=== PATIENT | female | born 1950 | race Caucasian/White ===

== ENCOUNTER → 2023-08-25 | Outpatient (CLI) | payer MEDICARE, SELFPAY ==
--- OUTSIDE RECORDS SUMMARY | 2023-08-25 11:32 | XMS RPT_ITS | CCD ---
Author Name Unknown Address [address] [place] [address] Organization [facility] Care Team Providers Care Tick Eradicator Name Role Phone Dustin [place] MD Primary Care Provider RENEE GARCIA Attending Unavailable DUSTIN [place] Primary Care UnavailSD Pruett Attending Unavailable DUSTIN [place] Primary Care UnavailRENEE Steve Referring Unavailable DUSTIN [place] Primary Care GUIDO Jones Referring Unavailable LJ SANTILLAN Attending Unavailable DUSTIN [place] Primary Care UnavailGUIDO Seymour Attending Unavailable DUSTIN [place] Primary Care UnavailGUIDO Seymour Attending Unavailable Medications Current Medications Medication Drug Class(es) Dates Sig (Normalized) Sig (Original) lidocaine 50 mg/ml topical cream (1 source) Antiarrhythmic, Amide Local Anesthetic Start: 06-12-2023 End: 06-14-2023 lidocaine (ANECREAM5) crea Apply to affected area as directed for 2 days. Apply to procedure site the evening before and morning of procedure 15 g 0 06/12/2023 06/14/2023 Active Completed/Discontinued Medications Medication Drug Class(es) Dates Sig (Normalized) Sig (Original) acetaminophen 325 mg oral tablet (6 sources) take 2 tablets by mouth every six hours as needed acetaminophen (TYLENOL) 325 mg tablet Take 650 mg by mouth every 6 hours as needed. 0 Active Problems Active Problems Problem Classification Problem Date Documented Da te Episodic/Chronic Melanomas of skin (6 sources) Malignant melanoma of skin of trunk; Translations: [Malignant melanoma of other part of trunk] Onset: 08-23-2023 06-08-2023 Chronic Other diseases of veins and lymphatics (3 sources) Lymphedema; Translations: [Lymphedema, not elsewhere classified] 06-12-2023 Chronic Past or Other Problems Problem Classification Problem Date Documented Da te Episodic/Chronic Joint disorders and dislocations; trauma-related (6 sources) Tear of medial meniscus of knee; Translations: [Tear of medial cartilage or meniscus of knee, current] Onset: 12-20-2012 12-20-2012 Episodic Other and unspecified benign neoplasm (1 source) Melanocytic nevi, unspecified; Translations: [Change in mole] Onset: 05-22-2023 Episodic Other non-traumatic joint disorders (6 sources) Pain in unspecified knee; Translations: [Pain in joint, lower leg] Onset: 11-15-2012 11-15-2012 Episodic Results Test Name Value Interpretation Reference Range Facil ity Vital Signs Date Time Vital Sign Value Performing Clinician Lissy reyes 08-07-2023 13:35-0500 Body height 162.6 cm Renee Garcia PA-C Work Phone: [facility] 08-07-2023 13:35-0500 Diastolic blood pressure 96 mm[Hg] Renee Garcia PA-C Work Phone: [facility] 08-07-2023 13:35-0500 Heart rate 68 /min Renee Garcia PA-C Work Phone: [facility] 08-07-2023 13:35-0500 SaO2% (BldA) [Mass fraction] 98 % Renee Martinesnn PA-C Work Phone: [facility] 08-07-2023 13:35-0500 Systolic blood pressure 158 mm[Hg] Renee Garcia PA-C Work Phone: [facility] 07-28-2023 19:30-0500 Diastolic blood pressure 86 mm[Hg] Lj Santillan MD Work Phone: [facility] 07-28-2023 19:30-0500 Heart rate 94 /min Lj Santillan MD Work Phone: [facility] 07-28-2023 19:30-0500 Respiratory rate 18 /min Lj Santillan MD Work Phone: [facility] 07-28-2023 19:30-0500 SaO2% (BldA) [Mass fraction] 98 % Lj Santillan MD Work Phone: [facility] 07-28-2023 19:30-0500 Systolic blood pressure 166 mm[Hg] Lj Santillan MD Work Phone: [facility] 07-28-2023 19:00-0500 Body temperature 97 [degF] Lj Santillan MD Work Phone: [facility] 07-28-2023 09:23-0500 Body weight 72.6 kg Lj Santillan MD Work Phone: [facility] 06-12-2023 13:56-0400 Body height 162.6 cm Lj Santillan MD Work Phone: [facility] 06-12-2023 13:56-0400 Body weight 73.03 kg Lj Santillan MD Work Phone: [facility] 06-12-2023 13:56-0400 Diastolic blood pressure 96 mm[Hg] Lj Santillan MD Work Phone: [facility] 06-12-2023 13:56-0400 Heart rate 85 /min jL Santillan MD Work Phone: [facility] 06-12-2023 13:56-0400 SaO2% (BldA) [Mass fraction] 97 % Lj Santillan MD Work Phone: [facility] 06-12-2023 13:56-0400 Systolic blood pressure 178 mm[Hg] Lj Santillan MD Work Phone: [facility] 05-29-2023 14:44-0400 Body height 162.6 cm Guido De Leon MD Work Phone: [facility] 05-29-2023 14:44-0400 Body temperature 97.7 [degF] Guido De Leon MD Work Phone: [facility] 05-29-2023 14:44-0400 Body weight 72.58 kg Guido De Leon MD Work Phone: [facility] 05-29-2023 14:44-0400 Diastolic blood pressure 84 mm[Hg] Guido De Leon MD Work Phone: [facility] 05-29-2023 14:44-0400 Heart rate 90 /min Guido De Leon MD Work Phone: [facility] 05-29-2023 14:44-0400 SaO2% (BldA) [Mass fraction] 97 % Guido De Leon MD Work Phone: [facility] 05-29-2023 14:44-0400 Systolic blood pressure 136 mm[Hg] Guido De Leon MD Work Phone: [facility] Encounters Encounter Date Encounter Type Care Provider Facility Start: 08-23-2023 End: 08-23-2023 ambulatory SD ENCINAS Facility:[facility] Start: 08-07-2023 End: 08-07-2023 ambulatory RENEE GARCIA Facility:[facility] Start: 08-07-2023 End: 08-07-2023 Patient encounter procedure Renee Garcia PA-C Work Phone: [facility] Procedures Date Procedure Procedure Detail Performing Clinician Start: 07-28-2023 Ecg routine ecg w/le ast 12 lds i&r only Rayray Kumari DO Work Phone: Start: 05-29-2023 Follow-up visit Follow Up GUIDO DE LEON Plan of Treatment Date Care Activity Detail Author Start: 04-28-2023 Influenza vaccination Influenza Vaccine (#1) [facility] Start: 08-28-2022 Advance Directive Discussion Advance Directive Discussion [facility] Start: 08-28-2022 Depression Assessment Depression Assessment [facility] Start: 01-08-2016 Diabetes Screening Diabetes Screening [facility] Start: 2014 Bone Density Screening Bone Density Screening [facility] Start: 2014 Pneumococcal Vaccine: 65+ (1 - PCV) Pneumococcal Vaccine: 65+ (1 - PCV) [facility] Start: 2009 RSV Vaccine (1 - 1-dose 60+ series) RSV Vaccine (1 - 1-dose 60+ series) [facility] Start: 1999 Shingrix Vaccine (1 of 2) Shingrix Vaccine (1 of 2) [facility] Start: 1994 Cologuard (FIT-DNA) Cologuard (FIT-DNA) [facility] Start: 1994 Colonoscopy Colonoscopy [facility] Start: 1994 Colorectal Cancer Screening Colorectal Cancer Screening [facility] Start: [address] Colonography [facility] Start: 1994 Fecal Occult Blood Fecal Occult Blood [facility] Start: 1994 Lipid 1996 panel - Serum or Plasma Lipid Screening [facility] Start: 1994 Sigmoidoscopy Sigmoidoscopy [facility] Start: 1989 Mammography Mammogram Screening [facility] Start: 1968 Urine microalbumin profile DTaP,Tdap,Td Vaccine (1 - Tdap) [facility] Start: 1967 Hepatitis C Screening Hepatitis C Screening [facility] Start: 02-16-1950 Covid-19 Vaccine (#1) Covid-19 Vaccine (#1) [facility] ECG COMPLETE ECG COMPLETE ECG STAT 07/28/2023 7:09 PM EST [facility] Work Phone: End: 07-13-2024 Lymphatics & lymph nodes imaging NM LYMPH NODE IMAGING Radiology Routine Lymphedema 1 Occurrences starting 06/12/2023 until 07/13/2024 [facility] Work Phone: Payers Date Payer Category Payer Medicare [id number] 2021 Unknown MMO MMO MEDICARE SUPPLEMENT [id number] 2021-Present [phone] [address] [place] [address] Indemnity [id number] 2014 Medicare MEDICARE MEDICAR E A AND B [id number] 2014-Present [phone] [address] [address] [place] [address] Medicare [id number] 2014 Medicare [id number] Social History Date Type Detail Facility Start: 01-07-2013 Tobacco smoking stat us NMIS Never smoked tobacco [facility] Start: 01-07-2013 Tobacco use and exposure Smoke less tobacco non-user [facility] Start: 05-29-2023 End: 07-28-2023 Alcohol intake Current drinker of alcohol (finding) [facility] Start: 05-22-2023 End: 05-29-2023 History of Social function [facility] Start: 05-22-2023 End: 05-29-2023 Tobacco use panel [facility] National Score (1-10 0), lower number is lower risk 75 [facility] Start: 1950 Sex Assigned At Not on file [facility] Clinical Notes 05-22-2023 to 08-23-2023 Renee Garcia PA-C - 08/07/2023 1:42 PM Josh Chavez RN - 07/28/2023 7:03 PM Lj Joya MD - 07/28/2023 2:08 PM ESTTelephone Encounter - Keily Gray - 06/23/2023 2:00 PM EDT Note Date & Type Note Facility 08-23-2023 Note HNO ID: [id number] Author: Sd Encinas MD Service: ? Author Type: Physician Type: Progress Notes Filed: 08/23/2023 4:26 PM Note Text: HISTORY OF PRESENT ILLNESS: Jodi Membreno is a 73 year old female mole on back, started to itch and bleed. Saw Dr De Leon biopsy showed melanoma. Wide excision and SLNB done 07-28-23 showed [id number] cancer Feels ok, on ROS mentions some double vision CLINICAL IMPRESSION: Melanoma stage IIC RECOMMENDATION/PLAN: 1. Adjuvant pembrolizumab 1 year 2. MRI brain Written and verbal health teaching given to patient, patient verbalizes understanding and agrees with treatment plan. PAST MEDICAL HISTORY Diagnosis Date Abnormal mammogram, unspecified left breast 2006 STEREOTACTIC Malignant melanoma (HCC) 06/12/2023 PONV (postoperative nausea and vomiting) PAST SURGICAL HISTORY Procedure Laterality Date PAST SURGICAL HISTORY OF Right arm REVJ TOT KNEE ARTHRP FEMANDENTIRE TIBIAL COMPONE Knee replacement PARTIAL LEFT 2004 SKIN BX, 1 LESION 05/22/2023 Atypical skin lesion to back STEREOTACTIC CORE BIOPSY 07/29/2009 left breast FAMILY HISTORY Problem Relation Age of Onset Ischemic Heart Disease Mother Dementia Mother Heart Father Social History Tobacco Use Smoking status: Never Smokeless tobacco: Never Vaping Use Vaping Use: Never used Substance Use Topics Alcohol use: Yes Comment: wine once a month Drug use: No ALLERGIES: ALLERGIES No Known Allergies CURRENT OUTPATIENT MEDICATIONS: cholecalciferol, vitamin D3, (VITAMIN D3 ORAL) Take 1 tablet by mouth once daily. acetaminophen (TYLENOL) 325 mg tablet Take 650 mg by mouth every 6 hours as needed. iv contrast (will be provided with radiology test) CT Chest ABD/PEL-Inject, intravenously, once for 1 dose.No IV access, insert saline lock prior to the beginning of sedation, infusion, injection of imaging exam. Discontinue saline lock post exam. If Pt. has a central line or IVAD, may access for administration according to line specific nursing protocol. Once exam is complete flush line and de-access according to line specific nursing protocol in the CT contrast administration guidelines link. enteric contrast (will be provided with radiology test) For CT CHESTABD/PEL W IVCON Routine order Administer, As Directed One Time Only, via Oral, Rectal, both Oral and Rectal, Enteric Tube, Stoma or Indwelling Catheter, Enteric Contrast as designated per enteric contrast guidelines REVIEW OF SYSTEMS: GENERAL: No fever, night sweats, weight loss or malaise. All other reviewed and negative other than HPI. PHYSICAL EXAMINATION: VITAL SIGNS: BP 180/84 Pulse 85 Temp (Src) 98.7 (Temporal) Ht 5' 2 (1.58m) Wt 168 lb 8 oz (76.4kg) SpO2 98% LMP 01/07/2003 BMI 30.81 kg/(m2). GENERAL APPEARANCE: Well appearing, in no acute distress, alert and oriented x3, well-hydrated, well nourished. I spent a total of 60 minutes on the date of the service which included preparing to see the patient, [id number] patient care, completing clinical documentation, obtaining and/or reviewing separately obtained history, counseling and educating the patient/family/caregiver, ordering medications, tests, or procedures, communicating with other HCPs (not separately reported), independently interpreting results (not separately reported), communicating results to the patient/family/caregiver, and care coordination (not separately reported). Electronically Signed: Sd Encinas MD August 23, 2023 12:52 PM [facility] 08-07-2023 Note HNO ID: [id number] Author: Renee Garcia PA-C Service: ? Author Type: Physician Toggler Type: Progress Notes Filed: 08/07/2023 2:33 PM Note Text: Renee Garcia PA-C [facility] and Surgical Oncology 1 [facility], [place] [id number] RUBY Membreno is a 72 year old female here for a post op visit. The patient is 10 days s/p wide local excision and sentinel lymph node biopsy. She is keeping her back incision covered with gauze, minimal output noted on gauze. No swelling noted at axillary incision. No fever/chills. The ROS, medical, surgical, family, and social history were reviewed by Renee Garcia PA-C OBJECTIVE BP 158/96 Pulse 68 Ht 162.6 cm (5' 4 ) LMP 01/07/2003 SpO2 98% BMI 27.47 kg/m? No weight on file for this encounter. Physical Exam: General: Patient seated in no acute distress Respiratory: Breathing comfortably on room air Cardiovascular: Regular rate Skin: Back incision intact without erythema, edema, or discharge. Sutures intact. Left Axilla incision intact without erythema, edema, or discharge Neurologic: She is alert and oriented to person, place, and time. Plan Malignant melanoma of skin The patient is recovering as expected, no evidence of infection or wound complications at this time. Her pathology is still pending, will call her with results and to discuss next steps based on pathology. All questions were answered to the patient's satisfaction and she is agreeable with the plan. Renee Garcia PA-C 08/07/2023 1:42 PM [facility] 08-07-2023 History of Presen t illness Narrative Images from the original note were not included. Renee Garcia PA-C [facility] Surgical Oncology 1 [facility], [place] [id number] RUBY Membreno is a 72 year old female here for a post op visit. The patient is 10 days s/p wide local excision and sentinel lymph node biopsy. She is keeping her back incision covered with gauze, minimal output noted on gauze. No swelling noted at axillary incision. No fever/chills. The ROS, medical, surgical, family, and social history were reviewed by Renee Garcia PA-C OBJECTIVE BP 158/96 Pulse 68 Ht 162.6 cm (5' 4 ) LMP 01/07/2003 SpO2 98% BMI 27.47 kg/m No weight on file for this encounter. Physical Exam: General: Patient seated in no acute distress Respiratory: Breathing comfortably on room air Cardiovascular: Regular rate Skin: Back incision intact without erythema, edema, or discharge. Sutures intact. Left Axilla incision intact without erythema, edema, or discharge Neurologic: She is alert and oriented to person, place, and time. Plan Malignant melanoma of skin The patient is recovering as expected, no evidence of infection or wound complications at this time. Her pathology is still pending, will call her with results and to discuss next steps based on pathology. All questions were answered to the patient's satisfaction and she is agreeable with the plan. Renee Garcia PA-C 08/07/2023 1:42 PM documented in this encounter [facility] 07-28-2023 Note HNO ID: [id number] Author: Josh Garland RN Service: Nursing Author Type: Registered Nurse Type: Nursing Progress Note Filed: 07/28/2023 7:04 PM Note Text: Patient complaining of chest pressure 2/10. Dr. Kumari notified. Stat EKG ordered [facility] 07-28-2023 Nurse Note Patient complaining of chest pressure 2/10. Dr. Kumari notified. Stat EKG ordered documented in this encounter [facility] 07-28-2023 Note HNO ID: [id number] Author: Keily Fitzgerald APRN.CRNA Service: Anesthesiology Author Type: Nurse Chess Instructor Type: Anesthesia Procedure Notes Filed: 07/28/2023 3:28 PM Note Text: ANESTHESIOLOGY PROCEDURE NOTE Airway General Information Procedure Start Time/Medication Administration: 07/28/2023 3:02 PM Patient location during procedure: OR Timeout Performed Pre-procedure: timeout performed Consent Obtained: Yes Patient identity confirmed: arm band and patient Staffing Anesthesiologist: Page Vargas MD DENTAL HYGIENE ADMINISTRATIVE ASSISTANT: Keily Fitzgerald APRN.DENTAL HYGIENE ADMINISTRATIVE ASSISTANT SRNA: Danay Craven SRNA Performed by: anesthesiologist, HAYLEE and DENTAL HYGIENE ADMINISTRATIVE ASSISTANT Indications and Patient Condition Indications for airway management: anesthesia and airway protection Preoxygenated: yes anesthesia circuit Patient position: sniffing Method: asleep Cricoid Pressure: No Manual In-Line Stabilization: No Difficult Mask: No Airway Accessory: oral airway Final Airway Details Final airway type: endotracheal airway Final Endotracheal Airway: ETT Successful intubation technique: direct laryngoscopy Devices used: intubating stylet Endotracheal tube insertion site: oral Blade: Rosa Maria Blade size: #3 ETT size (mm): 7.0 Measurement (cm): 21 Placement verified by: chest auscultation and capnometry Cormack-Lehane Classification: grade I - full view of glottis Number of attempts at approach: 1 Failed airway: no Unrecognized esophageal intubation: no Airway not difficult SIGNATURE: Keily Fitzgerald APRN.CRNA PATIENT NAME: Jodi Membreno DATE: July 28, 2023 TIME: 3:27 PM CSN: [id number] [facility] 07-28-2023 History and physical note Images from the original note were not included. Lj Santillan M.D. Surgical Oncology [address] [place] [address], [address] [place] [address] SUBJECTIVE HPI Jodi Membreno is a 72 year old female presenting with newly diagnosed melanoma of the back. Patient sent to the doctor and was noted to have a atypical 3 x 2 cm lesion of her back which is pigmented. A punch biopsy was performed and demonstrated a 0.7 mm Breslow depth melanoma without ulceration or mitotic rate. Given this finding patient was referred to surgical oncology for further evaluation. Currently, patient reports that overall she feels well. She reports no systemic symptoms related to her melanoma. No focal neurologic deficits. No abdominal pain or blood in the bowels. No fevers chills or sweats. No shortness of breath or chest pain. Review of Systems Constitutional: Negative for malaise/fatigue and weight loss. HENT: Negative for sore throat. Eyes: Negative for blurred vision and double vision. Respiratory: Negative for cough, hemoptysis, shortness of breath and stridor. Cardiovascular: Negative for palpitations, claudication and leg swelling. Gastrointestinal: Negative for abdominal pain, blood in stool, nausea and vomiting. Genitourinary: Negative for dysuria, flank pain and hematuria. Musculoskeletal: Negative for falls, joint pain and myalgias. Skin: Negative for rash. Neurological: Negative for speech change, focal weakness and headaches. Endo/Heme/Allergies: Does not bruise/bleed easily. Psychiatric/Behavioral: Negative for depression and memory loss. The patient is not nervous/anxious. PAST MEDICAL HISTORY PAST MEDICAL HISTORY Diagnosis Date Abnormal mammogram, unspecified left breast 2006 STEREOTACTIC PAST SURGICAL HISTORY PAST SURGICAL HISTORY Procedure Laterality Date PAST SURGICAL HISTORY OF Right arm REVJ TOT KNEE ARTHRP FEM&ENTIRE TIBIAL COMPONE Knee replacement PARTIAL LEFT 2003 SKIN BX, 1 LESION 05/22/2023 Atypical skin lesion to back STEREOTACTIC CORE BIOPSY 07/29/2009 left breast SOCIAL HISTORY Social History Tobacco Use Smoking status: Never Smokeless tobacco: Never Vaping Use Vaping Use: Never used Substance Use Topics Alcohol use: Yes Comment: wine once a month Drug use: No FAMILY HISTORY FAMILY HISTORY Problem Relation Age of Onset Ischemic Heart Disease Mother The ROS, medical, surgical, family, and social history were reviewed by Lj Santillan MD ALLERGIES ALLERGIES No Known Allergies CURRENT MEDICATIONS Current Outpatient Medications Medication Sig acetaminophen (TYLENOL) 325 mg tablet Take 650 mg by mouth every 6 hours as needed. No current facility-administered medications for this visit. OBJECTIVE LMP 01/07/2003 No weight on file for this encounter. Physical Exam Constitutional: General: She is not in acute distress. HENT: Head: Normocephalic and atraumatic. Eyes: Pupils: Pupils are equal, round, and reactive to light. Neck: Thyroid: No thyromegaly. Trachea: No tracheal deviation. Cardiovascular: Rate and Rhythm: Normal rate and regular rhythm. Heart sounds: Normal heart sounds. Pulmonary: Effort: Pulmonary effort is normal. No respiratory distress. Breath sounds: Normal breath sounds. No stridor. Abdominal: General: There is no distension. Palpations: Abdomen is soft. Tenderness: There is no abdominal tenderness. Musculoskeletal: General: No deformity. Normal range of motion. Lymphadenopathy: Cervical: No cervical adenopathy. Upper Body: Right upper body: No supraclavicular or axillary adenopathy. Left upper body: No supraclavicular or axillary adenopathy. Lower Body: No right inguinal adenopathy. No left inguinal adenopathy. Skin: General: Skin is warm and dry. Findings: No erythema or rash. Comments: Upper mid back pigmented lesion measuring approximately 3 cm vertically by 2 cm horizontally. There is a small satellite lesion which may represent some progression of her primary versus a benign nevus versus a true satellite melanoma. Neurological: Mental Status: She is alert and oriented to person, place, and time. Psychiatric: Mood and Affect: Affect normal. Judgment: Judgment normal. ASSESSMENT AND PLAN Plan (Some elements copied from my note on 06/12/2023, which have been updated where appropriate, and all reflect current medical decision making from today, 07/28/2023) 72-year-old woman with newly diagnosed clinical stage I melanoma. We will proceed with a wide local excision of the back with sentinel lymph node biopsy of the left axilla. documented in this encounter [facility] 06-23-2023 Miscellaneous Notes Called and spoke with Patient, she has been informed of surgery date and time. documented in this encounter [facility] 06-12-2023 Note HNO ID: [id number] Author: Lj Santillan MD Service: ? Author Type: Physician Type: Progress Notes Filed: 06/12/2023 7:38 PM Note Text: Lj Santillan M.D. Surgical Oncology 1 [facility], [address] [place] [id number] SUBJECTIVE HPI Jodi Membreno is a 72 year old female presenting with newly diagnosed melanoma of the back. Patient sent to the doctor and was noted to have a atypical 3 x 2 cm lesion of her back which is pigmented. A punch biopsy was performed and demonstrated a 0.7 mm Breslow depth melanoma without ulceration or mitotic rate. Given this finding patient was referred to surgical oncology for further evaluation. Currently, patient reports that overall she feels well. She reports no systemic symptoms related to her melanoma. No focal neurologic deficits. No abdominal pain or blood in the bowels. No fevers chills or sweats. No shortness of breath or chest pain. Review of Systems Constitutional: Negative for malaise/fatigue and weight loss. HENT: Negative for sore throat. Eyes: Negative for blurred vision and double vision. Respiratory: Negative for cough, hemoptysis, shortness of breath and stridor. Cardiovascular: Negative for palpitations, claudication and leg swelling. Gastrointestinal: Negative for abdominal pain, blood in stool, nausea and vomiting. Genitourinary: Negative for dysuria, flank pain and hematuria. Musculoskeletal: Negative for falls, joint pain and myalgias. Skin: Negative for rash. Neurological: Negative for speech change, focal weakness and headaches. Endo/Heme/Allergies: Does not bruise/bleed easily. Psychiatric/Behavioral: Negative for depression and memory loss. The patient is not nervous/anxious. PAST MEDICAL HISTORY Diagnosis Date Abnormal mammogram, unspecified left breast 2006 STEREOTACTIC PAST SURGICAL HISTORY Procedure Laterality Date PAST SURGICAL HISTORY OF Right arm REVJ TOT KNEE ARTHRP FEMANDENTIRE TIBIAL COMPONE Knee replacement PARTIAL LEFT 2003 SKIN BX, 1 LESION 05/22/2023 Atypical skin lesion to back STEREOTACTIC CORE BIOPSY 07/29/2009 left breast Social History Tobacco Use Smoking status: Never Smokeless tobacco: Never Vaping Use Vaping Use: Never used Substance Use Topics Alcohol use: Yes Comment: wine once a month Drug use: No FAMILY HISTORY Problem Relation Age of Onset Ischemic Heart Disease Mother The ROS, medical, surgical, family, and social history were reviewed by Lj Santillan MD ALLERGIES No Known Allergies Current Outpatient Medications Medication Sig acetaminophen (TYLENOL) 325 mg tablet Take 650 mg by mouth every 6 hours as needed. No current facility-administered medications for this visit. OBJECTIVE LMP 01/07/2003 No weight on file for this encounter. Physical Exam Constitutional: General: She is not in acute distress. HENT: Head: Normocephalic and atraumatic. Eyes: Pupils: Pupils are equal, round, and reactive to light. Neck: Thyroid: No thyromegaly. Trachea: No tracheal deviation. Cardiovascular: Rate and Rhythm: Normal rate and regular rhythm. Heart sounds: Normal heart sounds. Pulmonary: Effort: Pulmonary effort is normal. No respiratory distress. Breath sounds: Normal breath sounds. No stridor. Abdominal: General: There is no distension. Palpations: Abdomen is soft. Tenderness: There is no abdominal tenderness. Musculoskeletal: General: No deformity. Normal range of motion. Lymphadenopathy: Cervical: No cervical adenopathy. Upper Body: Right upper body: No supraclavicular or axillary adenopathy. Left upper body: No supraclavicular or axillary adenopathy. Lower Body: No right inguinal adenopathy. No left inguinal adenopathy. Skin: General: Skin is warm and dry. Findings: No erythema or rash. Comments: Upper mid back pigmented lesion measuring approximately 3 cm vertically by 2 cm horizontally. There is a small satellite lesion which may represent some progression of her primary versus a benign nevus versus a true satellite melanoma. Neurological: Mental Status: She is alert and oriented to person, place, and time. Psychiatric: Mood and Affect: Affect normal. Judgment: Judgment normal. ASSESSMENT AND PLAN Plan 72-year-old woman with newly diagnosed clinical stage I melanoma. I discussed this finding with the patient in the context of her residual disease. Advised patient that it is possible that she would have upstaging of her disease after complete wide local excision. We also discussed the role of sentinel lymph node biopsy in regard to her overall care. We had a thorough discussion of the various management options as well as the risks and benefits of each. At the end of the conversation we elected to proceed with a wide local excision of the back with sentinel lymph node biopsy. This will allow us to perform a local flap closure if necessary. A (more content not included)... [facility] 06-12-2023 History of Presen t illness Narrative Images from the original note were not included. Lj Santillan M.D. Surgical Oncology 1 [facility], [address] [place] [id number] SUBJECTIVE HPI Jodi Membreno is a 72 year old female presenting with newly diagnosed melanoma of the back. Patient sent to the doctor and was noted to have a atypical 3 x 2 cm lesion of her back which is pigmented. A punch biopsy was performed and demonstrated a 0.7 mm Breslow depth melanoma without ulceration or mitotic rate. Given this finding patient was referred to surgical oncology for further evaluation. Currently, patient reports that overall she feels well. She reports no systemic symptoms related to her melanoma. No focal neurologic deficits. No abdominal pain or blood in the bowels. No fevers chills or sweats. No shortness of breath or chest pain. Review of Systems Constitutional: Negative for malaise/fatigue and weight loss. HENT: Negative for sore throat. Eyes: Negative for blurred vision and double vision. Respiratory: Negative for cough, hemoptysis, shortness of breath and stridor. Cardiovascular: Negative for palpitations, claudication and leg swelling. Gastrointestinal: Negative for abdominal pain, blood in stool, nausea and vomiting. Genitourinary: Negative for dysuria, flank pain and hematuria. Musculoskeletal: Negative for falls, joint pain and myalgias. Skin: Negative for rash. Neurological: Negative for speech change, focal weakness and headaches. Endo/Heme/Allergies: Does not bruise/bleed easily. Psychiatric/Behavioral: Negative for depression and memory loss. The patient is not nervous/anxious. PAST MEDICAL HISTORY Diagnosis Date Abnormal mammogram, unspecified left breast 2006 STEREOTACTIC PAST SURGICAL HISTORY Procedure Laterality Date PAST SURGICAL HISTORY OF Right arm REVJ TOT KNEE ARTHRP FEM&ENTIRE TIBIAL COMPONE Knee replacement PARTIAL LEFT 2003 SKIN BX, 1 LESION 05/22/2023 Atypical skin lesion to back STEREOTACTIC CORE BIOPSY 07/29/2009 left breast Social History Tobacco Use Smoking status: Never Smokeless tobacco: Never Vaping Use Vaping Use: Never used Substance Use Topics Alcohol use: Yes Comment: wine once a month Drug use: No FAMILY HISTORY Problem Relation Age of Onset Ischemic Heart Disease Mother The ROS, medical, surgical, family, and social history were reviewed by Lj Santillan MD ALLERGIES No Known Allergies Current Outpatient Medications Medication Sig acetaminophen (TYLENOL) 325 mg tablet Take 650 mg by mouth every 6 hours as needed. No current facility-administered medications for this visit. OBJECTIVE LMP 01/07/2003 No weight on file for this encounter. Physical Exam Constitutional: General: She is not in acute distress. HENT: Head: Normocephalic and atraumatic. Eyes: Pupils: Pupils are equal, round, and reactive to light. Neck: Thyroid: No thyromegaly. Trachea: No tracheal deviation. Cardiovascular: Rate and Rhythm: Normal rate and regular rhythm. Heart sounds: Normal heart sounds. Pulmonary: Effort: Pulmonary effort is normal. No respiratory distress. Breath sounds: Normal breath sounds. No stridor. Abdominal: General: There is no distension. Palpations: Abdomen is soft. Tenderness: There is no abdominal tenderness. Musculoskeletal: General: No deformity. Normal range of motion. Lymphadenopathy: Cervical: No cervical adenopathy. Upper Body: Right upper body: No supraclavicular or axillary adenopathy. Left upper body: No supraclavicular or axillary adenopathy. Lower Body: No right inguinal adenopathy. No left inguinal adenopathy. Skin: General: Skin is warm and dry. Findings: No erythema or rash. Comments: Upper mid back pigmented lesion measuring approximately 3 cm vertically by 2 cm horizontally. There is a small satellite lesion which may represent some progression of her primary versus a benign nevus versus a true satellite melanoma. Neurological: Mental Status: She is alert and oriented to person, place, and time. Psychiatric: Mood and Affect: Affect normal. Judgment: Judgment normal. ASSESSMENT AND PLAN Plan 72-year-old woman with newly diagnosed clinical stage I melanoma. I discussed this finding with the patient in the context of her residual disease. Advised patient that it is possible that she would have upstaging of her disease after complete wide local excision. We also discussed the role of sentinel lymph node biopsy in regard to her overall care. We had a thorough discussion of the various management options as well as the risks and benefits of each. At the end of the conversation we elected to proceed with a wide local excision of the back with sentinel lymph node biopsy. This will allow us to perform a local flap closure if necessary. Answered all the patient's questions to her satisfaction and she was agreeable to this plan. We will schedule the patient at her earliest convenience. I spent a total of 45 minutes on the date of the service which included preparing to see the patient, completing clinical documentation, performing a medically appropriate examination, and counseling and educating the patient/family/caregiver. Lj Santillan MD 06/12/2023 1:46 PM documented in this encounter [facility] 06-08-2023 Note HNO ID: [id number] Author: Guido De Leon MD Service: ? Author Type: Physician Type: Progress Notes Filed: 06/08/2023 1:09 PM Note Text: Subjective: Patient status post a punch biopsy to an atypical skin lesion to her back. Pathology report came back consistent with malignant melanoma. Objective:Blood pressure 136/84, pulse 90, temperature 36.5 ?C (97.7 ?F), height 162.6 cm (5' 4 ), weight 72.6 kg (160 lb), last menstrual period 01/07/2003, SpO2 97 %. Suture was removed. No signs of infection. Assessment:Malignant melanoma of skin of trunk, except scrotum (hcc) (primary encounter diagnosis) I have referrals out to oncology for the patient. If patient needs a port she can follow-up with me and I will place this. [facility] 06-08-2023 History of Presen t illness Narrative Subjective: Patient status post a punch biopsy to an atypical skin lesion to her back. Pathology report came back consistent with malignant melanoma. Objective:Blood pressure 136/84, pulse 90, temperature 36.5 C (97.7 F), height 162.6 cm (5' 4 ), weight 72.6 kg (160 lb), last menstrual period 01/07/2003, SpO2 97 %. Suture was removed. No signs of infection. Assessment:Malignant melanoma of skin of trunk, except scrotum (hcc) (primary encounter diagnosis) I have referrals out to oncology for the patient. If patient needs a port she can follow-up with me and I will place this. documented in this encounter [facility] 05-22-2023 Note HNO ID: [id number] Author: Guido De Leon MD Service: ? Author Type: Physician Type: Progress Notes Filed: 05/22/2023 3:13 PM Note Text: Preoperative diagnosis: Atypical skin lesion to back Postoperative diagnosis: Same Procedure: 4 mm punch biopsy of abnormal skin lesion to back Surgical Haley Procedure: Patient had a 3 cm x 2 cm irregularly blackened mole of her back. Area was cleaned with Betadine. 1% lidocaine plain was injected. 4 mm punch biopsy was performed. This was sent to pathology for permanent sectioning. I brought the wound together with a single suture of 4-0 nylon. Sterile dressings were applied. The patient tolerated the procedure well. [facility] Malignant melanoma of torso excluding breast (HCC)- Primary Lymphedema Other lymphedema [facility] Diagnosis Malignant melanoma of torso excluding breast (HCC)- Primary Lymphedema Other lymphedema Malignant melanoma of torso excluding breast (HCC) Lymphedema Other lymphedema [facility] Diagnosis Malignant melanoma of torso excluding breast (HCC) Lymphedema Other lymphedema [facility] Diagnosis Malignant melanoma of torso excluding breast (HCC)- Primary [facility] Diagnostic Procedure Only (Routine) - Pending Review Specialty Diagnoses / Procedures Referred By Letty ding Referred To Contact MOLECULAR & FUNCTIONAL IMAGING Diagnoses Lymphedema Procedures NM LYMPH NODE IMAGING LYMPHATICS & LYMPH NODES IMAGING Lj Santillan MD [address] [place] [address] Molecular & Functional Imaging [address] [place] [address] Referral ID Status Reason Start Date Expiration Date Visits Requested Visits Authorized [id number] Pending Review Auto-Generat ed Referral 3 07/11/2024 1 1 [facility] Medications Administered Section Inactive Administered Medications - up to 3 most recent administrations Medication Order MAR Action Action Date Dose Rate Site acetaminophen 975 mg tab(s) (TYLENOL) 975 mg, ORAL, PRE-OP ONCE, 1 dose, On Mon07/28/23 at 1300, If ordered PRN for pain, patient/guardian may elect to receive this medication for higher pain levels INSTEAD of the opioid, if preferred: Yes, Preprocedure Given 07/28/2023 10:03 AM EST 975 mg celecoxib 400 mg cap(s) (CeleBREX) 400 mg, ORAL, PRE-OP ONCE, 1 dose, On Mon07/28/23 at 1300, Preprocedure Given 07/28/2023 10:03 AM EST 400 mg enoxaparin 40 mg injection (LOVENOX) 40 mg, SUBCUTANEOUS, ONCE, 1 dose, On Mon07/28/23 at 1300, ADMINISTER IN PRE-OP AREA Day of Surgery Pre Op Order, Preprocedure Given 07/28/2023 10:03 AM EST 40 mg Abdominal Tissue fentaNYL 50 mcg/mL 50 mcg injection (SUBLIMAZE) 50 mcg, INTRAVENOUS, EVERY 5 MINUTES NEEDED, 2 doses, Starting on Mon07/28/23 at 1749, Until 07/29/23 at 0303, Moderate Pain (4-6) - Parenteral, FIRST LINE THERAPY for mild, moderate, or severe pain, Every 5 minutes. Use if patient unable to tolerate oral therapy. Hold for respiratory rate less than 12 Max total dose: 100 mcg, Recovery or Phase I (only) lactated ringers iv infusion 5-30 mL/hr, INTRAVENOUS, CONTINUOUS, Starting on Mon07/28/23 at 1300, Until Mon07/28/23 at 1748, Preprocedure New Bag/Syringe/Vlad ttle 07/28/2023 9:49 AM EST 30 mL/hr 30 mL/hr lactated ringers iv infusion 125 mL/hr, INTRAVENOUS, CONTINUOUS, Starting on Mon07/28/23 at 1800, Until 07/29/23 at 0303, Recovery or Phase I (only) Rate Verify 07/28/2023 6:00 PM EST 125 mL/hr 125 mL/hr meperidine (PF) 12.5 mg injection (DEMEROL) 12.5 mg, INTRAVENOUS, EVERY 10 MINUTES NEEDED, 2 doses, Starting on Mon07/28/23 at 1749, Until 07/29/23 at 0303, for shivering, May Repeat 12.5 mg in 10 minutes X1 for Continued Shivering, Recovery or Phase I (only) ondansetron (PF) 4 mg injection (ZOFRAN) 4 mg, INTRAVENOUS, ONCE, 1 dose, On Mon07/28/23 at 1900, Give IV push over 2 minutes, Recovery or Phase I (only) Given 07/28/2023 6:36 PM EST 4 mg oxyCODONE IR 5 mg tab(s) (ROXICODONE) 5 mg, ORAL, NEEDED, 1 dose, Starting on Mon07/28/23 at 1749, Until 07/29/23 at 0303, Moderate Pain (4-6) - Enteral, Recovery or Phase I (only) Advance Directives No Advanced Directives Records FoundDocuments on File Type Date Recorded 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 Advance Directive(s) 07/28/2023 8:17 AM Summary Purpose Family History No Family History Records FoundNo Family History Records Found Additional Source Comments Source Comments (unrecognize d section and content) In the event this informatio n is protected by the Federal Confidentiality of Alcohol and Drug Abuse Patient Records regulations: The Federal rules restrict any use of the information to criminally investigate or prosecute any alcohol or drug abuse patient.[facility] the event this information is protected by the Federal Confidentiality of Alcohol and Drug Abuse Patient Records regulations: The Federal rules restrict any use of the information to criminally investigate or prosecute any alcohol or drug abuse patient.[facility] Healthcare[facility] the event this information is protected by the Federal Confidentiality of Alcohol and Drug Abuse Patient Records regulations: The Federal rules restrict any use of the information to criminally investigate or prosecute any alcohol or drug abuse patient.[facility] Healthcare[facility] the event this information is protected by the Federal Confidentiality of Alcohol and Drug Abuse Patient Records regulations: The Federal rules restrict any use of the information to criminally investigate or prosecute any alcohol or drug abuse patient.[facility] Healthcare[facility] the event this information is protected by the Federal Confidentiality of Alcohol and Drug Abuse Patient Records regulations: The Federal rules restrict any use of the information to criminally investigate or prosecute any alcohol or drug abuse patient.[facility] Healthcare[facility] the event this information is protected by the Federal Confidentiality of Alcohol and Drug Abuse Patient Records regulations: The Federal rules restrict any use of the information to criminally investigate or prosecute any alcohol or drug abuse patient.[facility] Reason for Visit (unrecogniz ed section and content) Reason Comments Consult Referred by Dr.Peabo crews, Melanoma Mid Back Reason Comments Post Op Follow Up S/P [facility] Melanoma Care Teams (unrecognized sec tion and content) Tick Eradicator Relationship Specialty Start Date End Date Dustin Thurston MD [address] [facility] [place] [address] PCP - General 07/08/09 Tick Eradicator Relationship Specialty Start Date End Date Dustin Thurston MD [address] [place] [address] PCP - General 07/08/09 Tick Eradicator Relationship Specialty Start Date End Date Dustin Thurston MD [address] [place], [place] [id number] PCP - General 07/08/09 Tick Eradicator Relationship Specialty Start Date End Date Dustin Thurston MD [address] [place] [id number] PCP - General 07/08/09 Tick Eradicator Relationship Specialty Start Date End Date Dustin Thurston MD [address] [place], [place] [id number] PCP - General 07/08/09 Scheduled Active and Recently Administ ered Medications (unrecognized section and content) Continuous Medication Order 07/26/2023 07/27/2023 07/28/2023 lactated ringers iv infusion (CANCELED) 5-30 mL/hr, INTRAVENOUS, CONTINUOUS, Starting on Mon07/28/23 at 1300, Until Mon07/28/23 at 1748, Preprocedure 0949 (New Bag/Syring e/Bottle - Provider: Rashmi Mckeon RN)1300 (Due)1748 (Due: Infusion Complete) lactated ringers iv infusion 125 mL/hr, INTRAVENOUS, CONTINUOUS, Starting on Mon07/28/23 at 1800, Until 07/29/23 at 0303, Recovery or Phase I (only) 1800 (Rate Verify - Provider: Yuliet Cai RN) PRN Medication Order 07/26/2023 07/27/2023 07/28/2023 fentaNYL 50 mcg/mL 50 mcg injection (SUBLIMAZE) 50 mcg, INTRAVENOUS, EVERY 5 MINUTES NEEDED, 2 doses, Starting on Mon07/28/23 at 1749, Until 07/29/23 at 0303, Moderate Pain (4-6) - Parenteral, FIRST LINE THERAPY for mild, moderate, or severe pain, Every 5 minutes. Use if patient unable to tolerate oral therapy. Hold for respiratory rate less than 12 Max total dose: 100 mcg, Recovery or Phase I (only) indocyanine green injection (IC GREEN) (CANCELED) X (OR/PROCEDURE) PRN, Starting on Mon07/28/23 at 1526, Until 07/28/23 at 1805, Intraprocedure 1526 (Given - Provid er: Lj Santillan MD - Comment: SQ INFILTRATAION, UPPER BACK SKIN) meperidine (PF) 12.5 mg injection (DEMEROL) 12.5 mg, INTRAVENOUS, EVERY 10 MINUTES NEEDED, 2 doses, Starting on Mon07/28/23 at 1749, Until 07/29/23 at 0303, for shivering, May Repeat 12.5 mg in 10 minutes X1 for Continued Shivering, Recovery or Phase I (only) oxyCODONE IR 5 mg tab(s) (ROXICODONE) 5 mg, ORAL, NEEDED, 1 dose, Starting on Mon07/28/23 at 1749, Until 07/29/23 at 0303, Moderate Pain (4-6) - Enteral, Recovery or Phase I (only) sterile water injection (CANCELED) X (OR/PROCEDURE) PRN, Starting on Mon07/28/23 at 1543, Until Mon07/28/23 at 1805, Intraprocedure 1543 (Given - Provid er: Lj Santillan MD - Comment: SQ INFILTRATION UPPER BACK SKIN) INFORMATION SOURCE (unrecogn ized section and content) DATE CREATED AUTHOR AUTHOR'S ORGANIZ ATION 08/25/2023 [facility] FOR RECORDS PERTAINING TO PATIENTS WHO ARE OR HAVE BEEN ENROLLED IN A CHEMICAL DEPENDENCY/SUBSTANCEABUSE PROGRAM, SOME INFORMATION MAY BE OMITTED. This clinical summary was aggregated from multiple sources. Caution should be exercised in using it in the provision of clinical care. This summary normalizes information from multiple sources, and as a consequence, information in this document may materially change the coding, format and clinical context of patient data. In addition, data may be omitted in some cases. CLINICAL DECISIONS SHOULD BE BASED ON THE PRIMARY CLINICAL RECORDS. [employer] provides no warranty or guarantee of the accuracy or completeness of information in this document.
[2023-08-25 12:18] LABS: Hematocrit 45.6 % (37-47); Hemoglobin 15.2 g/dL (12.0-15.0); Mean Corp Hgb Conc 33.3 g/dL (32-36); Mean Corpuscular Hgb 29.7 pg (27.0-32.0); Mean Corpuscular Volume 89.2 fL (81-99); Mean Platelet Vol. 10.3 fl (6.2-12.0); Platelet Count 193 K/mm3 (150-450); RBC Distribution Width CV 13.5 % (11.6-14.6); RBC Distribution Width SD 44.4 fl (35.1-43.9); Red Blood Count 5.11 M/mm3 (4.2-5.4); White Blood Count 6.5 K/mm3 (4.4-11.0)
[2023-08-25 12:42] LABS: Microalbumin,Random Urine 6.4 mg/L (NO RANGE EST.); Microalbumin:Creatinine Ratio 6.6 mg/g CRE (<30 mg/g CRE)
[2023-08-25 12:57] LABS: AST(SGOT) 41 U/L (15-37); Alanine Aminotransfer ALT/SGPT 123 U/L (13-56); Albumin, Serum 3.8 g/dL (3.2-5.0); Alkaline Phosphatase 91 U/L (45-117); Anion Gap 6 (5-15); BUN 25 mg/dL (7-18); BUN/Creat Ratio 29.3 RATIO (10-20); Calcium,Total 9.3 mg/dL (8.5-10.1); Chloride 106 mmol/L (98-107); Creatinine, Serum 0.85 mg/dL (0.55-1.02); EST Glomerular Filtration Rate 69 mL/min (>60); Est Glom Filt Rate - Afr Amer 84 mL/min (>60); Globulin 3.8 g/dL (2.2-4.2); Glucose 88 mg/dL (74-106); Potassium 4.2 mmol/L (3.5-5.1); Protein, Total 7.6 g/dL (6.4-8.2); Sodium Level 140 mmol/L (136-145)
== END | disposition home or self-care (01) ==
LOC: MFPLAB 11:05
PROVIDERS: Nurse Practitioner Family; PCP Family Medicine; Visit Provider Family Medicine
DX: R03.0 Elevated blood-pressure reading, without diagnosis of hypertension (principal)
CPT/HCPCS: 36415; 80053; 82043; 82570; 85027

== ENCOUNTER → 2025-06-20 | Outpatient (CLI) | payer MEDICARE, OTHER, SELFPAY ==
--- OUTSIDE RECORDS SUMMARY | 2025-06-20 07:34 | XMS RPT_ITS | CCD ---
Author Organization [facility] Informat ion [facility] Care Team Providers Care Accounting Auditor Name Role Phone Dustin Thurston MD Primary Care Provider Adan Thurston Attending Unavailable Adan Thurston Primary Care Unavailable Dustin Thurston MD Primary Care Provider Sd Saldaña MD Unavailable Becky Gastelum RN Unavailable Dustin Thurston MD Primary Care Provider VALENTE GARCIA Attending Unavailable DUSTIN THURSTON Primary Care Unavailabl REMI East Attending Unavailable DUSTIN THURSTON Primary Care UnavailRemi Garcia MD Unavailable Dustin Thurston MD Primary Care Provider SD SALDAÑA Attending Unavailable DUSTIN THURSTON Primary Care Unavailabl DUSTIN St Primary Care Unavailabl e SD SALDAÑA Referring Unavailable DUSTIN THURSTON Primary Care Unavailabl e SD SALDAÑA Referring Unavailable SD SALDAÑA Referring Unavailable DUSTIN THURSTON Primary Care Unavailabl e DUSTIN THURSTON Primary Care Unavailabl e SD SALDAÑA Referring Unavailable DUSTIN THURSTON Primary Care Unavailabl e SD SALDAÑA Referring Unavailable SUSAN OCONNOR Attending Unavailable DUSTIN THURSTON Primary Care Unavailabl e SD SALDAÑA Referring Unavailable DS SALDAÑA Referring Unavailable DUSTIN THURSTON Primary Care Unavailabl e DUSTIN THURSTON Primary Care Unavailabl e SD SALDAÑA Referring Unavailable ABRAMOVICH, SD Referring Unavailable DUSTIN THURSTON Primary Care Unavailabl e ABRAMOVICH, SD Referring Unavailable DUSTIN THURSTON Primary Care Unavailabl e RANDUSTIN AUGUSTE Primary Care Unavailabl e ABRAMOVICH, SD Referring Unavailable MILAGROS ANGEL Attending Unavailable DUSTIN THURSTON Primary Care Unavailabl e ABRAMOVICH, SD Referring Unavailable DUSTIN THURSTON Primary Care Unavailabl e ABRAMOVICH, SD Referring Unavailable DUSTIN THURSTON Primary Care Unavailabl e RANDUSTIN AUGUSTE Primary Care Unavailabl e ABRAMOVICH, SD Referring Unavailable DUSTIN THURSTON Primary Care Unavailabl e ABRAMOVICH, SD Referring Unavailable DUSTIN THURSTON Primary Care Unavailabl e ABRAMOVICH, SD Referring Unavailable ABRAMOVICH, SD Attending Unavailable DUSTIN THURSTON Primary Care Unavailabl e REMI AGUILAR Attending Unavailable DUSTIN THURSTON Primary Care Unavailabl e ABRAMOVICH, SD Referring Unavailable DUSTIN THURSTON Primary Care Unavailabl e ABRAMOVICH, SD Referring Unavailable SUSAN OCONNOR Attending Unavailable ABRAMOVICH, SD Referring Unavailable ABRAMOVICH, SD Attending Unavailable DUSTIN THURSTON Primary Care Unavailabl e ABRAMOVICH, SD Referring Unavailable [facility] Primary Care Unavailabl e Medications Current Medications Medication Drug Class(es) Dates Sig (Normalized) Sig (Original) acetaminophen 325 mg oral tablet (20 sources) take 2 tablets by mouth every six hours as needed acetaminophen (TYLENOL) 325 mg tablet Take 650 mg by mouth every 6 hours as needed. Active Comment on above: Take 650 mg by mouth every 6 hours as needed. cetirizine hydrochloride 10 mg oral tablet (12 sources) Histamine-1 Receptor Antagonist take 1 tablet by mouth once daily as needed cetirizine (ZYRTEC) 10 mg tablet Take 10 mg by mouth once daily as needed. Active cholecalciferol, vitamin D3, (VITAMIN D3 ORAL) (20 sources) take 1 tablet by mouth once daily cholecalciferol, vitamin D3, (VITAMIN D3 ORAL) Take 1 tablet by mouth once daily. Active take 1 tablet by mouth once edgar y cholecalciferol, vitamin D3, (VITAMIN D3 ORAL) Take 1 tablet by mouth once daily. 0 Active cholecalciferol, vitamin D3, (VITAMIN D3 ORAL) Take by mouth. 0 Active Comment on above: Take by mouth. Take 1 tablet by sebastian once daily. enteric contrast (will be provided with radiology test) (20 sources) Start: 11-07-2024 End: 11-08-2024 enteric contrast (will be provided with radiology test) For CT CHESTABD/PEL W IVCON Routine order Administer, As Directed One Time Only, via Oral, Rectal, both Oral and Rectal, Enteric Tube, Stoma or Indwelling Catheter, Enteric Contrast as designated per enteric contrast guidelines 1 Each 11/07/2024 11/08/2024 Active Start: 07-05-2024 End: 07-06-2024 enteric contrast (will be pr ovided with radiology test) For CT CHESTABD/PEL W IVCON Routine order Administer, As Directed One Time Only, via Oral, Rectal, both Oral and Rectal, Enteric Tube, Stoma or Indwelling Catheter, Enteric Contrast as designated per enteric contrast guidelines 1 Each 07/05/2024 07/06/2024 Active Start: 08-10-[address] (will be provided with radiology test) For CT CHESTABD/PEL W IVCON Routine order Administer, As Directed One Time Only, via Oral, Rectal, both Oral and Rectal, Enteric Tube, Stoma or Indwelling Catheter, Enteric Contrast as designated per enteric contrast guidelines 1 Each 08/10/2023 Active Start: 08-10-[address] (will be provided with radiology test) For CT CHESTABD/PEL W IVCON Routine order Administer, As Directed One Time Only, via Oral, Rectal, both Oral and Rectal, Enteric Tube, Stoma or Indwelling Catheter, Enteric Contrast as designated per enteric contrast guidelines 1 Each 0 08/10/2023 Active Comment on above: For CT CHESTABD/PEL W IVCON Routine order Administer, As Directed One Time Only, via Oral, Rectal, both Oral and Rectal, Enteric Tube, Stoma or Indwelling Catheter, Enteric Contrast as designated per enteric contrast guidelines furosemide 20 mg oral tablet (20 sources) Loop Diuretic Start: 4 End: 4 take 1 tablet by mouth once daily furosemide (LASIX) 20 mg tablet take 1 tablet by mouth once daily for 5 days 5 tablet 02/13/2024 Active Start: 01-19-2024 End: 02-04-2024 take 1 tablet by mouth once daily furosemide (LASIX) 20 mg tablet Take 1 tablet by mouth once daily for 5 days. 5 tablet 0 01/24/2024 02/04/2024 Discontinued iv contrast (will be provide d with radiology test) (20 sources) Start: 11-07-2024 End: 11-08-2024 iv contrast (will be provide d with radiology test) CT Chest ABD/PEL-Inject, intravenously, [...] in the CT contrast administration guidelines link. 1 Each 11/07/2024 11/08/2024 Active Start: 07-05-2024 End: 07-06-2024 iv contrast (will be provide d with radiology test) CT Chest ABD/PEL-Inject, intravenously, [...] in the CT contrast administration guidelines link. 1 Each 07/05/2024 07/06/2024 Active Start: 08-10-2023 iv contrast (w ill be provided with radiology test) CT Chest [...] in the CT contrast administration guidelines link. 1 Each 08/10/2023 Active Start: 08-10-2023 iv contrast (w ill be provided with radiology test) CT Chest [...] in the CT contrast administration guidelines link. 1 Each 0 08/10/2023 Active Comment on above: CT Chest ABD/PEL-Inj ect, intravenously, once for 1 dose.No IV access, [...] in the CT contrast administration guidelines link. lidocaine 50 mg/ml topical cream (1 source) Antiarrhythmic, Amide Local Anesthetic Start: 06-12-2023 End: 06-14-2023 lidocaine (ANECREAM5) crea Apply to affected area as directed for 2 days. Apply to procedure site the evening before and morning of procedure 15 g 0 06/12/2023 06/14/2023 Active Comment on above: Apply to affected ar ea as directed for 2 days. Apply to procedure site the evening before and morning of procedure losartan potassium 50 mg oral tablet (20 sources) Angiotensin 2 Receptor Saranya losartan (COZAAR) 50 mg tablet Take 25 mg by mouth once daily. Active take 1 tablet by mouth once edgar y losartan (COZAAR) 50 mg tablet Take 50 mg by mouth once daily. Active Comment on above: Take 50 mg by mouth once daily. multivit-min/ferrous fumarate (MULTI VITAMIN ORAL) (20 sources) take 1 tablet by mouth once daily multivit-min/ferrou s fumarate (MULTI VITAMIN ORAL) Take 1 tablet by mouth once daily. Active oxyCODONE hydrochloride 5 mg oral tablet (2 sources) Opioid Agonist Start: 07-28-2023 End: 08-02-2023 take 1 tablet by mouth every six hours as needed for pain oxyCODONE IR (ROXICODONE) 5 mg immediate release tablet Indications: Malignant melanoma of torso excluding breast (HCC) Take 1 tablet by mouth every 6 hours as needed for pain for up to 5 days. 20 tablet 0 07/28/2023 08/02/2023 Active Comment on above: Take 1 tablet by sebastian th every 6 hours as needed for pain for up to 5 days. Completed/Discontinued Medications Medication Drug Class(es) Dates Sig (Normalized) Sig (Original) amLODIPine 5 mg oral tablet (20 sources) Dihydropyridine Calcium Channel Saranya Start: 09-04-2023 End: 04-02-2024 take 1 tablet by mouth once amLODIPine (NORVASC) 5 mg tablet Take 1 tablet by mouth every afternoon. 0 09/04/2023 04/02/2024 Discontinued Comment on above: Take 1 tablet by sebastian th every afternoon. levothyroxine sodium 0.075 mg oral tablet (20 sources) l-Thyroxine Start: 12-18-2023 End: 04-02-2024 take 1 tablet by mouth once daily before breakfast levothyroxine (SYNTHROID) 75 mcg tablet Indications: Hypothyroidism due to medication Take 1 tablet by mouth daily before breakfast. 60 tablet 2 12/18/2023 04/02/2024 Discontinued Start: 12-14-2023 levothyroxine (SYNTHROID) 100 mcg tablet Take 125 mcg by mouth once daily. 12/14/2023 Active Start: 12-14-2023 take 1 tablet by sebastian th once daily levothyroxine (SYNTHROID) 100 mcg tablet Take 100 mcg by mouth once daily. 0 12/14/2023 Active mirtazapine 15 mg oral tablet (20 sources) Start: 09-04-2023 End: 05-03-2024 take 1 tablet by mouth once daily at bedtime mirtazapine (REMERON) 15 mg tablet Take 15 mg by mouth daily at bedtime. 09/04/2023 05/03/2024 Discontinued Comment on above: Take 15 mg by mouth daily at bedtime. pembrolizumab 200 mg in NaCl 0.9% 66 mL (KEYTRUDA) (12 sources) Start: 09-02-2024 End: 09-02-2024 200 mg, INTRAVENOUS, Administer over 30 Minutes, ONCE, 1 dose, On Mon09/02/24 at 1400, Approx Total Volume exp 199909/02/24 (room temp) Administer with 0.2 micron filter. Start: 07-29-2024 End: 07-29-2024 200 mg, INTRAVENOUS, Adminis ter over 30 Minutes, ONCE, 1 dose, On Mon07/29/24 at 0930, Approx Total Volume - Expires: 07/29/24 @ 1535 Administer with 0.2 micron filter. Start: 07-08-2024 End: 07-08-2024 200 mg, INTRAVENOUS, Adminis ter over 30 Minutes, ONCE, 1 dose, On 07/08/24 at 0930, Approx Total Volume exp 0830 07/12/24 (refrigerated) Administer with 0.2 micron filter. Start: 06-17-2024 End: 06-17-2024 200 mg, INTRAVENOUS, Adminis ter over 30 Minutes, ONCE, 1 dose, On 06/17/24 at 0930, Approx Total Volume exp 06/21/24 0900 (refrigerated) Administer with 0.2 micron filter. Start: 05-27-2024 End: 05-27-2024 200 mg, INTRAVENOUS, Adminis ter over 30 Minutes, ONCE, 1 dose, On 05/27/24 at 0930, Approx Total Volume exp 05/31/24@0800 (refrigerated) Administer with 0.2 micron filter. Start: 05-06-2024 End: 05-06-2024 200 mg, INTRAVENOUS, Adminis ter over 30 Minutes, ONCE, 1 dose, On 05/06/24 at 0930, Approx Total Volume - Expires: 05/06/24 @ 1530 Administer with 0.2 micron filter. Start: 04-15-2024 End: 04-15-2024 200 mg, INTRAVENOUS, Adminis ter over 30 Minutes, ONCE, 1 dose, On 04/15/24 at 1000, Approx Total Volume exp 0900 04/19/24 (refrigerated) Administer with 0.2 micron filter. Start: 03-25-2024 End: 03-25-2024 pembrolizumab 200 mg in NaCl 0.9% 66 mL (KEYTRUDA) Start: 03-04-2024 End: 03-04-2024 pembrolizumab 200 mg in NaCl 0.9% 66 mL (KEYTRUDA) Start: 02-12-2024 End: 02-12-2024 pembrolizumab 200 mg in NaCl 0.9% 66 mL (KEYTRUDA) Start: 01-23-2024 End: 01-23-2024 pembrolizumab 200 mg in NaCl 0.9% 66 mL (KEYTRUDA) Start: 01-01-2024 End: 01-01-2024 pembrolizumab 200 mg in NaCl 0.9% 66 mL (KEYTRUDA) Problems Active Problems Problem Classification Problem Date Documented Date Episodic/Chronic Melanomas of skin (20 sources) Malignant melanoma of skin of trunk; Translations: [Malignant melanoma of other part of trunk] Onset: 08-23-2023 06-08-2023 Chronic Other diseases of veins and lymphatics (3 sources) Lymphedema; Translations: [Lymphedema, not elsewhere classified] 06-12-2023 Chronic Other endocrine disorders (1 source) Hypoadrenalism; Translations: [Unspecified adrenocortical insufficiency] 08-30-2024 Chronic Other endocrine disorders (1 source) Unspecified adrenocortical insufficiency; Translations: [Hypoadrenalism (HCC)] Onset: 09-02-2024 Chronic Other lower respiratory disease (3 sources) Multiple nodules of lung; Translations: [Other nonspecific abnormal finding of lung field] 10-04-2023 Episodic Other screening for suspected conditions (not mental disorders or infectious disease) (1 source) Abnormal findings on diagnostic imaging of other specified body structures; Translations: [Abnormal findings on diagnostic imaging of other specified body structures] Onset: 07-26-2024 Chronic Residual codes; unclassified (1 source) Bilateral lower limb edema; Translations: [Localized edema] 01-19-2024 Episodic Thyroid disorders (6 sources) Hypothyroidism caused by drug; Translations: [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 and other exogenous substances] Onset: 09-02-2024 12-18-2023 Chronic Unclassified (1 source) Chemotherapy Treatment Onset: 07-29-2024 Past or Other Problems Problem Classification Problem Date Documented Da te Episodic/Chronic Joint disorders and dislocations; trauma-related (20 sources) Tear of medial meniscus of knee; Translations: [Tear of medial cartilage or meniscus of knee, current] Onset: 12-20-2012 12-20-2012 Episodic Other non-traumatic joint disorders (20 sources) Pain in unspecified knee; Translations: [Pain in joint, lower leg] Onset: 11-15-2012 11-15-2012 Episodic Results Test Name Value Interpretation Reference Range Facility [facility] 05-15-2025 CNOVS Visit (SP) Office (HEMAWS) ZOILA MEMBRENO ([id number]) 1950 F Date Time Provider Department 05/15/25 2:00 PM SD SALDAÑA During your visit today, we recorded the following information about you: Temperature Pulse Respiration Blood pressure 97.6 degrees 74/minute 12/minute 117/77 Weight Height 64.4 kg 1.57 m Sd Saldaña MD 05/15/2025 2:49 PM Signed (Elements copied from my note dated , have been reviewed and updated where appropriate, and all reflect current assessmentMar2024 and medical decision making from today's encounter, May 15, 2025) HISTORY OF PRESENT ILLNESS: Zoila Membreno is a 73 year old female mole on back, started to itch and bleed. Saw Dr De Leon biopsy showed melanoma. Wide excision and SLNB done 07-28-23 showed pT4bN0 cancer Feels ok, on ROS mentioned some double vision. Adjuvant pembrolizumab completed September 02, 2024. Here for follow up, reviewed Ct scans. Appetite better, no lingering issues, weight is stable CLINICAL IMPRESSION: Melanoma stage IIC IVÁN on scans RECOMMENDATION/PLAN: 1. Back in [address] scan through 3 years (August 2026) 2. Dermatology for skin checks 3. Thyroid managed by Dr Tillman Written and verbal health teaching given to patient, patient verbalizes understanding and agrees with treatment plan. PAST MEDICAL HISTORY Diagnosis Date Abnormal mammogram, unspecified left breast 2006 STEREOTACTIC Malignant melanoma (HCC) 06/12/2023 PONV (postoperative nausea and vomiting) PAST SURGICAL HISTORY Procedure Laterality Date PAST SURGICAL HISTORY OF Right arm PAST SURGICAL HISTORY OF 07/28/2023 Back Lesion Excision PAST SURGICAL HISTORY OF Meniscus Repair REVJ TOT KNEE ARTHRP FEMANDENTIRE TIBIAL COMPONE Knee replacement PARTIAL LEFT 2004 SKIN BX, 1 LESION 05/22/2023 Atypical skin lesion to back STEREOTACTIC CORE BIOPSY 07/29/2009 left breast FAMILY HISTORY Problem Relation Age of Onset Ischemic Heart Disease Mother Dementia Mother Heart Father Social History Tobacco Use Smoking status: Never Smokeless tobacco: Never Vaping Use Vaping status: Never Used Substance Use Topics Alcohol use: Not Currently Comment: wine once a month Drug use: No ALLERGIES: ALLERGIES No Known Allergies CURRENT OUTPATIENT MEDICATIONS: cetirizine (ZYRTEC) 10 mg tablet Take 10 mg by mouth once daily as needed. furosemide (LASIX) 20 mg tablet take 1 tablet by mouth once daily for 5 days (Patient taking differently: Take 20 mg by mouth as needed.) levothyroxine (SYNTHROID) 100 mcg tablet Take 125 mcg by mouth once daily. cholecalciferol, vitamin D3, (VITAMIN D3 ORAL) Take 1 tablet by mouth once daily. losartan (COZAAR) 50 mg tablet Take 25 mg by mouth once daily. iv contrast (will be provided with radiology [...] Contrast as designated per enteric contrast guidelines acetaminophen (TYLENOL) 325 mg tablet Take 650 mg by mouth every 6 hours as needed. REVIEW OF SYSTEMS: GENERAL: No fever, night sweats, weight loss or malaise. All other reviewed and negative other than HPI. PHYSICAL EXAMINATION: VITAL SIGNS: BP 117/77 Pulse 74 Temp 97.6 Resp 12 Ht 5' 1.811" (1.57m) Wt 142 lb (64.4kg) SpO2 98% LMP 01/07/2003 BMI 26.13 kg/(m2). GENERAL APPEARANCE: Well appearing, in no acute distress, alert and oriented x3, well-hydrated, well nourished. I spent a total of 30 minutes on the date of the service which included preparing to see the patient, [id number] patient care, completing clinical documentation, obtaining and/or reviewing separately obtained history, counseling and educating the patient/family/caregive r, ordering medications, tests, or procedures, communicating with other HCPs (not separately reported), independently interpreting results (not separately reported), communicating results to the patient/family/caregive r, and care coordination (not separately reported). Review of images, NCCN guidelines Electronically Signed: Sd Saldaña MD May 15, 2025 Allergies As of Date: 05/15/2025 (No Known Allergies) Date Reviewed: 05/15/2025 Reviewed by: Reta Roa LPN - Fully Assess (more content not included)... Normal [facility] CT ABD/PEL W IVCONon 025 CT ABD/PEL W IVCON * * *Final Report* * * DATE OF EXAM: May 08 2025 2:13PM [facility] 0530 - CT ABD/PEL W IVCON / PROCEDURE REASON: Malignant melanoma of skin (HCC) * * * * Physician Interpretation * * * * EXAMINATION: CT ABDOMEN AND PELVIS WITH IV CONTRAST CLINICAL HISTORY: Malignant melanoma TECHNIQUE: CT of the abdomen and pelvis was performed using standard technique, scanning from just above the dome of the diaphragm to the symphysis pubis. MQ: CTAP_3 Contrast: IV: 100 ml of Omnipaque 350 Oral: 10 ml of Omni 240 10-25ml diluted with water CT Radiation dose: Integrated Dose-length product (DLP) for this visit = 550 mGy*cm. CT Dose Reduction Employed: Automated exposure control(AEC) and iterative recon COMPARISON: CT abdomen pelvis dated 10/31/2024 RESULT: Liver: No mass. Biliary: No bile duct dilation. Gallbladder present without evidence of radiopaque stones or wall thickening. Spleen: No mass. No splenomegaly. Pancreas: Fatty infiltration. No mass or duct dilation. Adrenals: No mass. Kidneys: Symmetric nephrograms with no evidence of hydronephrosis. No suspicious focal renal lesion within the limits of the cortical medullary phase of enhancement. GI tract: Miniscule hiatal hernia. No dilation or wall thickening. Few scattered uncomplicated colonic diverticuli. Normal appendix. Lymph nodes: No abdominal or pelvic lymphadenopathy. Mesentery/Peritoneum: No ascites or mass. Retroperitoneum: No mass. Vasculature: Arterial atherosclerotic calcification of the vasculature. Pelvis: Bladder normal in appearance. Myomatous uterus. No suspicious adnexal mass. Bones/Soft Tissues: Stable 1 cm cystic lesion in the subcutaneous fat of the superficial left anterior pelvic wall likely reflecting an inclusion cyst. No CT evidence of destructive osseous lesion. Stable scattered small sclerotic foci likely reflecting bone islands. Degenerative changes. Minimal grade 1 anterolisthesis of L4 on L5. Lower thorax: A chest CT performed will be reported separately. Localizer images: No additional findings. IMPRESSION: No new or enlarging mass or lymphadenopathy in the abdomen or pelvis. Molder Fitting: PSCB Transcribe Date/Time: May 13 2025 12:43P Dictated by : KATY KNOWLES MD This examination was interpreted and the report reviewed and electronically signed by: KATY KNOWLES MD on May 13 2025 12:47PM EST [id number] Normal [facility] CT CHEST W IVCONon CT CHEST W IVCON * * *Final Report* * * DATE OF EXAM: May 08 2025 2:13PM [facility] 0539 - CT CHEST W IVCON / PROCEDURE REASON: Malignant melanoma of skin (HCC) * * * * Physician Interpretation * * * * EXAMINATION: CHEST CT WITH CONTRAST CLINICAL HISTORY: Metastatic melanoma presenting for follow-up evaluation. Technique: Spiral CT acquisition of the chest from the thoracic inlet to the upper abdomen following IV contrast. MQ: CTCW_6 Contrast: 100 mL Omnipaque [address] Radiation dose: Integrated Dose-length product (DLP) for this visit = 550 mGy*cm CT Dose Reduction Employed: Automated exposure control(AEC) and iterative recon Comparison: CT chest dated 10/31/2024 RESULT: Limitations: None. Lines, tubes, and devices: None. Lung parenchyma and airways: Stable 1.3 x 1.5 cm right upper lobe pulmonary nodule. No new or enlarging pulmonary nodule. Minimal dependent atelectasis. No consolidation. The central airways are patent. Pleural space: No pleural effusion. No pleural thickening. Lower neck, lymph nodes, and mediastinum: Stable top normal 1 cm right hilar lymph node. No new or enlarging suspect intrathoracic lymphadenopathy. Surgical clips in the left axillary region. Heart, pericardium, and thoracic vessels: The thoracic aorta and main pulmonary artery are normal in caliber. The cardiac chambers are normal in size. Coronary artery atherosclerotic calcifications are noted, although the study is not optimized for coronary assessment. No pericardial effusion or thickening. Bones and soft tissues: Multilevel degenerative changes in the spine. Upper abdomen: See separate dictation of same day CT abdomen which is reported under a separate cover. Localizer images: No additional findings. IMPRESSION: Stable 1.5 cm right upper lobe pulmonary nodule. Molder Fitting: HARMAN Transcribe Date/Time: May 13 2025 12:47P Dictated by : KATY KNOWLES MD This examination was interpreted and the report reviewed and electronically signed by: KATY KNOWLES MD on May 13 2025 12:54PM EST [id number] Normal [facility] Creatinine and Glomerular fi ltration rate.predicted panel (S/P/Bld)on 05-08-2025 Creatinine [Mass/Vol] 0.77 mg/dL Normal 0.58-0.96 [facility] Comment on above: Order Comment: Haresh maravilla Type: BLOOD SPECIMEN Ordering Facility: [facility] Address: [address] [place] [address] Performed By: #### 3 024-7, 2142-6, 3015-3 #### [facility] CLIA [id number] [address] [place] [address] [place] eGFRcr SerPlBld CKD-EPI 2020 81 mL/min/1.73m??? Normal >=60 [facility] Comment on above: Order Comment: Haresh maravilla Type: BLOOD SPECIMEN Ordering Facility: [facility] Address: [address] [place] [address] Result Comment: [place]a Glomerular Filtration Rate (eGFR) is calculated using the 2020 CKD-EPI creatinine equation. This equation utilizes serum creatinine, sex, and age as parameters. The creatinine assay has traceable calibration to isotope dilution-mass spectrometry. Refer to KDIGO guidelines for clinical interpretation. In patients with unstable renal function, e.g. those with acute kidney injury, the eGFR may not accurately reflect actual GFR. Performed By: #### 3 024-7, 2143-6, 3015-3 #### [facility] CLIA [id number] [address] [id number] [facility] Claire 05-06-2025 SHAUNAN Telephone (HEMAWS) ZOILA MEMBRENO ([id number]) 1950 F Date Time Provider Department 05/06/25 SD SALDAÑA During your visit today, we recorded the following information about you: Cathryn العلي PSS 05/06/2025 3:[address] order for creatinine order for pt , pt appt on 05/08/[address] Carol Kaur LPN 05/06/2025 3:19 PM Signed Order pended in another encounter. Carol Kaur LPN Allergies As of Date: 05/06/2025 (No Known Allergies) Date Reviewed: 11/07/2024 Reviewed by: Sena Smith Ma, MA - Fully Assessed Reason for Visit: Orders [681] Prescriptions as of 05/06/2025 - cetirizine (ZYRTEC) 10 mg tablet Take 10 mg by mouth once daily as needed. - multivit-min/ferrous fumarate (MULTI VITAMIN ORAL) Take 1 tablet by mouth once daily. - furosemide (LASIX) 20 mg tablet take 1 tablet by mouth once daily for 5 days - levothyroxine (SYNTHROID) 100 mcg tablet Take 125 mcg by mouth once daily. - losartan (COZAAR) 50 mg tablet Take 25 mg by mouth once daily. - iv contrast (will be provided with radiology [...] in the CT contrast administration guidelines link. - enteric contrast (will be provided with radiology test) For CT CHESTABD/PEL W IVCON Routine order Administer, As Directed One Time Only, via Oral, Rectal, both Oral and Rectal, Enteric Tube, Stoma or Indwelling Catheter, Enteric Contrast as designated per enteric contrast guidelines - cholecalciferol, vitamin D3, (VITAMIN D3 ORAL) Take 1 tablet by mouth once daily. - acetaminophen (TYLENOL) 325 mg tablet Take 650 mg by mouth every 6 hours as needed. Problem List As Of Date 05/06/2025 Noted Resolved Knee pain [M25.569] 11/15/2012 Tear of medial cartilage or meniscus of knee, c*12/20/2012 Malignant melanoma of torso excluding breast (H*08/23/2023 Encounter Status:Closed by CAROL KAUR on 05/06/25 [facility] CNOVSPon 11-07-2024 CNOVSP Visit (SP) Office (HEMAWS) ZOILA MEMBRENO ([id number]) 1950 F Date Time Provider Department 11/07/24 2:00 PM SD SALDAÑA During your visit today, we recorded the following information about you: Temperature Pulse Blood pressure Weight 97.8 degrees 75/minute 118/74 63.5 kg Sd Saldaña MD 11/07/2024 2:33 PM Signed (Elements copied from my note dated July 05, 2024, have been reviewed and updated where appropriate, and all reflect current assessment and medical decision making from today's encounter, November 07, 2024) HISTORY OF PRESENT ILLNESS: Zoila Membreno is a 73 year old female mole on back, started to itch and bleed. Saw Dr De Leon biopsy showed melanoma. Wide excision and SLNB done 07-28-23 showed [id number] cancer Feels ok, on ROS mentioned some double vision. Adjuvant pembrolizumab completed September 02, 2024. Here for follow up, reviewed Ct scans. Appetite better, no lingering issues, weight is stable CLINICAL IMPRESSION: Melanoma stage IIC IVÁN on scans RECOMMENDATION/PLAN: 1. CT scans in April 2025, will see back after that 2. Dermatology for skin checks 3. Thyroid managed by Dr Tillman Written and verbal health teaching given to patient, patient verbalizes understanding and agrees with treatment plan. PAST MEDICAL HISTORY Diagnosis Date Abnormal mammogram, unspecified left breast 2006 STEREOTACTIC Malignant melanoma (HCC) 06/12/2023 PONV (postoperative nausea and vomiting) PAST SURGICAL HISTORY Procedure Laterality Date PAST SURGICAL HISTORY OF Right arm PAST SURGICAL HISTORY OF 07/28/2023 Back Lesion Excision PAST SURGICAL HISTORY OF Meniscus Repair REVJ TOT KNEE ARTHRP FEMANDENTIRE TIBIAL COMPONE Knee replacement PARTIAL LEFT 2003 SKIN BX, 1 LESION 05/22/2023 Atypical skin lesion to back STEREOTACTIC CORE BIOPSY 07/29/2009 left breast FAMILY HISTORY Problem Relation Age of Onset Ischemic Heart Disease Mother Dementia Mother Heart Father Social History Tobacco Use Smoking status: Never Smokeless tobacco: Never Vaping Use Vaping status: Never Used Substance Use Topics Alcohol use: Not Currently Comment: wine once a month Drug use: No ALLERGIES: ALLERGIES No Known Allergies CURRENT OUTPATIENT MEDICATIONS: cetirizine (ZYRTEC) 10 mg tablet Take 10 mg by mouth once daily as needed. furosemide (LASIX) 20 mg tablet take 1 tablet by mouth once daily for 5 days (Patient taking differently: Take 20 mg by mouth as needed.) levothyroxine (SYNTHROID) 100 mcg tablet Take 125 mcg by mouth once daily. losartan (COZAAR) 50 mg tablet Take 25 mg by mouth once daily. cholecalciferol, vitamin D3, (VITAMIN D3 ORAL) Take 1 tablet by mouth once daily. acetaminophen (TYLENOL) 325 mg tablet Take 650 mg by mouth every 6 hours as needed. multivit-min/ferrous fumarate (MULTI VITAMIN ORAL) Take 1 tablet by mouth once daily. iv contrast (will be provided with radiology [...] than HPI. PHYSICAL EXAMINATION: VITAL SIGNS: BP 118/74 Pulse 75 Temp (Src) 97.8 (Temporal) Wt 140 lb (63.5kg) SpO2 97% LMP 01/07/2003 GENERAL APPEARANCE: Well appearing, in no acute distress, alert and oriented x3, well-hydrated, well nourished. I spent a total of 20 minutes on the date of the service which included preparing to see the patient, [id number] patient care, completing clinical documentation, obtaining and/or reviewing separately obtained history, counseling and educating the patient/family/caregive r, ordering medications, tests, or procedures, communicating with other HCPs (not separately reported), independently interpreting results (not separately reported), communicating results to the patient/family/caregive r, and care coordination (not separately reported). Electronically Signed: Sd Saldaña MD November 07, 2024 Referring Provider: SD SALDAÑA [[id number]] Allergies As of Date: 11/07/2024 (No Known Allergies) Date Reviewed: 11/07/2024 Reviewed by: Sena Smith Ma, MA - Full (more content not included)... Normal [facility] CREATININE BLDon 10-31-2024 Creatinine [Mass/Vol] 0.70 mg/dL Normal 0.58-0.96 [facility] Comment on above: Order Comment: Speci men Type: BLOOD SPECIMEN Ordering Facility: [facility] Address: [address] [place] [address] Performed By: #### 3 024-7, 2143-6, 3016-3 #### [facility] CLIA [id number] [address] [place] [address] [place] [address] [place] Creatinine and Glomerular filtration rate.predicted panel (S/P/Bld) 90 mL/min/1.73m??? Normal >=60 [facility] Comment on above: Order Comment: Speci men Type: BLOOD SPECIMEN Ordering Facility: [facility] Address: [address] [place] [address] Result Comment: [place] mated Glomerular Filtration Rate (eGFR) is calculated using the 2020 CKD-EPI creatinine equation. This equation utilizes serum creatinine, sex, and age as parameters. The creatinine assay has traceable calibration to isotope dilution-mass spectrometry. Refer to KDIGO guidelines for clinical interpretation. In patients with unstable renal function, e.g. those with acute kidney injury, the eGFR may not accurately reflect actual GFR. Performed By: #### 3 024-7, 2143-6, 3016-3 #### [facility] CLIA [id number] [address] [place] [address] [place] [address] [place] CT ABD/PEL W IVCONon 025 CT ABD/PEL W IVCON * * *Final Report* * * DATE OF EXAM: Oct 31 2024 2:35PM [facility] 0530 - CT ABD/PEL W IVCON / PROCEDURE REASON: Malignant melanoma of skin (HCC) * * * * Physician Interpretation * * * * EXAMINATION: CHEST CT WITH CONTRAST CLINICAL HISTORY: Patient has history of melanoma Technique: Spiral CT acquisition of the chest from the thoracic inlet to the upper abdomen following IV contrast. MQ: CTCW_6 Contrast: 100 mL Omnipaque [address] Radiation dose: Integrated Dose-length product (DLP) for this visit = 548 mGy*cm CT Dose Reduction Employed: Automated exposure control(AEC) and iterative recon Comparison: 12/07/2023 RESULT: Limitations: None. Lines, tubes, and devices: None. Lung parenchyma and airways: No consolidation. 1.5 x 1.3 cm pulmonary nodule in the right upper lobe, not significantly changed when measured in a similar location. No new nodule. The central airways are patent. Pleural space: No pleural effusion. No pleural thickening. Lower neck, lymph nodes, and mediastinum: The imaged thyroid gland is normal. No lymphadenopathy in the supraclavicular, axillary, mediastinal, or hilar regions. Heart, pericardium, and thoracic vessels: The thoracic aorta and main pulmonary artery are normal in caliber. The cardiac chambers are normal in size. No coronary artery atherosclerotic calcifications are noted, although the study is not optimized for coronary assessment. No pericardial effusion or thickening. Bones and soft tissues: No destructive bone lesion. Chest wall is unremarkable. Localizer images: No additional findings. IMPRESSION: 1. No significant change in the noncalcified right upper lobe pulmonary nodule. EXAMINATION: CT ABDOMEN AND PELVIS WITH IV CONTRAST CLINICAL HISTORY: Patient has history of melanoma TECHNIQUE: CT of the abdomen and pelvis was performed using standard technique, scanning from just above the dome of the diaphragm to the symphysis pubis. MQ: CTAP_3 Contrast:IV: 100 ml of Omnipaque 350 Oral: 10 ml of Omni 240 10-25ml diluted with water CT Radiation dose: Integrated Dose-length product (DLP) for this visit = 548 mGy*cm. CT Dose Reduction Employed: Automated exposure control(AEC) and iterative recon COMPARISON: 09/08/2023 RESULT: Liver: Normal liver parenchyma is noted. No focal hepatic mass is seen. The portal vein and hepatic veins are within normal limits. Bile ducts: No intra or extrahepatic bile duct dilatation is noted. Gallbladder: The gallbladder is unremarkable without transmural inflammation seen to suggest acute cholecystitis. Spleen: The spleen is of normal size and enhancement Pancreas: The pancreatic parenchyma is of normal enhancement without a discrete mass identified. No peripancreatic fluid or fat stranding is appreciated. The pancreatic duct is of normal caliber. Adrenal glands :The adrenal glands are normal in morphology. No discrete nodule is identified. Kidneys: Normal enhancement of the renal parenchyma is noted. No solid mass is identified. No discrete stone is identified. There is no evidence of hydronephrosis or hydroureter. Abdominal aorta: The abdominal aorta is of normal caliber without evidence of dissection. A normal-appearing aortic bifurcation is present. Lymphadenopathy: There is no intra-abdominal, retroperitoneal, or inguinal lymphadenopathy. Ascites: No fluid collection is seen in the abdomen or pelvis. Urinary bladder: The urinary bladder is unremarkable without an intraluminal filling defect. No perivesical fat stranding is appreciated. Bowel: No dilated loops of small bowel are seen to suggest bowel obstruction. Appendix: The appendix is of normal caliber without periappendiceal inflammatory changes. Osseous structures: No osteolytic or osteoblastic bone lesion is identified. No acute osseous abnormality is seen. IMPRESSION: 1. No evidence of metastatic disease to the abdomen or pelvis. Molder Fitting: PSCB Transcribe Date/Time: Nov 04 2024 10:08A Dictated by : DEEDEE LIMON MD This examination was interpreted and the report reviewed and electronically signed by: DEEDEE LIMON MD on Nov 04 2024 10:13AM EST [id number] Normal [facility] CT CHEST W IVCONon CT CHEST W IVCON * * *Final Report* * * DATE OF EXAM: Oct 31 2024 2:35PM [facility] 0539 - CT CHEST W IVCON / PROCEDURE REASON: Malignant melanoma of skin (HCC) * * * * Physician Interpretation * * * * EXAMINATION: CHEST CT WITH CONTRAST CLINICAL HISTORY: Patient has history of melanoma Technique: Spiral CT acquisition of the chest from the thoracic inlet to the upper abdomen following IV contrast. MQ: CTCW_6 Contrast: 100 mL Omnipaque [address] Radiation dose: Integrated Dose-length product (DLP) for this visit = 548 mGy*cm CT Dose Reduction Employed: Automated exposure control(AEC) and iterative recon Comparison: 12/07/2023 RESULT: Limitations: None. Lines, tubes, and devices: None. Lung parenchyma and airways: No consolidation. 1.5 x 1.3 cm pulmonary nodule in the right upper lobe, not significantly changed when measured in a similar location. No new nodule. The central airways are patent. Pleural space: No pleural effusion. No pleural thickening. Lower neck, lymph nodes, and mediastinum: The imaged thyroid gland is normal. No lymphadenopathy in the supraclavicular, axillary, mediastinal, or hilar regions. Heart, pericardium, and thoracic vessels: The thoracic aorta and main pulmonary artery are normal in caliber. The cardiac chambers are normal in size. No coronary artery atherosclerotic calcifications are noted, although the study is not optimized for coronary assessment. No pericardial effusion or thickening. Bones and soft tissues: No destructive bone lesion. Chest wall is unremarkable. Localizer images: No additional findings. IMPRESSION: 1. No significant change in the noncalcified right upper lobe pulmonary nodule. EXAMINATION: CT ABDOMEN AND PELVIS WITH IV CONTRAST CLINICAL HISTORY: Patient has history of melanoma TECHNIQUE: CT of the abdomen and pelvis was performed using standard technique, scanning from just above the dome of the diaphragm to the symphysis pubis. MQ: CTAP_3 Contrast:IV: 100 ml of Omnipaque 350 Oral: 10 ml of Omni 240 10-25ml diluted with water CT Radiation dose: Integrated Dose-length product (DLP) for this visit = 548 mGy*cm. CT Dose Reduction Employed: Automated exposure control(AEC) and iterative recon COMPARISON: 09/08/2023 RESULT: Liver: Normal liver parenchyma is noted. No focal hepatic mass is seen. The portal vein and hepatic veins are within normal limits. Bile ducts: No intra or extrahepatic bile duct dilatation is noted. Gallbladder: The gallbladder is unremarkable without transmural inflammation seen to suggest acute cholecystitis. Spleen: The spleen is of normal size and enhancement Pancreas: The pancreatic parenchyma is of normal enhancement without a discrete mass identified. No peripancreatic fluid or fat stranding is appreciated. The pancreatic duct is of normal caliber. Adrenal glands :The adrenal glands are normal in morphology. No discrete nodule is identified. Kidneys: Normal enhancement of the renal parenchyma is noted. No solid mass is identified. No discrete stone is identified. There is no evidence of hydronephrosis or hydroureter. Abdominal aorta: The abdominal aorta is of normal caliber without evidence of dissection. A normal-appearing aortic bifurcation is present. Lymphadenopathy: There is no intra-abdominal, retroperitoneal, or inguinal lymphadenopathy. Ascites: No fluid collection is seen in the abdomen or pelvis. Urinary bladder: The urinary bladder is unremarkable without an intraluminal filling defect. No perivesical fat stranding is appreciated. Bowel: No dilated loops of small bowel are seen to suggest bowel obstruction. Appendix: The appendix is of normal caliber without periappendiceal inflammatory changes. Osseous structures: No osteolytic or osteoblastic bone lesion is identified. No acute osseous abnormality is seen. IMPRESSION: 1. No evidence of metastatic disease to the abdomen or pelvis. [facility] Transcribe Date/Time: Nov 04 2024 10:08A Dictated by : DEEDEE LIMON MD This examination was interpreted and the report reviewed and electronically signed by: DEEDEE LIMON MD on Nov 04 2024 10:13AM EST [id number] Normal [facility] CBC W Auto Differential pane l (Bld)on 09-02-2024 Basophils (Bld) [#/Vol] 0.06 10*3/uL [facility] Basophils/100 WBC (Bld) 0.8 % [facility] Differential cell count method Nom (Bld) Auto [facility] Eosinophils (Bld) [#/Vol] 0.14 10*3/uL [facility] Eosinophils/100 WBC (Bld) 1.8 % [facility] Erythrocyte distribution width (RBC) [Ratio] 14.6 % 11.5 - 15.0 % [facility] Hematocrit (Bld) [Volume fraction] 41.5 % 36.0 - 46.0 % [facility] Hemoglobin (Bld) [Mass/Vol] 13.8 g/dL 11.5 - 15.5 g/dL [facility] Immature granulocytes (Bld) [#/Vol] 0.03 10*3/uL [facility] Immature granulocytes/100 WBC (Bld) 0.4 % [facility] Lymphocytes (Bld) [#/Vol] 1.81 10*3/uL [facility] Lymphocytes/100 WBC (Bld) 23.5 % [facility] MCH (RBC) [Entitic mass] 28.8 pg 26.0 - 34.0 pg [facility] MCHC (RBC) [Mass/Vol] 33.3 g/dL 30.5 - 36.0 g/dL [facility] MCV (RBC) [Entitic vol] 86.5 fL 80.0 - 100.0 fL [facility] Monocytes (Bld) [#/Vol] 0.51 10*3/uL [facility] Monocytes/100 WBC (Bld) 6.6 % [facility] Neutrophils (Bld) [#/Vol] 5.14 10*3/uL [facility] Neutrophils/100 WBC (Bld) 66.9 % [facility] Nucleated RBC (Bld) [#/Vol] [facility] Nucleated RBC/100 WBC (Bld) [Ratio] 0.0 % /100 WBC [facility] Platelet mean volume (Bld) [Entitic vol] 9.8 fL 9.0 - 12.7 fL [facility] Platelets (Bld) [#/Vol] 247 10*3/uL [facility] RBC (Bld) [#/Vol] 4.80 10*6/uL 3.90 - 5.2 0 m/uL [facility] WBC (Bld) [#/Vol] 7.69 10*3/uL [facility] Basophils (Bld) [#/Vol] 0.06 10*3/uL Normal <0.11 [facility] Comment on above: Order Comment: Speci men Type: BLOOD SPECIMEN Ordering Facility: [facility] Address: [address] [place] [address] Performed By: #### 5 7021-8 #### [facility] CLIA [id number] [address] [place] [address] [place] Basophils/100 WBC (Bld) 0.8 % Normal [facility] Comment on above: Order Comment: Speci men Type: BLOOD SPECIMEN Ordering Facility: [facility] Address: [address] [place] [address] Performed By: #### 5 7021-8 #### [facility] CLIA [id number] [address] [place] [address] [place] Differential cell count method Nom (Bld) Auto Normal [facility] Comment on above: Order Comment: Speci men Type: BLOOD SPECIMEN Ordering Facility: [facility] Address: [address] [place] [address] Performed By: #### 5 7021-8 #### [facility] CLIA [id number] [address] [place] [address] [place] Eosinophils (Bld) [#/Vol] 0.14 10*3/uL Normal <0.46 [facility] Comment on above: Order Comment: Speci men Type: BLOOD SPECIMEN Ordering Facility: [facility] Address: [address] [place] [address] Performed By: #### 5 7021-8 #### [facility] CLIA [id number] [address] [place] [address] [place] Eosinophils/100 WBC (Bld) 1.8 % Normal [facility] Comment on above: Order Comment: Speci men Type: BLOOD SPECIMEN Ordering Facility: [facility] Address: [address] [place] [address] Performed By: #### 5 7021-8 #### [facility] CLIA [id number] [address] [place] [address] [place] Erythrocyte distribution width (RBC) [Ratio] 14.6 % Normal 11.5-15.0 [facility] Comment on above: Order Comment: Speci men Type: BLOOD SPECIMEN Ordering Facility: [facility] Address: [address] [place] [address] Performed By: #### 5 7021-8 #### [facility] CLIA [id number] [address] [place] [address] [place] Hematocrit (Bld) [Volume fraction] 41.5 % Normal 36.0-46.0 [facility] Comment on above: Order Comment: Speci men Type: BLOOD SPECIMEN Ordering Facility: [facility] Address: [address] [place] [address] Performed By: #### 5 7021-8 #### [id number] [address] [place] [address] [place] Hemoglobin (Bld) [Mass/Vol] 13.8 g/dL Normal 11.5-15.5 [facility] Comment on above: Order Comment: Speci men Type: BLOOD SPECIMEN Ordering Facility: [facility] Address: [address] [place] [address] Performed By: #### 5 7021-8 #### [facility] CLIA [id number] [address] [place] [address] [place] Immature granulocytes (Bld) [#/Vol] 0.03 10*3/uL Normal <0.10 [facility] Comment on above: Order Comment: Speci men Type: BLOOD SPECIMEN Ordering Facility: [facility] Address: [address] [place] [address] Performed By: #### 5 7021-8 #### [facility] [id number] [address] [place] [address] [place] Immature granulocytes/100 WBC (Bld) 0.4 % Normal [facility] Comment on above: Order Comment: Speci men Type: BLOOD SPECIMEN Ordering Facility: [facility] Address: [address] [place] [address] Performed By: #### 5 7021-8 #### [facility] CLIA [id number] [address] [place] [address] [place] Lymphocytes (Bld) [#/Vol] 1.81 10*3/uL Normal 1.00-4.00 [facility] Comment on above: Order Comment: Speci men Type: BLOOD SPECIMEN Ordering Facility: [facility] Address: [address] [place] [address] Performed By: #### 5 7021-8 #### [facility] CLIA [id number] [address] [place] [address] [place] Lymphocytes/100 WBC (Bld) 23.5 % Normal [facility] Comment on above: Order Comment: Speci men Type: BLOOD SPECIMEN Ordering Facility: [facility] Address: [address] [place] [address] Performed By: #### 5 7021-8 #### [facility] CLIA [id number] [address] [place] [address] [place] MCH (RBC) [Entitic mass] 28.8 pg Normal 26.0-34.0 [facility] Comment on above: Order Comment: Speci men Type: BLOOD SPECIMEN Ordering Facility: [facility] Address: [address] [place] [address] Performed By: #### 5 7021-8 #### [facility] CLIA [id number] [address] [place] [address] [place] MCHC (RBC) [Mass/Vol] 33.3 g/dL Normal 30.5-36.0 [facility] Comment on above: Order Comment: Speci men Type: BLOOD SPECIMEN Ordering Facility: [facility] Address: [address] [place], [place] [id number] Performed By: #### 5 7021-8 #### [facility] CLIA [id number] [address] [place] [address] [place] MCV (RBC) [Entitic vol] 86.5 fL Normal 80.0-100.0 [facility] Comment on above: Order Comment: Speci men Type: BLOOD SPECIMEN Ordering Facility: [facility] Address: [address] [place] [address] Performed By: #### 5 7021-8 #### [facility] CLIA [id number] [address] [place] [address] [place] Monocytes (Bld) [#/Vol] 0.51 10*3/uL Normal <0.87 [facility] Comment on above: Order Comment: Speci men Type: BLOOD SPECIMEN Ordering Facility: [facility] Address: [address] [place] [address] Performed By: #### 5 7021-8 #### [facility] CLIA [id number] [address] [place] [address] [place] Monocytes/100 WBC (Bld) 6.6 % Normal [facility] Comment on above: Order Comment: Speci men Type: BLOOD SPECIMEN Ordering Facility: [facility] Address: [address] [place] [address] Performed By: #### 5 7021-8 #### [facility] CLIA [id number] [address] [place] [address] [place] Neutrophils (Bld) [#/Vol] 5.14 10*3/uL Normal 1.45-7.50 [facility] Comment on above: Order Comment: Speci men Type: BLOOD SPECIMEN Ordering Facility: [facility] Address: [address] [place] [address] Performed By: #### 5 7021-8 #### [facility] CLIA [id number] [address] [place] [address] [place] Neutrophils/100 WBC (Bld) 66.9 % Normal [facility] Comment on above: Order Comment: Speci men Type: BLOOD SPECIMEN [facility] [facility] Address: [address] [place] [address] Performed By: #### 5 7021-8 #### [facility] CLIA [id number] [address] [place] [address] [place] Nucleated RBC (Bld) [#/Vol] 10*3/uL Normal <0.01 [facility] Comment on above: Order Comment: Speci men Type: BLOOD SPECIMEN Ordering Facility: [facility] Address: [address] [place] [address] Performed By: #### 5 7021-8 #### [facility] CLIA [id number] [address] [place] [address] [place] Nucleated RBC/100 WBC (Bld) [Ratio] 0.0 /100 WBC Normal [facility] Comment on above: Order Comment: Speci men Type: BLOOD SPECIMEN Ordering Facility: [facility] Address: [address] [place] [address] Performed By: #### 5 7021-8 #### [facility] CLIA [id number] [address] [place] [address] [place] Platelet mean volume (Bld) [Entitic vol] 9.8 fL Normal 9.0-12.7 [facility] Comment on above: Order Comment: Speci men Type: BLOOD SPECIMEN Ordering Facility: [facility] Address: [address] [place] [address] Performed By: #### 5 7021-8 #### [facility] CLIA [id number] [address] [place] [address] [place] Platelets (Bld) [#/Vol] 247 10*3/uL Normal 150-400 [facility] Comment on above: Order Comment: Speci men Type: BLOOD SPECIMEN Ordering Facility: [facility] Address: [address] [place] [address] Performed By: #### 5 7021-8 #### [facility] CLIA [id number] [address] [place] RBC (Bld) [#/Vol] 4.80 10*6/uL Normal 3.90-5.20 [facility] Comment on above: Order Comment: Speci men Type: BLOOD SPECIMEN Ordering Facility: [facility] Address: [address] [place], [place] [address] Performed By: #### 5 7021-8 #### [facility] CLIA [id number] [address] [place] [address] [place] WBC (Bld) [#/Vol] 7.69 10*3/uL Normal 3.70-11.00 [facility] Comment on above: Order Comment: Speci men Type: BLOOD SPECIMEN Ordering Facility: [facility] Address: [address] [place], [place] [address] Performed By: #### 5 7021-8 #### [facility] CLIA [id number] [address] [place] [address] [place] [facility] Comprehensive metabolic 2000 panelOrdered By: Fiorella Bedoya on 09-02-2024 Albumin [Mass/Vol] 3.6 g/dL Low 3.9 - 4.9 g/dL [facility] ALP [Catalytic activity/Vol] 79 U/L 34 - 123 U/L [facility] ALT [Catalytic activity/Vol] 8 U/L 7 - 38 U/L [facility] Anion gap [Moles/Vol] 10 mmol/L 8 - 15 mmol/L [facility] AST [Catalytic activity/Vol] 13 U/L 13 - 35 U/L [facility] Bilirubin [Mass/Vol] 0.3 mg/dL 0.2 - 1 .3 mg/dL [facility] Calcium [Mass/Vol] 9.1 mg/dL 8.5 - 10. 2 mg/dL [facility] Chloride [Moles/Vol] 102 mmol/L 98 - 10 7 mmol/L [facility] CO2 [Moles/Vol] 27 mmol/L 22 - 30 mmol/L [facility] Creatinine [Mass/Vol] 0.74 mg/dL 0.58 - 0.96 mg/dL [facility] GFR/1.73 sq M.predicted among non-blacks MDRD (S/P/Bld) [Vol rate/Area] 84 mL/min/{1.73_m2} - PINF [facility] Comment on above: Estimated Glomerular Filtration Rate (eGFR) is calculated using the 2020 CKD-EPI creatinine equation. This equation utilizes serum creatinine, sex, and age as parameters. The creatinine assay has traceable calibration to isotope dilution-mass spectrometry. Refer to KDIGO guidelines for clinical interpretation. In patients with unstable renal function, e.g. those with acute kidney injury, the eGFR may not accurately reflect actual GFR. Glucose [Mass/Vol] 104 mg/dL High 74 - 99 mg/dL [facility] Comment on above: The [place] Di[employer] Association (ADA) provides guidance for cutoff values for fasting glucose and random glucose. The ADA defines fasting as no caloric intake for at least 8 hours. Fasting plasma glucose results between 100 to 125 mg/dL indicate increased risk for diabetes (prediabetes). Fasting plasma glucose results greater than or equal to 126 mg/dL meet the criteria for diagnosis of diabetes. In the absence of unequivocal hyperglycemia, results should be confirmed by repeat testing. In a patient with classic symptoms of hyperglycemia or hyperglycemic crisis, random plasma glucose results greater than or equal to 200 mg/dL meet the criteria for diagnosis of diabetes. Reference: Standards of Medical Care in Diabetes 2016, [place] [employer]. Diabetes Care. 2016.39(Suppl 1). Interpretation and review of laboratory results Abnormal [facility] Potassium [Moles/Vol] 4.0 mmol/L 3.7 - 5.1 mmol/L [facility] Protein [Mass/Vol] 6.6 g/dL 6.3 - 8.0 g/dL [facility] Sodium [Moles/Vol] 139 mmol/L 136 - 144 mmol/L [facility] Urea nitrogen [Mass/Vol] 24 mg/dL High 7 - 21 mg/dL [facility] Comprehensive metabolic 2000 panelon 01-06-2025 Albumin [Mass/Vol] 3.6 g/dL Low 3.9-4.9 [facility] Comment on above: Order Comment: Speci men Type: BLOOD SPECIMEN Ordering Facility: [facility] Address: [address] [place] [address] Performed By: #### 3 024-7, 2143-01, 3 #### [facility] CLIA [id number] [address] [place] [address] [place] ALP [Catalytic activity/Vol] 79 U/L Normal 34-123 [facility] Comment on above: Order Comment: Speci men Type: BLOOD SPECIMEN Ordering Facility: [facility] Address: [address] [place] [address] Performed By: #### 3 024-7, 2143-01, 3 #### [facility] CLIA [id number] [address] [place] [address] [place] ALT [Catalytic activity/Vol] 8 U/L Normal 7-38 [facility] Comment on above: Order Comment: Speci men Type: BLOOD SPECIMEN Ordering Facility: [facility] Address: [address] [place] [address] Performed By: #### 3 024-7, 2143-01, 3 #### [facility] CLIA [id number] [address] [place] [address] [place] Anion gap [Moles/Vol] 10 mmol/L Normal 8-15 [facility] Comment on above: Order Comment: Speci men Type: BLOOD SPECIMEN Ordering Facility: [facility] Address: [address] [place] [address] Performed By: #### 3 024-7, 2143-01, 3 #### [facility] CLIA [id number] [address] [place] [address] [place] AST [Catalytic activity/Vol] 13 U/L Normal 13-35 [facility] Comment on above: Order Comment: Speci men Type: BLOOD SPECIMEN Ordering Facility: [facility] Address: [address] [place], [place] [address] Performed By: #### 3 024-7, 2143-01, 3 #### [facility] CLIA [id number] [address] [place], [place] [address] [place] Bilirubin [Mass/Vol] 0.3 mg/dL Normal 0.2-1.3 [facility] Comment on above: Order Comment: Speci men Type: BLOOD SPECIMEN Ordering Facility: [facility] Address: [address] [place], [place] [address] Performed By: #### 3 024-7, 2143-01, 3 #### [facility] CLIA [id number] [address] [place] [address] [place] Calcium [Mass/Vol] 9.1 mg/dL Normal 8.5-10.2 [facility] Comment on above: Order Comment: Speci men Type: BLOOD SPECIMEN Ordering Facility: [facility] Address: [address] [place], [place] [address] Performed By: #### 3 024-7, 2143-01, 3 #### [facility] CLIA [id number] [address] [place], [place] [address] [place] Chloride [Moles/Vol] 102 mmol/L Normal 98-107 [facility] Comment on above: Order Comment: Speci men Type: BLOOD SPECIMEN Ordering Facility: [facility] Address: [address] [place], [place] [address] Performed By: #### 3 024-7, 2143-01, 3 #### [facility] CLIA [id number] [address] [place], [place] [address] [place] CO2 [Moles/Vol] 27 mmol/L Normal 22-30 [facility] Comment on above: Order Comment: Speci men Type: BLOOD SPECIMEN Ordering Facility: [facility] Address: [address] [place], [place] [address] Performed By: #### 3 024-7, 2143-01, 3 #### [facility] CLIA [id number] [address] [place] [address] [place] Creatinine [Mass/Vol] 0.74 mg/dL Normal 0.58-0.96 [facility] Comment on above: Order Comment: Specchavez maravilla Type: BLOOD SPECIMEN Ordering Facility: [facility] Address: [address] [place] [address] Performed By: #### 3 024-7, 2143-01, 3015-10 #### [facility] CLIA [id number] [address] [place] [address] [place] Creatinine and Glomerular filtration rate.predicted panel (S/P/Bld) 84 mL/min/1.73m??? Normal >=60 [facility] Comment on above: Order Comment: Haresh maravilla Type: BLOOD SPECIMEN Ordering Facility: [facility] Address: [address] [place] [address] Result Comment: [place] mated Glomerular Filtration Rate (eGFR) is calculated using the 2020 CKD-EPI creatinine equation. This equation utilizes serum creatinine, sex, and age as parameters. The creatinine assay has traceable calibration to isotope dilution-mass spectrometry. Refer to KDIGO guidelines for clinical interpretation. In patients with unstable renal function, e.g. those with acute kidney injury, the eGFR may not accurately reflect actual GFR. Performed By: #### 3 024-7, 2143-01, 3 #### [facility] CLIA [id number] [address] [place] [address] [place] Glucose [Mass/Vol] 104 mg/dL High 74-99 [facility] Comment on above: Order Comment: Haresh maravilla Type: BLOOD SPECIMEN Ordering Facility: [facility] Address: [address] [place] [address] Result Comment: The [place] Diabetes Association (ADA) provides guidance for cutoff values for fasting glucose and random glucose. The ADA defines fasting as no caloric intake for at least 8 hours. Fasting plasma glucose results between 100 to 125 mg/dL indicate increased risk for diabetes (prediabetes). Fasting plasma glucose results greater than or equal to 126 mg/dL meet the criteria for diagnosis of diabetes. In the absence of unequivocal hyperglycemia, results should be confirmed by repeat testing. In a patient with classic symptoms of hyperglycemia or hyperglycemic crisis, random plasma glucose results greater than or equal to 200 mg/dL meet the criteria for diagnosis of diabetes. Reference: Standards of Medical Care in Diabetes 2016, [place] [employer]. Diabetes Care. 2016.39(Suppl 1). Performed By: #### 3 024-7, 2143-01, 3 #### [facility] CLIA [id number] [address] [place] [address] [place] Potassium [Moles/Vol] 4.0 mmol/L Normal 3.7-5.1 [facility] Comment on above: Order Comment: Speci men Type: BLOOD SPECIMEN Ordering Facility: [facility] Address: [address] [place] [address] Performed By: #### 3 024-7, 2143-01, 3 #### [facility] CLIA [id number] [address] [place] [address] [place] Protein [Mass/Vol] 6.6 g/dL Normal 6.3-8.0 [facility] Comment on above: Order Comment: Speci men Type: BLOOD SPECIMEN Ordering Facility: [facility] Address: [address] [place] [address] Performed By: #### 3 024-7, 2143-01, 3 #### [facility] CLIA [id number] [address] [place] [address] [place] Sodium [Moles/Vol] 139 mmol/L Normal 136-144 [facility] Comment on above: Order Comment: Speci men Type: BLOOD SPECIMEN Ordering Facility: [facility] Address: [address] [place] [address] Performed By: #### 3 024-7, 2143-01, 3016-3 #### [facility] CLIA [id number] [address] [place] [address] [place] Urea nitrogen [Mass/Vol] 24 mg/dL High 7-21 [facility] Comment on above: Order Comment: Speci men Type: BLOOD SPECIMEN Ordering Facility: [facility] Address: [address] [place] [address] Performed By: #### 3 024-7, 2143-01, 3015-3 #### [facility] CLIA [id number] [address] [place] [address] [place] Cortis SerPl-mCncon 09-02-19 25 Cortisol [Mass/Vol] 10.1 ug/dL Normal 4.8-19.5 [facility] Comment on above: Order Comment: Speci men Type: BLOOD SPECIMEN Ordering Facility: [facility] Address: [address] [place] [address] Result Comment: Prov ided reference range is from 6-10 AM sample collection time. Cortisol Reference Range: 6-10 AM = 4.8-19.5 ug/dL, 4-8 PM = 2.5-11.9 ug/dL Performed By: #### 3 024-7, 2143-01, 3015-3 #### [facility] CLIA [id number] [address] [place] [address] [place] T4 Free SerPl-mCncon 025 Free T4 [Mass/Vol] 1.4 ng/dL Normal 0.9-1.7 [facility] Comment on above: Order Comment: Speci men Type: BLOOD SPECIMEN Ordering Facility: [facility] Address: [address] [place] [address] Performed By: #### 3 024-7, 2143-01, 3015-3 #### [facility] CLIA [id number] [address] [place] [address] [place] TSH SerPl-aCncon 09-02-2024 TSH Qn 0.474 m[IU]/L Normal 0.270-4.200 [facility] Comment on above: Order Comment: Speci men Type: BLOOD SPECIMEN Ordering Facility: [facility] Address: [address] [place] [address] Performed By: #### 3 024-7, 2143-01, 3015-3 #### [facility] CLIA [id number] [address] [place] [address] [place] CBC W Auto Differential pane l (Bld)on 07-26-2024 Basophils (Bld) [#/Vol] 0.06 10*3/uL Normal <0.11 [facility] Comment on above: Order Comment: Speci men Type: BLOOD SPECIMEN Ordering Facility: [facility] Address: [address] [place] [address] Performed By: #### 3 024-7, 2143-01, 3 #### [facility] CLIA [id number] [address] [place] [address] [place] Basophils/100 WBC (Bld) 0.9 % Normal [facility] Comment on above: Order Comment: Speci men Type: BLOOD SPECIMEN Ordering Facility: [facility] Address: [address] [place] [address] Performed By: #### 3 024-7, 2143-01, 3 #### [facility] CLIA [id number] [address] [place] [address] [place] Differential cell count method Nom (Bld) Auto Normal [facility] Comment on above: Order Comment: Speci men Type: BLOOD SPECIMEN Ordering Facility: [facility] Address: [address] [place] [address] Performed By: #### 3 024-7, 2143-01, 3015-3 #### [facility] CLIA [id number] [address] [place] [address] [place] Eosinophils (Bld) [#/Vol] 0.19 10*3/uL Normal <0.46 [facility] Comment on above: Order Comment: Speci men Type: BLOOD SPECIMEN Ordering Facility: [facility] Address: [address] [place] [address] Performed By: #### 3 024-7, 2143-01, 3 #### [facility] CLIA [id number] [address] [place] [address] [place] Eosinophils/100 WBC (Bld) 3.0 % Normal [facility] Comment on above: Order Comment: Speci men Type: BLOOD SPECIMEN Ordering Facility: [facility] Address: [address] [place] [address] Performed By: #### 3 024-7, 2143-01, 3015-10 #### [facility] CLIA [id number] [address] [place] [address] [place] Erythrocyte distribution width (RBC) [Ratio] 14.3 % Normal 11.5-15.0 [facility] Comment on above: Order Comment: Speci men Type: BLOOD SPECIMEN Ordering Facility: [facility] Address: [address] [place] [address] Performed By: #### 3 024-7, 2143-01, 3015-10 #### [facility] CLIA [id number] [address] [place] [address] [place] Hematocrit (Bld) [Volume fraction] 45.1 % Normal 36.0-46.0 [facility] Comment on above: Order Comment: Speci men Type: BLOOD SPECIMEN Ordering Facility: [facility] Address: [address] [place] [address] Performed By: #### 3 024-7, 2143-01, 3015-10 #### [facility] CLIA [id number] [address] [place], [place] [address] [place] Hemoglobin (Bld) [Mass/Vol] 14.8 g/dL Normal 11.5-15.5 [facility] Comment on above: Order Comment: Speci men Type: BLOOD SPECIMEN Ordering Facility: [facility] Address: [address] [place] [address] Performed By: #### 3 024-7, 2143-01, 3015-3 #### [facility] CLIA [id number] [address] [place] [address] [place] Immature granulocytes (Bld) [#/Vol] 10*3/uL Normal <0.10 [facility] Comment on above: Order Comment: Speci men Type: BLOOD SPECIMEN Ordering Facility: [facility] Address: [address] [place] [address] Performed By: #### 3 024-7, 2143-01, 3 #### [facility] CLIA [id number] [address] [place] [address] [place] Immature granulocytes/100 WBC (Bld) 0.3 % Normal [facility] Comment on above: Order Comment: Speci men Type: BLOOD SPECIMEN Ordering Facility: [facility] Address: [address] [place] [address] Performed By: #### 3 024-7, 2143-01, 3 #### [facility] CLIA [id number] [address] [place] [address] [place] Lymphocytes (Bld) [#/Vol] 1.91 10*3/uL Normal 1.00-4.00 [facility] Comment on above: Order Comment: Speci men Type: BLOOD SPECIMEN Ordering Facility: [facility] Address: [address] [place] [address] Performed By: #### 3 024-7, 2143-01, 3 #### [facility] CLIA [id number] [address] [place] [address] [place] Lymphocytes/100 WBC (Bld) 30.2 % Normal [facility] Comment on above: Order Comment: Speci men Type: BLOOD SPECIMEN Ordering Facility: [facility] Address: [address] [place] [address] Performed By: #### 3 024-7, 2142-6, 6-3 #### [facility] CLIA [id number] [address] [place] [address] [place] MCH (RBC) [Entitic mass] 28.2 pg Normal 26.0-34.0 [facility] Comment on above: Order Comment: Speci men Type: BLOOD SPECIMEN Ordering Facility: [facility] Address: [address] [place] [address] Performed By: #### 3 024-7, 2142-6, 6-3 #### [facility] CLIA [id number] [address] [place] [address] [place] MCHC (RBC) [Mass/Vol] 32.8 g/dL Normal 30.5-36.0 [facility] Comment on above: Order Comment: Speci men Type: BLOOD SPECIMEN Ordering Facility: [facility] Address: [address] [place] [address] Performed By: #### 3 024-7, 2143-01, 6-3 #### [facility] CLIA [id number] [address] [place] [address] [place] MCV (RBC) [Entitic vol] 86.1 fL Normal 80.0-100.0 [facility] Comment on above: Order Comment: Speci men Type: BLOOD SPECIMEN Ordering Facility: [facility] Address: [address] [place] [address] Performed By: #### 3 024-7, 6, 6-3 #### [facility] CLIA [id number] [address] [place] [address] [place] Monocytes (Bld) [#/Vol] 0.48 10*3/uL Normal <0.87 [facility] Comment on above: Order Comment: Speci men Type: BLOOD SPECIMEN Ordering Facility: [facility] Address: [address] [place] [address] Performed By: #### 3 024-7, 2143-01, 3 #### [facility] CLIA [id number] [address] [place] [address] [place] Monocytes/100 WBC (Bld) 7.6 % Normal [facility] Comment on above: Order Comment: Speci men Type: BLOOD SPECIMEN Ordering Facility: [facility] Address: [address] [place] [address] Performed By: #### 3 024-7, 2143-01, 3 #### [facility] CLIA [id number] [address] [place] [address] [place] Neutrophils (Bld) [#/Vol] 3.67 10*3/uL Normal 1.45-7.50 [facility] Comment on above: Order Comment: Speci men Type: BLOOD SPECIMEN Ordering Facility: [facility] Address: [address] [place] [address] Performed By: #### 3 024-7, 2143-01, 3 #### [facility] CLIA [id number] [address] [place] [address] [place] Neutrophils/100 WBC (Bld) 58.0 % Normal [facility] Comment on above: Order Comment: Speci men Type: BLOOD SPECIMEN Ordering Facility: [facility] Address: [address] [place] [address] Performed By: #### 3 024-7, 2143-01, 3 #### [facility] CLIA [id number] [address] [place], [place] [address] [place] Nucleated RBC (Bld) [#/Vol] 10*3/uL Normal <0.01 [facility] Comment on above: Order Comment: Speci men Type: BLOOD SPECIMEN Ordering Facility: [facility] Address: [address] [place] [address] Performed By: #### 3 024-7, 2143-01, 3 #### [facility] CLIA [id number] [address] [place], [place] [id number] [place] Nucleated RBC/100 WBC (Bld) [Ratio] 0.0 /100 WBC Normal [facility] Comment on above: Order Comment: Speci men Type: BLOOD SPECIMEN Ordering Facility: [facility] Address: [address] [place] [address] Performed By: #### 3 024-7, 2143-01, 3 #### [facility] CLIA [id number] [address] [place] [address] [place] Platelet mean volume (Bld) [Entitic vol] 10.0 fL Normal 9.0-12.7 [facility] Comment on above: Order Comment: Speci men Type: BLOOD SPECIMEN Ordering Facility: [facility] Address: [address] [place] [address] Performed By: #### 3 024-7, 2143-01, 3 #### [facility] CLIA [id number] [address] [place] [address] [place] Platelets (Bld) [#/Vol] 251 10*3/uL Normal 150-400 [facility] Comment on above: Order Comment: Speci men Type: BLOOD SPECIMEN Ordering Facility: [facility] Address: [address] [place] [address] Performed By: #### 3 024-7, 2143-01, 3 #### [facility] CLIA [id number] [address] [place] [address] [place] RBC (Bld) [#/Vol] 5.24 10*6/uL High 3.90-5.20 [facility] Comment on above: Order Comment: Speci men Type: BLOOD SPECIMEN Ordering Facility: [facility] Address: [address] [place] [address] Performed By: #### 3 024-7, 2143-01, 3015-3 #### [facility] CLIA [id number] [address] [place] [address] [place] WBC (Bld) [#/Vol] 6.33 10*3/uL Normal 3.70-11.00 [facility] Comment on above: Order Comment: Speci men Type: BLOOD SPECIMEN Ordering Facility: [facility] Address: [address] [place] [address] Performed By: #### 3 024-7, 2143-6, 3016-3 #### [facility] CLIA [id number] [address] [place] [address] [place] CNOVSPon 07-26-2024 CNOVSP Visit (SP) Office ([place]) ZOILA MEMBRENO ([id number]) 1950 F Date Time Provider Department 07/26/24 10:00 AM SUSAN OCONNOR During your visit today, we recorded the following information about you: Temperature Pulse Blood pressure Weight 97.7 degrees 79/minute 109/74 63.3 kg Susan Oconnor 07/30/2024 1:19 PM Signed Zoila Membreno 1950 HISTORY OF PRESENT ILLNESS: Zoila Membreno is a 73 year old female mole on back, started to itch and bleed. Saw Dr De Leon biopsy showed melanoma. Wide excision and SLNB done 07-28-23 showed pT4bN0 cancer Feels ok, on ROS mentioned some double vision. Here for follow up, prior cycle 12 pembrolizumab. Tolerated cycle 1 well, no diarrhea, dyspnea or rash Double vision better, CT chest showed some right lung nodules, imaging reviewed. Nodules felt to be hamartoma after review with radiology. Swelling better Currently taking synthroid 100 mcg. Dry mouth continues, no appetite also metallic taste Weight down, albumin 3.6 in March Interval Hx: Ms. Membreno presents today for follow up prior to treatment. She denies new issues. Taste changes and fatigue are somewhat stable. Otherwise no new issues. No changes in bowel or bladder habits. No bleeding issues. Facial rash is generally stable. Denies other skin changes, rash or itching. Continues working as personal injury specialist. CLINICAL IMPRESSION: Melanoma stage IIC Anorexia, dysguesia RECOMMENDATION/PLAN: 1. Adjuvant pembrolizumab 1 year, continue with last treatment per Dr. Saldaña, plan to move out a week due to travel. 2, synthroid 3. CT scans in October 2024, will see back after that 4. Dermatology for skin checks PAST MEDICAL HISTORY Diagnosis Date Abnormal mammogram, unspecified left breast 2006 STEREOTACTIC Malignant melanoma (HCC) 06/12/2023 PONV (postoperative nausea and vomiting) PAST SURGICAL HISTORY Procedure Laterality Date PAST SURGICAL HISTORY OF Right arm PAST SURGICAL HISTORY OF 07/28/2023 Back Lesion Excision PAST SURGICAL HISTORY OF Meniscus Repair REVJ TOT KNEE ARTHRP FEMANDENTIRE TIBIAL COMPONE Knee replacement PARTIAL LEFT 2003 SKIN BX, 1 LESION 05/22/2023 Atypical skin lesion to back STEREOTACTIC CORE BIOPSY 07/29/2009 left breast FAMILY HISTORY Problem Relation Age of Onset Ischemic Heart Disease Mother Dementia Mother Heart Father Social History Tobacco Use Smoking status: Never Smokeless tobacco: Never Vaping Use Vaping status: Never Used Substance Use Topics Alcohol use: Not Currently Comment: wine once a month Drug use: No ALLERGIES: ALLERGIES No Known Allergies CURRENT OUTPATIENT MEDICATIONS: multivit-min/ferrous fumarate (MULTI VITAMIN ORAL) Take 1 tablet by mouth once daily. furosemide (LASIX) 20 mg tablet take 1 tablet by mouth once daily for 5 days (Patient taking differently: Take 20 mg by mouth as needed.) levothyroxine (SYNTHROID) 100 mcg tablet Take 125 mcg by mouth once daily. losartan (COZAAR) 50 mg tablet Take 25 mg by mouth once daily. iv contrast (will be provided with radiology [...] Contrast as designated per enteric contrast guidelines cholecalciferol, vitamin D3, (VITAMIN D3 ORAL) Take 1 tablet by mouth once daily. acetaminophen (TYLENOL) 325 mg tablet Take 650 mg by mouth every 6 hours as needed. REVIEW OF SYSTEMS: GENERAL: No fever, night sweats, weight loss or malaise. All other reviewed and negative other than HPI. All systems reviewed on 07/26/2024 with pertinent positives and negatives as outlined in the interval history. PHYSICAL EXAMINATION: VITAL SIGNS: LMP 01/07/2003 GENERAL APPEARANCE: Well appearing, in no acute distress, alert and oriented x3, well-hydrated, well nourished. LUNGS: CTA HEART: Reg, no gallops EXT: no edema I have performed the physical exam today (07/26/2024) and have edited the note to correlate with current findings. Susan Oconnor APRN.OFFICE RUNNER I spent a total of 25 minutes on the date of the service which included preparing to see the patient, [id number] patient care, completing clinical documentation, and counseling and educating the patient/family/caregive r. Portions of (more content not included)... Normal [facility] Comprehensive metabolic 2000 panelon 07-26-2024 Albumin [Mass/Vol] 3.8 g/dL Low 3.9-4.9 [facility] Comment on above: Order Comment: Haresh maravilla Type: BLOOD SPECIMEN Ordering Facility: [facility] Address: [address] [place] [address] Performed By: #### 5 7021-8 #### [facility] CLIA [id number] [address] [place] [address] [place] ALP [Catalytic activity/Vol] 83 U/L Normal 34-123 [facility] Comment on above: Order Comment: Haresh maravilla Type: BLOOD SPECIMEN Ordering Facility: [facility] Address: [address] [place] [address] Performed By: #### 5 7021-8 #### [facility] CLIA [id number] [address] [place] [address] [place] ALT [Catalytic activity/Vol] 9 U/L Normal 7-38 [facility] Comment on above: Order Comment: Speci men Type: BLOOD SPECIMEN Ordering Facility: [facility] Address: [address] [place] [address] Performed By: #### 5 7021-8 #### [facility] [place] CLIA [id number] [address] [place] [address] [place] Anion gap [Moles/Vol] 6 mmol/L Low 8-15 [facility] Comment on above: Order Comment: Speci men Type: BLOOD SPECIMEN Ordering Facility: [facility] Address: [address] [place] [address] Performed By: #### 5 7021-8 #### [facility] CLIA [id number] [address] [place] [address] [place] AST [Catalytic activity/Vol] 15 U/L Normal 13-35 [facility] Comment on above: Order Comment: Speci men Type: BLOOD SPECIMEN Ordering Facility: [facility] Address: [address] [place] [address] Performed By: #### 5 7021-8 #### [facility] CLIA [id number] [address] [place] [address] [place] Bilirubin [Mass/Vol] 0.4 mg/dL Normal 0.2-1.3 [facility] Comment on above: Order Comment: Speci men Type: BLOOD SPECIMEN Ordering Facility: [facility] Address: [address] [place] [address] Performed By: #### 5 7021-8 #### [facility] CLIA [id number] [address] [place] [address] [place] Calcium [Mass/Vol] 9.7 mg/dL Normal 8.5-10.2 [facility] Comment on above: Order Comment: Speci men Type: BLOOD SPECIMEN Ordering Facility: [facility] Address: [address] [place] [address] Performed By: #### 5 7021-8 #### [facility] CLIA [id number] [address] [place] [address] [place] Chloride [Moles/Vol] 102 mmol/L Normal 98-107 [facility] Comment on above: Order Comment: Speci men Type: BLOOD SPECIMEN Ordering Facility: [facility] Address: [address] [place] [address] Performed By: #### 5 7021-8 #### [facility] CLIA [id number] [address] [place] [address] [place] CO2 [Moles/Vol] 29 mmol/L Normal 22-30 [facility] Comment on above: Order Comment: Speci men Type: BLOOD SPECIMEN Ordering Facility: [facility] Address: [address] [place] [address] Performed By: #### 5 7021-8 #### [id number] [address] [place] [address] [place] Creatinine [Mass/Vol] 0.84 mg/dL Normal 0.58-0.96 [facility] Comment on above: Order Comment: Speci men Type: BLOOD SPECIMEN Ordering Facility: [facility] Address: [address] [place] [address] Performed By: #### 5 7021-8 #### [facility] CLIA [id number] [address] [place] [address] [place] Creatinine and Glomerular filtration rate.predicted panel (S/P/Bld) 73 mL/min/1.73m??? Normal >=60 [facility] Comment on above: Order Comment: Speci men Type: BLOOD SPECIMEN Ordering Facility: [facility] Address: [address] [place] [address] Result Comment: [place] mated Glomerular Filtration Rate (eGFR) is calculated using the 2020 CKD-EPI creatinine equation. This equation utilizes serum creatinine, sex, and age as parameters. The creatinine assay has traceable calibration to isotope dilution-mass spectrometry. Refer to KDIGO guidelines for clinical interpretation. In patients with unstable renal function, e.g. those with acute kidney injury, the eGFR may not accurately reflect actual GFR. Performed By: #### 5 7021-8 #### [facility] [id number] [address] [place] [address] [place] Glucose [Mass/Vol] 103 mg/dL High 74-99 [facility] Comment on above: Order Comment: Haresh maravilla Type: BLOOD SPECIMEN Ordering Facility: [facility] Address: [address] [place] [address] Result Comment: The [place] Diabetes Association (ADA) provides guidance for cutoff values for fasting glucose and random glucose. The ADA defines fasting as no caloric intake for at least 8 hours. Fasting plasma glucose results between 100 to 125 mg/dL indicate increased risk for diabetes (prediabetes). Fasting plasma glucose results greater than or equal to 126 mg/dL meet the criteria for diagnosis of diabetes. In the absence of unequivocal hyperglycemia, results should be confirmed by repeat testing. In a patient with classic symptoms of hyperglycemia or hyperglycemic crisis, random plasma glucose results greater than or equal to 200 mg/dL meet the criteria for diagnosis of diabetes. Reference: Standards of Medical Care in Diabetes 2016, [place] [employer] Association. Diabetes Care. 2016.39(Suppl 1). Performed By: #### 5 7021-8 #### [facility] [id number] [address] [place] [address] [place] Potassium [Moles/Vol] 4.1 mmol/L Normal 3.7-5.1 [facility] Comment on above: Order Comment: Haresh maravilla Type: BLOOD SPECIMEN Ordering Facility: [facility] Address: [address] [place] [address] Performed By: #### 5 7021-8 #### [facility] [id number] [address] [place] [address] [place] Protein [Mass/Vol] 6.9 g/dL Normal 6.3-8.0 [facility] Comment on above: Order Comment: Speci men Type: BLOOD SPECIMEN Ordering Facility: [facility] Address: [address] [place] [address] Performed By: #### 5 7021-8 #### [facility] CLIA [id number] [address] [place] [address] [place] Sodium [Moles/Vol] 137 mmol/L Normal 136-144 [facility] Comment on above: Order Comment: Speci men Type: BLOOD SPECIMEN Ordering Facility: [facility] Address: [address] [place] [address] Performed By: #### 5 7021-8 #### [facility] CLIA [id number] [address] [place] [address] [place] Urea nitrogen [Mass/Vol] 22 mg/dL High 7-21 [facility] Comment on above: Order Comment: Speci men Type: BLOOD SPECIMEN Ordering Facility: [facility] Address: [address] [place] [address] Performed By: #### 5 7021-8 #### [facility] CLIA [id number] [address] [place] [address] [place] Cortfranco Lovell 07-26-20 24 Cortisol [Mass/Vol] 12.9 ug/dL Normal 4.8-19.5 [facility] Comment on above: Order Comment: Speci men Type: BLOOD SPECIMEN Ordering Facility: [facility] Address: [address] [place] [address] Result Comment: Prov ided reference range is from 6-10 AM sample collection time. Cortisol Reference Range: 6-10 AM = 4.8-19.5 ug/dL, 4-8 PM = 2.5-11.9 ug/dL Performed By: #### 3 024-7, 2143-6, 3016-3 #### [facility] CLIA [id number] [address] [place] [address] [place] T4 Free SerPl-mCncon 024 Free T4 [Mass/Vol] 1.4 ng/dL Normal 0.9-1.7 [facility] Comment on above: Order Comment: Speci men Type: BLOOD SPECIMEN Ordering Facility: [facility] Address: [address] [place] [address] Performed By: #### 3 024-7, 2143-01, 3015-3 #### [facility] CLIA [id number] [address] [place] [address] [place] TSH SerPl-aCncon 07-26-2024 TSH Qn 1.080 m[IU]/L Normal 0.270-4.200 [facility] Comment on above: Order Comment: Speci men Type: BLOOD SPECIMEN Ordering Facility: [facility] Address: [address] [place] [address] Performed By: #### 3 024-7, 2143-01, 3015-3 #### [facility] CLIA [id number] [address] [place] [address] [place] CBC W Auto Differential pane l (Bld)on 07-05-2024 Basophils (Bld) [#/Vol] 0.06 10*3/uL Normal <0.11 [facility] Comment on above: Order Comment: Speci men Type: BLOOD SPECIMEN Ordering Facility: [facility] Address: [address] [place] [address] Performed By: #### 3 024-7, 2143-01, 3015-3 #### [facility] CLIA [id number] [address] [place] [address] [place] Basophils/100 WBC (Bld) 0.9 % Normal [facility] Comment on above: Order Comment: Speci men Type: BLOOD SPECIMEN Ordering Facility: [facility] Address: [address] [place] [address] Performed By: #### 3 024-7, 2143-01, 3 #### [facility] CLIA [id number] [address] [place] [address] [place] Differential cell count method Nom (Bld) Auto Normal [facility] Comment on above: Order Comment: Speci men Type: BLOOD SPECIMEN Ordering Facility: [facility] Address: [address] [place] [address] Performed By: #### 3 024-7, 2143-01, 3015-10 #### [facility] CLIA [id number] [address] [place] [address] [place] Eosinophils (Bld) [#/Vol] 0.18 10*3/uL Normal <0.46 [facility] Comment on above: Order Comment: Speci men Type: BLOOD SPECIMEN Ordering Facility: [facility] Address: [address] [place] [address] Performed By: #### 3 024-7, 2143-01, 3015-10 #### [facility] CLIA [id number] [address] [place] [address] [place] Eosinophils/100 WBC (Bld) 2.6 % Normal [facility] Comment on above: Order Comment: Speci men Type: BLOOD SPECIMEN Ordering Facility: [facility] Address: [address] [place] [address] Performed By: #### 3 024-7, 2143-01, 3 #### [facility] CLIA [id number] [address] [place] [address] [place] Erythrocyte distribution width (RBC) [Ratio] 14.1 % Normal 11.5-15.0 [facility] Comment on above: Order Comment: Speci men Type: BLOOD SPECIMEN Ordering Facility: [facility] Address: [address] [place] [address] Performed By: #### 3 024-7, 2143-01, 3 #### [facility] CLIA [id number] [address] [place] [address] [place] Hematocrit (Bld) [Volume fraction] 40.1 % Normal 36.0-46.0 [facility] Comment on above: Order Comment: Speci men Type: BLOOD SPECIMEN Ordering Facility: [facility] Address: [address] [place] [address] Performed By: #### 3 024-7, 2143-01, 3 #### [facility] CLIA [id number] [address] [place] [address] [place] Hemoglobin (Bld) [Mass/Vol] 13.1 g/dL Normal 11.5-15.5 [facility] Comment on above: Order Comment: Speci men Type: BLOOD SPECIMEN Ordering Facility: [facility] Address: [address] [place] [address] Performed By: #### 3 024-7, 2143-01, 3 #### [facility] CLIA [id number] [address] [place] [address] [place] Immature granulocytes (Bld) [#/Vol] 10*3/uL Normal <0.10 [facility] Comment on above: Order Comment: Speci men Type: BLOOD SPECIMEN Ordering Facility: [facility] Address: [address] [place] [address] Performed By: #### 3 024-7, 2143-01, 3 #### [facility] CLIA [id number] [address] [place] [address] [place] Immature granulocytes/100 WBC (Bld) 0.1 % Normal [facility] Comment on above: Order Comment: Speci men Type: BLOOD SPECIMEN Ordering Facility: [facility] Address: [address] [place] [address] Performed By: #### 3 024-7, 2143-01, 3 #### [facility] CLIA [id number] [address] [place] [address] [place] Lymphocytes (Bld) [#/Vol] 2.03 10*3/uL Normal 1.00-4.00 [facility] Comment on above: Order Comment: Speci men Type: BLOOD SPECIMEN Ordering Facility: [facility] Address: [address] [place] [address] Performed By: #### 3 024-7, 2143-01, 3015-3 #### [facility] CLIA [id number] [address] [place] [address] [place] Lymphocytes/100 WBC (Bld) 29.5 % Normal [facility] Comment on above: Order Comment: Speci men Type: BLOOD SPECIMEN Ordering Facility: [facility] Address: [address] [place] [address] Performed By: #### 3 024-7, 2143-01, 3015-3 #### [facility] CLIA [id number] [address] [place] [address] [place] MCH (RBC) [Entitic mass] 28.2 pg Normal 26.0-34.0 [facility] Comment on above: Order Comment: Speci men Type: BLOOD SPECIMEN Ordering Facility: [facility] Address: [address] [place] [address] Performed By: #### 3 024-7, 2143-01, 3015-3 #### [facility] CLIA [id number] [address] [place] [address] [place] MCHC (RBC) [Mass/Vol] 32.7 g/dL Normal 30.5-36.0 [facility] Comment on above: Order Comment: Speci men Type: BLOOD SPECIMEN Ordering Facility: [facility] Address: [address] [place] [address] Performed By: #### 3 024-7, 2143-01, 3015-3 #### [facility] CLIA [id number] [address] [place] [address] [place] MCV (RBC) [Entitic vol] 86.4 fL Normal 80.0-100.0 [facility] Comment on above: Order Comment: Speci men Type: BLOOD SPECIMEN Ordering Facility: [facility] Address: [address] [place] [address] Performed By: #### 3 024-7, 2143-01, 3015-3 #### [facility] CLIA [id number] [address] [place] [address] [place] Monocytes (Bld) [#/Vol] 0.53 10*3/uL Normal <0.87 [facility] Comment on above: Order Comment: Speci men Type: BLOOD SPECIMEN Ordering Facility: [facility] Address: [address] [place] [address] Performed By: #### 3 024-7, 2143-01, 3015-3 #### [facility] CLIA [id number] [address] [place] [address] [place] Monocytes/100 WBC (Bld) 7.7 % Normal [facility] Comment on above: Order Comment: Speci men Type: BLOOD SPECIMEN Ordering Facility: [facility] Address: [address] [place] [address] Performed By: #### 3 024-7, 2143-01, 3015-3 #### [facility] CLIA [id number] [address] [place] [address] [place] Neutrophils (Bld) [#/Vol] 4.06 10*3/uL Normal 1.45-7.50 [facility] Comment on above: Order Comment: Speci men Type: BLOOD SPECIMEN Ordering Facility: [facility] Address: [address] [place] [address] Performed By: #### 3 024-7, 2143-01, 3015-3 #### [facility] CLIA [id number] [address] [place] [address] [place] Neutrophils/100 WBC (Bld) 59.2 % Normal [facility] Comment on above: Order Comment: Speci men Type: BLOOD SPECIMEN Ordering Facility: [facility] Address: [address] [place] [address] Performed By: #### 3 024-7, 2143-01, 3 #### [facility] CLIA [id number] [address] [place] [address] [place] Nucleated RBC (Bld) [#/Vol] 10*3/uL Normal <0.01 [facility] Comment on above: Order Comment: Speci men Type: BLOOD SPECIMEN Ordering Facility: [facility] Address: [address] [place] [address] Performed By: #### 3 024-7, 2143-01, 3015-10 #### [facility] CLIA [id number] [address] [place] [address] [place] Nucleated RBC/100 WBC (Bld) [Ratio] 0.0 /100 WBC Normal [facility] Comment on above: Order Comment: Speci men Type: BLOOD SPECIMEN Ordering Facility: [facility] Address: [address] [place] [address] Performed By: #### 3 024-7, 2143-01, 3 #### [facility] CLIA [id number] [address] [place] [address] [place] Platelet mean volume (Bld) [Entitic vol] 10.1 fL Normal 9.0-12.7 [facility] Comment on above: Order Comment: Speci men Type: BLOOD SPECIMEN Ordering Facility: [facility] Address: [address] [place] [address] Performed By: #### 3 024-7, 2143-01, 3015-10 #### [facility] CLIA [id number] [address] [place] [address] [place] Platelets (Bld) [#/Vol] 237 10*3/uL Normal 150-400 [facility] Comment on above: Order Comment: Speci men Type: BLOOD SPECIMEN Ordering Facility: [facility] Address: [address] [place] [address] Performed By: #### 3 024-7, 2142-6, 6-3 #### [facility] CLIA [id number] [address] [place] [address] [place] RBC (Bld) [#/Vol] 4.64 10*6/uL Normal 3.90-5.20 [facility] Comment on above: Order Comment: Speci men Type: BLOOD SPECIMEN Ordering Facility: [facility] Address: [address] [place] [address] Performed By: #### 3 024-7, 2142-6, 6-3 #### [facility] CLIA [id number] [address] [place] [address] [place] WBC (Bld) [#/Vol] 6.87 10*3/uL Normal 3.70-11.00 [facility] Comment on above: Order Comment: Speci men Type: BLOOD SPECIMEN Ordering Facility: [facility] Address: [address] [place] [address] Performed By: #### 3 024-7, 2142-, 6-3 #### [facility] CLIA [id number] [address] [place] [address] [place] CNOVSPon 07-05-2024 CNOVS Visit (SP) Office (CATRACHO) ZOILA MEMBRENO ([id number]) 1950 F Date Time Provider Department 07/05/24 11:30 AM SD SALDAÑA During your visit today, we recorded the following information about you: Temperature Pulse Blood pressure Weight 97.7 degrees 59/minute 109/72 64.4 kg Sd Saldaña MD 07/05/2024 12:58 PM Signed (Elements copied from my note datedS2023 , have been reviewed and updated where appropriate, and all reflect current assessment and medical decision making from today's encounter, July 05, 2024) HISTORY OF PRESENT ILLNESS: Zoila Membreno is a 73 year old female mole on back, started to itch and bleed. Saw Dr De Leon biopsy showed melanoma. Wide excision and SLNB done 07-28-23 showed pT4bN0 cancer Feels ok, on ROS mentioned some double vision. Here for follow up, prior cycle 12 pembrolizumab. Tolerated cycle 1 well, no diarrhea, dyspnea or rash Double vision better, CT chest showed some right lung nodules, imaging reviewed. Nodules felt to be hamartoma after review with radiology. Swelling better Currently taking synthroid 100 mcg. Dry mouth continues, no appetite also metallic taste Weight down, albumin 3.6 in March CLINICAL IMPRESSION: Melanoma stage IIC Anorexia, dysguesia RECOMMENDATION/PLAN: 1. Adjuvant pembrolizumab 1 year 2, synthroid 3. CT scans in October 2024, will see back after that 4. Dermatology for skin checks Written and verbal health teaching given to patient, patient verbalizes understanding and agrees with treatment plan. PAST MEDICAL HISTORY Diagnosis Date Abnormal mammogram, unspecified left breast 2006 STEREOTACTIC Malignant melanoma (HCC) 06/12/2023 PONV (postoperative nausea and vomiting) PAST SURGICAL HISTORY Procedure Laterality Date PAST SURGICAL HISTORY OF Right arm PAST SURGICAL HISTORY OF 07/28/2023 Back Lesion Excision PAST SURGICAL HISTORY OF Meniscus Repair REVJ TOT KNEE ARTHRP FEMANDENTIRE TIBIAL COMPONE Knee replacement PARTIAL LEFT 2003 SKIN BX, 1 LESION 05/22/2023 Atypical skin lesion to back STEREOTACTIC CORE BIOPSY 07/29/2009 left breast FAMILY HISTORY Problem Relation Age of Onset Ischemic Heart Disease Mother Dementia Mother Heart Father Social History Tobacco Use Smoking status: Never Smokeless tobacco: Never Vaping Use Vaping status: Never Used Substance Use Topics Alcohol use: Not Currently Comment: wine once a month Drug use: No ALLERGIES: ALLERGIES No Known Allergies CURRENT OUTPATIENT MEDICATIONS: multivit-min/ferrous fumarate (MULTI VITAMIN ORAL) Take 1 tablet by mouth once daily. furosemide (LASIX) 20 mg tablet take 1 tablet by mouth once daily for 5 days (Patient taking differently: Take 20 mg by mouth as needed.) levothyroxine (SYNTHROID) 100 mcg tablet Take 125 mcg by mouth once daily. losartan (COZAAR) 50 mg tablet Take 25 mg by mouth once daily. cholecalciferol, vitamin D3, (VITAMIN D3 ORAL) Take [...] than HPI. PHYSICAL EXAMINATION: VITAL SIGNS: BP 109/72 Pulse 59 Temp (Src) 97.7 (Temporal) Wt 142 lb (64.4kg) SpO2 99% LMP 01/07/2003 GENERAL APPEARANCE: Well appearing, in no acute distress, alert and oriented x3, well-hydrated, well nourished. LUNGS: CTA HEART: Reg, no gallops EXT: no edema I spent a total of 30 minutes on the date of the service which included preparing to see the patient, [id number] patient care, completing clinical documentation, obtaining and/or reviewing separately obtained history, counseling and educating the patient/family/caregive r, ordering medications, tests, or procedures, communicating with other HCPs (not separately reported), independently interpreting results (not separately reported), communicating results to the patient/family/caregive r, and care coordination (not separately re (more content not included)... Normal [facility] Claire 07-05-2024 SHAUNAN Telephone (HEMRODO) ZOILA MEMBRENO ([id number]) 1950 F Date Time Provider Department 07/05/24 SD SALDAÑA During your visit today, we recorded the following information about you: Lidia Arce 07/05/2024 1:23 PM Signed Check out comments:Please move last keytruda to September 02 2024. - completed CT CAP in October 2024, see me 1 week after scan Left message for patient to return call. When she calls, please scheduled CT CAP (with CREATININE(S)* LAB prior) and OV w/ Huang 1 week later in October 2024. Tamara Perry 07/05/2024 1:47 PM Signed Completed Allergies As of Date: 07/05/2024 (No Known Allergies) Date Reviewed: 07/05/2024 Reviewed by: Sena Smith Ma, MA - Fully Assessed Reason for Visit: 07/05/24 AVS [Other] Prescriptions as of 07/05/2024 - iv contrast (will be provided with radiology [...] in the CT contrast administration guidelines link. - enteric contrast (will be provided with radiology test) For CT CHESTABD/PEL W IVCON Routine order Administer, As Directed One Time Only, via Oral, Rectal, both Oral and Rectal, Enteric Tube, Stoma or Indwelling Catheter, Enteric Contrast as designated per enteric contrast guidelines - multivit-min/ferrous fumarate (MULTI VITAMIN ORAL) Take 1 tablet by mouth once daily. - furosemide (LASIX) 20 mg tablet take 1 tablet by mouth once daily for 5 days - levothyroxine (SYNTHROID) 100 mcg tablet Take 125 mcg by mouth once daily. - losartan (COZAAR) 50 mg tablet Take 25 mg by mouth once daily. - iv contrast (will be provided with radiology [...] in the CT contrast administration guidelines link. - enteric contrast (will be provided with radiology test) For CT CHESTABD/PEL W IVCON Routine order Administer, As Directed One Time Only, via Oral, Rectal, both Oral and Rectal, Enteric Tube, Stoma or Indwelling Catheter, Enteric Contrast as designated per enteric contrast guidelines - cholecalciferol, vitamin D3, (VITAMIN D3 ORAL) Take 1 tablet by mouth once daily. - acetaminophen (TYLENOL) 325 mg tablet Take 650 mg by mouth every 6 hours as needed. Problem List As Of Date 07/05/2024 Noted Resolved Knee pain [M25.569] 11/15/2012 Tear of medial cartilage or meniscus of knee, c*12/20/2012 Malignant melanoma of torso excluding breast (H*08/23/2023 Encounter Status:Closed by TAMARA PIÑA on 07/05/24 Normal [facility] Comprehensive metabolic 2000 panelon 07-05-2024 Albumin [Mass/Vol] 3.6 g/dL Low 3.9-4.9 [facility] Comment on above: Order Comment: Haresh maravilla Type: BLOOD SPECIMEN Ordering Facility: [facility] Address: [address] [place] [address] Performed By: #### 3 024-7, 2143-6, 3016-3 #### [facility] CLIA [id number] [address] [place] [address] [place] ALP [Catalytic activity/Vol] 83 U/L Normal 34-123 [facility] Comment on above: Order Comment: Haresh maravilla Type: BLOOD SPECIMEN Ordering Facility: [facility] Address: [address] [place] [address] Performed By: #### 3 024-7, 2143-01, 3 #### [facility] CLIA [id number] [address] [place] [address] [place] ALT [Catalytic activity/Vol] 6 U/L Low 7-38 [facility] Comment on above: Order Comment: Speci men Type: BLOOD SPECIMEN Ordering Facility: [facility] Address: [address] [place] [address] Performed By: #### 3 024-7, 2143-01, 3 #### [facility] CLIA [id number] [address] [place] [address] [place] Anion gap [Moles/Vol] 11 mmol/L Normal 8-15 [facility] Comment on above: Order Comment: Speci men Type: BLOOD SPECIMEN Ordering Facility: [facility] Address: [address] [place] [address] Performed By: #### 3 024-7, 2143-01, 3 #### [facility] CLIA [id number] [address] [place] [address] [place] AST [Catalytic activity/Vol] 13 U/L Normal 13-35 [facility] Comment on above: Order Comment: Speci men Type: BLOOD SPECIMEN Ordering Facility: [facility] Address: [address] [place] [address] Performed By: #### 3 024-7, 2143-01, 3 #### [facility] CLIA [id number] [address] [place] [address] [place] Bilirubin [Mass/Vol] 0.3 mg/dL Normal 0.2-1.3 [facility] Comment on above: Order Comment: Speci men Type: BLOOD SPECIMEN Ordering Facility: [facility] Address: [address] [place] [address] Performed By: #### 3 024-7, 2143-01, 3015-10 #### [facility] CLIA [id number] [address] [place] [address] [place] Calcium [Mass/Vol] 9.3 mg/dL Normal 8.5-10.2 [facility] Comment on above: Order Comment: Speci men Type: BLOOD SPECIMEN Ordering Facility: [facility] Address: [address] [place] [address] Performed By: #### 3 024-7, 2143-01, 3015-10 #### [facility] CLIA [id number] [address] [place] [address] [place] Chloride [Moles/Vol] 104 mmol/L Normal 98-107 [facility] Comment on above: Order Comment: Speci men Type: BLOOD SPECIMEN Ordering Facility: [facility] Address: [address] [place] [address] Performed By: #### 3 024-7, 2143-01, 3015-10 #### [facility] CLIA [id number] [address] [place] [address] [place] CO2 [Moles/Vol] 23 mmol/L Normal 22-30 [facility] Comment on above: Order Comment: Speci men Type: BLOOD SPECIMEN Ordering Facility: [facility] Address: [address] [place] [address] Performed By: #### 3 024-7, 2143-01, 3015-10 #### [facility] CLIA [id number] [address] [place] [address] [place] Creatinine [Mass/Vol] 0.77 mg/dL Normal 0.58-0.96 [facility] Comment on above: Order Comment: Speci men Type: BLOOD SPECIMEN Ordering Facility: [facility] Address: [address] [place] [address] Performed By: #### 3 024-7, 2143-01, 3015-10 #### [facility] CLIA [id number] [address] [place] [address] [place] Creatinine and Glomerular filtration rate.predicted panel (S/P/Bld) 81 mL/min/1.73m??? Normal >=60 [facility] Comment on above: Order Comment: Haresh maravilla Type: BLOOD SPECIMEN Ordering Facility: [facility] Address: [address] [place] [address] Result Comment: [place] mated Glomerular Filtration Rate (eGFR) is calculated using the 2020 CKD-EPI creatinine equation. This equation utilizes serum creatinine, sex, and age as parameters. The creatinine assay has traceable calibration to isotope dilution-mass spectrometry. Refer to KDIGO guidelines for clinical interpretation. In patients with unstable renal function, e.g. those with acute kidney injury, the eGFR may not accurately reflect actual GFR. Performed By: #### 3 024-7, 3-6, 6-3 #### [facility] CLIA [id number] [address] [place] [address] [place] Glucose [Mass/Vol] 92 mg/dL Normal 74-99 [facility] Comment on above: Order Comment: Haresh maravilla Type: BLOOD SPECIMEN Ordering Facility: [facility] Address: [address] [place] [address] Result Comment: The [place] Diabetes Association (ADA) provides guidance for cutoff values for fasting glucose and random glucose. The ADA defines fasting as no caloric intake for at least 8 hours. Fasting plasma glucose results between 100 to 125 mg/dL indicate increased risk for diabetes (prediabetes). Fasting plasma glucose results greater than or equal to 126 mg/dL meet the criteria for diagnosis of diabetes. In the absence of unequivocal hyperglycemia, results should be confirmed by repeat testing. In a patient with classic symptoms of hyperglycemia or hyperglycemic crisis, random plasma glucose results greater than or equal to 200 mg/dL meet the criteria for diagnosis of diabetes. Reference: Standards of Medical Care in Diabetes 2016, [place] [employer] Association. Diabetes Care. 2016.39(Suppl 1). Performed By: #### 3 024-7, 2143-6, 6-3 #### [facility] CLIA [id number] [address] [place], [place] [id number] [place] Potassium [Moles/Vol] 4.0 mmol/L Normal 3.7-5.1 [facility] Comment on above: Order Comment: Speci men Type: BLOOD SPECIMEN Ordering Facility: [facility] Address: [address] [place] [address] Performed By: #### 3 024-7, 2142-6, 3015-3 #### [facility] CLIA [id number] [address] [place] [address] [place] Protein [Mass/Vol] 6.6 g/dL Normal 6.3-8.0 [facility] Comment on above: Order Comment: Speci men Type: BLOOD SPECIMEN Ordering Facility: [facility] Address: [address] [place] [address] Performed By: #### 3 024-7, 2143-01, 3015-3 #### [facility] CLIA [id number] [address] [place] [address] [place] Sodium [Moles/Vol] 138 mmol/L Normal 136-144 [facility] Comment on above: Order Comment: Speci men Type: BLOOD SPECIMEN Ordering Facility: [facility] Address: [address] [place] [address] Performed By: #### 3 024-7, 2143-01, 3015-3 #### [facility] CLIA [id number] [address] [place] [address] [place] Urea nitrogen [Mass/Vol] 23 mg/dL High 7-21 [facility] Comment on above: Order Comment: Speci men Type: BLOOD SPECIMEN Ordering Facility: [facility] Address: [address] [place] [address] Performed By: #### 3 024-7, 2143-01, 3015-3 #### [facility] CLIA [id number] [address] [place] [address] [place] Cortis Teresa-Tamela 07-05-20 24 Cortisol [Mass/Vol] 7.4 ug/dL Normal 4.8-19.5 [facility] Comment on above: Order Comment: Speci men Type: BLOOD SPECIMEN Ordering Facility: [facility] Address: [address] [place] [address] Result Comment: Prov ided reference range is from 6-10 AM sample collection time. Cortisol Reference Range: 6-10 AM = 4.8-19.5 ug/dL, 4-8 PM = 2.5-11.9 ug/dL Performed By: #### 5 7021-8 #### [facility] CLIA [id number] [address] [place] [address] [place] T4 Free SerPl-mCncon 024 Free T4 [Mass/Vol] 1.4 ng/dL Normal 0.9-1.7 [facility] Comment on above: Order Comment: Speci men Type: BLOOD SPECIMEN Ordering Facility: [facility] Address: [address] [place] [address] Performed By: #### 5 7021-8 #### [facility] CLIA [id number] [address] [place] [address] [place] TSH SerPl-aCncon 07-05-2024 TSH Qn 0.720 m[IU]/L Normal 0.270-4.200 [facility] Comment on above: Order Comment: Speci men Type: BLOOD SPECIMEN Ordering Facility: [facility] Address: [address] [place] [address] Performed By: #### 5 7021-8 #### [facility] CLIA [id number] [address] [place] [address] [place] CNOVon 07-01-2024 CNOV Office Visit (GENWAChava ) ZOILA MEMBRENO ([id number]) 1950 F Date Time Provider Department 07/01/24 3:30 PM REMI AGUILAR During your visit today, we recorded the following information about you: Pulse Blood pressure Weight Height 80/minute 127/73 64.5 kg 1.549 m Remi Aguilar MD 07/04/2024 1:56 PM Signed Remi Aguilar M.D. Surgical Oncology [address] [facility], [address] [place] [address] Plan SUBJECTIVE HPI Zoila Membreno is a 73 year old female presenting for follow up of stage IIC melanoma. Patient is currently on adjuvant immunotherapy and tolerating this reasonable well. She reports no new or worsening symptoms. No significant changes to her medical history. She reports that she has no new or worrisome skin lesions or lymphadenopathy. The ROS, medical, surgical, family, and social history were reviewed by Remi Aguilar MD. OBJECTIVE BP 127/73 Pulse 80 Ht 154.9 cm (5' 1") Wt 64.5 kg (142 lb 3.2 oz) LMP 01/07/2003 SpO2 97% BMI 26.87 kg/m? BMI 26.87 kg/(m2) Physical Exam Lymphadenopathy: Cervical: No cervical adenopathy. Upper Body: Right upper body: No supraclavicular or axillary adenopathy. Left upper body: No supraclavicular or axillary adenopathy. Lower Body: No right inguinal adenopathy. No left inguinal adenopathy. Skin: Comments: Well healed WLE site of the back. ASSESSMENT AND PLAN 73 year old woman with stage IIC melanoma of the back. She is currently doing well with IVÁN. I advised patient that I would defer imaging to med onc at this time. She will continue to follow up with me in 3 months. I spent a total of 30 minutes on the date of the service which included preparing to see the patient, completing clinical documentation, performing a medically appropriate examination, and counseling and educating the patient/family/rigo rBuck Aguilar MD 07/01/2024 3:13 PM Allergies As of Date: 07/01/2024 (No Known Allergies) Date Reviewed: 07/01/2024 Reviewed by: Remi Aguilar MD - Fully Assessed Reason for Visit: Follow Up [171] Primary Visit Diagnosis:Malignant melanoma of torso excluding breast (HCC) [C43.59] Prescriptions as of 07/04/2024 - multivit-min/ferrous fumarate (MULTI VITAMIN ORAL) Take 1 tablet by mouth once daily. - furosemide (LASIX) 20 mg tablet take 1 tablet by mouth once daily for 5 days - levothyroxine (SYNTHROID) 100 mcg tablet Take 125 mcg by mouth once daily. - losartan (COZAAR) 50 mg tablet Take 25 mg by mouth once daily. - iv contrast (will be provided with radiology [...] in the CT contrast administration guidelines link. - enteric contrast (will be provided with radiology test) For CT CHESTABD/PEL W IVCON Routine order Administer, As Directed One Time Only, via Oral, Rectal, both Oral and Rectal, Enteric Tube, Stoma or Indwelling Catheter, Enteric Contrast as designated per enteric contrast guidelines - cholecalciferol, vitamin D3, (VITAMIN D3 ORAL) Take 1 tablet by mouth once daily. - acetaminophen (TYLENOL) 325 mg tablet Take 650 mg by mouth every 6 hours as needed. Problem List As Of Date 07/01/2024 Noted Resolved Knee pain [M25.569] 11/15/2012 Tear of medial cartilage or meniscus of knee, c*12/20/2012 Malignant melanoma of torso excluding breast (H*08/23/2023 Level of Service: OFFICE/OUTPATIENT ESTABLISHED MOD MDM 30 MIN [60589] Additional E/M codes: VISIT CPLX INHERENT EANDM ASSOC WITH MED * Encounter Status:Closed by REMI AGUILAR on 07/04/24 Normal [facility] CBC W Auto Differential pane l (Bld)on 06-14-2024 Basophils (Bld) [#/Vol] 0.06 10*3/uL Normal <0.11 [facility] Comment on above: Order Comment: Speci men Type: BLOOD SPECIMEN Ordering Facility: [facility] Address: [address] [place] [address] Performed By: #### 5 7021-8 #### [facility] CLIA [id number] [address] [place] [address] [place] Basophils/100 WBC (Bld) 0.9 % Normal [facility] Comment on above: Order Comment: Speci men Type: BLOOD SPECIMEN Ordering Facility: [facility] Address: [address] [place] [address] Performed By: #### 5 7021-8 #### [facility] CLIA [id number] [address] [place] [address] [place] Differential cell count method Nom (Bld) Auto Normal [facility] Comment on above: Order Comment: Speci men Type: BLOOD SPECIMEN Ordering Facility: [facility] Address: [address] [place] [address] Performed By: #### 5 7021-8 #### [id number] [address] [place] [address] [place] Eosinophils (Bld) [#/Vol] 0.17 10*3/uL Normal <0.46 [facility] Comment on above: Order Comment: Speci men Type: BLOOD SPECIMEN Ordering Facility: [facility] Address: [address] [place] [address] Performed By: #### 5 7021-8 #### [facility] CLIA [id number] [address] [place] [address] [place] Eosinophils/100 WBC (Bld) 2.6 % Normal [facility] Comment on above: Order Comment: Speci men Type: BLOOD SPECIMEN Ordering Facility: [facility] Address: [address] [place] [address] Performed By: #### 5 7021-8 #### [facility] CLIA [id number] [address] [place] [address] [place] Erythrocyte distribution width (RBC) [Ratio] 14.0 % Normal 11.5-15.0 [facility] Comment on above: Order Comment: Speci men Type: BLOOD SPECIMEN Ordering Facility: [facility] Address: [address] [place] [address] Performed By: #### 5 7021-8 #### [facility] CLIA [id number] [address] [place] [address] [place] Hematocrit (Bld) [Volume fraction] 42.1 % Normal 36.0-46.0 [facility] Comment on above: Order Comment: Speci men Type: BLOOD SPECIMEN Ordering Facility: [facility] Address: [address] [place] [address] Performed By: #### 5 7021-8 #### [facility] [id number] [address] [place] [address] [place] Hemoglobin (Bld) [Mass/Vol] 13.8 g/dL Normal 11.5-15.5 [facility] Comment on above: Order Comment: Speci men Type: BLOOD SPECIMEN Ordering Facility: [facility] Address: [address] [place] [address] Performed By: #### 5 7021-8 #### [facility] [id number] [address] [place] [address] [place] Immature granulocytes (Bld) [#/Vol] 10*3/uL Normal <0.10 [facility] Comment on above: Order Comment: Speci men Type: BLOOD SPECIMEN Ordering Facility: [facility] Address: [address] [place] [address] Performed By: #### 5 7021-8 #### [facility] [id number] [address] [place] [address] [place] Immature granulocytes/100 WBC (Bld) 0.2 % Normal [facility] Comment on above: Order Comment: Speci men Type: BLOOD SPECIMEN Ordering Facility: [facility] Address: [facility] [place] [address] Performed By: #### 5 7021-8 #### [facility] CLIA [id number] [address] [place] [address] [place] Lymphocytes (Bld) [#/Vol] 1.71 10*3/uL Normal 1.00-4.00 [facility] Comment on above: Order Comment: Speci men Type: BLOOD SPECIMEN Ordering Facility: [facility] Address: [address] [place] [address] Performed By: #### 5 7021-8 #### [facility] CLIA [id number] [address] [place] [address] [place] Lymphocytes/100 WBC (Bld) 25.9 % Normal [facility] Comment on above: Order Comment: Speci men Type: BLOOD SPECIMEN Ordering Facility: [facility] Address: [address] [place] [address] Performed By: #### 5 7021-8 #### [facility] CLIA [id number] [address] [place] [address] [place] MCH (RBC) [Entitic mass] 28.3 pg Normal 26.0-34.0 [facility] Comment on above: Order Comment: Speci men Type: BLOOD SPECIMEN Ordering Facility: [facility] Address: [address] [place] [address] Performed By: #### 5 7021-8 #### [facility] CLIA [id number] [address] [place] [address] [place] MCHC (RBC) [Mass/Vol] 32.8 g/dL Normal 30.5-36.0 [facility] Comment on above: Order Comment: Speci men Type: BLOOD SPECIMEN Ordering Facility: [facility] Address: [address] [place] [address] Performed By: #### 5 7021-8 #### [facility] CLIA [id number] [address] [place] [address] [place] MCV (RBC) [Entitic vol] 86.4 fL Normal 80.0-100.0 [facility] Comment on above: Order Comment: Speci men Type: BLOOD SPECIMEN Ordering Facility: [facility] Address: [address] [place] [address] Performed By: #### 5 7021-8 #### [facility] CLIA [id number] [address] [place] [address] [place] Monocytes (Bld) [#/Vol] 0.50 10*3/uL Normal <0.87 [facility] Comment on above: Order Comment: Speci men Type: BLOOD SPECIMEN Ordering Facility: [facility] Address: [address] [place] [address] Performed By: #### 5 7021-8 #### [facility] CLIA [id number] [address] [place] [address] [place] Monocytes/100 WBC (Bld) 7.6 % Normal [facility] Comment on above: Order Comment: Speci men Type: BLOOD SPECIMEN Ordering Facility: [facility] Address: [address] [place] [address] Performed By: #### 5 7021-8 #### [facility] CLIA [id number] [address] [place] [address] [place] Neutrophils (Bld) [#/Vol] 4.14 10*3/uL Normal 1.45-7.50 [facility] Comment on above: Order Comment: Speci men Type: BLOOD SPECIMEN Ordering Facility: [facility] Address: [address] [place] [address] Performed By: #### 5 7021-8 #### [facility] CLIA [id number] [address] [place] [address] [place] Neutrophils/100 WBC (Bld) 62.8 % Normal [facility] Comment on above: Order Comment: Speci men Type: BLOOD SPECIMEN Ordering Facility: [facility] Address: [address] [place] [address] Performed By: #### 5 7021-8 #### [facility] CLIA [id number] [address] [place] [address] [place] Nucleated RBC (Bld) [#/Vol] 10*3/uL Normal <0.01 [facility] Comment on above: Order Comment: Speci men Type: BLOOD SPECIMEN Ordering Facility: [facility] Address: [address] [place] [address] Performed By: #### 5 7021-8 #### [facility] CLIA [id number] [address] [place] [address] [place] Nucleated RBC/100 WBC (Bld) [Ratio] 0.0 /100 WBC Normal [facility] Comment on above: Order Comment: Speci men Type: BLOOD SPECIMEN Ordering Facility: [facility] Address: [address] [place] [address] Performed By: #### 5 7021-8 #### [facility] CLIA [id number] [address] [place] [address] [place] Platelet mean volume (Bld) [Entitic vol] 9.9 fL Normal 9.0-12.7 [facility] Comment on above: Order Comment: Speci men Type: BLOOD SPECIMEN Ordering Facility: [facility] Address: [address] [place] [address] Performed By: #### 5 7021-8 #### [facility] CLIA [id number] [address] [place] [address] [place] Platelets (Bld) [#/Vol] 246 10*3/uL Normal 150-400 [facility] Comment on above: Order Comment: Speci men Type: BLOOD SPECIMEN Ordering Facility: [facility] Address: [address] [place] [address] Performed By: #### 5 7021-8 #### [id number] [address] [place] [address] [place] RBC (Bld) [#/Vol] 4.87 10*6/uL Normal 3.90-5.20 [facility] Comment on above: Order Comment: Speci men Type: BLOOD SPECIMEN Ordering Facility: [facility] Address: [address] [place], [place] [address] Performed By: #### 5 7021-8 #### [facility] [id number] [address] [place] [address] [place] WBC (Bld) [#/Vol] 6.59 10*3/uL Normal 3.70-11.00 [facility] Comment on above: Order Comment: Speci men Type: BLOOD SPECIMEN Ordering Facility: [facility] Address: [address] [place], [place] [address] Performed By: #### 5 7021-8 #### [facility] [id number] [address] [place] [address] [place] CNOVSPon 06-14-2024 CNOVSP Visit (SP) Office ([place]) ZOILA MEMBRENO ([id number]) 1950 F Date Time Provider Department 06/14/24 11:30 AM SUSAN OCONNOR During your visit today, we recorded the following information about you: Temperature Pulse Respiration Blood pressure 97.6 degrees 59/minute 17/minute 112/75 Weight 65.8 kg Susan Oconnor 06/14/2024 12:36 PM Signed Zoila Membreno 1950 06/14/2024 HPI: Zoila Membreno is a 73 year old female who presents here today for evaluation for treatment on Monday. Per Dr. Saldaña's previous note: H/o mole on back, started to itch and bleed. Saw Dr De Leon biopsy showed melanoma. Wide excision and SLNB done 07-28-23 showed pT4bN0 cancer Feels ok, on ROS mentioned some double vision. Here for follow up, prior cycle 12 pembrolizumab. Tolerated cycle 1 well, no diarrhea, dyspnea or rash Double vision better, CT chest showed some right lung nodules, imaging reviewed. Nodules felt to be hamartoma after review with radiology. Swelling better Currently taking synthroid 100 mcg. Dry mouth continues, no appetite also metallic taste Weight down, albumin 3.6 in March CLINICAL IMPRESSION: Melanoma stage IIC Anorexia, dysguesia RECOMMENDATION/PLAN: 1. Adjuvant pembrolizumab 1 year 2, synthroid 3. She'll push nutrition non pharmacologically Interval Hx: Ms. Dumont presents today for follow up prior to C14 of pembro. Reports feeling well. Denies new issues. No changes or improvement in appetite. Nothing is really calling my name" Eating but not enjoying food" Weight is stable overall. Dry mouth stable. Energy level is stable. Denies new aches or pains. No SOB, CP, or palpitations. No SERNA, dizziness, or changes in vision. Denies N/V/C/D. No changes in bowel or bladder habits. No rash or skin changes. Denies bleeding or bruising. ROS: All systems reviewed on 06/14/2024 with pertinent positives and negatives as outlined in the interval history. Past medical history, appointments, medications, allergies reviewed. No changes. EXAM: BP 112/75 Pulse (!) 59 Temp 36.4 ?C (97.6 ?F) (Temporal) Resp 17 Wt 65.8 kg (145 lb) LMP 01/07/2003 SpO2 98% BMI 27.40 kg/m? APPEARANCE Well appearing, alert, in no acute distress, well-hydrated, well nourished. HEART RRR with normal S1 and S2, no murmurs LUNG clear to auscultation ABDOMEN bowel sounds normoactive, soft, non-tender EXTREMITIES No edema NEURO Awake, alert and oriented x 3, Normal gait, and No involuntary motions. SKIN Skin color, texture, turgor normal, no suspicious rashes or lesions I have performed the physical exam today (06/14/2024) and have edited the note to correlate with current findings. LABS: Latest Reference Range AND Units 05/03/24 11:42 05/24/24 09:20 06/14/24 10:40 WBC 3.70 - 11.00 k/uL 7.64 7.14 6.59 RBC 3.90 - 5.20 m/uL 4.74 4.71 4.87 Hemoglobin 11.5 - 15.5 g/dL 13.5 13.5 13.8 Hematocrit 36.0 - 46.0 % 40.8 40.5 42.1 Platelet Count 150 - 400 k/uL 251 257 246 MCV 80.0 - 100.0 fL 86.1 86.0 86.4 MCH 26.0 - 34.0 pg 28.5 28.7 28.3 MCHC 30.5 - 36.0 g/dL 33.1 33.3 32.8 MPV 9.0 - 12.7 fL 9.9 9.7 9.9 RDW-CV 11.5 - 15.0 % 13.7 13.9 14.0 DTYPE Auto Auto Auto Neut% % 64.6 60.3 62.8 Abs Neut (ANC) 1.45 - 7.50 k/uL 4.94 4.30 4.14 Lymph% % 23.3 27.2 25.9 Abs Lymph 1.00 - 4.00 k/uL 1.78 1.94 1.71 Ogle% % 6.8 8.1 7.6 Abs Ogle <0.87 k/uL 0.52 0.58 0.50 Eosin% % 4.2 3.6 2.6 Abs Eosin <0.46 k/uL 0.32 0.26 0.17 Baso% % 0.8 0.7 0.9 Abs Baso <0.11 k/uL 0.06 0.05 0.06 Immature Gran % % 0.3 0.1 0.2 IMMATURE GRANS (ABS) <0.10 k/uL <0.03 <0.03 <0.03 NRBC /100 WBC 0.0 0.0 0.0 Absolute nRBC <0.01 k/uL <0.01 <0.01 <0.01 CMP/Cortisol/TSH/T4: Pending ASSESSMENT/PLAN: 1. Malignant melanoma of torso excluding breast (HCC) - ICD9: 172.5, ICD10: C43.59 (primary diagnosis) - Overall tolerating keytruda fair d/t decreased appetite, fatigue - both manageable - Reviewed CBC with pt. - CMP/Cortisol/TSH/T4 pending. - PCP also watching thyroid. - Will complete therapy end of this year. - Continue current medications. - Has derm appt scheduled - Continue to follow with Dr. Aguilar - Proceed as scheduled on Monday for keytruda pending all labs. - Follow up as scheduled. - Pt. aware to call office with any questions/concerns. Susan Oconnor APRN.SHAUNA I spent a total of 30 minutes on the date of the service which included preparing to see the patient, [id number] patient care, completing clinical documentation, and performing a medically appropriate examination. Portions of this note including HPI, ROS, impression/plan may have been copied forward as to provide important historical information essential in contributing to medical decision making. Documentation has been reviewed and edited as necessary to support clinical decision making for today's visit and to (more content not included)... Normal [facility] Comprehensive metabolic 2000 panelon 06-14-2024 Albumin [Mass/Vol] 3.5 g/dL Low 3.9-4.9 [facility] Comment on above: Order Comment: Haresh maravilla Type: BLOOD SPECIMEN Ordering Facility: [facility] Address: [address] [place] [address] Performed By: #### 3 024-7, 2143-01, 3 #### [facility] CLIA [id number] [address] [place] [address] [place] ALP [Catalytic activity/Vol] 75 U/L Normal 34-123 [facility] Comment on above: Order Comment: Speci taiwo Type: BLOOD SPECIMEN Ordering Facility: [facility] Address: [address] [place] [address] Performed By: #### 3 024-7, 2143-01, 3 #### [facility] CLIA [id number] [address] [place], [place] [id number] [place] ALT [Catalytic activity/Vol] 9 U/L Normal 7-38 [facility] Comment on above: Order Comment: Speci men Type: BLOOD SPECIMEN Ordering Facility: [facility] Address: [address] [place] [address] Performed By: #### 3 024-7, 2143-01, 3015-3 #### [facility] CLIA [id number] [address] [place] [address] [place] Anion gap [Moles/Vol] 11 mmol/L Normal 8-15 [facility] Comment on above: Order Comment: Speci men Type: BLOOD SPECIMEN Ordering Facility: [facility] Address: [address] [place] [address] Performed By: #### 3 024-7, 2143-01, 3015-3 #### [facility] CLIA [id number] [address] [place] [address] [place] AST [Catalytic activity/Vol] 14 U/L Normal 13-35 [facility] Comment on above: Order Comment: Speci men Type: BLOOD SPECIMEN Ordering Facility: [facility] Address: [address] [place] [address] Performed By: #### 3 024-7, 2143-01, 3015-3 #### [facility] CLIA [id number] [address] [place] [address] [place] Bilirubin [Mass/Vol] 0.3 mg/dL Normal 0.2-1.3 [facility] Comment on above: Order Comment: Speci men Type: BLOOD SPECIMEN Ordering Facility: [facility] Address: [address] [place] [address] Performed By: #### 3 024-7, 2143-01, 3015-3 #### [facility] CLIA [id number] [address] [place] [address] [place] Calcium [Mass/Vol] 9.2 mg/dL Normal 8.5-10.2 [facility] Comment on above: Order Comment: Speci men Type: BLOOD SPECIMEN Ordering Facility: [facility] Address: [address] [place] [address] Performed By: #### 3 024-7, 2143-01, 3 #### [facility] CLIA [id number] [address] [place] [address] [place] Chloride [Moles/Vol] 102 mmol/L Normal 98-107 [facility] Comment on above: Order Comment: Speci men Type: BLOOD SPECIMEN Ordering Facility: [facility] Address: [address] [place] [address] Performed By: #### 3 024-7, 2143-01, 3 #### [facility] CLIA [id number] [address] [place] [address] [place] CO2 [Moles/Vol] 25 mmol/L Normal 22-30 [facility] Comment on above: Order Comment: Speci men Type: BLOOD SPECIMEN Ordering Facility: [facility] Address: [address] [place] [address] Performed By: #### 3 024-7, 2143-01, 3 #### [facility] CLIA [id number] [address] [place] [address] [place] Creatinine [Mass/Vol] 0.81 mg/dL Normal 0.58-0.96 [facility] Comment on above: Order Comment: Speci men Type: BLOOD SPECIMEN Ordering Facility: [facility] Address: [address] [place] [address] Performed By: #### 3 024-7, 2143-01, 3015-3 #### [facility] CLIA [id number] [address] [place] [address] [place] Creatinine and Glomerular filtration rate.predicted panel (S/P/Bld) 76 mL/min/1.73m??? Normal >=60 [facility] Comment on above: Order Comment: Haresh maravilla Type: BLOOD SPECIMEN Ordering Facility: [facility] Address: [address] [place] [address] Result Comment: [place] mated Glomerular Filtration Rate (eGFR) is calculated using the 2020 CKD-EPI creatinine equation. This equation utilizes serum creatinine, sex, and age as parameters. The creatinine assay has traceable calibration to isotope dilution-mass spectrometry. Refer to KDIGO guidelines for clinical interpretation. In patients with unstable renal function, e.g. those with acute kidney injury, the eGFR may not accurately reflect actual GFR. Performed By: #### 3 024-7, 2142-6, 3015-3 #### [facility] CLIA [id number] [address] [place] [address] [place] Glucose [Mass/Vol] 90 mg/dL Normal 74-99 [facility] Comment on above: Order Comment: Haresh maravilla Type: BLOOD SPECIMEN Ordering Facility: [facility] Address: [address] [place] [address] Result Comment: The [place] [employer] (ADA) provides guidance for cutoff values for fasting glucose and random glucose. The ADA defines fasting as no caloric intake for at least 8 hours. Fasting plasma glucose results between 100 to 125 mg/dL indicate increased risk for diabetes (prediabetes). Fasting plasma glucose results greater than or equal to 126 mg/dL meet the criteria for diagnosis of diabetes. In the absence of unequivocal hyperglycemia, results should be confirmed by repeat testing. In a patient with classic symptoms of hyperglycemia or hyperglycemic crisis, random plasma glucose results greater than or equal to 200 mg/dL meet the criteria for diagnosis of diabetes. Reference: Standards of Medical Care in Diabetes 2016, [place] [employer]. Diabetes Care. 2016.39(Suppl 1). Performed By: #### 3 024-7, 2142-6, 3015-3 #### [facility] CLIA [id number] [address] [place] [address] [place] Potassium [Moles/Vol] 4.2 mmol/L Normal 3.7-5.1 [facility] Comment on above: Order Comment: Speci men Type: BLOOD SPECIMEN Ordering Facility: [facility] Address: [address] [place] [address] Performed By: #### 3 024-7, 2143-01, 3 #### [facility] CLIA [id number] [address] [place] [address] [place] Protein [Mass/Vol] 6.6 g/dL Normal 6.3-8.0 [facility] Comment on above: Order Comment: Speci men Type: BLOOD SPECIMEN Ordering Facility: [facility] Address: [address] [place] [address] Performed By: #### 3 024-7, 2143-01, 3 #### [facility] CLIA [id number] [address] [place] [address] [place] Sodium [Moles/Vol] 138 mmol/L Normal 136-144 [facility] Comment on above: Order Comment: Speci men Type: BLOOD SPECIMEN Ordering Facility: [facility] Address: [address] [place] [address] Performed By: #### 3 024-7, 2143-01, 3 #### [facility] CLIA [id number] [address] [place] [address] [place] Urea nitrogen [Mass/Vol] 20 mg/dL Normal 7-21 [facility] Comment on above: Order Comment: Speci men Type: BLOOD SPECIMEN Ordering Facility: [facility] Address: [address] [place] [address] Performed By: #### 3 024-7, 2143-01, 3 #### [facility] CLIA [id number] [address] [place] [address] [place] Cortis SerPl-mCncon 10-18-20 24 Cortisol [Mass/Vol] 8.9 ug/dL Normal 4.8-19.5 [facility] Comment on above: Order Comment: Speci men Type: BLOOD SPECIMEN Ordering Facility: [facility] Address: [address] [place] [address] Result Comment: Prov ided reference range is from 6-10 AM sample collection time. Cortisol Reference Range: 6-10 AM = 4.8-19.5 ug/dL, 4-8 PM = 2.5-11.9 ug/dL Performed By: #### 3 024-7, 2143-01, 3015-3 #### [facility] CLIA [id number] [address] [place] [address] [place] T4 Free SerPl-mCncon 024 Free T4 [Mass/Vol] 1.4 ng/dL Normal 0.9-1.7 [facility] Comment on above: Order Comment: Speci men Type: BLOOD SPECIMEN Ordering Facility: [facility] Address: [address] [place] [address] Performed By: #### 3 024-7, 2143-01, 3015-3 #### [facility] CLIA [id number] [address] [place] [address] [place] TSH SerPl-aCncon 06-14-2024 TSH Qn 0.973 m[IU]/L Normal 0.270-4.200 [facility] Comment on above: Order Comment: Speci men Type: BLOOD SPECIMEN Ordering Facility: [facility] Address: [address] [place] [address] Performed By: #### 3 024-7, 2143-01, 3015-3 #### [facility] CLIA [id number] [address] [place] [address] [place] CBC W Auto Differential pane l (Bld)on 05-24-2024 Basophils (Bld) [#/Vol] 0.05 10*3/uL Normal <0.11 [facility] Comment on above: Order Comment: Speci men Type: BLOOD SPECIMEN Ordering Facility: [facility] Address: [address] [place] [address] Performed By: #### 3 024-7, 2143-01, 3 #### [facility] CLIA [id number] [address] [place] [address] [place] Basophils/100 WBC (Bld) 0.7 % Normal [facility] Comment on above: Order Comment: Speci men Type: BLOOD SPECIMEN Ordering Facility: [facility] Address: [address] [place] [address] Performed By: #### 3 024-7, 2143-01, 3 #### [facility] CLIA [id number] [address] [place] [address] [place] Differential cell count method Nom (Bld) Auto Normal [facility] Comment on above: Order Comment: Speci men Type: BLOOD SPECIMEN Ordering Facility: [facility] Address: [address] [place] [address] Performed By: #### 3 024-7, 2143-01, 3 #### [facility] CLIA [id number] [address] [place] [address] [place] Eosinophils (Bld) [#/Vol] 0.26 10*3/uL Normal <0.46 [facility] Comment on above: Order Comment: Speci men Type: BLOOD SPECIMEN Ordering Facility: [facility] Address: [address] [place] [address] Performed By: #### 3 024-7, 2143-01, 3 #### [facility] CLIA [id number] [address] [place] [address] [place] Eosinophils/100 WBC (Bld) 3.6 % Normal [facility] Comment on above: Order Comment: Speci men Type: BLOOD SPECIMEN Ordering Facility: [facility] Address: [address] [place] [address] Performed By: #### 3 024-7, 2143-01, 3 #### [facility] CLIA [id number] [address] [place] [address] [place] Erythrocyte distribution width (RBC) [Ratio] 13.9 % Normal 11.5-15.0 [facility] Comment on above: Order Comment: Speci men Type: BLOOD SPECIMEN Ordering Facility: [facility] Address: [address] [place] [address] Performed By: #### 3 024-7, 2143-01, 3015-3 #### [facility] CLIA [id number] [address] [place] [address] [place] Hematocrit (Bld) [Volume fraction] 40.5 % Normal 36.0-46.0 [facility] Comment on above: Order Comment: Speci men Type: BLOOD SPECIMEN Ordering Facility: [facility] Address: [address] [place] [address] Performed By: #### 3 024-7, 2143-01, 3015-3 #### [facility] CLIA [id number] [address] [place] [address] [place] Hemoglobin (Bld) [Mass/Vol] 13.5 g/dL Normal 11.5-15.5 [facility] Comment on above: Order Comment: Speci men Type: BLOOD SPECIMEN Ordering Facility: [facility] Address: [address] [place] [address] Performed By: #### 3 024-7, 2143-01, 3015-3 #### [facility] CLIA [id number] [address] [place] [address] [place] Immature granulocytes (Bld) [#/Vol] 10*3/uL Normal <0.10 [facility] Comment on above: Order Comment: Speci men Type: BLOOD SPECIMEN Ordering Facility: [facility] Address: [address] [place] [address] Performed By: #### 3 024-7, 2143-01, 6-3 #### [facility] CLIA [id number] [address] [place] [address] [place] Immature granulocytes/100 WBC (Bld) 0.1 % Normal [facility] Comment on above: Order Comment: Speci men Type: BLOOD SPECIMEN Ordering Facility: [facility] Address: [address] [place] [address] Performed By: #### 3 024-7, 2143-01, 3 #### [facility] CLIA [id number] [address] [place] [address] [place] Lymphocytes (Bld) [#/Vol] 1.94 10*3/uL Normal 1.00-4.00 [facility] Comment on above: Order Comment: Speci men Type: BLOOD SPECIMEN Ordering Facility: [facility] Address: [address] [place] [address] Performed By: #### 3 024-7, 2143-01, 3 #### [facility] CLIA [id number] [address] [place] [address] [place] Lymphocytes/100 WBC (Bld) 27.2 % Normal [facility] Comment on above: Order Comment: Speci men Type: BLOOD SPECIMEN Ordering Facility: [facility] Address: [address] [place] [address] Performed By: #### 3 024-7, 2143-01, 3 #### [facility] CLIA [id number] [address] [place] [address] [place] MCH (RBC) [Entitic mass] 28.7 pg Normal 26.0-34.0 [facility] Comment on above: Order Comment: Speci men Type: BLOOD SPECIMEN Ordering Facility: [facility] Address: [address] [place] [address] Performed By: #### 3 024-7, 2143-01, 3 #### [facility] CLIA [id number] [address] [place] [address] [place] MCHC (RBC) [Mass/Vol] 33.3 g/dL Normal 30.5-36.0 [facility] Comment on above: Order Comment: Speci men Type: BLOOD SPECIMEN Ordering Facility: [facility] Address: [address] [place] [address] Performed By: #### 3 024-7, 2143-01, 3 #### [facility] CLIA [id number] [address] [place] [address] [place] MCV (RBC) [Entitic vol] 86.0 fL Normal 80.0-100.0 [facility] Comment on above: Order Comment: Speci men Type: BLOOD SPECIMEN Ordering Facility: [facility] Address: [address] [place] [address] Performed By: #### 3 024-7, 2143-01, 3015-10 #### [facility] CLIA [id number] [address] [place] [address] [place] Monocytes (Bld) [#/Vol] 0.58 10*3/uL Normal <0.87 [facility] Comment on above: Order Comment: Speci men Type: BLOOD SPECIMEN Ordering Facility: [facility] Address: [address] [place] [address] Performed By: #### 3 024-7, 2143-01, 3 #### [facility] CLIA [id number] [address] [place] [address] [place] Monocytes/100 WBC (Bld) 8.1 % Normal [facility] Comment on above: Order Comment: Speci men Type: BLOOD SPECIMEN Ordering Facility: [facility] Address: [address] [place] [address] Performed By: #### 3 024-7, 2143-01, 3 #### [facility] CLIA [id number] [address] [place] [address] [place] Neutrophils (Bld) [#/Vol] 4.30 10*3/uL Normal 1.45-7.50 [facility] Comment on above: Order Comment: Speci men Type: BLOOD SPECIMEN Ordering Facility: [facility] Address: [address] [place] [address] Performed By: #### 3 024-7, 2143-01, 3 #### [facility] CLIA [id number] [address] [place] [address] [place] Neutrophils/100 WBC (Bld) 60.3 % Normal [facility] Comment on above: Order Comment: Speci men Type: BLOOD SPECIMEN Ordering Facility: [facility] Address: [address] [place] [address] Performed By: #### 3 024-7, 2143-01, 3015-10 #### [facility] CLIA [id number] [address] [place] [address] [place] Nucleated RBC (Bld) [#/Vol] 10*3/uL Normal <0.01 [facility] Comment on above: Order Comment: Speci men Type: BLOOD SPECIMEN Ordering Facility: [facility] Address: [address] [place] [address] Performed By: #### 3 024-7, 2143-01, 3015-10 #### [facility] CLIA [id number] [address] [place] [address] [place] Nucleated RBC/100 WBC (Bld) [Ratio] 0.0 /100 WBC Normal [facility] Comment on above: Order Comment: Speci men Type: BLOOD SPECIMEN Ordering Facility: [facility] Address: [address] [place] [address] Performed By: #### 3 024-7, 2143-01, 3 #### [facility] CLIA [id number] [address] [place] [address] [place] Platelet mean volume (Bld) [Entitic vol] 9.7 fL Normal 9.0-12.7 [facility] Comment on above: Order Comment: Speci men Type: BLOOD SPECIMEN Ordering Facility: [facility] Address: [address] [place] [address] Performed By: #### 3 024-7, 2142-6, 3015-3 #### [facility] CLIA [id number] [address] [place] [address] [place] Platelets (Bld) [#/Vol] 257 10*3/uL Normal 150-400 [facility] Comment on above: Order Comment: Speci men Type: BLOOD SPECIMEN Ordering Facility: [facility] Address: [address] [place] [address] Performed By: #### 3 024-7, 6, 3015-3 #### [facility] CLIA [id number] [address] [place] [address] [place] RBC (Bld) [#/Vol] 4.71 10*6/uL Normal 3.90-5.20 [facility] Comment on above: Order Comment: Speci men Type: BLOOD SPECIMEN Ordering Facility: [facility] Address: [address] [place] [address] Performed By: #### 3 024-7, 2143-01, 3 #### [facility] CLIA [id number] [address] [place] [address] [place] WBC (Bld) [#/Vol] 7.14 10*3/uL Normal 3.70-11.00 [facility] Comment on above: Order Comment: Speci men Type: BLOOD SPECIMEN Ordering Facility: [facility] Address: [address] [place] [address] Performed By: #### 3 024-7, 2142-6, 3015-3 #### [facility] CLIA [id number] [address] [place] [address] [place] CNOVSPon 05-24-2024 CNOVSP Visit (SP) Office (HEMAWS) ZOILA MEMBRENO ([id number]) 1950 F Date Time Provider Department 05/24/24 10:00 AM MILAGROS ANGEL During your visit today, we recorded the following information about you: Temperature Pulse Blood pressure Weight 97.5 degrees 82/minute 110/74 66.3 kg Milagros Angel APRN.CNP 05/27/2024 8:58 AM Signed Chief Complaint Patient presents with: Established Patient HPI: Zoila Membreno is a 73 year old female who presents here today for evaluation for treatment on Monday. Per Dr. Saldaña's previous note: H/o mole on back, started to itch and bleed. Saw Dr De Leon biopsy showed melanoma. Wide excision and SLNB done 07-28-23 showed pT4bN0 cancer Feels ok, on ROS mentioned some double vision. Here for follow up, prior cycle 12 pembrolizumab. Tolerated cycle 1 well, no diarrhea, dyspnea or rash Double vision better, CT chest showed some right lung nodules, imaging reviewed. Nodules felt to be hamartoma after review with radiology. Swelling better Currently taking synthroid 100 mcg. Dry mouth continues, no appetite also metallic taste Weight down, albumin 3.6 in March CLINICAL IMPRESSION: Melanoma stage IIC Anorexia, dysguesia RECOMMENDATION/PLAN: 1. Adjuvant pembrolizumab 1 year 2, synthroid 3. She'll push nutrition non pharmacologically Appetite:"Nothing sounds or tastes good." Wt. down 4# this month. Energy level:"Eh." Denies fevers. Mouth:denies sores, +dry mouth/metallic taste Resp:denies cough or sob Cardiac:denies chest pain/palpitations GI:denies abd pain, n/v, occ. constipation :denies dysuria/hematuria Extrem:denies pain Skin:denies new rashes Heme:denies bleeding The ROS is otherwise negative. Past medical history, appointments, medications, allergies reviewed. No changes. EXAM: BP 110/74 Pulse 82 Temp 36.4 ?C (97.5 ?F) (Temporal) Wt 66.3 kg (146 lb 2.6 oz) LMP 01/07/2003 SpO2 97% BMI 27.62 kg/m? APPEARANCE Well appearing, alert, in no acute distress, well-hydrated, well nourished. HEART RRR with normal S1 and S2, no murmurs LUNG clear to auscultation ABDOMEN bowel sounds normoactive, soft, non-tender EXTREMITIES No edema NEURO Awake, alert and oriented x 3, Normal gait, and No involuntary motions. SKIN Skin color, texture, turgor normal, no suspicious rashes or lesions LABS: Latest Ref Rng 04/12/2024 05/03/2024 05/24/2024 WBC 3.70 - 11.00 k/uL 9.08 7.64 7.14 RBC 3.90 - 5.20 m/uL 4.59 4.74 4.71 Hemoglobin 11.5 - 15.5 g/dL 13.4 13.5 13.5 Hematocrit 36.0 - 46.0 % 40.4 40.8 40.5 MCV 80.0 - 100.0 fL 88.0 86.1 86.0 MCH 26.0 - 34.0 pg 29.2 28.5 28.7 MCHC 30.5 - 36.0 g/dL 33.2 33.1 33.3 RDW-CV 11.5 - 15.0 % 13.5 13.7 13.9 Platelet Count 150 - 400 k/uL 281 251 257 MPV 9.0 - 12.7 fL 10.0 9.9 9.7 Neut% % 58.9 64.6 60.3 Abs Neut (ANC) 1.45 - 7.50 k/uL 5.35 4.94 4.30 Lymph% % 26.3 23.3 27.2 Abs Lymph 1.00 - 4.00 k/uL 2.39 1.78 1.94 Ogle% % 7.2 6.8 8.1 Abs Ogle <0.87 k/uL 0.65 0.52 0.58 Eosin% % 6.4 4.2 3.6 Abs Eosin <0.46 k/uL 0.58 (H) 0.32 0.26 Baso% % 1.1 0.8 0.7 Abs Baso <0.11 k/uL 0.10 0.06 0.05 Immature Gran % % 0.1 0.3 0.1 IMMATURE GRANS (ABS) <0.10 k/uL <0.03 <0.03 <0.03 NRBC /100 WBC 0.0 0.0 0.0 Absolute nRBC <0.01 k/uL <0.01 <0.01 <0.01 DTYPE Auto Auto Auto CMP/Cortisol/TSH/T4: Pending ASSESSMENT/PLAN: 1. Malignant melanoma of torso excluding breast (HCC) - ICD9: 172.5, ICD10: C43.59 (primary diagnosis) - Overall tolerating keytruda fair d/t decreased appetite. - Reviewed CBC with pt. - CMP/Cortisol/TSH/T4 pending. - Will complete therapy end of this year. - Continue current medications. - Proceed as scheduled on Monday for keytruda pending all labs. - Follow up as scheduled. - Pt. aware to call office with any questions/concerns. The patient indicates understanding of these issues and agrees with the plan. All documentation from previous visit of 05/03/24-Dr. Saldaña was copied and pasted, documentation has been reviewed and edited as necessary for today's visit. Milagros Angel APRN.SHAUNA Referring Provider: SD SALDAÑA [[id number]] Allergies As of Date: 05/24/2024 (No Known Allergies) Date Reviewed: 05/24/2024 Reviewed by: Milagros Angel APRN.SHAUNA - Fully Assessed Reason for Visit: Established Patient [175] Primary Visit Diagnosis:Malignant melanoma of torso excluding breast (HCC) [C43.59] Other Visit Diagnosis:Acquired hypothyroidism [E03.9] Follow-up and Disposition History for Encounter Date Provider Department Center 05/24/2024 [id number], D[facility] [place] Prescriptions as of 05/27/2024 - multivit-min/ferrous fumarate (MULTI VITAMIN ORAL) Take 1 tablet by mouth once daily. - furosemide (LASIX) 20 mg tablet take 1 tablet by mouth once daily for 5 days - levothyroxine (SYNTHROID) 100 mcg tablet Take 125 mcg by sebastian (more content not included)... Normal [facility] metabolic 2000 panelon 05-24-2024 Albumin [Mass/Vol] 3.6 g/dL Low 3.9-4.9 [facility] Comment on above: Order Comment: Speci men Type: BLOOD SPECIMENOrdering Facility: [facility] Address: [address] [place] [address] Performed By: #### 2 4323-8 ####[facility] TONYWNCLIA [id number] [place] [address] [place] ALP [Catalytic activity/Vol] 65 U/L Normal 34-123 [facility] Comment on above: Order Comment: Speci men Type: BLOOD SPECIMENOrdering Facility: [facility] Address: [address] [place] [address] Performed By: #### 2 4323-8 ####[facility]ACH[facility]CL[facility] [id number] [place] [address] [place] ALT [Catalytic activity/Vol] 7 U/L Normal 7-38 [facility] Comment on above: Order Comment: Speci men Type: BLOOD SPECIMENOrdering Facility: [facility] Address: [address] [place] [address] Performed By: #### 2 4323-8 ####[facility] SYSTEM[facility] [id number] [place] [address] [place] Anion gap [Moles/Vol] 9 mmol/L Normal 8-15 [facility] Comment on above: Order Comment: Speci men Type: BLOOD SPECIMENOrdering Facility: [facility] Address: [address] [place] [address] Performed By: #### 2 4323-8 ####[facility] MILLTOWNCLIA [id number] [place] [address] [place] AST [Catalytic activity/Vol] 13 U/L Normal 13-35 [facility] Comment on above: Order Comment: Speci men Type: BLOOD SPECIMENOrdering Facility: [facility] Address: [address] [place] [address] Performed By: #### 2 4323-8 ####[facility] MILLTOWNCLIA [id number] [place] [address] [place] Bilirubin [Mass/Vol] 0.3 mg/dL Normal 0.2-1.3 [facility] Comment on above: Order Comment: Speci men Type: BLOOD SPECIMENOrdering Facility: [facility] Address: [address] [place] [address] Performed By: #### 2 4323-8 ####[facility] MILLTOWNCLIA [id number] [place] [address] [place] Calcium [Mass/Vol] 9.2 mg/dL Normal 8.5-10.2 [facility] Comment on above: Order Comment: Speci men Type: BLOOD SPECIMENOrdering Facility: [facility] Address: [address] [place] [address] Performed By: #### 2 4323-8 ####[facility] [id number] [place] [address] [place] Chloride [Moles/Vol] 104 mmol/L Normal 98-107 [facility] Comment on above: Order Comment: Speci men Type: BLOOD SPECIMENOrdering Facility: [facility] Address: [address] [place] [address] Performed By: #### 2 4323-8 ####[facility] MILLWNCLIA [id number] [place] [address] [place] CO2 [Moles/Vol] 26 mmol/L Normal 22-30 [facility] Comment on above: Order Comment: Speci men Type: BLOOD SPECIMENOrdering Facility: [facility] Address: [address] [place] [address] Performed By: #### 2 4323-8 ####[facility]ITAL[facility]CL[facility] [id number] [place] [address] [place] Creatinine [Mass/Vol] 0.84 mg/dL Normal 0.58-0.96 [facility] Comment on above: Order Comment: Haresh maravilla Type: BLOOD SPECIMENOrdering Facility: [facility] Address: [address] [place] [address] Performed By: #### 2 4323-8 ####[facility] [id number] [place] [address] [place] Creatinine and Glomerular filtration rate.predicted panel (S/P/Bld) 73 mL/min/1.73m??? Normal >=60 [facility] Comment on above: Order Comment: Haresh maravilla Type: BLOOD SPECIMENOrdering Facility: [facility] Address: [address] [place] [address] Result Comment: Beglica mated Glomerular Filtration Rate (eGFR) is calculated using the 2020 CKD-EPI creatinine equation. This equation utilizes serum creatinine, sex, and age as parameters. The creatinine assay has traceable calibration to isotope dilution-mass spectrometry. Refer to KDIGO guidelines for clinical interpretation. In patients with unstable renal function, e.g. those with acute kidney injury, the eGFR may not accurately reflect actual GFR. Performed By: #### 2 4323-8 ####[facility] [id number] [place] [address] [place] Glucose [Mass/Vol] 102 mg/dL High 74-99 [facility] Comment on above: Order Comment: Haresh maravilla Type: BLOOD SPECIMENOrdering Facility: [facility] Address: [address] [place] [address] Result Comment: The [place] [employer] Association (ADA) provides guidance for cutoff values for fasting glucose and random glucose. The ADA defines fasting as no caloric intake for at least 8 hours. Fasting plasma glucose results between 100 to 125 mg/dL indicate increased risk for diabetes (prediabetes). Fasting plasma glucose results greater than or equal to 126 mg/dL meet the criteria for diagnosis of diabetes. In the absence of unequivocal hyperglycemia, results should be confirmed by repeat testing. In a patient with classic symptoms of hyperglycemia or hyperglycemic crisis, random plasma glucose results greater than or equal to 200 mg/dL meet the criteria for diagnosis of diabetes. Reference: Standards of Medical Care in Diabetes 2016, [place] [employer]. Diabetes Care. 2016.39(Suppl 1). Performed By: #### 2 4323-8 ####[facility] DION JIMNEEZWALDO [id number] [place] [address] [place] Potassium [Moles/Vol] 3.8 mmol/L Normal 3.7-5.1 [facility] Comment on above: Order Comment: Speci men Type: BLOOD SPECIMENOrdering Facility: [facility] Address: [address] [place], [place] [address] Performed By: #### 2 4323-8 ####[facility]ITALANTON[facility] [id number] [place] [address] [place] Protein [Mass/Vol] 6.6 g/dL Normal 6.3-8.0 [facility] Comment on above: Order Comment: Speci men Type: BLOOD SPECIMENOrdering Facility: [facility] Address: [address] [place] [address] Performed By: #### 2 4323-8 ####[facility] [id number] [place] [address] [place] Sodium [Moles/Vol] 139 mmol/L Normal 136-144 [facility] Comment on above: Order Comment: Speci men Type: BLOOD SPECIMENOrdering Facility: [facility] Address: [address] [place] [address] Performed By: #### 2 4323-8 ####[facility] HOSPITALDARSHANALIA [id number] [place] [address] [place] Urea nitrogen [Mass/Vol] 16 mg/dL Normal 7-21 [facility] Comment on above: Order Comment: Speci men Type: BLOOD SPECIMENOrdering Facility: [facility] Address: [address] [place] [address] Performed By: #### 2 4323-8 ####[facility]ITALNCLIA [id number] [place] [address] [place] Cortis SerPl-mCncon 05-24-20 24 Cortisol [Mass/Vol] 13.3 ug/dL Normal 4.8-19.5 [facility] Comment on above: Order Comment: Speci men Type: BLOOD SPECIMEN Ordering Facility: [facility] Address: [address] [place] [address] Result Comment: Prov ided reference range is from 6-10 AM sample collection time. Cortisol Reference Range: 6-10 AM = 4.8-19.5 ug/dL, 4-8 PM = 2.5-11.9 ug/dL Performed By: #### 5 7021-8 #### [facility] CLIA [id number] [address] [place] [address] [place] T4 Free SerPl-mCncon 024 Free T4 [Mass/Vol] 1.5 ng/dL Normal 0.9-1.7 [facility] Comment on above: Order Comment: Speci men Type: BLOOD SPECIMEN Ordering Facility: [facility] Address: [address] [place] [address] Performed By: #### 3 024-7, 2142-6, 3016-3 #### [facility] CLIA [id number] [address] [place] [address] [place] TSH SerPl-aCncon 05-24-2024 TSH Qn 0.561 m[IU]/L Normal 0.270-4.200 [facility] Comment on above: Order Comment: Speci men Type: BLOOD SPECIMEN Ordering Facility: [facility] Address: [address] [place] [address] Performed By: #### 3 024-7, 2142-6, 6-3 #### [facility] CLIA [id number] [address] [place] [address] [place] CNPNon 02-16-2024 CNPN Telephone (AGGENS3) ZOILA MEMBRENO ([id number]) 1950 F Date Time Provider Department 02/16/24 REMI AGUILAR AGGENS3 During your visit today, we recorded the following information about you: Keily Porter 02/16/2024 11:51 AM Signed Called for patient to RS appt on 03/11. She can come in and see Valente at the [place] office or R/S appt to Aug with Dr. Aguilar. Keily Porter 02/26/2024 2:06 PM Signed Patient R/S Allergies As of Date: 02/16/2024 (No Known Allergies) Date Reviewed: 02/12/2024 Reviewed by: Calli Cooper, RN - Fully Assessed Prescriptions as of 02/26/2024 - furosemide (LASIX) 20 mg tablet take 1 tablet by mouth once daily for 5 days - levothyroxine (SYNTHROID) 100 mcg tablet Take 100 mcg by mouth once daily. - levothyroxine (SYNTHROID) 75 mcg tablet Take 1 tablet by mouth daily before breakfast. - losartan (COZAAR) 50 mg tablet Take 50 mg by mouth once daily. - amLODIPine (NORVASC) 5 mg tablet Take 1 tablet by mouth every afternoon. - mirtazapine (REMERON) 15 mg tablet Take 15 mg by mouth daily at bedtime. - iv contrast (will be provided with radiology [...] in the CT contrast administration guidelines link. - enteric contrast (will be provided with radiology test) For CT CHESTABD/PEL W IVCON Routine order Administer, As Directed One Time Only, via Oral, Rectal, both Oral and Rectal, Enteric Tube, Stoma or Indwelling Catheter, Enteric Contrast as designated per enteric contrast guidelines - cholecalciferol, vitamin D3, (VITAMIN D3 ORAL) Take 1 tablet by mouth once daily. - acetaminophen (TYLENOL) 325 mg tablet Take 650 mg by mouth every 6 hours as needed. Problem List As Of Date 02/16/2024 Noted Resolved Knee pain [M25.569] 11/15/2012 Tear of medial cartilage or meniscus of knee, c*12/20/2012 Malignant melanoma of torso excluding breast (H*08/23/2023 Encounter Status:Closed by KEILY PORTER on 02/26/[address] [facility] CNOVon 11-29-2023 CNOV Office Visit (AGGENS 3) ZOILA MEMBRENO ([id number]) 1950 F Date Time Provider Department 11/29/23 1:00 PM REMI AGUILAR3 During your visit today, we recorded the following information about you: Remi Aguilar MD 11/29/2023 1:46 PM Signed Remi Aguilar M.D. Surgical Oncology [address] [facility], [address] [place] [id number] SUBJECTIVE HPI Zoila Membreno is a 73 year old female presenting for follow-up of a stage IIC melanoma of the back. Patient reports that since her last visit she has started adjuvant immunotherapy. She is doing relatively well. She did have some episodes of double vision for which an MRI brain was performed and was negative. She reports that this is resolved at this time. She does continue to have some fatigue as well. She notes no other significant changes to her medical history since her last visit and no new or worsening symptoms. She reports no other concerning skin lesions or lymphadenopathy. Review of Systems Constitutional: Negative for malaise/fatigue [...] Date PAST SURGICAL HISTORY OF Right arm PAST SURGICAL HISTORY OF 07/28/2023 Back Lesion Excision PAST SURGICAL HISTORY OF Meniscus Repair REVJ TOT KNEE ARTHRP FEMANDENTIRE TIBIAL COMPONE [...] Heart Disease Mother Dementia Mother Heart Father The ROS, medical, surgical, family, and social history were reviewed by Remi Aguilar MD ALLERGIES No Known Allergies Current Outpatient Medications Medication Sig losartan (COZAAR) 50 mg tablet Take 50 mg by mouth once daily. mirtazapine (REMERON) 15 mg tablet Take 15 mg by mouth daily at bedtime. iv contrast (will be provided with radiology [...] Contrast as designated per enteric contrast guidelines cholecalciferol, vitamin D3, (VITAMIN D3 ORAL) Take 1 tablet by mouth once daily. acetaminophen (TYLENOL) 325 mg tablet Take 650 mg by mouth every 6 hours as needed. amLODIPine (NORVASC) 5 mg tablet Take 1 tablet by mouth every afternoon. (Patient not taking: Reported on 11/29/2023) No current facility-administered medications for this visit. OBJECTIVE LMP 01/07/2003 No weight on file for this encounter. Physical Exam Lymphadenopathy: Upper Body: Right upper body: No supraclavicular or axillary adenopathy. Left upper body: No supraclavicular or axillary adenopathy. Lower Body: No right inguinal adenopathy. No left inguinal adenopathy. Skin: Comments: Well healed WLE scar with no nodularity or pigmentation concerning for recurrence ASSESSMENT AND PLAN Plan 73-year-old woman with stage IIC melanoma of the back. Patient is currently on adjuvant immunotherapy with no evidence of disease. I discussed with patient her ongoing surveillance. She will continue to follow-up with medical oncology as scheduled. She wi (more content not included)... Normal [facility] MR Brain WO and W contrast I Von 10-11-2023 [facility] Basophil percentageOrdered B y: Roxana Menjivar on 08-25-2023 Bilirubin [Mass/Vol] 0.50 mg/dL 0.20-1.00 [facility] Comment on above: For patients on eltr ombopag therapy, use of Dimension [place] TBIL is not recommended. Chloride [Moles/Vol] 106 mmol/L 98-107 [facility] Glucose [Mass/Vol] 88 mg/dL 74-106 [facility] Potassium [Moles/Vol] 4.2 mmol/L 3.5-5.1 [facility] Protein [Mass/Vol] 7.6 g/dL 6.4-8.2 [facility] Sodium [Moles/Vol] 140 mmol/L 136-145 [facility] WBC (Bld) [#/Vol] 6.5 10*3/uL 4.4-11.0 [facility] Blood erythrocytes count (nu mber/volume)Ordered By: Roxana Menjivar on 08-25-2023 RBC (Bld) [#/Vol] 5.11 10*6/uL 4.2-5.4 [facility] Blood hemoglobin measurement (mass/volume)Ordered By: Roxana Menjivar on 08-25-2023 Hemoglobin (Bld) [Mass/Vol] 15.2 g/dL 12.0-15.0 [facility] Blood platelet mean volumeOr dered By: Roxana Menjivar on 08-25-2023 Platelet mean volume (Bld) [Entitic vol] 10.3 fL 6.2-12.0 [facility] CBC-Complete Blood Cnt No Di ffon 08-25-2023 Erythrocyte distribution width (RBC) [Ratio] 13.5 % Normal 11.6-14.6 [facility] Comment on above: Order Comment: Order Date: 08/25/23 Order Info: [id number] - CBC Performed By: #### L 100.0500, L500.4050, L502.0250 #### [facility] [address] [place], [address] Hematocrit (Bld) [Volume fraction] 45.6 % Normal 37-47 [facility] Comment on above: Order Comment: Order Date: 08/25/23 Order Info: [id number] - CBC Performed By: #### L 100.0500, L500.4050, L502.0250 #### [facility] [address] [place], [address] Hemoglobin (Bld) [Mass/Vol] 15.2 g/dL High 12.0-15.0 [facility] Comment on above: Order Comment: Order Date: 08/25/23 Order Info: [id number] - CBC Performed By: #### L 100.0500, L500.4050, L502.0250 #### [facility] [address] [place], [address] MCH (RBC) [Entitic mass] 29.7 pg Normal 27.0-32.0 [facility] Comment on above: Order Comment: Order Date: 08/25/23 Order Info: [id number] - CBC Performed By: #### L 100.0500, L500.4050, L502.0250 #### [facility] [address] [place], [address] MCHC (RBC) [Mass/Vol] 33.3 g/dL Normal 32-36 [facility] Comment on above: Order Comment: Order Date: 08/25/23 Order Info: [id number] - CBC Performed By: #### L 100.0500, L500.4050, L502.0250 #### [facility] [address] [place], [address] MCV (RBC) [Entitic vol] 89.2 fL Normal 81-99 [facility] Comment on above: Order Comment: Order Date: 08/25/23 Order Info: [id number] - CBC Performed By: #### L 100.0500, L500.4050, L502.0250 #### [facility] [address] [place], [address] Platelet mean volume (Bld) [Entitic vol] 10.3 fL Normal 6.2-12.0 [facility] Comment on above: Order Comment: Order Date: 08/25/23 Order Info: [id number] - CBC Performed By: #### L 100.0500, L500.4050, L502.0250 #### [facility] [address] [place], [address] Platelets (Bld) [#/Vol] 193 10*3/uL Normal 150-450 [facility] Comment on above: Order Comment: Order Date: 08/25/23 Order Info: [id number] - CBC Performed By: #### L 100.0500, L500.4050, L502.0250 #### [facility] [address] [place], [address] RBC (Bld) [#/Vol] 5.11 10*6/uL Normal 4.2-5.4 [facility] Comment on above: Order Comment: Order Date: 08/25/23 Order Info: [id number] - CBC Performed By: #### L 100.0500, L500.4050, L502.0250 #### [facility] [address] [place], [address] RDW SD 44.4 fl High 35.1-43.9 [facility] Comment on above: Order Comment: Order Date: 08/25/23 Order Info: [id number] - CBC Performed By: #### L 100.0500, L500.4050, L502.0250 #### [facility] [address] [place], [address] WBC (Bld) [#/Vol] 6.5 10*3/uL Normal 4.4-11.0 [facility] Comment on above: Order Comment: Order Date: 08/25/23 Order Info: [id number] - CBC Performed By: #### L 100.0500, L500.4050, L502.0250 #### [facility] [address] [place], [address] Comprehensive Metabolic Prof ilon 08-25-2023 Albumin [Mass/Vol] 3.8 g/dL Normal 3.2-5.0 [facility] Comment on above: Order Comment: Order Date: 08/25/23 Order Info: [id number] - CMP Performed By: #### L 100.0500, L500.4050, L502.0250 #### [facility] [address] [place], [address] Albumin/Globulin [Mass ratio] 1.0 {ratio} Normal 0.9-2.4 [facility] Comment on above: Order Comment: Order Date: 08/25/23 Order Info: 0786-1 - CMP Performed By: #### L 100.0500, L500.4050, L502.0250 #### [facility] [address] [place], [address] ALK P 91 U/L Normal 45-117 [facility] Comment on above: Order Comment: Order Date: 08/25/23 Order Info: 0786-1 - CMP Performed By: #### L 100.0500, L500.4050, L502.0250 #### [facility] [address] [place], [address] ALT [Catalytic activity/Vol] 123 U/L High 13-56 [facility] Comment on above: Order Comment: Order Date: 08/25/23 Order Info: 0786-1 - CMP Performed By: #### L 100.0500, L500.4050, L502.0250 #### [facility] [address] [place], [address] AST [Catalytic activity/Vol] 41 U/L High 15-37 [facility] Comment on above: Order Comment: Order Date: 08/25/23 Order Info: 0786-1 - CMP Performed By: #### L 100.0500, L500.4050, L502.0250 #### [facility] [address] [place], [address] Bilirubin [Mass/Vol] 0.50 mg/dL Normal 0.20-1.00 [facility] Comment on above: Order Comment: Order Date: 08/25/23 Order Info: 0786-1 - CMP Result Comment: For patients on eltrombopag therapy, use of Dimension [place] TBIL is not recommended. Performed By: #### L 100.0500, L500.4050, L502.0250 #### [facility] [address] [place], [address] BUN/CRE 29.3 RATIO High 10-20 [facility] Comment on above: Order Comment: Order Date: 08/25/23 Order Info: 0786-1 - CMP Performed By: #### L 100.0500, L500.4050, L502.0250 #### [facility] [address] [place], [address] CA,Total 9.3 mg/dL Normal 8.5-10.1 [facility] Comment on above: Order Comment: Order Date: 08/25/23 Order Info: 0786-1 - CMP Performed By: #### L 100.0500, L500.4050, L502.0250 #### [facility] [address] [place], [address] Chloride [Moles/Vol] 106 mmol/L Normal 98-107 [facility] Comment on above: Order Comment: Order Date: 08/25/23 Order Info: 0786-1 - CMP Performed By: #### L 100.0500, L500.4050, L502.0250 #### [facility] [address] [place], [address] CO2 [Moles/Vol] 28.0 mmol/L Normal 21.0-32.0 [facility] Comment on above: Order Comment: Order Date: 08/25/23 Order Info: 0786-1 - CMP Performed By: #### L 100.0500, L500.4050, L502.0250 #### [facility] [address] [place], [address] Creatinine [Mass/Vol] 0.85 mg/dL Normal 0.55-1.02 [facility] Comment on above: Order Comment: Order Date: 08/25/23 Order Info: 0786-1 - CMP Result Comment: The validity of the calculated GFR GFRAA in patients over 70 years has not been determined. Clinical correlation is essential. Performed By: #### L 100.0500, L500.4050, L502.0250 #### [facility] [address] [place], [address] EST GFR - AA 84 mL/min Normal >60 [facility] Comment on above: Order Comment: Order Date: 08/25/23 Order Info: 0786-1 - CMP Result Comment: Afri can Malagasy GFR Calc Performed By: #### L 100.0500, L500.4050, L502.0250 #### [facility] [address] [place], [address] GAP 6 Normal 5-15 [facility] Comment on above: Order Comment: Order Date: 08/25/23 Order Info: 0786-1 - CMP Performed By: #### L 100.0500, L500.4050, L502.0250 #### [facility] [address] [place], [address] GFR/1.73 sq M.predicted among non-blacks MDRD (S/P/Bld) [Vol rate/Area] 69 mL/min/{1.73_m2} Normal >60 [facility] Comment on above: Order Comment: Order Date: 08/25/23 Order Info: 0786-1 - CMP Result Comment: Non- GFR Calc Performed By: #### L 100.0500, L500.4050, L502.0250 #### [facility] [address] [place], [address] Globulin (S) [Mass/Vol] 3.8 g/dL Normal 2.2-4.2 [facility] Comment on above: Order Comment: Order Date: 08/25/23 Order Info: 0786-1 - CMP Performed By: #### L 100.0500, L500.4050, L502.0250 #### [facility] [address] [place], [address] Glucose [Mass/Vol] 88 mg/dL Normal 74-106 [facility] Comment on above: Order Comment: Order Date: 08/25/23 Order Info: 0786-1 - CMP Performed By: #### L 100.0500, L500.4050, L502.0250 #### [facility] [address] [place], [address] Potassium [Moles/Vol] 4.2 mmol/L Normal 3.5-5.1 [facility] Comment on above: Order Comment: Order Date: 08/25/23 Order Info: 0786-1 - CMP Performed By: #### L 100.0500, L500.4050, L502.0250 #### [facility] [address] [place], [address] Sodium [Moles/Vol] 140 mmol/L Normal 136-145 [facility] Comment on above: Order Comment: Order Date: 08/25/23 Order Info: 0786-1 - CMP Performed By: #### L 100.0500, L500.4050, L502.0250 #### [facility] [address] [place], [address] T PROT 7.6 g/dL Normal 6.4-8.2 [facility] Comment on above: Order Comment: Order Date: 08/25/23 Order Info: 0786-1 - CMP Performed By: #### L 100.0500, L500.4050, L502.0250 #### [facility] [address] [place], [address] Urea nitrogen [Mass/Vol] 25 mg/dL High 7-18 [facility] Comment on above: Order Comment: Order Date: 08/25/23 Order Info: 0786-1 - CMP Performed By: #### L 100.0500, L500.4050, L502.0250 #### [facility] [address] [place], [address] Determination of erythrocyte mean corpuscular volume (MCV)Ordered By: Roxana Menjivar on 08-25-2023 MCV (RBC) [Entitic vol] 89.2 fL 81-99 [facility] Hematocrit Auto (Bld) [Volum e fraction]Ordered By: Roxana Menjivar on 08-25-2023 Hematocrit (Bld) [Volume fraction] 45.6 % 37-47 [facility] - Chemistry and C hemistry - challengeOrdered By: Roxana Menjivar on 08-25-2023 ALP [Catalytic activity/Vol] 91 U/L 45-117 [facility] ALT [Catalytic activity/Vol] 123 U/L 13-56 [facility] CO2 [Moles/Vol] 28.0 mmol/L 21.0-32.0 [facility] Globulin (S) [Mass/Vol] 3.8 g/dL 2.2-4.2 [facility] Urea nitrogen/Creatinine [Mass ratio] 29.3 mg/mg 10-20 [facility] - Hematology and Cell countsOrdered By: Roxanamallory Menjivar on 08-25-2023 Erythrocyte distribution width (RBC) [Entitic vol] 44.4 fL 35.1-43.9 [facility] Erythrocyte distribution width (RBC) [Ratio] 13.5 % 11.6-14.6 [facility] MCH (RBC) [Entitic mass] 29.7 pg 27.0-32.0 [facility] MCHC Auto (RBC) [Mass/Vol]Or dered By: Roxana Menjivar on 08-25-2023 MCHC (RBC) [Mass/Vol] 33.3 g/dL 32-36 [facility] Microalb:Creat Ratio,Random URon 08-25-2023 Creatinine [Mass/Vol] 97.60 mg/dL Normal NO RANGE EST. [facility] Comment on above: Order Comment: Order Date: 08/25/23 Order Info: [id number] - MIACRE Performed By: #### L 100.0500, L500.4050, L502.0250 #### [facility] [address] [place], [address] MALB:CRE 6.6 mg/g CRE Normal <30 mg/g CRE [facility] Comment on above: Order Comment: Order Date: 08/25/23 Order Info: [id number] - MIACRE Performed By: #### L 100.0500, L500.4050, L502.0250 #### [facility] [address] [place], [address] MICROALBUMIN,UR 6.4 mg/L Normal NO RANGE EST. [facility] Comment on above: Order Comment: Order Date: 08/25/23 Order Info: [id number] - MIACRE Performed By: #### L 100.0500, L500.4050, L502.0250 #### [facility] [address] [place], [address] No Panel InformationOrdered By: Roxana Stathopoulos on 08-25-2023 Estimated GFR (MDRD) Amer 84 mL/min >60 [facility] Comment on above: GFR Calc Estimated GFR (MDRD) Non-Af Amer 69 mL/min >60 [facility] Comment on above: Non- GFR Calc Urine Microalbumin/Creatinin e Ratio 6.6 mg/g CRE <30 [facility] Platelets bldOrdered By: Puma tlin Stathopoulos on 08-25-2023 Platelets (Bld) [#/Vol] 193 10*3/uL 150-450 [facility] Serum or plasma albumin naveed urement (mass/volume)Ordered By: Roxana Stathopoulos on 08-25-2023 Albumin [Mass/Vol] 3.8 g/dL 3.2-5.0 [facility] Serum or plasma albumin/glob ulin mass ratioOrdered By: Roxana Stathopoulos on 08-25-2023 Albumin/Globulin [Mass ratio] 1.0 {ratio} 0.9-2.4 [facility] Serum or plasma calcium naveed urement (mass/volume)Ordered By: Roxana Stathopoulos on 08-25-2023 Calcium [Mass/Vol] 9.3 mg/dL 8.5-10.1 [facility] Serum or plasma creatinine m easurement (mass/volume)Ordered By: Roxana Stathopoulos on 08-25-2023 Creatinine [Mass/Vol] 0.85 mg/dL 0.55-1.02 [facility] Comment on above: The validity of the calculated GFR & GFRAA in patients over 70 years has not been determined. Clinical correlation is essential. Serum or plasma urea nitroge n measurement (mass/volume)Ordered By: Roxana Menjivar on 08-25-2023 Urea nitrogen [Mass/Vol] 25 mg/dL 7-18 [facility] Thin prep Papanicolaou smear with manual screeningOrdered By: Roxana Menjivar on 08-25-2023 Thin prep Papanicolaou smear with manual screening 41 U/L 15-37 [facility] Thin prep Papanicolaou smear with manual screening 6 5-15 [facility] Thin prep Papanicolaou smear with manual screening 6.4 mg/L NO RANGE EST. [facility] Urine creatinine measurement (mass/volume)Ordered By: Roxana Menjivar on 08-25-2023 Creatinine (U) [Mass/Vol] 97.60 mg/dL NO RANGE EST. [facility] CNOVon 08-07-2023 CNOV Office Visit ([facility] 3) ZOILA MEMBRENO ([id number]) 1950 F Date Time Provider Department 08/07/23 2:00 PM VALENTE GARCIA3 During your visit today, we recorded the following information about you: Pulse Blood pressure Height 68/minute 158/96 1.626 m Valente Garcia PA-C 08/07/2023 2:33 PM Signed Valente Garcia PA-C [facility] [address] [facility], [address] [place] [id number] RUBY Membreno is a 72 year old female here for a post op visit. The patient is 10 days s/p wide local excision and sentinel lymph node biopsy. She is keeping her back incision covered with gauze, minimal output noted on gauze. No swelling noted at axillary incision. No fever/chills. The ROS, medical, surgical, family, and social history were reviewed by Valente Garcia PA-C OBJECTIVE BP 158/96 Pulse 68 Ht 162.6 cm (5' 4") LMP 01/07/2003 SpO2 98% BMI 27.47 kg/m? [...] and she is agreeable with the plan. Valente Garcia PA-C 08/07/2023 1:42 PM Allergies As of Date: 08/07/2023 (No Known Allergies) Date Reviewed: 08/07/2023 Reviewed by: Velma Hawthorne MA - Fully Assessed Reason for Visit: Post Op Follow Up [3947] Cmt: S/P WLE Melanoma Primary Visit Diagnosis:Malignant melanoma of torso excluding breast (HCC) [C43.59] Prescriptions as of 08/07/2023 - cholecalciferol, vitamin D3, (VITAMIN D3 ORAL) Take by mouth. - acetaminophen (TYLENOL) 325 mg tablet Take 650 mg by mouth every 6 hours as needed. Problem List As Of Date 08/07/2023 Noted Resolved Knee pain [M25.569] 11/15/2012 Tear of medial cartilage or meniscus of knee, c*12/20/2012 Encounter Status:Closed by VALENTE GARCIA on 08/07/[address] [facility] ANES POSTPROC EVALon 023 ANES POSTPROC EVAL HNO ID: [id number] Author: Page Vargas MD Service: Anesthesiology Author Type: Physician Type: Anesthesia Postprocedure Evaluation Filed: 07/28/2023 6:32 PM Note Text: POST ANESTHESIA EVALUATION NOTE : 1950 Procedure Summary Date: 07/28/23 Room / Location: [place] OR 11 / [place] Anesthesia Start: 1454 Anesthesia Stop: 180 Procedures: WIDE LOCAL EXCISION OF BACK MELANOMA 4 CM WITH SNLB (Back) SENTINEL LYMPH NODE BIOPSY (Back) Diagnosis: Malignant melanoma of torso excluding breast (HCC) Lymphedema (Malignant melanoma of torso excluding breast (HCC) [C43.59]) (Lymphedema [I89.0]) Surgeons: Remi Aguilar MD Responsible Provider: Page Vargas MD Anesthesia Type: general ASA Status: 3 Anesthesia Type: general Airway Type: ETT Last Vitals Vitals Value Taken Time BP 159/94 07/28/23 1815 Temp 36.3 ?C (97.3 ?F) 07/28/23 1805 Pulse 88 07/28/23 1831 Resp 27 07/28/23 1831 SpO2 98 % 07/28/231830 Vitals shown include unvalidated device data. Post Anesthesia Patient Status Patient Evaluation: PACU. Anticipated Disposition: phase 2 then home. Neurological Status: sleepy but arousable. Pulmonary Status: breathing comfortably on supplemental oxygen Airway Control: returned to baseline unsupported. Cardiovascular Status: stable. Pain Management: clinically adequate Postoperative Hydration: acceptable. Intraoperative Events: no significant anesthesia events Post Operative Nausea/Vomiting Status: no significant post operative nausea or vomiting Recommendation: continue current plan of care. Anesthesia Observations No Documentation SIGNATURE: Page Vargas MD PATIENT NAME: Zoila Membreno DATE: July 28, 2023 TIME: 6:32 PM CSN: [id number] Normal [facility] ANES PRE-OPon 07-28-2023 ANES PRE-OP HNO ID: [id number] Author: Page Vargas MD Service: Anesthesiology Author Type: Physician Type: Anesthesia Preprocedure Evaluation Filed: 07/28/2023 10:40 AM Note Text: ANESTHESIOLOGY DAY OF SURGERY NOTE : 1950 Procedure Information Date/Time: 07/28/23 1300 Procedures: WIDE LOCAL EXCISION OF BACK MELANOMA 4 CM WITH SNLB (Back) SENTINEL LYMPH NODE BIOPSY (Back) Location: [place] OR 11 / [place] Surgeons: Remi Aguilar MD Estimated body mass index is 27.47 kg/m? as calculated from the following: Height as of 06/12/23: 162.6 cm (5' 4"). Weight as of this encounter: 72.6 kg (160 lb 0.9 oz). Most recent hematocrit and potassium results: Hematocrit 44.8 01/07/2013 Potassium 3.7 01/07/2013 72yo female with PONV, malignant melanoma Relevant Problems No relevant active problems I - PHYSICAL EVALUATION AIRWAY Patient intubated: No. Mallampati: II. TM distance: >3 FB. Neck ROM: full ROM without neurological symptoms. Mouth opening: adequate. DENTAL Dental findings: edentulous. Dentures, upper: complete. Dentures, lower: complete. II - ANESTHESIA PLAN ASA Score: 3 Anesthetic Plan: general Airway type: ETT The patient is not a current smoker. NPO Status: adequate Beta Saranya Monitoring Plan Monitoring plan: standard ASA. Post Procedure Analgesic Plan Postoperative analgesic plan: parenteral or oral opioids and multimodal analgesia. Informed Consent Anesthetic risks, benefits, alternatives, personnel and consent discussed: yes. Patient / Responsible Libertarian agrees to proceed: yes Patient / Surrogate agrees to blood products: blood products not planned Significant changes in the patient condition since the History and Physical, not otherwise documented in primary service progress note: no. Potential Anesthesia issues that may suggest increased risk of complications or contraindication to planned procedure: none. Vitals Value Taken Time BP 167/86 07/28/2324 Pulse 88 07/28/23923 Resp 18 07/28/23923 Temp 36.4 ?C (97.5 ?F) 07/28/23923 SpO2 100 % 07/28/23924 Vitals shown include unvalidated device data. Facility-Administered Medications as of 07/28/2023 Medication Dose Route Frequency - enoxaparin 40 mg injection (LOVENOX) 40 mg SUBCUTANEOUS ONCE - lidocaine 10 mg/mL (1 %) 1-2 mg injection (XYLOCAINE) 0.1-0.2 mL INTRADERMAL PRN - lactated ringers iv infusion 5-30 mL/hr INTRAVENOUS CONTINUOUS - NaCl 0.9% iv flush bag 20 mL INTRAVENOUS PRN - acetaminophen 975 mg tab(s) (TYLENOL) 975 mg ORAL Pre-Op Once - celecoxib 400 mg cap(s) (CeleBREX) 400 mg ORAL Pre-Op Once - ceFAZolin iv piggyback 2 g in D5W (iso-osmotic) 100 mL (ANCEF) 2 g INTRAVENOUS Pre-Op Once Outpatient Medications as of 07/28/2023 Medication Sig - cholecalciferol, vitamin D3, (VITAMIN D3 ORAL) Take by mouth. - acetaminophen (TYLENOL) 325 mg tablet Take 650 mg by mouth every 6 hours as needed. I have interviewed and examined the patient. I have reviewed the medical record and/or the pre-anesthesia evaluation, pertinent labs, and test results. This contains updated information obtained within 48 hours of Surgery/Procedure. SIGNATURE: Page Vargas MD PATIENT NAME: Zoila Membreno DATE: July 28, 2023 TIME: 9:52 AM CSN: [id number] [facility] BRIEF OP NOTon 07-28-2023 BRIEF OP NOT HNO ID: [id number] Author: Branden Esteban MD Service: General Surgery Author Type: Resident Type: Brief Op Note Filed: 07/28/2023 6:12 PM Note Text: Attestation signed by Remi Aguilar MD at 07/30/2023 12:03 PM I was present for the critical and perdomo portions of the surgery and I was immediately available to provide assistance. BRIEF OPERATIVE / PROCEDURE NOTE LOG ID: [id number] Surgery/Procedure Date: 07/28/2023 Incision/Procedure Start Time: 3:28 PM Incision Close/Procedure End Time: 5:59 PM Surgeon(s)/Proceduralis t(s) and Student Records Coordinator(s): Surgeon(s) and Role: * Remi Aguilar MD - Primary * Branden Esteban MD - Resident - Assisting * Indu Loco DO - Resident - Assisting No Additional Staff Procedure(s): Procedure(s): WIDE LOCAL EXCISION OF BACK MELANOMA 4 CM WITH SNLB SENTINEL LYMPH NODE BIOPSY Anesthesia: General ASA Class: 3 Findings: Wide local excision of back - 4.5 cm diameter Final incision 7 cm long Left sentinel lymph node biopsy Estimated Blood Loss: 25 mls IV Fluids: Per anesthesia report Urine output: Per anesthesia report Specimens: ID Type Source Tests Collected by Time Destination A : WIDE LOCAL EXCISION OF SKIN ON BACK, SHORT STITCH GALINDO SUPERIOR, SINGLE TAIL RIGHT Tissue SKIN EXCISION SURGICAL PATHOLOGY Remi Aguilar MD 07/28/2023 3:47 PM B : left sentinal axillary lymph node, 1142 OOB 1737 Tissue SENTINEL LYMPH NODE LEFT SURGICAL PATHOLOGY Remi Aguilar MD 07/28/2023 5:37 PM Complications: None Drains: None Wound Classification: Class 1, operative wound clean, non-traumatic, with no inflammation encountered, no break in technique, gastrointestinal and genitor-urinary tracts not entered PRE-OP/PRE-PROCEDURE DIAGNOSIS: Melanoma POST-OP/POST-PROCEDURE DIAGNOSIS: Same as Preop From 5pm to 6 am and on weekends, please page surgery on-call [phone] (RNF) or [phone] (ICU) SIGNATURE: Branden Esteban MD PATIENT NAME: Zoila Membreno DATE: July 28, 2023 TIME: 6:09 PM PAGER/CONTACT #: [phone] [facility] ECG COMPLETEon 07-28-2023 ECG COMPLETE Ventricular Rate : 9 1 BPM Atrial Rate : 91 BPM P-R Interval : 142 ms QRS Duration : 78 ms Q-T Interval : 400 ms QTC Calculation(Bazett) : 492 ms Calculated P Sigel : 38 degrees Calculated R Sigel : 20 degrees Calculated T Sigel : 33 degrees NORMAL SINUS RHYTHM PROLONGED QT ABNORMAL ECG NO PREVIOUS ECGS AVAILABLE Confirmed by MD LORAINE, ARIEL ([id number]) on 07/31/2023 8:45:08 AM NAME : ZOILA MEMBRENO PID : [id number] : 1950 Gender : Female Race : ORD : [id number] Procedure Date : Jul 28 2023 19:09:04 Edit Date : Jul 31 2023 08:45:11 Diagnosis: NORMAL SINUS RHYTHM PROLONGED QT ABNORMAL ECG NO PREVIOUS ECGS AVAILABLE Confirmed by MD BARON DAVID ([id number]) on 07/31/2023 8:45:08 AM Test Reason : stat Location : 200 : [facility] Overread By : MD BARON DAVID Edited By : MD BARON DAVID Referred By : REMI AGUILAR Acquired by : SHAKA MICHAUD [facility] HISTORY PHYSICALon HISTORY PHYSICAL HNO ID: [id number] Author: Remi Aguilar MD Service: General Surgery Author Type: Physician Type: HANDP Filed: 07/28/2023 2:10 PM Note Text: Remi Aguilar M.D. Surgical Oncology 1 [facility], [address] [place] [address] SUBJECTIVE HPI Zoila Membreno is a 72 year old female [...] family, and social history were reviewed by Remi Aguilar MD ALLERGIES ALLERGIES No Known Allergies CURRENT [...] lymph node biopsy of the left axilla. Normal [facility] NM LYMPH NODE IMAGINGon 12-0 NM LYMPH NODE IMAGING * * *Final Report* * * DATE OF EXAM: Jul 28 2023 9:14AM [facility] 0033 - NM LYMPH NODE IMAGING / PROCEDURE REASON: Lymphedema * * * * Physician Interpretation * * * * EXAMINATION: NM LYMPH NODE IMAGING CLINICAL INFORMATION: Lymphedema TECHNIQUE: Prior to radiopharmaceutical administration, the injection site was verified with the electronic medical record and with the optometric technologist. 1.05 microcuries of filtered technetium-99m sulfur colloid were injected in four aliquots into the melanoma site in the mid back. IMPRESSION: Left mid back melanoma sentinel lymph node injection. Molder Fitting: PSCB Transcribe Date/Time: Jul 28 2023 3:33P Dictated by : HEATHER SEWELL MD This examination was interpreted and the report reviewed and electronically signed by: HEATHER SEWELL MD on Jul 28 2023 3:34PM EST [id number] [facility] OPERATIVE NOon 07-28-2023 OPERATIVE NO HNO ID: [id number] Author: Branden Esteban MD Service: General Surgery Author Type: Resident Type: Operative Report Filed: 07/28/2023 7:51 PM Note Text: Attestation signed by Remi Aguilar MD at 07/30/2023 12:15 PM I was present for the critical and perdomo portions of the surgery and I was immediately available to provide assistance. OPERATIVE/PROCEDURE REPORT LOG ID: [id number] SURGERY/PROCEDURE DATE: 07/28/2023 INCISION/PROCEDURE START TIME: 3:28 PM INCISION CLOSE/PROCEDURE END TIME: 5:59 PM SURGEON(S)/PROCEDURALIS T(S) AND ROLL HAND(S): Surgeon(s) and Role: * Remi Aguilar MD - Primary * Branden Esteban MD - Resident - Assisting * Indu Loco DO - Resident - Assisting No Additional Staff SURGERY/PROCEDURE(S): Procedure(s) (LRB): WIDE LOCAL EXCISION OF BACK MELANOMA 4 CM WITH SNLB (N/A) SENTINEL LYMPH NODE BIOPSY (N/A) ANESTHESIA: General ASA Class: 3 SURGERY/PROCEDURE DETAILS: This is a 72 year old year old who presented for elective removal of a back melanoma. Patient was seen in the dermatology clinic after being referred by her primary care physician for a mass identified on her back. A punch biopsy was performed and showed superficial spreading malignant melanoma with 0.7 mm Breslow depth without evidence of ulceration or mitoses. After discussion of benefits, risks, and alternatives, the patient consented for surgery. A surgical huddle was completed with the treatment team, which included confirmation of the surgical site, procedure, and antibiotic administration. After induction of General anesthesia, the patient was prepped and draped in a sterile fashion then placed in the prone positioning. A margin of 1 cm circumferentially was marked around the melanoma site on the upper midline back. Incision was made with scalpel and dissection carried down to the level of the fascia with sharp dissection and electrocautery. The specimen was then oriented by a 4.5 cm diameter with a short stitch superior and single long stitch to specimen right then passed off the field for permanent analysis. The resulting wound measured 7 cm. The wound was closed without tension utilizing a 3-0 vicryl in a deep dermal layer, and a whip stitch of a 4-0 monocryl. Exofin skin glue was applied and the wound was covered with bacitracin and a sterile dressing. Pre-operatively, IGC was injected intradermally into the melanoma site for dual tracing and allowed to circulate for 5 minutes. The sentinel lymph node site as directed by pre-operative lymphoscintigraphy was confirmed with gamma probe on the skin surface. An incision was then made just below the level of the hair line in the axillary fold. The dissection was carried down to the superficial fascial layer which was incised. The gamma probe and Spy system was then used to direct dissection toward the SLN; however, the spy system was not able to clearly identify any mapped nodes. Clips were used to secure lymphatics and the node was dissected free with blunt dissection and electrocautery. The bed was evaluated with the gamma probe and remaining counts were negligible. No significant ICG activity was appreciated. The wound was evaluated for hemostasis. The incision was then closed in layers with 3-0 Vicryl and 4-0 Monocryl and Dermabond dressing applied. Commission on Cancer - Standard 5.5: Wide Local Excision for Primary Cutaneous Melanoma Operation performed with curative intent: Yes Original Breslow thickness of the lesion: 0.7 mm (to the tenth of a millimeter) Clinical margin with: 1 cm Depth of excision: Full-thickness skin and subcutaneous fat down to fascia The patient was awakened and returned to the recovery area in good condition. PRE-OP/PRE-PROCEDURE DIAGNOSIS: Pre-Op Diagnosis Codes: * Malignant melanoma of torso excluding breast (HCC) [C43.59] * Lymphedema [I89.0] POST-OP/POST-PROCEDURE DIAGNOSIS: Post-Op Diagnosis Codes: * Malignant melanoma of torso excluding breast (HCC) [C43.59] * Lymphedema [I89.0] Antibiotics: Current Anti-Infective Meds (From admission, onward) Start Stop Route Frequency Ordered 07/28/23 1300 ceFAZolin iv piggyback 2 g in D5W (iso-osmotic) 100 mL (ANCEF) 07/28/23 1534 INTRAVENOUS PRE-OP ONCE 07/28/23 0929 ESTIMATED BLOOD LOSS: 25 mls SPECIMENS: ID Type Source Tests Collected by Time Destination A : WIDE LOCAL EXCISION OF SKIN ON BACK, SHORT STITCH GALINDO SUPERIOR, SINGLE TAIL RIGHT Tissue SKIN EXCISION SURGICAL PATHOLOGY Remi Aguilar MD 07/28/2023 3:47 PM B : left sentinal axillary lymph node, 1142 OOB 1737 Tissue SENTINEL LYMPH NODE LEFT SURGICAL PATHOLOGY Remi Aguilar MD 07/28/2023 5:37 PM IMPLANTABLE DEVICES: NONE DRAINS: None COMPLICATIONS: None PARTICIPATION IN SURG (more content not included)... Normal [facility] SURGICAL PATHOLOGYon 023 BLOCK FOR ADDITIONAL BIOMARKERS/MOLECULAR STUDIES A4 [facility] Comment on above: Order Comment: Haresh maravilla Type: TISSUE SPECIMEN Ordering Facility: [facility] Address: [address] [place] [address] Performed By: #### S #### [facility] CLIA [id number] [facility] [facility] CLIA [id number] [address] OF [facility] CASE REPORT Normal [facility] Comment on above: Order Comment: Haresh maravilla Type: TISSUE SPECIMEN Ordering Facility: [facility] Address: [address] [place] [address] Result Comment: Surg ical Pathology Report Case: [id number] Authorizing Provider: Remi Aguilar MD Collected: 07/28/2023 03:47 PM Ordering Location: [facility] Received: 07/31/2023 06:34 AM Pathologist: Abena Cooper MD Specimens: A) - SKIN EXCISION, WIDE LOCAL EXCISION OF SKIN ON BACK, SHORT STITCH GALINDO SUPERIOR, SINGLE TAIL RIGHT B) - SENTINEL LYMPH NODE LEFT, left sentinal axillary lymph node, 1142 OOB 1737 Performed By: #### S #### [facility] CLIA [id number] [facility] [address] [facility] CLIA [id number] [address] CLINICAL HISTORY Normal [facility] Comment on above: Order Comment: Haresh maravilla Type: TISSUE SPECIMEN Ordering Facility: [facility] Address: [address] [place] [address] Result Comment: Pre- op diagnosis: Malignant melanoma of torso excluding breast (HCC) [C43.59] Lymphedema [I89.0] Performed By: #### S #### [facility] CLIA [id number] [facility] [address] LAB[facility]ORY CLIA [id number] [address] DIAGNOSIS COMMENT Normal [facility] Comment on above: Order Comment: Speci men Type: TISSUE SPECIMEN Ordering Facility: [facility] Address: [address] [place] [address] Result Comment: B. T o further evaluate the tissue for metastatic melanoma, immunohistochemical stains were performed at the [facility] with appropriate controls on blocks B1-B2 (block B3 was unavailable). The SOX10, melan-A and HMB45 stains are negative in the lymph node tissue. Laboratory Developed Test (LDT) Disclaimer: Performance characteristics of immunohistochemical, immunofluorescent and chromogenic in-situ hybridization tests have been determined by the performing laboratory within [facility]???s Danny Hawley [facility] Pathology and Laboratory Medicine [place] ([facility], [facility], [facility], [facility], [facility], [facility], or [facility]) in a manner consistent with CLIA requirements. One or more of these tests have not been cleared or approved by the FDA. [facility] is regulated under CLIA as qualified to perform high-complexity testing. These tests are used for clinical purposes. They should not be regarded as investigational or for research. Positive and negative controls stain appropriately. Performed By: #### S #### [facility] CLIA [id number] [address] [place] [address] LABORATORY CLIA [id number] [address] FINAL DIAGNOSIS Normal [facility] Comment on above: Order Comment: Speci men Type: TISSUE SPECIMEN Ordering Facility: [facility] Address: [address] [place] [address] Result Comment: Jen. S kin, back excision: - Melanoma, see synoptic report for further characterization. B. Cecil lymph node, left axillary, excision: - One lymph node negative for metastatic melanoma, see comment. PEDRO/BECKY/rm 08/02/2023 Performed By: #### S #### [facility] CLIA [id number] [address] [place] [address] LABORATORY CLIA [id number] [address] FINAL PERFORMING LAB Normal [facility] Comment on above: Order Comment: Speci men Type: TISSUE SPECIMEN Ordering Facility: [facility] Address: [address] [place] [address] Result Comment: Diag nostic interpretation performed at [facility], [address] [place] [address] CLIA# [id number] Tea Blender: Cesario Donis M.D. Performed By: #### S #### [facility] CLIA [id number] [address] [place] [address] LABORATORY CLIA [id number] [address] [place] [address] [facility] Comment on above: Order Comment: Speci men Type: TISSUE SPECIMEN Ordering Facility: [facility] Address: [address] [place] [address] Result Comment: A. S KIN EXCISION Received in formalin labeled "wide local excision" is a oriented round fragment of skin and subcutaneous tissue measuring 3.5 cm x 3.5 cm x 2.4 cm. The specimen is oriented with a short stitch marking the superior aspect and a single stitch marking the right aspect. The skin surface demonstrates a irregular, raised brown-black solid mass measuring 2.2 x 1.8 x 0.6 cm (0.2 cm from the inferior margin, 1 cm from the left, 1.1 cm from the superior margin, 1 cm from the right. The specimen is inked as follows: Superior-blue, inferior-green, deep-black. Upon sectioning, the lesion is located 1.6 cm from the deep margin. [facility] sections are submitted as follows: A1-A2: Lesion in relation to closest inferior margin, perpendicular A3-A4: Lesion in relation to deep margin A5: Left aspect, perpendicular A6: Right aspect, perpendicular A7: Closest superior margin, perpendicular B. SENTINEL LYMPH NODE LEFT Received in formalin labeled "left sentinel lymph node" is a irregular fragment of fibroadipose tissue measuring 2.5 x 2 x 1.2 cm. Upon dissection, 1 possible lymph node is identified measuring 2 x 1 x 1 cm. The specimen is submitted entirely as follows: B1-B2: Entire lymph node, serially sectioned B3: Remainder of attached adipose tissue Gross examination performed at [facility], [address] [place] [address] CLIA#[id number] OLS July 31, 2023 9:45 AM Performed By: #### S #### [facility] CLIA [id number] [address] [facility] [place] [place] [id number] [facility] CLIA [id number] [address] OF [facility] SYNOPTIC REPORT Normal [facility] Comment on above: Order Comment: Speci men Type: TISSUE SPECIMEN Ordering Facility: [facility] Address: [address] [place] [address] Result Comment: SANDRA NOMA OF THE SKIN: Excision, Re-Excision MELANOMA OF THE SKIN: EXCISION - A, B 8th Edition - Protocol posted: 07/07/2021 SPECIMEN Procedure: Excision Specimen Laterality: Not specified TUMOR Tumor Site: Skin of trunk: Back Histologic Type: Superficial spreading melanoma (low-cumulative sun damage (CSD) melanoma) Maximum Tumor (Breslow) Thickness (Millimeters): 4.5 mm Macroscopic Satellite Nodule(s): Not identified Ulceration: Present Anatomic (Derek) Level: IV (Melanoma invades reticular dermis) Mitotic Rate: 7 mitoses per mm2 Microsatellite(s): Not identified Lymphovascular Invasion: Not identified Neurotropism: Not identified Tumor-Infiltrating Lymphocytes: Present, nonbrisk Tumor Regression: Not identified MARGINS: Margin Status for Invasive Melanoma: All margins negative for invasive melanoma Margin Status for Melanoma in situ: All margins negative for melanoma in situ Distance from Melanoma in Situ to Peripheral Margin: 0.7 mm Margin Comment: MIS aproximates the inferior margin REGIONAL LYMPH NODES: Regional Lymph Node Status: : All regional lymph nodes negative for tumor Total Number of Lymph Nodes Examined: 1 Number of Cecil Nodes Examined: 1 PATHOLOGIC STAGE CLASSIFICATION (pTNM, AJCC 8th Edition): pT Category: pT4b pN Category: pN0 Performed By: #### S #### [facility] CLIA [id number] [address] [place] [id number] [place] [facility] CLIA [id number] [address] [place], [place] [id number] [place] [address] STATES OF [facility] Vital Signs Date Time Vital Sign Value Performing Clinician Facility 11-07-2024 13:45-0400 Body mass index (BMI) [Ratio] 26.45 kg/m2 Sd Saldaña MD Work Phone: [facility] 11-07-2024 13:45-0400 Body temperature 97.81 [degF] Sd Saldaña MD Work Phone: [facility] 11-07-2024 13:45-0400 Body weight 63.5 kg Sd Saldaña MD Work Phone: [facility] 11-07-2024 13:45-0400 Diastolic blood pressure 74 mm[Hg] Sd Saldaña MD Work Phone: [facility] 11-07-2024 13:45-0400 Heart rate 75 /min Sd Saldaña MD Work Phone: [facility] 11-07-2024 13:45-0400 SaO2% (BldA) [Mass fraction] 97 % Sd Saldaña MD Work Phone: [facility] 11-07-2024 13:45-0400 Systolic blood pressure 118 mm[Hg] Sd Saldaña MD Work Phone: [facility] 09-02-2024 13:00-0500 Body mass index (BMI) [Ratio] 26.17 kg/m2 Treatment Wstr Work Phone: [facility] 09-02-2024 13:00-0500 Body temperature 97.59 [degF] Treatment Wstr Work Phone: [facility] 09-02-2024 13:00-0500 Body weight 62.82 kg Treatment Wstr Work Phone: [facility] 09-02-2024 13:00-0500 Diastolic blood pressure 83 mm[Hg] Treatment Wstr Work Phone: [facility] 09-02-2024 13:00-0500 Heart rate 59 /min Treatment Wstr Work Phone: [facility] 09-02-2024 13:00-0500 Systolic blood pressure 115 mm[Hg] Treatment Wstr Work Phone: [facility] 07-29-2024 09:00-0500 Body temperature 97.59 [degF] Treatment Wstr Work Phone: [facility] 07-29-2024 09:00-0500 Diastolic blood pressure 82 mm[Hg] Treatment Wstr Work Phone: [facility] 07-29-2024 09:00-0500 Heart rate 80 /min Treatment Wstr Work Phone: [facility] 07-29-2024 09:00-0500 Respiratory rate 16 /min Treatment Wstr Work Phone: [facility] 07-29-2024 09:00-0500 SaO2% (BldA) [Mass fraction] 99 % Treatment Wstr Work Phone: [facility] 07-29-2024 09:00-0500 Systolic blood pressure 125 mm[Hg] Treatment Wstr Work Phone: [facility] 07-26-2024 09:45-0500 Body mass index (BMI) [Ratio] 26.36 kg/m2 Susan Oconnor Work Phone: [facility] 07-26-2024 09:45-0500 Body temperature 97.7 [degF] Susan Oconnor Work Phone: [facility] 07-26-2024 09:45-0500 Body weight 63.28 kg Susan Oconnor Work Phone: [facility] 07-26-2024 09:45-0500 Diastolic blood pressure 74 mm[Hg] Susan Oconnor Work Phone: [facility] 07-26-2024 09:45-0500 Heart rate 79 /min Susankemal Oconnor Work Phone: [facility] 07-26-2024 09:45-0500 SaO2% (BldA) [Mass fraction] 96 % Susan Oconnor Work Phone: [facility] 07-26-2024 09:45-0500 Systolic blood pressure 109 mm[Hg] Susan Oconnor Work Phone: [facility] 07-08-2024 09:00-0500 Body temperature 97.59 [degF] Treatment Wstr Work Phone: [facility] 07-08-2024 09:00-0500 Diastolic blood pressure 72 mm[Hg] Treatment Wstr Work Phone: [facility] 07-08-2024 09:00-0500 Heart rate 63 /min Treatment Wstr Work Phone: [facility] 07-08-2024 09:00-0500 Systolic blood pressure 110 mm[Hg] Treatment Wstr Work Phone: [facility] 07-05-2024 11:19-0500 Body mass index (BMI) [Ratio] 26.83 kg/m2 Sd Saldaña MD Work Phone: [facility] 07-05-2024 11:19-0500 Body temperature 97.7 [degF] Sd Saldaña MD Work Phone: [facility] 07-05-2024 11:19-0500 Body weight 64.41 kg Sd Saldaña MD Work Phone: [facility] 07-05-2024 11:19-0500 Diastolic blood pressure 72 mm[Hg] Sd Saldaña MD Work Phone: [facility] 07-05-2024 11:19-0500 Heart rate 59 /min Sd Saldaña MD Work Phone: [facility] 07-05-2024 11:19-0500 SaO2% (BldA) [Mass fraction] 99 % Sd Saldaña MD Work Phone: [facility] 07-05-2024 11:19-0500 Systolic blood pressure 109 mm[Hg] Sd Saldaña MD Work Phone: [facility] 07-01-2024 15:08-0500 Body height 154.9 cm Remi Aguilar MD Work Phone: [facility] 07-01-2024 15:08-0500 Body mass index (BMI) [Ratio] 26.87 kg/m2 Remi Aguilar MD Work Phone: [facility] 07-01-2024 15:08-0500 Body weight 64.5 kg Remi Aguilar MD Work Phone: [facility] 07-01-2024 15:08-0500 Diastolic blood pressure 73 mm[Hg] Remi Aguilar MD Work Phone: [facility] 07-01-2024 15:08-0500 Heart rate 80 /min Remi Aguilar MD Work Phone: [facility] 07-01-2024 15:08-0500 SaO2% (BldA) [Mass fraction] 97 % Remi Aguilar MD Work Phone: [facility] 07-01-2024 15:08-0500 Systolic blood pressure 127 mm[Hg] Remi Aguilar MD Work Phone: [facility] 06-17-2024 09:12-0400 Body temperature 97 [degF] Treatment Wstr Work Phone: [facility] 06-17-2024 09:12-0400 Diastolic blood pressure 67 mm[Hg] Treatment Wstr Work Phone: [facility] 06-17-2024 09:12-0400 Heart rate 67 /min Treatment Wstr Work Phone: [facility] 06-17-2024 09:12-0400 Respiratory rate 18 /min Treatment Wstr Work Phone: [facility] 06-17-2024 09:12-0400 SaO2% (BldA) [Mass fraction] 98 % Treatment Wstr Work Phone: [facility] 06-17-2024 09:12-0400 Systolic blood pressure 110 mm[Hg] Treatment Wstr Work Phone: [facility] 06-14-2024 10:53-0400 Body mass index (BMI) [Ratio] 27.4 kg/m2 Susan Oconnor Work Phone: [facility] 06-14-2024 10:53-0400 Body temperature 97.59 [degF] Susan Oconnor Work Phone: [facility] 06-14-2024 10:53-0400 Body weight 65.77 kg Susan Oconnor Work Phone: [facility] 06-14-2024 10:53-0400 Diastolic blood pressure 75 mm[Hg] Susan Oconnor Work Phone: [facility] 06-14-2024 10:53-0400 Heart rate 59 /min Susan Oconnor Work Phone: [facility] 06-14-2024 10:53-0400 Respiratory rate 17 /min Susan Oconnor Work Phone: [facility] 06-14-2024 10:53-0400 SaO2% (BldA) [Mass fraction] 98 % Susan Anastasia Work Phone: [facility] 06-14-2024 10:53-0400 Systolic blood pressure 112 mm[Hg] Susan Oconnor Work Phone: [facility] 05-27-2024 09:15-0400 Body temperature 98.1 [degF] Treatment Wstr Work Phone: [facility] 05-27-2024 09:15-0400 Diastolic blood pressure 79 mm[Hg] Treatment Wstr Work Phone: [facility] 05-27-2024 09:15-0400 Heart rate 77 /min Treatment Wstr Work Phone: [facility] 05-27-2024 09:15-0400 SaO2% (BldA) [Mass fraction] 96 % Treatment Wstr Work Phone: [facility] 05-27-2024 09:15-0400 Systolic blood pressure 129 mm[Hg] Treatment Wstr Work Phone: [facility] 05-24-2024 09:25-0400 Body mass index (BMI) [Ratio] 27.62 kg/m2 Alexandria Angel GERIATRIC CASE MANAGER.OFFICE RUNNER Work Phone: [facility] 05-24-2024 09:25-0400 Body temperature 97.5 [degF] Milagros Angel GERIATRIC CASE MANAGER.OFFICE RUNNER Work Phone: [facility] 05-24-2024 09:25-0400 Body weight 66.3 kg Milagros Angel GERIATRIC CASE MANAGER.OFFICE RUNNER Work Phone: [facility] 05-24-2024 09:25-0400 Diastolic blood pressure 74 mm[Hg] Alexandria Angel GERIATRIC CASE MANAGER.OFFICE RUNNER Work Phone: [facility] 05-24-2024 09:25-0400 Heart rate 82 /min Milagros Angel GERIATRIC CASE MANAGER.OFFICE RUNNER Work Phone: [facility] 05-24-2024 09:25-0400 SaO2% (BldA) [Mass fraction] 97 % Alexandria Angel GERIATRIC CASE MANAGER.OFFICE RUNNER Work Phone: [facility] 05-24-2024 09:25-0400 Systolic blood pressure 110 mm[Hg] Alexandria Angel GERIATRIC CASE MANAGER.OFFICE RUNNER Work Phone: [facility] 05-06-2024 09:30-0400 Body temperature 98.1 [degF] Treatment Wstr Work Phone: [facility] 05-06-2024 09:30-0400 Diastolic blood pressure 73 mm[Hg] Treatment Wstr Work Phone: [facility] 05-06-2024 09:30-0400 Heart rate 73 /min Treatment Wstr Work Phone: [facility] 05-06-2024 09:30-0400 Respiratory rate 18 /min Treatment Wstr Work Phone: [facility] 05-06-2024 09:30-0400 SaO2% (BldA) [Mass fraction] 96 % Treatment Wstr Work Phone: [facility] 05-06-2024 09:30-0400 Systolic blood pressure 111 mm[Hg] Treatment Wstr Work Phone: [facility] 05-03-2024 11:49-0400 Body mass index (BMI) [Ratio] 28.34 kg/m2 Sd Saldaña MD Work Phone: [facility] 05-03-2024 11:49-0400 Body temperature 97.3 [degF] Sd Saldaña MD Work Phone: [facility] 05-03-2024 11:49-0400 Body weight 68.04 kg Sd Saldaña MD Work Phone: [facility] 05-03-2024 11:49-0400 Diastolic blood pressure 67 mm[Hg] Sd Saldaña MD Work Phone: [facility] 05-03-2024 11:49-0400 Heart rate 75 /min Sd Saldaña MD Work Phone: [facility] 05-03-2024 11:49-0400 SaO2% (BldA) [Mass fraction] 96 % Sd Saldaña MD Work Phone: [facility] 05-03-2024 11:49-0400 Systolic blood pressure 108 mm[Hg] Sd Saldaña MD Work Phone: [facility] 04-15-2024 09:47-0400 Body temperature 97.9 [degF] Treatment Wstr Work Phone: [facility] 04-15-2024 09:47-0400 Diastolic blood pressure 66 mm[Hg] Treatment Wstr Work Phone: [facility] Comment on above: has cardiology apt on 04/18/24 04-15-2024 09:47-0400 Heart rate 64 /min Treatment Wstr Work Phone: [facility] 04-15-2024 09:47-0400 Respiratory rate 18 /min Treatment Wstr Work Phone: [facility] 04-15-2024 09:47-0400 SaO2% (BldA) [Mass fraction] 96 % Treatment Wstr Work Phone: [facility] 04-15-2024 09:47-0400 Systolic blood pressure 99 mm[Hg] Treatment Wstr Work Phone: [facility] Comment on above: has cardiology apt on 04/18/24 04-12-2024 09:19-0400 Body mass index (BMI) [Ratio] 29.38 kg/m2 Susan Oconnor Work Phone: [facility] 04-12-2024 09:19-0400 Body temperature 97.81 [degF] Susan Oconnor Work Phone: [facility] 04-12-2024 09:19-0400 Body weight 70.53 kg Susan Oconnor Work Phone: [facility] 04-12-2024 09:19-0400 Diastolic blood pressure 71 mm[Hg] Susan Oconnor Work Phone: [facility] 04-12-2024 09:19-0400 Heart rate 78 /min Susan Oconnor Work Phone: [facility] 04-12-2024 09:19-0400 SaO2% (BldA) [Mass fraction] 97 % Susan Oconnor Work Phone: [facility] 04-12-2024 09:19-0400 Systolic blood pressure 106 mm[Hg] Susan Oconnor Work Phone: [facility] 04-01-2024 14:51-0400 Body height 154.9 cm Remi Aguilar MD Work Phone: [facility] 04-01-2024 14:51-0400 Body mass index (BMI) [Ratio] 30.41 kg/m2 Remi Aguilar MD Work Phone: [facility] 04-01-2024 14:51-0400 Body weight 73 kg Remi Aguilar MD Work Phone: [facility] 04-01-2024 14:51-0400 Diastolic blood pressure 64 mm[Hg] Remi Aguilar MD Work Phone: [facility] 04-01-2024 14:51-0400 Heart rate 73 /min Remi Aguilar MD Work Phone: [facility] 04-01-2024 14:51-0400 SaO2% (BldA) [Mass fraction] 98 % Remi Aguilar MD Work Phone: [facility] 04-01-2024 14:51-0400 Systolic blood pressure 122 mm[Hg] Remi Aguilar MD Work Phone: [facility] 03-25-2024 09:36-0400 Body mass index (BMI) [Ratio] 30.39 kg/m2 Treatment Wstr Work Phone: [facility] 03-25-2024 09:36-0400 Body temperature 97.2 [degF] Treatment Wstr Work Phone: [facility] 03-25-2024 09:36-0400 Body weight 73.26 kg Treatment Wstr Work Phone: [facility] 03-25-2024 09:36-0400 Diastolic blood pressure 76 mm[Hg] Treatment Wstr Work Phone: [facility] 03-25-2024 09:36-0400 Heart rate 71 /min Treatment Wstr Work Phone: [facility] 03-25-2024 09:36-0400 SaO2% (BldA) [Mass fraction] 97 % Treatment Wstr Work Phone: [facility] 03-25-2024 09:36-0400 Systolic blood pressure 121 mm[Hg] Treatment Wstr Work Phone: [facility] 03-04-2024 09:10-0400 Body mass index (BMI) [Ratio] 31.24 kg/m2 Treatment Wstr Work Phone: [facility] 03-04-2024 09:10-0400 Body temperature 97.5 [degF] Treatment Wstr Work Phone: [facility] 03-04-2024 09:10-0400 Body weight 75.3 kg Treatment Wstr Work Phone: [facility] 03-04-2024 09:10-0400 Diastolic blood pressure 76 mm[Hg] Treatment Wstr Work Phone: [facility] 03-04-2024 09:10-0400 Heart rate 68 /min Treatment Wstr Work Phone: [facility] 03-04-2024 09:10-0400 SaO2% (BldA) [Mass fraction] 96 % Treatment Wstr Work Phone: [facility] 03-04-2024 09:10-0400 Systolic blood pressure 110 mm[Hg] Treatment Wstr Work Phone: [facility] 02-12-2024 09:24-0400 Body temperature 98.2 [degF] Treatment Wstr Work Phone: [facility] 02-12-2024 09:24-0400 Diastolic blood pressure 70 mm[Hg] Treatment Wstr Work Phone: [facility] 02-12-2024 09:24-0400 Heart rate 77 /min Treatment Wstr Work Phone: [facility] 02-12-2024 09:24-0400 Respiratory rate 18 /min Treatment Wstr Work Phone: [facility] 02-12-2024 09:24-0400 Systolic blood pressure 123 mm[Hg] Treatment Wstr Work Phone: [facility] 02-09-2024 12:05-0400 Body mass index (BMI) [Ratio] 32.56 kg/m2 Sd Saldaña MD Work Phone: [facility] 02-09-2024 12:05-0400 Body temperature 97.81 [degF] Sd Saldaña MD Work Phone: [facility] 02-09-2024 12:05-0400 Body weight 78.47 kg Sd Saldaña MD Work Phone: [facility] 02-09-2024 12:05-0400 Diastolic blood pressure 78 mm[Hg] Sd Saldaña MD Work Phone: [facility] 02-09-2024 12:05-0400 Heart rate 77 /min Sd Saldaña MD Work Phone: [facility] 02-09-2024 12:05-0400 SaO2% (BldA) [Mass fraction] 98 % Sd Saldaña MD Work Phone: [facility] 02-09-2024 12:05-0400 Systolic blood pressure 112 mm[Hg] Sd Saldaña MD Work Phone: [facility] 01-23-2024 09:12-0400 Body temperature 97.81 [degF] Treatment Wstr Work Phone: [facility] 01-23-2024 09:12-0400 Diastolic blood pressure 77 mm[Hg] Treatment Wstr Work Phone: [facility] 01-23-2024 09:12-0400 Heart rate 69 /min Treatment Wstr Work Phone: [facility] 01-23-2024 09:12-0400 Respiratory rate 18 /min Treatment Wstr Work Phone: [facility] 01-23-2024 09:12-0400 SaO2% (BldA) [Mass fraction] 95 % Treatment Wstr Work Phone: [facility] 01-23-2024 09:12-0400 Systolic blood pressure 118 mm[Hg] Treatment Wstr Work Phone: [facility] 01-19-2024 08:41-0400 Body mass index (BMI) [Ratio] 33.03 kg/m2 Sd Saldaña MD Work Phone: [facility] 01-19-2024 08:41-0400 Body temperature 97.59 [degF] Sd Saldaña MD Work Phone: [facility] 01-19-2024 08:41-0400 Body weight 79.61 kg Sd Saldaña MD Work Phone: [facility] 01-19-2024 08:41-0400 Diastolic blood pressure 71 mm[Hg] Sd Saldaña MD Work Phone: [facility] 01-19-2024 08:41-0400 Heart rate 73 /min Sd Saldaña MD Work Phone: [facility] 01-19-2024 08:41-0400 SaO2% (BldA) [Mass fraction] 96 % Sd Saldaña MD Work Phone: [facility] 01-19-2024 08:41-0400 Systolic blood pressure 104 mm[Hg] Sd Saldaña MD Work Phone: [facility] 01-01-2024 09:45-0400 Body temperature 97.39 [degF] Treatment Wstr Work Phone: [facility] 01-01-2024 09:45-0400 Diastolic blood pressure 81 mm[Hg] Treatment Wstr Work Phone: [facility] 01-01-2024 09:45-0400 Heart rate 68 /min Treatment Wstr Work Phone: [facility] 01-01-2024 09:45-0400 SaO2% (BldA) [Mass fraction] 95 % Treatment Wstr Work Phone: [facility] 01-01-2024 09:45-0400 Systolic blood pressure 132 mm[Hg] Treatment Wstr Work Phone: [facility] 12-29-2023 09:35-0400 Body mass index (BMI) [Ratio] 33.4 kg/m2 Sd Saldaña MD Work Phone: [facility] 12-29-2023 09:35-0400 Body temperature 98.2 [degF] Sd Saldaña MD Work Phone: [facility] 12-29-2023 09:35-0400 Body weight 80.51 kg Sd Saldaña MD Work Phone: [facility] 12-29-2023 09:35-0400 Diastolic blood pressure 73 mm[Hg] Sd Saldaña MD Work Phone: [facility] 12-29-2023 09:35-0400 Heart rate 79 /min Sd Saldaña MD Work Phone: [facility] 12-29-2023 09:35-0400 SaO2% (BldA) [Mass fraction] 97 % Sd Saldaña MD Work Phone: [facility] 12-29-2023 09:35-0400 Systolic blood pressure 117 mm[Hg] Sd Saldaña MD Work Phone: [facility] 12-11-2023 09:00-0400 Body temperature 97.7 [degF] Treatment Wstr Work Phone: [facility] 12-11-2023 09:00-0400 Diastolic blood pressure 78 mm[Hg] Treatment Wstr Work Phone: [facility] 12-11-2023 09:00-0400 Heart rate 95 /min Treatment Wstr Work Phone: [facility] 12-11-2023 09:00-0400 Systolic blood pressure 121 mm[Hg] Treatment Wstr Work Phone: [facility] 12-08-2023 08:32-0400 Body temperature 98.2 [degF] Susan Oconnor Work Phone: [facility] 12-08-2023 08:32-0400 Body weight 80.29 kg Susan Oconnor Work Phone: [facility] 12-08-2023 08:32-0400 Diastolic blood pressure 78 mm[Hg] Susan Oconnor Work Phone: [facility] 12-08-2023 08:32-0400 Heart rate 70 /min Susan Oconnor Work Phone: [facility] 12-08-2023 08:32-0400 SaO2% (BldA) [Mass fraction] 97 % Susan Oconnor Work Phone: [facility] 12-08-2023 08:32-0400 Systolic blood pressure 116 mm[Hg] Susan Oconnor Work Phone: [facility] 11-20-2023 09:19-0400 Body temperature 97.39 [degF] Treatment Wstr Work Phone: [facility] 11-20-2023 09:19-0400 Diastolic blood pressure 75 mm[Hg] Treatment Wstr Work Phone: [facility] 11-20-2023 09:19-0400 Heart rate 78 /min Treatment Wstr Work Phone: [facility] 11-20-2023 09:19-0400 SaO2% (BldA) [Mass fraction] 95 % Treatment Wstr Work Phone: [facility] 11-20-2023 09:19-0400 Systolic blood pressure 122 mm[Hg] Treatment Wstr Work Phone: [facility] 11-17-2023 09:58-0400 Body temperature 97.9 [degF] Sd Saldaña MD Work Phone: [facility] 11-17-2023 09:58-0400 Body weight 78.25 kg Sd Saldaña MD Work Phone: [facility] 11-17-2023 09:58-0400 Diastolic blood pressure 68 mm[Hg] Sd Saldaña MD Work Phone: [facility] 11-17-2023 09:58-0400 Heart rate 80 /min Sd Saldaña MD Work Phone: [facility] 11-17-2023 09:58-0400 SaO2% (BldA) [Mass fraction] 96 % Sd Saldaña MD Work Phone: [facility] 11-17-2023 09:58-0400 Systolic blood pressure 129 mm[Hg] Sd Saldaña MD Work Phone: [facility] 10-30-2023 09:26-0500 Body temperature 98.8 [degF] Treatment Wstr Work Phone: [facility] 10-30-2023 09:26-0500 Diastolic blood pressure 78 mm[Hg] Treatment Wstr Work Phone: [facility] 10-30-2023 09:26-0500 Heart rate 88 /min Treatment Wstr Work Phone: [facility] 10-30-2023 09:26-0500 Respiratory rate 16 /min Treatment Wstr Work Phone: [facility] 10-30-2023 09:26-0500 SaO2% (BldA) [Mass fraction] 98 % Treatment Wstr Work Phone: [facility] 10-30-2023 09:26-0500 Systolic blood pressure 152 mm[Hg] Treatment Wstr Work Phone: [facility] 10-26-2023 13:07-0500 Body temperature 98.4 [degF] Susankemal Oconnor Work Phone: [facility] 10-26-2023 13:07-0500 Body weight 79.83 kg Susan Oconnor Work Phone: [facility] 10-26-2023 13:07-0500 Diastolic blood pressure 87 mm[Hg] Susan Oconnor Work Phone: [facility] 10-26-2023 13:07-0500 Heart rate 97 /min Susan Oconnor Work Phone: [facility] 10-26-2023 13:07-0500 Respiratory rate 18 /min Susan Oconnor Work Phone: [facility] 10-26-2023 13:07-0500 SaO2% (BldA) [Mass fraction] 96 % Susan Oconnor Work Phone: [facility] 10-26-2023 13:07-0500 Systolic blood pressure 148 mm[Hg] Susan Oconnor Work Phone: [facility] 10-09-2023 09:00-0500 Body temperature 98.8 [degF] Treatment Wstr Work Phone: [facility] 10-09-2023 09:00-0500 Diastolic blood pressure 82 mm[Hg] Treatment Wstr Work Phone: [facility] 10-09-2023 09:00-0500 Heart rate 74 /min Treatment Wstr Work Phone: [facility] 10-09-2023 09:00-0500 Respiratory rate 16 /min Treatment Wstr Work Phone: [facility] 10-09-2023 09:00-0500 SaO2% (BldA) [Mass fraction] 98 % Treatment Wstr Work Phone: [facility] 10-09-2023 09:00-0500 Systolic blood pressure 128 mm[Hg] Treatment Wstr Work Phone: [facility] 10-04-2023 12:53-0500 Body height 155.2 cm Sd Saldaña MD Work Phone: [facility] 10-04-2023 12:53-0500 Body temperature 98.6 [degF] Sd Saldaña MD Work Phone: [facility] 10-04-2023 12:53-0500 Body weight 77.56 kg Sd Saldaña MD Work Phone: [facility] 10-04-2023 12:53-0500 Diastolic blood pressure 91 mm[Hg] Sd Saldaña MD Work Phone: [facility] 10-04-2023 12:53-0500 Heart rate 85 /min Sd Saldaña MD Work Phone: [facility] 10-04-2023 12:53-0500 SaO2% (BldA) [Mass fraction] 97 % Sd Saldaña MD Work Phone: [facility] 10-04-2023 12:53-0500 Systolic blood pressure 145 mm[Hg] Sd Saldaña MD Work Phone: [facility] 08-07-2023 13:35-0500 Body height 162.6 cm Valente Garcia PA-C Work Phone: [facility] 08-07-2023 13:35-0500 Diastolic blood pressure 96 mm[Hg] Valente Garcia PA-C Work Phone: [facility] 08-07-2023 13:35-0500 Heart rate 68 /min Valente Garcia PA-C Work Phone: [facility] 08-07-2023 13:35-0500 SaO2% (BldA) [Mass fraction] 98 % Valente Garcia PA-C Work Phone: [facility] 08-07-2023 13:35-0500 Systolic blood pressure 158 mm[Hg] Valente Garcia PA-C Work Phone: [facility] 07-28-2023 19:30-0500 Diastolic blood pressure 86 mm[Hg] Remi Aguilar MD Work Phone: [facility] 07-28-2023 19:30-0500 Heart rate 94 /min Remi Aguilar MD Work Phone: [facility] 07-28-2023 19:30-0500 Respiratory rate 18 /min Remi Aguilar MD Work Phone: [facility] 07-28-2023 19:30-0500 SaO2% (BldA) [Mass fraction] 98 % Remi Aguilar MD Work Phone: [facility] 07-28-2023 19:30-0500 Systolic blood pressure 166 mm[Hg] Remi Aguilar MD Work Phone: [facility] 07-28-2023 19:00-0500 Body temperature 97 [degF] Remi Aguilar MD Work Phone: [facility] 07-28-2023 09:23-0500 Body weight 72.6 kg Remi Aguilar MD Work Phone: [facility] 06-12-2023 13:56-0400 Body height 162.6 cm Remi Aguilar MD Work Phone: [facility] 06-12-2023 13:56-0400 Body weight 73.03 kg Remi Aguilar MD Work Phone: [facility] 06-12-2023 13:56-0400 Diastolic blood pressure 96 mm[Hg] Remi Aguilar MD Work Phone: [facility] 06-12-2023 13:56-0400 Heart rate 85 /min Remi Aguilar MD Work Phone: [facility] 06-12-2023 13:56-0400 SaO2% (BldA) [Mass fraction] 97 % Remi Aguilar MD Work Phone: [facility] 06-12-2023 13:56-0400 Systolic blood pressure 178 mm[Hg] Remi Aguilar MD Work Phone: [facility] 05-29-2023 14:44-0400 Body height 162.6 cm Guido De Leon MD Work Phone: [facility] 05-29-2023 14:44-0400 Body temperature 97.7 [degF] Guido De Leon MD Work Phone: [facility] 05-29-2023 14:44-0400 Body weight 72.58 kg Guido De Leon MD Work Phone: [facility] 05-29-2023 14:44-0400 Diastolic blood pressure 84 mm[Hg] Guido De Leon MD Work Phone: [facility] 05-29-2023 14:44-0400 Heart rate 90 /min Guido De Leon MD Work Phone: [facility] 05-29-2023 14:44-0400 SaO2% (BldA) [Mass fraction] 97 % Guido De Leon MD Work Phone: [facility] 05-29-2023 14:44-0400 Systolic blood pressure 136 mm[Hg] Guido De Leon MD Work Phone: [facility] Encounters Encounter Date Encounter Type Care Provider Facility Start: 05-15-2025 End: 05-15-2025 ambulatory SD SALDAÑA Facility:[facility] Start: 05-08-2025 End: 05-08-2025 ambulatory SD SALDAÑA Facility:[facility] Start: 05-08-2025 End: 05-08-2025 Subsequent hospital visit by physician Ct Prep [facility] Cat Scan Comment on above: Malignant melanoma o f skin (HCC) [C43.9] Start: 05-06-2025 End: 05-07-2025 Telephone encounter Sd Saldaña MD Work Phone: Hematology/Oncology Comment on above: Orders Malignant melanoma o f skin (HCC) (Primary Dx); Malignant melanoma of torso excluding breast (HCC) Start: 11-07-2024 End: 11-07-2024 ambulatory Sd Saldaña MD Work Phone: Hematology/Oncology Comment on above: Malignant melanoma o f skin (HCC) (Primary Dx) Start: 11-07-2024 End: 11-07-2024 Patient encounter procedure Sd Saldaña MD Work Phone: Hematology/Oncology Start: 10-31-2024 End: 10-31-2024 Subsequent hospital visit by physician Ct Prep [facility] W[facility] Cat Scan Comment on above: Malignant melanoma o f skin (HCC) [C43.9] Start: 10-31-2024 End: 10-31-2024 ambulatory DUSTIN THURSTON Facility:[facility] Start: 09-02-2024 End: 09-02-2024 ambulatory Treatment Rm 5 Humberto [facility] [employer] Work Phone: Hematology/Oncology Comment on above: Malignant melanoma o f torso excluding breast (HCC) (Primary Dx) Start: 08-30-2024 End: 09-02-2024 Orders Only Sd Saldaña MD Work Phone: Hematology/Oncology Comment on above: Malignant melanoma o f skin (HCC) (Primary Dx); Acquired hypothyroidism; Hypoadrenalism (HCC) Start: 08-09-2024 End: 08-12-2024 Refill Sd Saldaña MD Work Phone: Hematology/Oncology Comment on above: Refill Request Start: 07-29-2024 End: 07-29-2024 ambulatory Treatment Rm 7 Humberto [facility] [employer] Work Phone: Hematology/Oncology Comment on above: Malignant melanoma o f torso excluding breast (HCC) (Primary Dx) Start: 07-26-2024 End: 07-26-2024 Patient encounter procedure Susan Oconnor Work Phone: Hematology/Oncology Start: 07-26-2024 End: 07-26-2024 ambulatory Susan Oconnor Work Phone: Hematology/Oncology Comment on above: Malignant melanoma o f torso excluding breast (HCC) (Primary Dx) Start: 07-08-2024 End: 07-08-2024 ambulatory Treatment Rm 7 Humberto [facility] Work Phone: Hematology/Oncology Comment on above: Malignant melanoma o f torso excluding breast (HCC) (Primary Dx) Start: 07-05-2024 End: 07-05-2024 Telephone encounter dS Saldaña MD Work Phone: Hematology/Oncology Comment on above: 07/05/24 AVS Start: 07-05-2024 End: 07-05-2024 Patient encounter procedure Sd Saldaña MD Work Phone: Hematology/Oncology Start: 07-05-2024 End: 07-05-2024 ambulatory Sd Saldaña MD Work Phone: Hematology/Oncology Comment on above: Malignant melanoma o f skin (HCC) (Primary Dx) Start: 07-01-2024 End: 07-01-2024 ambulatory DUSTIN THURSTON Facility:[facility] Start: 07-01-2024 End: 07-01-2024 Office outpatient visit 25 minutes Remi Aguilar MD Work Phone: General Surgery Comment on above: Malignant melanoma o f torso excluding breast (HCC) (Primary Dx) Start: 06-17-2024 End: 06-17-2024 ambulatory Treatment Rm 7 Humberto [facility] Work Phone: Hematology/Oncology Comment on above: Malignant melanoma o f torso excluding breast (HCC) (Primary Dx) Start: 06-14-2024 End: 06-14-2024 Patient encounter procedure Susan Oconnor Work Phone: Hematology/Oncology Start: 06-14-2024 End: 06-14-2024 ambulatory Susankemal Oconnor Work Phone: Hematology/Oncology Comment on above: Malignant melanoma o f torso excluding breast (HCC) (Primary Dx) Start: 05-27-2024 End: 05-27-2024 ambulatory Treatment Rm 7 Humberto [facility] [employer] Work Phone: Hematology/Oncology Comment on above: Malignant melanoma o f torso excluding breast (HCC) (Primary Dx) Start: 05-24-2024 End: 05-24-2024 Patient encounter procedure Milagros Angel G[employer]RIC CASE MANAGER.OFFICE [employer]NER Work Phone: Hematology/Oncology Start: 05-24-2024 End: 05-24-2024 ambulatory Milagros Angel GERIATRIC CASE MANAGER.OFFICE RUNNER Work Phone: Hematology/Oncology Comment on above: Malignant melanoma o f torso excluding breast (HCC) (Primary Dx); Acquired hypothyroidism Start: 05-06-2024 End: 05-06-2024 ambulatory Treatment Rm 7 [facility] [employer] Work Phone: Hematology/Oncology Comment on above: Malignant melanoma o f torso excluding breast (HCC) (Primary Dx) Start: 05-03-2024 End: 05-03-2024 ambulatory Sd Saldaña MD Work Phone: Hematology/Oncology Comment on above: Malignant melanoma o f torso excluding breast (HCC) (Primary Dx); Acquired hypothyroidism Start: 05-03-2024 End: 05-03-2024 Patient encounter procedure Sd Saldaña MD Work Phone: Hematology/Oncology Start: 04-15-2024 End: 04-15-2024 ambulatory Treatment Rm 8 [facility] [employer] Work Phone: Hematology/Oncology Comment on above: Malignant melanoma o f torso excluding breast (HCC) (Primary Dx) Start: 04-12-2024 End: 04-12-2024 ambulatory Susan Goodeight Work Phone: Hematology/Oncology Comment on above: Malignant melanoma o f torso excluding breast (HCC) (Primary Dx); Hypothyroidism due to medication Start: 04-12-2024 End: 04-12-2024 Patient encounter procedure Susan Oconnor Work Phone: Hematology/Oncology Start: 04-01-2024 End: 04-01-2024 Office outpatient visit 25 minutes Remi Aguilar MD Work Phone: General Surgery Comment on above: Malignant melanoma o f torso excluding breast (HCC) (Primary Dx) Start: 03-25-2024 End: 03-25-2024 ambulatory Treatment Rm 7 [facility] [employer] Work Phone: Hematology/Oncology Comment on above: Malignant melanoma o f torso excluding breast (HCC) (Primary Dx) Start: 03-04-2024 End: 03-04-2024 ambulatory Treatment Rm 13 Humberto [facility] [employer] Work Phone: Hematology/Oncology Comment on above: Malignant melanoma o f torso excluding breast (HCC) (Primary Dx) Start: 02-16-2024 Telephone encounter Remi Aguilar MD Work Phone: [facility] Start: 02-12-2024 End: 02-12-2024 ambulatory Treatment Rm 13 Humberto [facility] [employer] Work Phone: Hematology/Oncology Comment on above: Malignant melanoma o f torso excluding breast (HCC) (Primary Dx) Start: 02-10-2024 Refill Sd rush MD Work Phone: Hematology/Oncology Comment on above: Refill Request Start: 02-09-2024 End: 02-09-2024 ambulatory Sd Saldaña MD Work Phone: Hematology/Oncology Comment on above: Malignant melanoma o f torso excluding breast (HCC) (Primary Dx) Start: 02-09-2024 End: 02-09-2024 Patient encounter procedure Sd Saldaña MD Work Phone: Hematology/Oncology Start: 02-04-2024 Refill Sd rush MD Work Phone: Hematology/Oncology Comment on above: Refill Request Start: 01-24-2024 Refill Sd rush MD Work Phone: Hematology/Oncology Comment on above: Refill Request Start: 01-23-2024 Telephone encounter Sd gaspar MD Work Phone: Hematology/Oncology Comment on above: Patient Update Start: 01-23-2024 End: 01-23-2024 ambulatory Treatment Rm 13 [facility] Work Phone: Hematology/Oncology Comment on above: Malignant melanoma o f torso excluding breast (HCC) (Primary Dx) Start: 01-19-2024 End: 01-19-2024 ambulatory Sd Saldaña MD Work Phone: Hematology/Oncology Comment on above: Bilateral leg edema (Primary Dx); Malignant melanoma of torso excluding breast (HCC) Start: 01-19-2024 End: 01-19-2024 Patient encounter procedure Sd Saldaña MD Work Phone: Hematology/Oncology Start: 01-10-2024 Telephone encounter Sd gaspar MD Work Phone: Hematology/Oncology Comment on above: Appointment Start: 01-01-2024 End: 01-01-2024 ambulatory Treatment Rm 13 [facility] Work Phone: Hematology/Oncology Comment on above: Malignant melanoma o f torso excluding breast (HCC) (Primary Dx) Start: 12-29-2023 End: 12-29-2023 ambulatory Sd Saldaña MD Work Phone: Hematology/Oncology Comment on above: Malignant melanoma o f torso excluding breast (HCC) (Primary Dx) Start: 12-29-2023 End: 12-29-2023 Patient encounter procedure Sd Saldaña MD Work Phone: Hematology/Oncology Start: 12-18-2023 Telephone encounter Susan ellis Work Phone: Hematology/Oncology Comment on above: Results Start: 12-11-2023 End: 12-11-2023 ambulatory Treatment Rm 13 [facility] Work Phone: Hematology/Oncology Comment on above: Malignant melanoma o f torso excluding breast (HCC) (Primary Dx) Start: 12-08-2023 End: 12-08-2023 ambulatory Susan Oconnor Work Phone: Hematology/Oncology Comment on above: Malignant melanoma o f torso excluding breast (HCC) (Primary Dx) Start: 12-08-2023 End: 12-08-2023 Patient encounter procedure Susan Oconnor Work Phone: [facility] Start: 12-07-2023 End: 12-07-2023 Subsequent hospital visit by physician [facility] (I-Stat) Work Phone: Cat Scan Comment on above: Lung nodules [R91.8] Start: 11-29-2023 End: 11-29-2023 ambulatory REMI AGUILAR Facility:[facility] Start: 11-29-2023 End: 11-29-2023 Office outpatient visit 15 minutes Remi Aguilar MD Work Phone: [facility] Comment on above: Malignant melanoma o f torso excluding breast (HCC) (Primary Dx) Start: 11-20-2023 End: 11-20-2023 ambulatory Treatment Rm 13 [facility] Work Phone: Hematology/Oncology Comment on above: Malignant melanoma o f torso excluding breast (HCC) (Primary Dx) Start: 11-17-2023 End: 11-17-2023 ambulatory Sd Saldaña MD Work Phone: Hematology/Oncology Comment on above: Malignant melanoma o f torso excluding breast (HCC) (Primary Dx) Start: 11-17-2023 End: 11-17-2023 Patient encounter procedure Sd Saldaña MD Work Phone: [facility] Start: 10-30-2023 End: 10-30-2023 ambulatory Treatment Rm 13 Humberto [facility] Work Phone: Hematology/Oncology Comment on above: Malignant melanoma o f torso excluding breast (HCC) (Primary Dx) Start: 10-26-2023 Telephone encounter Susan ellis Work Phone: Hematology/Oncology Comment on above: avs Start: 10-26-2023 End: 10-26-2023 ambulatory Susan Oconnor Work Phone: Hematology/Oncology Comment on above: Malignant melanoma o f torso excluding breast (HCC) (Primary Dx); Lung nodules Start: 10-26-2023 End: 10-26-2023 Patient encounter procedure Susan Oconnor Work Phone: [facility] Start: 10-20-2023 Telephone encounter Victoria Moss RN He matology/Oncology Comment on above: Title I Director - O ther (Symptoms ) Start: 10-11-2023 End: 10-11-2023 Subsequent hospital visit by physician [employer] [facility] (I-Stat/1.5t) Work Phone: Radiology Comment on above: Malignant melanoma o f skin (HCC) [C43.9] Start: 10-09-2023 End: 10-09-2023 ambulatory Treatment Rm 13 Humberto [facility] Work Phone: Hematology/Oncology Comment on above: Malignant melanoma o f torso excluding breast (HCC) (Primary Dx) Start: 10-04-2023 End: 10-04-2023 ambulatory Sd Saldaña MD Work Phone: Hematology/Oncology Comment on above: Lung nodules (Primar y Dx) Start: 10-04-2023 End: 10-04-2023 Patient encounter procedure Sd Saldaña MD Work Phone: [facility] Start: 09-28-2023 Telephone encounter Becky winter RN Work Phone: Hematology/Oncology Comment on above: Care Coordination (T oxicity Check) Start: 08-25-2023 ambulatory Adan Oropeza ity:[facility] Start: 08-25-2023 End: 08-25-2023 ambulatory [facility] Work Phone: Start: 08-25-2023 End: 08-25-2023 Patient encounter procedure [facility] Start: 08-07-2023 End: 08-07-2023 Patient encounter procedure Valente Garcia PA-C Work Phone: [facility] Comment on above: Malignant melanoma o f torso excluding breast (HCC) (Primary Dx) Start: 08-07-2023 End: 08-07-2023 ambulatory VALENTE GARCIA Facility:[facility] Start: 07-28-2023 End: 07-28-2023 Subsequent hospital visit by physician Remi Aguilar MD Work Phone: [facility] Comment on above: Malignant melanoma o f torso excluding breast (HCC) [C43.59] Start: 06-23-2023 Orders Only Remi dominguez MD Work Phone: [facility] Comment on above: Malignant melanoma o f torso excluding breast (HCC) (Primary Dx); Lymphedema Start: 06-15-2023 Admission to [facility] Remi Aguilar MD Work Phone: General Surgery Comment on above: Surgery Start: 06-15-2023 ambulatory Remi dominguez MD Work Phone: [facility] Start: 06-12-2023 End: 06-12-2023 Office outpatient new 45 minutes Remi Aguilar MD Work Phone: General Surgery Comment on above: Malignant melanoma o f torso excluding breast (HCC) (Primary Dx); Lymphedema Start: 05-29-2023 End: 05-29-2023 Patient encounter procedure Guido De Leon MD Work Phone: General Surgery Comment on above: Malignant melanoma o f skin of trunk, except scrotum (HCC) (Primary Dx) Procedures Date Procedure Procedure Detail Performing Clinician Start: 10-11-2023 Mri brain brain stem w/o w/contrast material Sd Saldaña MD Work Phone: Start: 07-28-2023 Ecg routine ecg w/le ast 12 lds i&r only Rayray Kumari DO Work Phone: Plan of Treatment Date Care Activity Detail Author Start: 09-02-2027 Diabetes Screening Diabetes Screenin g [facility] Start: 07-26-2027 Diabetes Screening Diabetes Screenin g [facility] Start: 07-05-2027 Diabetes Screening Diabetes Screenin g [facility] Start: 06-14-2027 Diabetes Screening Diabetes Screenin darian [facility] Start: 05-24-2027 Diabetes Screening Diabetes Screenin g [facility] Start: 05-03-2027 Diabetes Screening Diabetes Screenin g [facility] Start: 04-12-2027 Diabetes Screening Diabetes Screenin g [facility] Start: 03-22-2027 Diabetes Screening Diabetes Screenin g [facility] Start: 03-04-2027 Diabetes Screening Diabetes Screenin darian [facility] Start: 02-08-2027 Diabetes Screening Diabetes Screenin g [facility] Start: 01-18-2027 Diabetes Screening Diabetes Screenin g [facility] Start: 12-28-2026 Diabetes Screening Diabetes Screenin darian [facility] Start: 12-07-2026 Diabetes Screening Diabetes Screenin g [facility] Start: 11-16-2026 Diabetes Screening Diabetes Screenin g [facility] Start: 10-25-2026 Diabetes Screening Diabetes Screenin darian [facility] Start: 10-04-2026 Diabetes Screening Diabetes Screenin darian [facility] Start: 09-18-2026 Diabetes Screening Diabetes Screenin g [facility] Start: 05-15-2025 End: 05-15-2025 ambulatory Hematology/Oncology Comment on above: 6 MO OV* CT 05/08 Start: 05-08-2025 End: 05-08-2025 Patient encounter procedure 05/08/2025 1:00 PM EDT Appointment Cat Scan [address], [place] [address] Malignant melanoma of skin (HCC) [C43.9] Cat Scan Comment on above: Malignant melanoma o f skin (HCC) [C43.9] Start: 05-07-2025 End: 08-06-2025 Creatinine and Glomerular filtration rate.predicted panel - Serum, Plasma or Blood CREATININE BLD Lab Routine Malignant melanoma of skin (HCC) Malignant melanoma of torso excluding breast (HCC) Expected: 05/07/2025 (Approximate), Expires: 08/06/2025 [facility] Work Phone: Comment on above: Expected: 05/07/2025 (Approximate), Expires: 08/06/2025 Start: 04-28-2025 Influenza vaccination Influenza Vacc ine (#1) [facility] Start: 11-07-2024 End: 11-07-2024 ambulatory 11/07/2024 2:00 PM EDT Visit (SP) Office Hematology/Oncology [address] [place] [address] Sd Sal[place]ña [place] [address] [place] [address] OV/CT 10/31* Hematology/Oncology Comment on above: OV/CT 10/31* Start: 10-31-2024 End: 10-31-2024 Patient encounter procedure Cat Scan Comment on above: Malignant melanoma o f skin (HCC) [C43.9] Start: 10-31-2024 End: 10-31-2024 ambulatory 10/31/2024 12:30 PM EST Results Only [facility] [address] [place] [address] CREAT [facility] Comment on above: CREAT Start: 09-09-2024 End: 09-09-2024 ambulatory 09/09/2024 9:30 AM EST Infusion Center Hematology/Oncology [address] [place] [address] Q3WK KEYTRUDA/OV & LABS 07/07/MDCR* 930 appt if poss Hematology/Oncology Comment on above: Q3WK KEYTRUDA/OV & L ABS 07/07/MDCR* 930 appt if poss Start: 09-06-2024 End: 09-06-2024 ambulatory [facility] Comment on above: (SO)CBC/CMP(S)/TSH/T 4/CORTISOL* OV/LABS EARLY/ TREAT MENT 09/09* huang Start: 09-02-2024 End: 12-02-2024 Cortisol [Mass/volume] in Serum or Plasma [facility] Work Phone: Comment on above: Expected: 09/02/2024 (Approximate), Expires: 12/02/2024 Start: 09-02-2024 End: 12-02-2024 Thyrotropin [Units/volume] in Serum or Plasma [facility] Comment on above: Expected: 09/02/2024 (Approximate), Expires: 12/02/2024 Start: 09-02-2024 End: 12-02-2024 Thyroxine (T4) free [Mass/volume] in Serum or Plasma [facility] Comment on above: Expected: 09/02/2024 (Approximate), Expires: 12/02/2024 Start: 09-02-2024 End: 09-02-2024 ambulatory [facility] Comment on above: (SO)CBC/CMP(S)/TSH/T 4/CORTISOL* LAST CYCLE - Q3WK KE YTRUDA/LABS EARLY/MDCR* 930 appt if poss - THIS DATE PER 07/05/24 AVS Start: 08-28-2024 Advance Directive Discussion Advance Directive Discussion [facility] Start: 08-19-2024 End: 08-19-2024 ambulatory 08/19/2024 3:00 PM EST Infusion Center Hematology/Oncology [address] [place] [address] Q3WK KEYTRUDA/OV & LABS 07/05/MDCR* 930 appt if poss Hematology/Oncology Comment on above: Q3WK KEYTRUDA/OV & L ABS 07/05/MDCR* 930 appt if poss Start: 2024 RSV Vaccine (1 - 1-d ose 75+ series) RSV Vaccine (1 - 1-dose 75+ series) [facility] Start: 08-15-2024 End: 08-15-2024 ambulatory [facility] Comment on above: (SO)CBC/CMP(S)/TSH/T 4/CORTISOL* OV/LABS EARLY/ TREAT MENT 07/08* huang Start: 07-29-2024 End: 07-29-2024 ambulatory 07/29/2024 9:30 AM EST Infusion Center Hematology/Oncology [address] [place] [address] Q3WK KEYTRUDA/OV & LABS 07/26/MDCR* 930 appt if poss Hematology/Oncology Comment on above: Q3WK KEYTRUDA/OV & L ABS 07/26/MDCR* 930 appt if poss Start: 07-26-2024 End: 07-26-2024 ambulatory Dion [facility] Comment on above: (SO)CBC/CMP(S)/TSH/T 4/CORTISOL* OV/LABS EARLY/ TREAT MENT 07/29* huang Start: 07-08-2024 End: 07-08-2024 ambulatory Hematology/Oncology Comment on above: Q3WK KEYTRUDA/OV & L ABS 06/14/MDCR* 930 appt if poss Q3WK KEYTRUDA/OV & L ABS 07/05/MDCR* 930 appt if poss Start: 07-05-2024 End: 07-05-2024 ambulatory [facility] Comment on above: (SO)CBC/CMP(S)/TSH/T 4/CORTISOL* OV/LABS EARLY/ TREAT MENT 06/17* huang OV/LABS EARLY/ TREAT MENT 07/08* huang Start: 07-01-2024 End: 07-01-2024 Patient encounter procedure 07/01/2024 3:30 PM EST Office Visit General Surgery [address] [place] [address] Remi Aguilar MD [address] [place], [place] [phone] 3 mn follow up General Surgery Comment on above: 3 mn follow up Start: 06-17-2024 End: 06-17-2024 ambulatory 06/17/2024 9:[address] [facility] Hematology/Oncology [address] [place] [address] Q3WK KEYTRUDA/OV & LABS 06/14/MDCR* 930 appt if poss Hematology/Oncology Comment on above: Q3WK KEYTRUDA/OV & L ABS 06/14/MDCR* 930 appt if poss Start: 06-14-2024 End: 06-14-2024 [facility] Comment on above: (SO)CBC/CMP(S)/TSH/T 4/CORTISOL* OV/LABS EARLY/ TREAT MENT 06/17* huang Start: 05-27-2024 End: 05-27-2024 ambulatory 05/27/2024 9:30 AM EDT Infusion Center Hematology/Oncology [address] [place] [address] Q3WK KEYTRUDA/OV & LABS 05/24/MDCR* 930 appt if poss Hematology/Oncology Comment on above: Q3WK KEYTRUDA/OV & L ABS 05/24/MDCR* 930 appt if poss Start: 05-24-2024 End: 05-24-2024 ambulatory [facility] Comment on above: (SO)CBC/CMP(S)/TSH/T 4/CORTISOL* OV/LABS EARLY/ TREAT MENT [facility]27* [facility] Start: 05-06-2024 End: 05-06-2024 ambulatory 05/06/2024 9:30 AM EDT Infusion Center Hematology/Oncology [address] [place] [address] Q3WK KEYTRUDA/OV & LABS 05/03/MDCR* 930 appt if poss Hematology/Oncology Comment on above: Q3WK KEYTRUDA/OV & L ABS 05/03/MDCR* 930 appt if poss Start: 05-03-2024 End: 05-03-2024 ambulatory [facility] Comment on above: (SO)CBC/CMP(S)/TSH/T 4/CORTISOL* OV/LABS EARLY/ TREAT MENT 05/06* [facility] Start: 04-28-2024 Covid-19 Vaccine ( season) Covid-19 Vaccine () [facility] Start: 04-28-2024 Covid-19 Vaccine ( season) Covid-19 Vaccine ( season) [facility] Start: 04-28-2024 Influenza vaccination C [facility] Start: 04-15-2024 End: 04-15-2024 ambulatory 04/15/2024 9:30 AM EDT Infusion Center Hematology/Oncology [address] [place] [address] Q3WK KEYTRUDA/OV & LABS 04/12/MDCR* 930 appt if poss Hematology/Oncology Comment on above: Q3WK KEYTRUDA/OV & L ABS 04/12/MDCR* 930 appt if poss Start: 04-12-2024 End: 04-12-20[facility] on above: (SO)CBC/CMP(S)/TSH/T 4/CORTISOL* OV/LABS EARLY/ TREAT MENT 04/15* OV/LABS EARLY/ TREAT MENT 04/15* huang Start: 04-01-2024 End: 04-01-2024 Patient encounter procedure 04/01/2024 3:00 PM EDT Office Visit General Surgery [address] [place] [address] Remi Aguilar MD [address] [place], [place] [phone] 3 month follow up General Surgery Comment on above: 3 month follow up Start: 03-25-2024 End: 03-25-2024 ambulatory Hematology/Oncology Comment on above: Q3WK KEYTRUDA/OV & L ABS 03/21/MDCR* 930 appt if poss Start: 03-21-2024 End: 03-21-2024 ambulatory [facility] Comment on above: (SO)CBC/CMP(S)/TSH/T 4/CORTISOL* OV/LABS EARLY/ TREAT [facility] 03/25* Start: 03-11-2024 End: 03-11-2024 Patient encounter procedure 03/11/2024 2:30 PM EDT Office Visit General Surgery [address] [place] [address] Remi Aguilar MD [address] [place], [place] [phone] 3 month follow up General Surgery Comment on above: 3 month follow up Start: 03-04-2024 End: 03-04-2024 ambulatory Dion [facility] Comment on above: (SO)CBC/CMP(S)/TSH/T 4/CORTISOL* STRAIGHTBACK Q3WK KE YTRUDA/LAB EARLY/MDCR* 930 appt if poss Start: 02-26-2024 End: 02-26-2024 Patient encounter procedure 02/26/2024 3:00 PM EDT Office Visit General Surgery [address] [facility] [place] [address] [facility]i [facility]ilar MD [facility] [place] [address] 3 month follow up General Surgery Comment on above: 3 month follow up Start: 02-12-2024 End: 02-12-2024 ambulatory 02/12/2024 9:30 AM EDT Infusion Center Hematology/Oncology [address] [place] [address] Q3WK KEYTRUDA/OV & LABS 02/08/MDCR* 930 appt if poss Hematology/Oncology Comment on above: Q3WK KEYTRUDA/OV & L ABS 02/08/MDCR* 930 appt if poss Start: 02-09-2024 End: 02-09-2024 ambulatory [facility] Comment on above: (SO)CBC/CMP(S)/TSH/T 4/CORTISOL* OV/LABS EARLY/ TREAT MENT 02/11* Start: 02-08-2024 End: 02-08-2024 Patient encounter procedure 02/08/2024 8:00 AM EDT Office Visit Vasculary Surgery [address] [place] [address] Dx: Bilateral leg edema [R60.0] Vasculary Surgery Comment on above: Dx: Bilateral leg ed mina [R60.0] Start: 01-23-2024 End: 01-23-2024 ambulatory 01/23/2024 9:00 AM EDT Infusion Center Hematology/Oncology [address] [place] [address] Q3WK KEYTRUDA/OV & LABS 01/18/MDCR* 930 appt if poss Hematology/Oncology Comment on above: Q3WK KEYTRUDA/OV & L ABS 01/18/MDCR* 930 appt if poss Start: 01-19-2024 End: 01-19-2024 ambulatory [facility] Comment on above: (SO)CBC/CMP(S)/TSH/T 4/CORTISOL* OV/LABS EARLY/ TREAT [facility] 01/22* huang Start: 01-01-2024 End: 01-01-2024 ambulatory 01/01/2024 9:30 AM EDT [facility] Hematology[facility]Oncology [address] [place] [address] Q3WK KEYTRUDA/OV & LABS 12/28/MDCR* 930 appt if poss Hematology/Oncology Comment on above: Q3WK KEYTRUDA/OV & L ABS 12/28/MDCR* 930 appt if poss Start: 12-29-2023 End: 12-29-2023 ambulatory Dion Rothman [facility] Laboratory Comment on above: (SO)CBC/CMP(S)/TSH/T 4/CORTISOL* OV/LABS EARLY/ TREAT [facility] 12/31* huang Start: 12-06-2023 End: 11-02-2024 Ct thorax w/o contrast material CT CHEST WO IVCON Radiology Routine Lung nodules Expected: 12/06/2023 (Approximate), Expires: 11/02/2024 [facility] Work Phone: Comment on above: Expected: 12/06/2023 (Approximate), Expires: 11/02/2024 Start: 08-28-2023 Advance Directive Discussion Advance Directive Discussion [facility] Start: 08-28-2023 Behavioral Health Screening Behavioral Health Screening [facility] Start: 08-28-2023 Depression Assessment [facility] Start: 04-28-2023 Covid-19 Vaccine () Covid-19 Vaccine () [facility] Start: 04-28-2023 Influenza vaccination Influenza Vacc ine (#1) [facility] Start: 08-28-2022 Advance Directive Discussion Advance Directive Discussion [facility] Start: 08-28-2022 Depression Assessment Depression Ass essment [facility] Start: 01-08-2016 Diabetes Screening Diabetes Screenin g [facility] Start: 2014 Bone Density Screening Bone Density Screening [facility] Start: 2014 Pneumococcal Vaccine : 65+ (1 - PCV) Pneumococcal Vaccine: 65+ (1 - PCV) [facility] Start: 2014 Screening for osteoporosis Bone Density Screening [facility] Start: 07-28-2014 Medicare Annual Well ness Visit Medicare Annual Wellness Visit [facility] Start: 2009 RSV Vaccine (1 - 1-d ose 60+ series) RSV Vaccine (1 - 1-dose 60+ series) [facility] Start: 2009 RSV Vaccine (1 - Ris k 60-74 years 1-dose series) RSV Vaccine (1 - Risk 60-74 years 1-dose series) [facility] Start: 1999 Pneumococcal Vaccine : 50+ (1 of 1 - PCV) Pneumococcal Vaccine: 50+ (1 of 1 - PCV) [facility] Start: 1999 Shingrix Vaccine (1 of 2) Shingrix Vaccine (1 of 2) [facility] Start: 1994 Cologuard (FIT-DNA) Cologuard (FIT-D NA) [facility] Start: 1994 Colonoscopy Colonoscopy [facility] Start: 1994 Colorectal Cancer Screening Colorectal Cancer Screening [facility] Start: [address] Colonography [facility] Start: 1994 Fecal Occult Blood Fecal Occult Bloo d [facility] Start: 1994 Lipid 1996 panel - S aure or Plasma Lipid Screening [facility] Start: 1994 Lipid panel Lipid Screening [facility] Start: 1994 Screening for malign ant neoplasm of colon [facility] Start: 1994 [facility] Start: 1989 Mammography Mammogram Screening [facility] Start: 1989 Screening for malign ant neoplasm of breast Mammogram Screening [facility] Start: 1968 Pneumococcal Vaccine : 50+ (1 of 2 - PCV) Pneumococcal Vaccine: 50+ (1 of 2 - PCV) [facility] Start: 1968 Shingrix Vaccine (1 of 2) Shingrix Vaccine (1 of 2) [facility] Start: 1968 Urine microalbumin profile DTaP,Tdap,Td Vaccine (1 - Tdap) [facility] Start: 1967 Anxiety Screening Anxiety Screening [facility] Start: 1967 Depression Screening Depression Scre ening [facility] Start: 1967 Hepatitis C Screening Hepatitis C Sc reening [facility] Start: 1955 Pneumococcal Vaccine : 65+ (1 of 2 - PCV) Pneumococcal Vaccine: 65+ (1 of 2 - PCV) [facility] Start: 02-16-1950 Covid-19 Vaccine (#1) Covid-19 Vacci ne (#1) [facility] End: 08-04-2025 CT Abdomen and Pelvis W contrast IV CT ABD/PEL W IVCON Radiology Routine Malignant melanoma of skin (HCC) 1 Occurrences starting 07/05/2024 until 08/04/2025 [facility] Work Phone: Comment on above: 1 Occurrences starti ng 07/05/2024 until 08/04/2025 CT Abdomen and Pelvi s W contrast IV CT ABD/PEL W IVCON Radiology Routine Malignant melanoma of skin (HCC) 10/31/2024 2:36 PM [facility] Work Phone: End: 12-07-2025 CT Abdomen and Pelvis W contrast IV CT ABD/PEL W IVCON Radiology Routine Malignant melanoma of skin (HCC) 1 Occurrences starting 11/07/2024 until 12/07/2025 [facility] Work Phone: Comment on above: 1 Occurrences starti ng 11/07/2024 until 12/07/2025 CT Abdomen and Pelvi s W contrast IV CT ABD/PEL W IVCON Radiology Routine Malignant melanoma of skin (HCC) 05/08/2025 2:13 PM EDT [facility] End: 08-04-2025 CT Chest W contrast IV CT CHEST W IVCON Radiology Routine Malignant melanoma of skin (HCC) 1 Occurrences starting 07/05/2024 until 08/04/2025 [facility] Comment on above: 1 Occurrences starti ng 07/05/2024 until 08/04/2025 CT Chest W contrast IV CT CHEST W IVCON Radiology Routine Malignant melanoma of skin (HCC) 10/31/2024 2:36 PM EST [facility] End: 12-07-2025 CT Chest W contrast IV CT CHEST W IVCON Radiology Routine Malignant melanoma of skin (HCC) 1 Occurrences starting 11/07/2024 until 12/07/2025 [facility] Comment on above: 1 Occurrences starti ng 11/07/2024 until 12/07/2025 CT Chest W contrast IV CT CHEST W IVCON Radiology Routine Malignant melanoma of skin (HCC) 05/08/2025 2:13 PM EDT [facility] Work Phone: CT Chest WO contrast CT CHEST WO IVCON Radiology Routine Lung nodules 12/07/2023 11:22 AM EDT [facility] Work Phone: ECG COMPLETE ECG COMPLETE ECG STAT 07/28/2023 7:09 PM EST [facility] Work Phone: End: 07-13-2024 Lymphatics & lymph nodes imaging NM LYMPH NODE IMAGING Radiology Routine Lymphedema 1 Occurrences starting 06/12/2023 until 07/13/2024 [facility] Work Phone: Comment on above: 1 Occurrences starti ng 06/12/2023 until 07/13/2024 SURGICAL PATHOLOGY SURGICAL PATH OLOGY Lab Routine Malignant melanoma of torso excluding breast (HCC) Lymphedema Release Upon Ordering for 1 Occurrences starting 07/28/2023 [facility] Work Phone: Comment on above: Release Upon Orderin g for 1 Occurrences starting 07/28/2023 End: 01-18-2025 US Lower extremity veins - bilateral US LEG VEIN DVT [facility] Vascular Lab STAT Bilateral leg edema 1 Occurrences starting 01/19/2024 until 01/18/2025 [facility] Work Phone: Comment on above: 1 Occurrences starti ng 01/19/2024 until 01/18/2025 [facility] Immunizations Immunization Date Immunization Notes Care Provider Fa cili 06-12-2019 influenza, injectabl e, quadrivalent, preservative free [facility] 06-12-2019 influenza virus vaccine, unspecified formulation Becky Gastelum RN Work Phone: [facility] 06-06-2018 influenza, injectabl e, quadrivalent, preservative free [facility] 06-14-2017 influenza, injectabl e, quadrivalent, preservative free [facility] 06-01-2016 influenza, injectabl e, quadrivalent, preservative free [facility] 06-23-2015 influenza, injectabl e, quadrivalent, preservative free [facility] 06-18-2014 influenza, injectabl e, quadrivalent, preservative free [facility] Payers Date Payer Category Payer Self-pay 2023 Unknown [id number] 2021 Private Health Insurance MMO MED ICARE SUPPLEMENT [id number] 2021 Unknown [facility] MMO MEDICARE SUPPLEMENT [id number] 2021-Present [phone] [address] [place] [address] Indemnity [id number] 2021 Medicare [id number] 2014 Medicare [id number] 2014 Medicare [id number] Unknown [id number] Social History Date Type Detail Facility [facility]: [facility]07[facility] Start: 01-07-2013 Tobacco use and exposure Smokeless tobacco non-user [facility] Start: 05-29-2023 End: 01-19-2024 Alcohol intake Current drinker of alcohol (finding) [facility] Start: 05-22-2023 End: 10-02-2023 History of Social function [facility] Start: 05-22-2023 End: 05-29-2023 Tobacco use panel [facility] Start: 07-29-2012 National Score (1-100), lower number is lower risk 75 [facility] Start: 1950 Sex Assigned At Not on file C [facility] Start: 08-14-2015 Tobacco smoking stat us SCIS Unknown if ever smoked [facility] Start: 1950 Sex Assigned At Female W [facility] Start: 02-09-2024 End: 11-07-2024 Alcohol intake Ex-drinker (finding) [facility] Clinical Notes 06-08-2023 to 05-15-2025 Reef Noelle Dash, RT(R) - 05/08/2025 1:00 PM EDTTelephone Encounter - Carol Kaur LPN - 05/06/2025 3:19 PM EDTTelephone Encounter - Carol Kaur LPN - 05/06/2025 3:19 PM EDT Note Date & Type Note Facility 05-15-2025 Note HNO ID: [id number] Author: SD SALDAÑA MD Service: ? Author Type: Physician Type: Progress Notes Filed: 05/15/2025 14:49 Note Text: (Elements copied from my note dated , have been reviewed and updated where appropriate, and all reflect current assessmentMar2024 and medical decision making from today's encounter, May 15, 2025) HISTORY OF PRESENT ILLNESS: Zoila Membreno is a 73 year old female mole on back, started to itch and bleed. Saw Dr De Leon biopsy showed melanoma. Wide excision and SLNB done 07-28-23 showed pT4bN0 cancer Feels ok, on ROS mentioned some double vision. Adjuvant pembrolizumab completed September 02, 2024. Here for follow up, reviewed Ct scans. Appetite better, no lingering issues, weight is stable CLINICAL IMPRESSION: Melanoma stage IIC IVÁN on scans RECOMMENDATION/PLAN: 1. Back in [address] scan through 3 years (August 2026) 2. Dermatology for skin checks 3. Thyroid managed by Dr Tillman Written and verbal health teaching given to patient, patient verbalizes understanding and agrees with treatment plan. PAST MEDICAL HISTORY Diagnosis Date Abnormal mammogram, unspecified left breast 2006 STEREOTACTIC Malignant melanoma (HCC) 06/12/2023 PONV (postoperative nausea and vomiting) PAST SURGICAL HISTORY Procedure Laterality Date PAST SURGICAL HISTORY OF Right arm PAST SURGICAL HISTORY OF 07/28/2023 Back Lesion Excision PAST SURGICAL HISTORY OF Meniscus Repair REVJ TOT KNEE ARTHRP FEMANDENTIRE TIBIAL COMPONE Knee replacement PARTIAL LEFT 2004 SKIN BX, 1 LESION 05/22/2023 Atypical skin lesion to back STEREOTACTIC CORE BIOPSY 07/29/2009 left breast FAMILY HISTORY Problem Relation Age of Onset Ischemic Heart Disease Mother Dementia Mother Heart Father Social History Tobacco Use Smoking status: Never Smokeless tobacco: Never Vaping Use Vaping status: Never Used Substance Use Topics Alcohol use: Not Currently Comment: wine once a month Drug use: No ALLERGIES: ALLERGIES No Known Allergies CURRENT OUTPATIENT MEDICATIONS: cetirizine (ZYRTEC) 10 mg tablet Take 10 mg by mouth once daily as needed. furosemide (LASIX) 20 mg tablet take 1 tablet by mouth once daily for 5 days (Patient taking differently: Take 20 mg by mouth as needed.) levothyroxine (SYNTHROID) 100 mcg tablet Take 125 mcg by mouth once daily. cholecalciferol, vitamin D3, (VITAMIN D3 ORAL) Take 1 tablet by mouth once daily. losartan (COZAAR) 50 mg tablet Take 25 mg by mouth once daily. iv contrast (will be provided with radiology [...] Contrast as designated per enteric contrast guidelines acetaminophen (TYLENOL) 325 mg tablet Take 650 mg by mouth every 6 hours as needed. REVIEW OF SYSTEMS: GENERAL: No fever, night sweats, weight loss or malaise. All other reviewed and negative other than HPI. PHYSICAL EXAMINATION: VITAL SIGNS: BP 117/77 Pulse 74 Temp 97.6 Resp 12 Ht 5' 1.811" (1.57m) Wt 142 lb (64.4kg) SpO2 98% LMP 01/07/2003 BMI 26.13 kg/(m2). GENERAL APPEARANCE: Well appearing, in no acute distress, alert and oriented x3, well-hydrated, well nourished. I spent a total of 30 minutes on the date of the service which included preparing to see the patient, [id number] patient care, completing clinical documentation, obtaining and/or reviewing separately obtained history, counseling and educating the patient/family/caregiver, ordering medications, tests, or procedures, communicating with other HCPs (not separately reported), independently interpreting results (not separately reported), communicating results to the patient/family/caregiver, and care coordination (not separately reported). Review of images, NCCN guidelines Electronically Signed: Sd Saldaña MD May 15, 2025 [facility] 05-08-2025 History of Presen t illness Narrative Radiology Service Progress Note DATE OF SERVICE: May 08, 2025 TIME: 3:53 PM PATIENT IDENTITY VERIFICATION COMPLETED USING TWO (2) STANDARD IDENTIFIERS: Name and Date of confirmed by patient verbally. FALL SCREENING: Has the patient had 2 falls in the last year or 1 fall with injury or currently using an Ambulatory Assistive Device (Walker, Cane, Wheelchair, Crutches, etc.)? No PATIENT GENDER DATA: Assigned female at . status: : No status: NO. PATIENT RELEVANT IMPLANT DATA REVIEWED: Yes PATIENT PRESENTS WITH AN IMPLANTABLE OR ATTACHED AIR BAG STRIPPER: No ALLERGIES: Reviewed and unchanged CONTRAST ALLERGY: NO. EXAM: CT -CONTRAST INDUCED NEPHROPATHY RISK FACTORS: Patient age > 60 years CREATININE: Creatinine Date Value Ref Range Status 05/08/2025 0.77 0.58 - 0.96 mg/dL Final 10/31/2024 0.70 0.58 - 0.96 mg/dL Final 09/02/2024 0.74 0.58 - 0.96 mg/dL Final Estimated Glomerular Filtration Rate Date Value Ref Range Status 05/08/2025 81 >=60 mL/min/1.73m Final Comment: Estimated Glomerular Filtration Rate (eGFR) is calculated using the 2020 CKD-EPI creatinine equation. This equation utilizes serum creatinine, sex, and age as parameters. The creatinine assay has traceable calibration to isotope dilution-mass spectrometry. Refer to KDIGO guidelines for clinical interpretation. In patients with unstable renal function, e.g. those with acute kidney injury, the eGFR may not accurately reflect actual GFR. eGFR- Date Value Ref Range Status 01/07/2013 >60 Final P.O.C.T. RESULTS: POC done: Yes, See Lab Tab May 08, 2025 TREATMENT: N/A PERIPHERAL IV DATA: Ambulatory: A peripheral IV was started in the Left antecubital site with a Angio cath: 22 gauge. RADIOLOGY DEPARTMENT: CT; Exam(s) Completed: Chest Abdomen Pelvis. Anesthesia: No SIGNATURE: MARTHA Luna) PATIENT NAME: Zoila Membreno DATE: May 08, 2025 TIME: 3:53 PM documented in this encounter [facility] 05-08-2025 Note HNO ID: [id number] Author: NOELLE FARLEY RT(R) Service: ? Author Type: Timber Rider Type: Progress Notes Filed: 05/08/2025 15:53 Note Text: Radiology Service Progress Note DATE OF SERVICE: May 08, 2025 TIME: 3:53 PM PATIENT IDENTITY VERIFICATION COMPLETED USING TWO (2) STANDARD IDENTIFIERS: Name and Date of confirmed by patient verbally. FALL SCREENING: Has the patient had 2 falls in the last year or 1 fall with injury or currently using an Ambulatory Assistive Device (Walker, Cane, Wheelchair, Crutches, etc.)? No PATIENT GENDER DATA: Assigned female at . status: : No status: NO. PATIENT RELEVANT IMPLANT DATA REVIEWED: Yes PATIENT PRESENTS WITH AN IMPLANTABLE OR ATTACHED AIR BAG STRIPPER: No ALLERGIES: Reviewed and unchanged CONTRAST ALLERGY: NO. EXAM: CT -CONTRAST INDUCED NEPHROPATHY RISK FACTORS: Patient age > 60 years CREATININE: Creatinine Date Value Ref Range Status 05/08/2025 0.77 0.58 - 0.96 mg/dL Final 10/31/2024 0.70 0.58 - 0.96 mg/dL Final 09/02/2024 0.74 0.58 - 0.96 mg/dL Final Estimated Glomerular Filtration Rate Date Value Ref Range Status 05/08/2025 81 >=60 mL/min/1.73m? Final Comment: Estimated Glomerular Filtration Rate (eGFR) is calculated using the 2020 CKD-EPI creatinine equation. This equation utilizes serum creatinine, sex, and age as parameters. The creatinine assay has traceable calibration to isotope dilution-mass spectrometry. Refer to KDIGO guidelines for clinical interpretation. In patients with unstable renal function, e.g. those with acute kidney injury, the eGFR may not accurately reflect actual GFR. eGFR- Date Value Ref Range Status 01/07/2013 >60 Final P.O.C.T. RESULTS: POC done: Yes, See Lab Tab May 08, 2025 TREATMENT: N/A PERIPHERAL IV DATA: Ambulatory: A peripheral IV was started in the Left antecubital site with a Angio cath: 22 gauge. RADIOLOGY DEPARTMENT: CT; Exam(s) Completed: Chest Abdomen Pelvis. Anesthesia: No SIGNATURE: RT Jeremy(R) PATIENT NAME: Zoila Membreno DATE: May 08, 2025 TIME: 3:53 PM [facility] 05-06-2025 Telephone encounter Note Order pended in another encounter. Carol Kaur LPN [facility] 05-06-2025 Miscellaneous Notes Order pended in another encounter. Carol Kaur LPN Please place order for creatinine order for pt , pt appt on 05/08/[address] documented in this encounter [facility] 05-06-2025 Telephone encounter Note Please place order for creatinine order for pt , pt appt on 05/08/[address] [facility] 03-13-2025 Note HNO ID: [id number] Author: SD SALDAÑA MD Service: ? Author Type: Physician Type: Progress Notes Filed: 11/07/2024 14:33 Note Text: (Elements copied from my note dated July 05, 2024, have been reviewed and updated where appropriate, and all reflect current assessment and medical decision making from today's encounter, November 07, 2024) HISTORY OF PRESENT ILLNESS: Zoila Membreno is a 73 year old female mole on back, started to itch and bleed. Saw Dr De Leon biopsy showed melanoma. Wide excision and SLNB done 07-28-23 showed pT4bN0 cancer Feels ok, on ROS mentioned some double vision. Adjuvant pembrolizumab completed September 02, 2024. Here for follow up, reviewed Ct scans. Appetite better, no lingering issues, weight is stable CLINICAL IMPRESSION: Melanoma stage IIC IVÁN on scans RECOMMENDATION/PLAN: 1. CT scans in April 2025, will see back after that 2. Dermatology for skin checks 3. Thyroid managed by Dr Tillman Written and verbal health teaching given to patient, patient verbalizes understanding and agrees with treatment plan. PAST MEDICAL HISTORY Diagnosis Date Abnormal mammogram, unspecified left breast 2006 STEREOTACTIC Malignant melanoma (HCC) 06/12/2023 PONV (postoperative nausea and vomiting) PAST SURGICAL HISTORY Procedure Laterality Date PAST SURGICAL HISTORY OF Right arm PAST SURGICAL HISTORY OF 07/28/2023 Back Lesion Excision PAST SURGICAL HISTORY OF Meniscus Repair REVJ TOT KNEE ARTHRP FEMANDENTIRE TIBIAL COMPONE Knee replacement PARTIAL LEFT 2003 SKIN BX, 1 LESION 05/22/2023 Atypical skin lesion to back STEREOTACTIC CORE BIOPSY 07/29/2009 left breast FAMILY HISTORY Problem Relation Age of Onset Ischemic Heart Disease Mother Dementia Mother Heart Father Social History Tobacco Use Smoking status: Never Smokeless tobacco: Never Vaping Use Vaping status: Never Used Substance Use Topics Alcohol use: Not Currently Comment: wine once a month Drug use: No ALLERGIES: ALLERGIES No Known Allergies CURRENT OUTPATIENT MEDICATIONS: cetirizine (ZYRTEC) 10 mg tablet Take 10 mg by mouth once daily as needed. furosemide (LASIX) 20 mg tablet take 1 tablet by mouth once daily for 5 days (Patient taking differently: Take 20 mg by mouth as needed.) levothyroxine (SYNTHROID) 100 mcg tablet Take 125 mcg by mouth once daily. losartan (COZAAR) 50 mg tablet Take 25 mg by mouth once daily. cholecalciferol, vitamin D3, (VITAMIN D3 ORAL) Take 1 tablet by mouth once daily. acetaminophen (TYLENOL) 325 mg tablet Take 650 mg by mouth every 6 hours as needed. multivit-min/ferrous fumarate (MULTI VITAMIN ORAL) Take 1 tablet by mouth once daily. iv contrast (will be provided with radiology [...] than HPI. PHYSICAL EXAMINATION: VITAL SIGNS: BP 118/74 Pulse 75 Temp (Src) 97.8 (Temporal) Wt 140 lb (63.5kg) SpO2 97% LMP 01/07/2003 GENERAL APPEARANCE: Well appearing, in no acute distress, alert and oriented x3, well-hydrated, well nourished. I spent a total of 20 minutes on the date of the service which included preparing to see the patient, [id number] patient care, completing clinical documentation, obtaining and/or reviewing separately obtained history, counseling and educating the patient/family/caregiver, ordering medications, tests, or procedures, communicating with other HCPs (not separately reported), independently interpreting results (not separately reported), communicating results to the patient/family/caregiver, and care coordination (not separately reported). Electronically Signed: Sd Saldaña MD November 07, 2024 [facility] 11-07-2024 History of Presen t illness Narrative (Elements copied from my note dated July 05, 2024, have been reviewed and updated where appropriate, and all reflect current assessment and medical decision making from today's encounter, November 07, 2024) HISTORY OF PRESENT ILLNESS: Zoila Membreno is a 73 year old female mole on back, started to itch and bleed. Saw Dr De Leon biopsy showed melanoma. Wide excision and SLNB done 07-28-23 showed pT4bN0 cancer Feels ok, on ROS mentioned some double vision. Adjuvant pembrolizumab completed September 02, 2024. Here for follow up, reviewed Ct scans. Appetite better, no lingering issues, weight is stable CLINICAL IMPRESSION: Melanoma stage IIC IVÁN on scans RECOMMENDATION/PLAN: 1. CT scans in April 2025, will see back after that 2. Dermatology for skin checks 3. Thyroid managed by Dr Tillman Written and verbal health teaching given to patient, patient verbalizes understanding and agrees with treatment plan. PAST MEDICAL HISTORY Diagnosis Date Abnormal mammogram, unspecified left breast 2006 STEREOTACTIC Malignant melanoma (HCC) 06/12/2023 PONV (postoperative nausea and vomiting) PAST SURGICAL HISTORY Procedure Laterality Date PAST SURGICAL HISTORY OF Right arm PAST SURGICAL HISTORY OF 07/28/2023 Back Lesion Excision PAST SURGICAL HISTORY OF Meniscus Repair REVJ TOT KNEE ARTHRP FEM&ENTIRE TIBIAL COMPONE Knee replacement PARTIAL LEFT 2003 SKIN BX, 1 LESION 05/22/2023 Atypical skin lesion to back STEREOTACTIC CORE BIOPSY 07/29/2009 left breast FAMILY HISTORY Problem Relation Age of Onset Ischemic Heart Disease Mother Dementia Mother Heart Father Social History Tobacco Use Smoking status: Never Smokeless tobacco: Never Vaping Use Vaping status: Never Used Substance Use Topics Alcohol use: Not Currently Comment: wine once a month Drug use: No ALLERGIES: ALLERGIES No Known Allergies CURRENT OUTPATIENT MEDICATIONS: cetirizine (ZYRTEC) 10 mg tablet Take 10 mg by mouth once daily as needed. furosemide (LASIX) 20 mg tablet take 1 tablet by mouth once daily for 5 days (Patient taking differently: Take 20 mg by mouth as needed.) levothyroxine (SYNTHROID) 100 mcg tablet Take 125 mcg by mouth once daily. losartan (COZAAR) 50 mg tablet Take 25 mg by mouth once daily. cholecalciferol, vitamin D3, (VITAMIN D3 ORAL) Take 1 tablet by mouth once daily. acetaminophen (TYLENOL) 325 mg tablet Take 650 mg by mouth every 6 hours as needed. multivit-min/ferrous fumarate (MULTI VITAMIN ORAL) Take 1 tablet by mouth once daily. iv contrast (will be provided with radiology [...] than HPI. PHYSICAL EXAMINATION: VITAL SIGNS: BP 118/74 Pulse 75 Temp (Src) 97.8 (Temporal) Wt 140 lb (63.5kg) SpO2 97% LMP 01/07/2003 GENERAL APPEARANCE: Well appearing, in no acute distress, alert and oriented x3, well-hydrated, well nourished. I spent a total of 20 minutes on the date of the service which included preparing to see the patient, [id number] patient care, completing clinical documentation, obtaining and/or reviewing separately obtained history, counseling and educating the patient/family/caregiver, ordering medications, tests, or procedures, communicating with other HCPs (not separately reported), independently interpreting results (not separately reported), communicating results to the patient/family/caregiver, and care coordination (not separately reported). Electronically Signed: Sd Saldaña MD November 07, 2024 documented in this encounter [facility] 10-31-2024 History of Presen t illness Narrative Radiology Service Progress Note DATE OF SERVICE: October 31, 2024 TIME: 3:31 PM PATIENT IDENTITY VERIFICATION COMPLETED USING TWO (2) STANDARD IDENTIFIERS: Name and Date of confirmed by patient verbally. FALL SCREENING: Has the patient had 2 falls in the last year or 1 fall with injury or currently using an Ambulatory Assistive Device (Walker, Cane, Wheelchair, Crutches, etc.)? No PATIENT GENDER DATA: Assigned female at . status: : No status: NO. PATIENT RELEVANT IMPLANT DATA REVIEWED: Yes PATIENT PRESENTS WITH AN IMPLANTABLE OR ATTACHED AIR BAG STRIPPER: No ALLERGIES: Reviewed and unchanged CONTRAST ALLERGY: NO. EXAM: CT -CONTRAST INDUCED NEPHROPATHY RISK FACTORS: Patient age > 60 years CREATININE: Creatinine Date Value Ref Range Status 10/31/2024 0.70 0.58 - 0.96 mg/dL Final 09/02/2024 0.74 0.58 - 0.96 mg/dL Final 07/26/2024 0.84 0.58 - 0.96 mg/dL Final Estimated Glomerular Filtration Rate Date Value Ref Range Status 10/31/2024 90 >=60 mL/min/1.73m Final Comment: Estimated Glomerular Filtration Rate (eGFR) is calculated using the 2020 CKD-EPI creatinine equation. This equation utilizes serum creatinine, sex, and age as parameters. The creatinine assay has traceable calibration to isotope dilution-mass spectrometry. Refer to KDIGO guidelines for clinical interpretation. In patients with unstable renal function, e.g. those with acute kidney injury, the eGFR may not accurately reflect actual GFR. eGFR- Date Value Ref Range Status 01/07/2013 >60 Final P.O.C.T. RESULTS: POC done: Yes, See Lab Tab October 31, 2024 TREATMENT: N/A PERIPHERAL IV DATA: Ambulatory: A peripheral IV was started in the Left antecubital site with a Angio cath: 22 gauge. RADIOLOGY DEPARTMENT: CT; Exam(s) Completed: Chest Abdomen Pelvis SIGNATURE: MARTHA Luna) PATIENT NAME: Zoila Membreno DATE: October 31, 2024 TIME: 3:31 PM documented in this encounter [facility] 10-31-2024 Note HNO ID: [id number] Author: NOELLE FARLEY RT(R) Service: ? Author Type: Timber Rider Type: Progress Notes Filed: 10/31/2024 15:31 Note Text: Radiology Service Progress Note DATE OF SERVICE: October 31, 2024 TIME: 3:31 PM PATIENT IDENTITY VERIFICATION COMPLETED USING TWO (2) STANDARD IDENTIFIERS: Name and Date of confirmed by patient verbally. FALL SCREENING: Has the patient had 2 falls in the last year or 1 fall with injury or currently using an Ambulatory Assistive Device (Walker, Cane, Wheelchair, Crutches, etc.)? No PATIENT GENDER DATA: Assigned female at . status: : No status: NO. PATIENT RELEVANT IMPLANT DATA REVIEWED: Yes PATIENT PRESENTS WITH AN IMPLANTABLE OR ATTACHED AIR BAG STRIPPER: No ALLERGIES: Reviewed and unchanged CONTRAST ALLERGY: NO. EXAM: CT -CONTRAST INDUCED NEPHROPATHY RISK FACTORS: Patient age > 60 years CREATININE: Creatinine Date Value Ref Range Status 10/31/2024 0.70 0.58 - 0.96 mg/dL Final 09/02/2024 0.74 0.58 - 0.96 mg/dL Final 07/26/2024 0.84 0.58 - 0.96 mg/dL Final Estimated Glomerular Filtration Rate Date Value Ref Range Status 10/31/2024 90 >=60 mL/min/1.73m? Final Comment: Estimated Glomerular Filtration Rate (eGFR) is calculated using the 2020 CKD-EPI creatinine equation. This equation utilizes serum creatinine, sex, and age as parameters. The creatinine assay has traceable calibration to isotope dilution-mass spectrometry. Refer to KDIGO guidelines for clinical interpretation. In patients with unstable renal function, e.g. those with acute kidney injury, the eGFR may not accurately reflect actual GFR. eGFR- Date Value Ref Range Status 01/07/2013 >60 Final P.O.C.T. RESULTS: POC done: Yes, See Lab Tab October 31, 2024 TREATMENT: N/A PERIPHERAL IV DATA: Ambulatory: A peripheral IV was started in the Left antecubital site with a Angio cath: 22 gauge. RADIOLOGY DEPARTMENT: CT; Exam(s) Completed: Chest Abdomen Pelvis SIGNATURE: RT Jeremy(R) PATIENT NAME: Zoila Membreno DATE: October 31, 2024 TIME: 3:31 PM [facility] 08-12-2024 Telephone encounter Note Patient confirmed that she is getting this Rx from her PCP. Carol Kaur LPN [facility] 08-12-2024 Miscellaneous Notes Patient confirmed that she is getting this Rx from her PCP. Carol Kaur LPN documented in this encounter [facility] 07-26-2024 History of Presen t illness Narrative Zoila Membreno 1950 HISTORY OF PRESENT ILLNESS: Zoila Membreno is a 73 year old female mole on back, started to itch and bleed. Saw Dr De Leon biopsy showed melanoma. Wide excision and SLNB done 07-28-23 showed pT4bN0 cancer Feels ok, on ROS mentioned some double vision. Here for follow up, prior cycle 12 pembrolizumab. Tolerated cycle 1 well, no diarrhea, dyspnea or rash Double vision better, CT chest showed some right lung nodules, imaging reviewed. Nodules felt to be hamartoma after review with radiology. Swelling better Currently taking synthroid 100 mcg. Dry mouth continues, no appetite also metallic taste Weight down, albumin 3.6 in March Interval Hx: Ms. Membreno presents today for follow up prior to treatment. She denies new issues. Taste changes and fatigue are somewhat stable. Otherwise no new issues. No changes in bowel or bladder habits. No bleeding issues. Facial rash is generally stable. Denies other skin changes, rash or itching. Continues working as personal injury specialist. CLINICAL IMPRESSION: Melanoma stage IIC Anorexia, dysguesia RECOMMENDATION/PLAN: 1. Adjuvant pembrolizumab 1 year, continue with last treatment per Dr. Saldaña, plan to move out a week due to travel. 2, synthroid 3. CT scans in October 2024, will see back after that 4. Dermatology for skin checks PAST MEDICAL HISTORY Diagnosis Date Abnormal mammogram, unspecified left breast 2006 STEREOTACTIC Malignant melanoma (HCC) 06/12/2023 PONV (postoperative nausea and vomiting) PAST SURGICAL HISTORY Procedure Laterality Date PAST SURGICAL HISTORY OF Right arm PAST SURGICAL HISTORY OF 07/28/2023 Back Lesion Excision PAST SURGICAL HISTORY OF Meniscus Repair REVJ TOT KNEE ARTHRP FEM&ENTIRE TIBIAL COMPONE Knee replacement PARTIAL LEFT 2004 SKIN BX, 1 LESION 05/22/2023 Atypical skin lesion to back STEREOTACTIC CORE BIOPSY 07/29/2009 left breast FAMILY HISTORY Problem Relation Age of Onset Ischemic Heart Disease Mother Dementia Mother Heart Father Social History Tobacco Use Smoking status: Never Smokeless tobacco: Never Vaping Use Vaping status: Never Used Substance Use Topics Alcohol use: Not Currently Comment: wine once a month Drug use: No ALLERGIES: ALLERGIES No Known Allergies CURRENT OUTPATIENT MEDICATIONS: multivit-min/ferrous fumarate (MULTI VITAMIN ORAL) Take 1 tablet by mouth once daily. furosemide (LASIX) 20 mg tablet take 1 tablet by mouth once daily for 5 days (Patient taking differently: Take 20 mg by mouth as needed.) levothyroxine (SYNTHROID) 100 mcg tablet Take 125 mcg by mouth once daily. losartan (COZAAR) 50 mg tablet Take 25 mg by mouth once daily. iv contrast (will be provided with radiology [...] Contrast as designated per enteric contrast guidelines cholecalciferol, vitamin D3, (VITAMIN D3 ORAL) Take 1 tablet by mouth once daily. acetaminophen (TYLENOL) 325 mg tablet Take 650 mg by mouth every 6 hours as needed. REVIEW OF SYSTEMS: GENERAL: No fever, night sweats, weight loss or malaise. All other reviewed and negative other than HPI. All systems reviewed on 07/26/2024 with pertinent positives and negatives as outlined in the interval history. PHYSICAL EXAMINATION: VITAL SIGNS: LMP 01/07/2003 GENERAL APPEARANCE: Well appearing, in no acute distress, alert and oriented x3, well-hydrated, well nourished. LUNGS: CTA HEART: Reg, no gallops EXT: no edema I have performed the physical exam today (07/26/2024) and have edited the note to correlate with current findings. Susan Oconnor APRN.SHAUNA I spent a total of 25 minutes on the date of the service which included preparing to see the patient, [id number] patient care, completing clinical documentation, and counseling and educating the patient/family/caregiver. Portions of this note including HPI, ROS, impression/plan may have been copied forward as to provide important historical information essential in contributing to medical decision making. Documentation has been reviewed and edited as necessary to support clinical decision making for today's visit and to reflect my own independent evaluation of this patient. documented in this encounter [facility] 07-26-2024 Note HNO ID: [id number] Author: SUSAN OCONNOR, ? Service: ? Author Type: Nurse Practitioner Type: Progress Notes Filed: 07/30/2024 13:19 Note Text: Zoila Membreno 1950 HISTORY OF PRESENT ILLNESS: Zoila Membreno is a 73 year old female mole on back, started to itch and bleed. Saw Dr De Leon biopsy showed melanoma. Wide excision and SLNB done 07-28-23 showed pT4bN0 cancer Feels ok, on ROS mentioned some double vision. Here for follow up, prior cycle 12 pembrolizumab. Tolerated cycle 1 well, no diarrhea, dyspnea or rash Double vision better, CT chest showed some right lung nodules, imaging reviewed. Nodules felt to be hamartoma after review with radiology. Swelling better Currently taking synthroid 100 mcg. Dry mouth continues, no appetite also metallic taste Weight down, albumin 3.6 in March Interval Hx: Ms. Membreno presents today for follow up prior to treatment. She denies new issues. Taste changes and fatigue are somewhat stable. Otherwise no new issues. No changes in bowel or bladder habits. No bleeding issues. Facial rash is generally stable. Denies other skin changes, rash or itching. Continues working as personal injury specialist. CLINICAL IMPRESSION: Melanoma stage IIC Anorexia, dysguesia RECOMMENDATION/PLAN: 1. Adjuvant pembrolizumab 1 year, continue with last treatment per Dr. Saldaña, plan to move out a week due to travel. 2, synthroid 3. CT scans in October 2024, will see back after that 4. Dermatology for skin checks PAST MEDICAL HISTORY Diagnosis Date Abnormal mammogram, unspecified left breast 2006 STEREOTACTIC Malignant melanoma (HCC) 06/12/2023 PONV (postoperative nausea and vomiting) PAST SURGICAL HISTORY Procedure Laterality Date PAST SURGICAL HISTORY OF Right arm PAST SURGICAL HISTORY OF 07/28/2023 Back Lesion Excision PAST SURGICAL HISTORY OF Meniscus Repair REVJ TOT KNEE ARTHRP FEMANDENTIRE TIBIAL COMPONE Knee replacement PARTIAL LEFT 2003 SKIN BX, 1 LESION 05/22/2023 Atypical skin lesion to back STEREOTACTIC CORE BIOPSY 07/29/2009 left breast FAMILY HISTORY Problem Relation Age of Onset Ischemic Heart Disease Mother Dementia Mother Heart Father Social History Tobacco Use Smoking status: Never Smokeless tobacco: Never Vaping Use Vaping status: Never Used Substance Use Topics Alcohol use: Not Currently Comment: wine once a month Drug use: No ALLERGIES: ALLERGIES No Known Allergies CURRENT OUTPATIENT MEDICATIONS: multivit-min/ferrous fumarate (MULTI VITAMIN ORAL) Take 1 tablet by mouth once daily. furosemide (LASIX) 20 mg tablet take 1 tablet by mouth once daily for 5 days (Patient taking differently: Take 20 mg by mouth as needed.) levothyroxine (SYNTHROID) 100 mcg tablet Take 125 mcg by mouth once daily. losartan (COZAAR) 50 mg tablet Take 25 mg by mouth once daily. iv contrast (will be provided with radiology [...] Contrast as designated per enteric contrast guidelines cholecalciferol, vitamin D3, (VITAMIN D3 ORAL) Take 1 tablet by mouth once daily. acetaminophen (TYLENOL) 325 mg tablet Take 650 mg by mouth every 6 hours as needed. REVIEW OF SYSTEMS: GENERAL: No fever, night sweats, weight loss or malaise. All other reviewed and negative other than HPI. All systems reviewed on 07/26/2024 with pertinent positives and negatives as outlined in the interval history. PHYSICAL EXAMINATION: VITAL SIGNS: [facility] 01/07/2003 GENERAL APPEARANCE: Well appearing, in no acute distress, alert and oriented x3, well-hydrated, well nourished. LUNGS: CTA HEART: Reg, no gallops EXT: no edema I have performed the physical exam today (07/26/2024) and have edited the note to correlate with current findings. Susan Oconnor APRN.OFFICE RUNNER I spent a total of 25 minutes on the date of the service which included preparing to see the patient, [id number] patient care, completing clinical documentation, and counseling and educating the patient/family/caregiver. Portions of this note including HPI, ROS, impression/plan may have been copied forward as to provide important historical information essential in contributing to medical decision making. Documentation has been reviewed and edited as necessary to support clinical decision m (more content not included)... [facility] 07-05-2024 Telephone encounter Note Completed [facility] Work Phone: 07-05-2024 Miscellaneous Notes Completed Check out comments:Please move last keytruda to September 02 2024. - completed CT CAP in October 2024, see me 1 week after scan Left message for patient to return call. When she calls, please scheduled CT CAP (with CREATININE(S)* LAB prior) and OV w/ Abramovich 1 week later in October 2024. Lidia Arce documented in this encounter [facility] 07-05-2024 Telephone encounter Note Check out comments:Please move last keytruda to September 02 2024. - completed CT CAP in October 2024, see me 1 week after scan Left message for patient to return call. When she calls, please scheduled CT CAP (with CREATININE(S)* LAB prior) and OV w/ Abramovich 1 week later in October 2024. Lidia Arce [facility] 07-05-2024 Note HNO ID: [id number] Author: SD SALDAÑA MD Service: ? Author Type: Physician Type: Progress Notes Filed: 07/05/2024 12:58 Note Text: (Elements copied from my note datedSept2023 , have been reviewed and updated where appropriate, and all reflect current assessment and medical decision making from today's encounter, July 05, 2024) HISTORY OF PRESENT ILLNESS: Zoila Membreno is a 73 year old female mole on back, started to itch and bleed. Saw Dr De Leon biopsy showed melanoma. Wide excision and SLNB done 07-28-23 showed pT4bN0 cancer Feels ok, on ROS mentioned some double vision. Here for follow up, prior cycle 12 pembrolizumab. Tolerated cycle 1 well, no diarrhea, dyspnea or rash Double vision better, CT chest showed some right lung nodules, imaging reviewed. Nodules felt to be hamartoma after review with radiology. Swelling better Currently taking synthroid 100 mcg. Dry mouth continues, no appetite also metallic taste Weight down, albumin 3.6 in March CLINICAL IMPRESSION: Melanoma stage IIC Anorexia, dysguesia RECOMMENDATION/PLAN: 1. Adjuvant pembrolizumab 1 year 2, synthroid 3. CT scans in October 2024, will see back after that 4. Dermatology for skin checks Written and verbal health teaching given to patient, patient verbalizes understanding and agrees with treatment plan. PAST MEDICAL HISTORY Diagnosis Date Abnormal mammogram, unspecified left breast 2006 STEREOTACTIC Malignant melanoma (HCC) 06/12/2023 PONV (postoperative nausea and vomiting) PAST SURGICAL HISTORY Procedure Laterality Date PAST SURGICAL HISTORY OF Right arm PAST SURGICAL HISTORY OF 07/28/2023 Back Lesion Excision PAST SURGICAL HISTORY OF Meniscus Repair REVJ TOT KNEE ARTHRP FEMANDENTIRE TIBIAL COMPONE Knee replacement PARTIAL LEFT 2004 SKIN BX, 1 LESION 05/22/2023 Atypical skin lesion to back STEREOTACTIC CORE BIOPSY 07/29/2009 left breast FAMILY HISTORY Problem Relation Age of Onset Ischemic Heart Disease Mother Dementia Mother Heart Father Social History Tobacco Use Smoking status: Never Smokeless tobacco: Never Vaping Use Vaping status: Never Used Substance Use Topics Alcohol use: Not Currently Comment: wine once a month Drug use: No ALLERGIES: ALLERGIES No Known Allergies CURRENT OUTPATIENT MEDICATIONS: multivit-min/ferrous fumarate (MULTI VITAMIN ORAL) Take 1 tablet by mouth once daily. furosemide (LASIX) 20 mg tablet take 1 tablet by mouth once daily for 5 days (Patient taking differently: Take 20 mg by mouth as needed.) levothyroxine (SYNTHROID) 100 mcg tablet Take 125 mcg by mouth once daily. losartan (COZAAR) 50 mg tablet Take 25 mg by mouth once daily. cholecalciferol, vitamin D3, (VITAMIN D3 ORAL) Take [...] than HPI. PHYSICAL EXAMINATION: VITAL SIGNS: BP 109/72 Pulse 59 Temp (Src) 97.7 (Temporal) Wt 142 lb (64.4kg) SpO2 99% LMP 01/07/2003 GENERAL APPEARANCE: Well appearing, in no acute distress, alert and oriented x3, well-hydrated, well nourished. LUNGS: CTA HEART: Reg, no gallops EXT: no edema I spent a total of 30 minutes on the date of the service which included preparing to see the patient, [id number] patient care, completing clinical documentation, obtaining and/or reviewing separately obtained history, counseling and educating the patient/family/caregiver, ordering medications, tests, or procedures, communicating with other HCPs (not separately reported), independently interpreting results (not separately reported), communicating results to the patient/family/caregiver, and care coordination (not separately reported). Electronically Signed: Sd Saldaña MD July 05, 2024 [facility] 07-05-2024 History of Presen t illness Narrative (Elements copied from my note datedS2023 , have been reviewed and updated where appropriate, and all reflect current assessment and medical decision making from today's encounter, July 05, 2024) HISTORY OF PRESENT ILLNESS: Zoila Membreno is a 73 year old female mole on back, started to itch and bleed. Saw Dr De Leon biopsy showed melanoma. Wide excision and SLNB done 07-28-23 showed pT4bN0 cancer Feels ok, on ROS mentioned some double vision. Here for follow up, prior cycle 12 pembrolizumab. Tolerated cycle 1 well, no diarrhea, dyspnea or rash Double vision better, CT chest showed some right lung nodules, imaging reviewed. Nodules felt to be hamartoma after review with radiology. Swelling better Currently taking synthroid 100 mcg. Dry mouth continues, no appetite also metallic taste Weight down, albumin 3.6 in March CLINICAL IMPRESSION: Melanoma stage IIC Anorexia, dysguesia RECOMMENDATION/PLAN: 1. Adjuvant pembrolizumab 1 year 2, synthroid 3. CT scans in October 2024, will see back after that 4. Dermatology for skin checks Written and verbal health teaching given to patient, patient verbalizes understanding and agrees with treatment plan. PAST MEDICAL HISTORY Diagnosis Date Abnormal mammogram, unspecified left breast 2006 STEREOTACTIC Malignant melanoma (HCC) 06/12/2023 PONV (postoperative nausea and vomiting) PAST SURGICAL HISTORY Procedure Laterality Date PAST SURGICAL HISTORY OF Right arm PAST SURGICAL HISTORY OF 07/28/2023 Back Lesion Excision PAST SURGICAL HISTORY OF Meniscus Repair REVJ TOT KNEE ARTHRP FEM&ENTIRE TIBIAL COMPONE Knee replacement PARTIAL LEFT 2004 SKIN BX, 1 LESION 05/22/2023 Atypical skin lesion to back STEREOTACTIC CORE BIOPSY 07/29/2009 left breast FAMILY HISTORY Problem Relation Age of Onset Ischemic Heart Disease Mother Dementia Mother Heart Father Social History Tobacco Use Smoking status: Never Smokeless tobacco: Never Vaping Use Vaping status: Never Used Substance Use Topics Alcohol use: Not Currently Comment: wine once a month Drug use: No ALLERGIES: ALLERGIES No Known Allergies CURRENT OUTPATIENT MEDICATIONS: multivit-min/ferrous fumarate (MULTI VITAMIN ORAL) Take 1 tablet by mouth once daily. furosemide (LASIX) 20 mg tablet take 1 tablet by mouth once daily for 5 days (Patient taking differently: Take 20 mg by mouth as needed.) levothyroxine (SYNTHROID) 100 mcg tablet Take 125 mcg by mouth once daily. losartan (COZAAR) 50 mg tablet Take 25 mg by mouth once daily. cholecalciferol, vitamin D3, (VITAMIN D3 ORAL) Take [...] than HPI. PHYSICAL EXAMINATION: VITAL SIGNS: BP 109/72 Pulse 59 Temp (Src) 97.7 (Temporal) Wt 142 lb (64.4kg) SpO2 99% LMP 01/07/2003 GENERAL APPEARANCE: Well appearing, in no acute distress, alert and oriented x3, well-hydrated, well nourished. LUNGS: CTA HEART: Reg, no gallops EXT: no edema I spent a total of 30 minutes on the date of the service which included preparing to see the patient, [id number] patient care, completing clinical documentation, obtaining and/or reviewing separately obtained history, counseling and educating the patient/family/caregiver, ordering medications, tests, or procedures, communicating with other HCPs (not separately reported), independently interpreting results (not separately reported), communicating results to the patient/family/caregiver, and care coordination (not separately reported). Electronically Signed: Sd Saldaña MD July 05, 2024 documented in this encounter [facility] 07-01-2024 Note HNO ID: [id number] Author: REMI AGUILAR MD Service: ? Author Type: Physician Type: Progress Notes Filed: 07/04/2024 13:56 Note Text: Remi Aguilar M.D. Surgical Oncology [address] [facility], [place] [id number] Plan SUBJECTIVE HPI Zoila Membreno is a 73 year old female presenting for follow up of stage IIC melanoma. Patient is currently on adjuvant immunotherapy and tolerating this reasonable well. She reports no new or worsening symptoms. No significant changes to her medical history. She reports that she has no new or worrisome skin lesions or lymphadenopathy. The ROS, medical, surgical, family, and social history were reviewed by Remi Aguilar MD. OBJECTIVE BP 127/73 Pulse 80 Ht 154.9 cm (5' 1") Wt 64.5 kg (142 lb 3.2 oz) LMP 01/07/2003 SpO2 97% BMI 26.87 kg/m? BMI 26.87 kg/(m2) Physical Exam Lymphadenopathy: Cervical: No cervical adenopathy. Upper Body: Right upper body: No supraclavicular or axillary adenopathy. Left upper body: No supraclavicular or axillary adenopathy. Lower Body: No right inguinal adenopathy. No left inguinal adenopathy. Skin: Comments: Well healed WLE site of the back. ASSESSMENT AND PLAN 73 year old woman with stage IIC melanoma of the back. She is currently doing well with IVÁN. I advised patient that I would defer imaging to med onc at this time. She will continue to follow up with me in 3 months. I spent a total of 30 minutes on the date of the service which included preparing to see the patient, completing clinical documentation, performing a medically appropriate examination, and counseling and educating the patient/family/caregiver. Remi Aguilar MD 07/01/2024 3:13 PM [facility] 07-01-2024 History of Presen t illness Narrative Images from the original note were not included. Remi Aguilar M.D. Surgical Oncology [address] [facility], [place] [id number] Plan SUBJECTIVE HPI Zoila Membreno is a 73 year old female presenting for follow up of stage IIC melanoma. Patient is currently on adjuvant immunotherapy and tolerating this reasonable well. She reports no new or worsening symptoms. No significant changes to her medical history. She reports that she has no new or worrisome skin lesions or lymphadenopathy. The ROS, medical, surgical, family, and social history were reviewed by Remi Aguilar MD. OBJECTIVE BP 127/73 Pulse 80 Ht 154.9 cm (5' 1") Wt 64.5 kg (142 lb 3.2 oz) LMP 01/07/2003 SpO2 97% BMI 26.87 kg/m BMI 26.87 kg/(m^2) Physical Exam Lymphadenopathy: Cervical: No cervical adenopathy. Upper Body: Right upper body: No supraclavicular or axillary adenopathy. Left upper body: No supraclavicular or axillary adenopathy. Lower Body: No right inguinal adenopathy. No left inguinal adenopathy. Skin: Comments: Well healed WLE site of the back. ASSESSMENT AND PLAN 73 year old woman with stage IIC melanoma of the back. She is currently doing well with IVÁN. I advised patient that I would defer imaging to med onc at this time. She will continue to follow up with me in 3 months. I spent a total of 30 minutes on the date of the service which included preparing to see the patient, completing clinical documentation, performing a medically appropriate examination, and counseling and educating the patient/family/caregiver. Remi Aguilar MD 07/01/2024 3:13 PM documented in this encounter [facility] 06-14-2024 Note HNO ID: [id number] Author: SUSAN OCONNOR, ? Service: ? Author Type: Nurse Practitioner Type: Progress Notes Filed: 06/14/2024 12:36 Note Text: Zoila Membreno 1950 06/14/2024 HPI: Zoila Membreno is a 73 year old female who presents here today for evaluation for treatment on Monday. Per Dr. Saldaña's previous note: H/o mole on back, started to itch and bleed. Saw Dr De Leon biopsy showed melanoma. Wide excision and SLNB done 07-28-23 showed pT4bN0 cancer Feels ok, on ROS mentioned some double vision. Here for follow up, prior cycle 12 pembrolizumab. Tolerated cycle 1 well, no diarrhea, dyspnea or rash Double vision better, CT chest showed some right lung nodules, imaging reviewed. Nodules felt to be hamartoma after review with radiology. Swelling better Currently taking synthroid 100 mcg. Dry mouth continues, no appetite also metallic taste Weight down, albumin 3.6 in March CLINICAL IMPRESSION: Melanoma stage IIC Anorexia, dysguesia RECOMMENDATION/PLAN: 1. Adjuvant pembrolizumab 1 year 2, synthroid 3. She'll push nutrition non pharmacologically Interval Hx: Ms. Dumont presents today for follow up prior to C14 of pembro. Reports feeling well. Denies new issues. No changes or improvement in appetite. "Nothing is really calling my name" "Eating but not enjoying food" Weight is stable overall. Dry mouth stable. Energy level is stable. Denies new aches or pains. No SOB, CP, or palpitations. No SERNA, dizziness, or changes in vision. Denies N/V/C/D. No changes in bowel or bladder habits. No rash or skin changes. Denies bleeding or bruising. ROS: All systems reviewed on 06/14/2024 with pertinent positives and negatives as outlined in the interval history. Past medical history, appointments, medications, allergies reviewed. No changes. EXAM: BP 112/75 Pulse (!) 59 Temp 36.4 ?C (97.6 ?F) (Temporal) Resp 17 Wt 65.8 kg (145 lb) LMP 01/07/2003 SpO2 98% BMI 27.40 kg/m? APPEARANCE Well appearing, alert, in no acute distress, well-hydrated, well nourished. HEART RRR with normal S1 and S2, no murmurs LUNG clear to auscultation ABDOMEN bowel sounds normoactive, soft, non-tender EXTREMITIES No edema NEURO Awake, alert and oriented x 3, Normal gait, and No involuntary motions. SKIN Skin color, texture, turgor normal, no suspicious rashes or lesions I have performed the physical exam today (06/14/2024) and have edited the note to correlate with current findings. LABS: Latest Reference Range AND Units 05/03/24 11:42 05/24/24 09:20 06/14/24 10:40 WBC 3.70 - 11.00 k/uL 7.64 7.14 6.59 RBC 3.90 - 5.20 m/uL 4.74 4.71 4.87 Hemoglobin 11.5 - 15.5 g/dL 13.5 13.5 13.8 Hematocrit 36.0 - 46.0 % 40.8 40.5 42.1 Platelet Count 150 - 400 k/uL 251 257 246 MCV 80.0 - 100.0 fL 86.1 86.0 86.4 MCH 26.0 - 34.0 pg 28.5 28.7 28.3 MCHC 30.5 - 36.0 g/dL 33.1 33.3 32.8 MPV 9.0 - 12.7 fL 9.9 9.7 9.9 RDW-CV 11.5 - 15.0 % 13.7 13.9 14.0 DTYPE Auto Auto Auto Neut% % 64.6 60.3 62.8 Abs Neut (ANC) 1.45 - 7.50 k/uL 4.94 4.30 4.14 Lymph% % 23.3 27.2 25.9 Abs Lymph 1.00 - 4.00 k/uL 1.78 1.94 1.71 Ogle% % 6.8 8.1 7.6 Abs Ogle <0.87 k/uL 0.52 0.58 0.50 Eosin% % 4.2 3.6 2.6 Abs Eosin <0.46 k/uL 0.32 0.26 0.17 Baso% % 0.8 0.7 0.9 Abs Baso <0.11 k/uL 0.06 0.05 0.06 Immature Gran % % 0.3 0.1 0.2 IMMATURE GRANS (ABS) <0.10 k/uL <0.03 <0.03 <0.03 NRBC /100 WBC 0.0 0.0 0.0 Absolute nRBC <0.01 k/uL <0.01 <0.01 <0.01 CMP/Cortisol/TSH/T4: Pending ASSESSMENT/PLAN: 1. Malignant melanoma of torso excluding breast (HCC) - ICD9: 172.5, ICD10: C43.59 (primary diagnosis) - Overall tolerating keytruda fair d/t decreased appetite, fatigue - both manageable - Reviewed CBC with pt. - CMP/Cortisol/TSH/T4 pending. - PCP also watching thyroid. - Will complete therapy end of this year. - Continue current medications. - Has derm appt scheduled - Continue to follow with Dr. Aguilar - Proceed as scheduled on Monday for keytruda pending all labs. - Follow up as scheduled. - Pt. aware to call office with any questions/concerns. Susan Oconnor APRN.OFFICE RUNNER I spent a total of 30 minutes on the date of the service which included preparing to see the patient, [id number] patient care, completing clinical documentation, and performing a medically appropriate examination. Portions of this note including HPI, ROS, impression/plan may have been copied forward as to provide important historical information essential in contributing to medical decision making. Documentation has been reviewed and edited as necessary to support clinical decision making for today's visit and to reflect my own independent evaluation of this patient. [facility] 06-14-2024 History of Presen t illness Narrative Zoila Membreno 1950 06/14/2024 HPI: Zoila Membreno is a 73 year old female who presents here today for evaluation for treatment on Monday. Per Dr. Saldaña's previous note: H/o mole on back, started to itch and bleed. Saw Dr De Leon biopsy showed melanoma. Wide excision and SLNB done 07-28-23 showed pT4bN0 cancer Feels ok, on ROS mentioned some double vision. Here for follow up, prior cycle 12 pembrolizumab. Tolerated cycle 1 well, no diarrhea, dyspnea or rash Double vision better, CT chest showed some right lung nodules, imaging reviewed. Nodules felt to be hamartoma after review with radiology. Swelling better Currently taking synthroid 100 mcg. Dry mouth continues, no appetite also metallic taste Weight down, albumin 3.6 in March CLINICAL IMPRESSION: Melanoma stage IIC Anorexia, dysguesia RECOMMENDATION/PLAN: 1. Adjuvant pembrolizumab 1 year 2, synthroid 3. She'll push nutrition non pharmacologically Interval Hx: Ms. Dumont presents today for follow up prior to C14 of pembro. Reports feeling well. Denies new issues. No changes or improvement in appetite. Nothing is really calling my name" "Eating but not enjoying food" Weight is stable overall. Dry mouth stable. Energy level is stable. Denies new aches or pains. No SOB, CP, or palpitations. No SERNA, dizziness, or changes in vision. Denies N/V/C/D. No changes in bowel or bladder habits. No rash or skin changes. Denies bleeding or bruising. ROS: All systems reviewed on 06/14/2024 with pertinent positives and negatives as outlined in the interval history. Past medical history, appointments, medications, allergies reviewed. No changes. EXAM: BP 112/75 Pulse (!) 59 Temp 36.4 C (97.6 F) (Temporal) Resp 17 Wt 65.8 kg (145 lb) LMP 01/07/2003 SpO2 98% BMI 27.40 kg/m APPEARANCE Well appearing, alert, in no acute distress, well-hydrated, well nourished. HEART RRR with normal S1 and S2, no murmurs LUNG clear to auscultation ABDOMEN bowel sounds normoactive, soft, non-tender EXTREMITIES No edema NEURO Awake, alert and oriented x 3, Normal gait, and No involuntary motions. SKIN Skin color, texture, turgor normal, no suspicious rashes or lesions I have performed the physical exam today (06/14/2024) and have edited the note to correlate with current findings. LABS: Latest Reference Range & Units 05/03/24 11:42 05/24/24 09:20 06/14/24 10:40 WBC 3.70 - 11.00 k/uL 7.64 7.14 6.59 RBC 3.90 - 5.20 m/uL 4.74 4.71 4.87 Hemoglobin 11.5 - 15.5 g/dL 13.5 13.5 13.8 Hematocrit 36.0 - 46.0 % 40.8 40.5 42.1 Platelet Count 150 - 400 k/uL 251 257 246 MCV 80.0 - 100.0 fL 86.1 86.0 86.4 MCH 26.0 - 34.0 pg 28.5 28.7 28.3 MCHC 30.5 - 36.0 g/dL 33.1 33.3 32.8 MPV 9.0 - 12.7 fL 9.9 9.7 9.9 RDW-CV 11.5 - 15.0 % 13.7 13.9 14.0 DTYPE Auto Auto Auto Neut% % 64.6 60.3 62.8 Abs Neut (ANC) 1.45 - 7.50 k/uL 4.94 4.30 4.14 Lymph% % 23.3 27.2 25.9 Abs Lymph 1.00 - 4.00 k/uL 1.78 1.94 1.71 Ogle% % 6.8 8.1 7.6 Abs Ogle <0.87 k/uL 0.52 0.58 0.50 Eosin% % 4.2 3.6 2.6 Abs Eosin <0.46 k/uL 0.32 0.26 0.17 Baso% % 0.8 0.7 0.9 Abs Baso <0.11 k/uL 0.06 0.05 0.06 Immature Gran % % 0.3 0.1 0.2 IMMATURE GRANS (ABS) <0.10 k/uL <0.03 <0.03 <0.03 NRBC /100 WBC 0.0 0.0 0.0 Absolute nRBC <0.01 k/uL <0.01 <0.01 <0.01 CMP/Cortisol/TSH/T4: Pending ASSESSMENT/PLAN: 1. Malignant melanoma of torso excluding breast (HCC) - ICD9: 172.5, ICD10: C43.59 (primary diagnosis) - Overall tolerating keytruda fair d/t decreased appetite, fatigue - both manageable - Reviewed CBC with pt. - CMP/Cortisol/TSH/T4 pending. - PCP also watching thyroid. - Will complete therapy end of this year. - Continue current medications. - Has derm appt scheduled - Continue to follow with Dr. Augilar - Proceed as scheduled on Monday for keytruda pending all labs. - Follow up as scheduled. - Pt. aware to call office with any questions/concerns. Susan Oconnor APRN.OFFICE RUNNER I spent a total of 30 minutes on the date of the service which included preparing to see the patient, [id number] patient care, completing clinical documentation, and performing a medically appropriate examination. Portions of this note including HPI, ROS, impression/plan may have been copied forward as to provide important historical information essential in contributing to medical decision making. Documentation has been reviewed and edited as necessary to support clinical decision making for today's visit and to reflect my own independent evaluation of this patient. documented in this encounter [facility] 05-24-2024 Note HNO ID: [id number] Author: MILAGROS ANGEL APRN.OFFICE RUNNER Service: ? Author Type: Nurse Practitioner Type: Progress Notes Filed: 05/27/2024 08:58 Note Text: Chief Complaint Patient presents with: Established Patient HPI: Zoila Membreno is a 73 year old female who presents here today for evaluation for treatment on Monday. Per Dr. Saldaña's previous note: H/o mole on back, started to itch and bleed. Saw Dr De Leon biopsy showed melanoma. Wide excision and SLNB done 07-28-23 showed pT4bN0 cancer Feels ok, on ROS mentioned some double vision. Here for follow up, prior cycle 12 pembrolizumab. Tolerated cycle 1 well, no diarrhea, dyspnea or rash Double vision better, CT chest showed some right lung nodules, imaging reviewed. Nodules felt to be hamartoma after review with radiology. Swelling better Currently taking synthroid 100 mcg. Dry mouth continues, no appetite also metallic taste Weight down, albumin 3.6 in March CLINICAL IMPRESSION: Melanoma stage IIC Anorexia, dysguesia RECOMMENDATION/PLAN: 1. Adjuvant pembrolizumab 1 year 2, synthroid 3. She'll push nutrition non pharmacologically Appetite:"Nothing sounds or tastes good." Wt. down 4# this month. Energy level:"Eh." Denies fevers. Mouth:denies sores, +dry mouth/metallic taste Resp:denies cough or sob Cardiac:denies chest pain/palpitations GI:denies abd pain, n/v, occ. constipation :denies dysuria/hematuria Extrem:denies pain Skin:denies new rashes Heme:denies bleeding The ROS is otherwise negative. Past medical history, appointments, medications, allergies reviewed. No changes. EXAM: BP 110/74 Pulse 82 Temp 36.4 ?C (97.5 ?F) (Temporal) Wt 66.3 kg (146 lb 2.6 oz) LMP 01/07/2003 SpO2 97% BMI 27.62 kg/m? APPEARANCE Well appearing, alert, in no acute distress, well-hydrated, well nourished. HEART RRR with normal S1 and S2, no murmurs LUNG clear to auscultation ABDOMEN bowel sounds normoactive, soft, non-tender EXTREMITIES No edema NEURO Awake, alert and oriented x 3, Normal gait, and No involuntary motions. SKIN Skin color, texture, turgor normal, no suspicious rashes or lesions LABS: Latest Ref Rng 04/12/2024 05/03/2024 05/24/2024 WBC 3.70 - 11.00 k/uL 9.08 7.64 7.14 RBC 3.90 - 5.20 m/uL 4.59 4.74 4.71 Hemoglobin 11.5 - 15.5 g/dL 13.4 13.5 13.5 Hematocrit 36.0 - 46.0 % 40.4 40.8 40.5 MCV 80.0 - 100.0 fL 88.0 86.1 86.0 MCH 26.0 - 34.0 pg 29.2 28.5 28.7 MCHC 30.5 - 36.0 g/dL 33.2 33.1 33.3 RDW-CV 11.5 - 15.0 % 13.5 13.7 13.9 Platelet Count 150 - 400 k/uL 281 251 257 MPV 9.0 - 12.7 fL 10.0 9.9 9.7 Neut% % 58.9 64.6 60.3 Abs Neut (ANC) 1.45 - 7.50 k/uL 5.35 4.94 4.30 Lymph% % 26.3 23.3 27.2 Abs Lymph 1.00 - 4.00 k/uL 2.39 1.78 1.94 Ogle% % 7.2 6.8 8.1 Abs Ogle <0.87 k/uL 0.65 0.52 0.58 Eosin% % 6.4 4.2 3.6 Abs Eosin <0.46 k/uL 0.58 (H) 0.32 0.26 Baso% % 1.1 0.8 0.7 Abs Baso <0.11 k/uL 0.10 0.06 0.05 Immature Gran % % 0.1 0.3 0.1 IMMATURE GRANS (ABS) <0.10 k/uL <0.03 <0.03 <0.03 NRBC /100 WBC 0.0 0.0 0.0 Absolute nRBC <0.01 k/uL <0.01 <0.01 <0.01 DTYPE Auto Auto Auto CMP/Cortisol/TSH/T4: Pending ASSESSMENT/PLAN: 1. Malignant melanoma of torso excluding breast (HCC) - ICD9: 172.5, ICD10: C43.59 (primary diagnosis) - Overall tolerating keytruda fair d/t decreased appetite. - Reviewed CBC with pt. - CMP/Cortisol/TSH/T4 pending. - Will complete therapy end of this year. - Continue current medications. - Proceed as scheduled on Monday for keytruda pending all labs. - Follow up as scheduled. - Pt. aware to call office with any questions/concerns. The patient indicates understanding of these issues and agrees with the plan. All documentation from previous visit of 05/03/24-Dr. Saldaña was copied and pasted, documentation has been reviewed and edited as necessary for today's visit. Milagros Angel APRN.[facility] 05-24-2024 History of Presen t illness Narrative Chief Complaint Patient presents with: Established Patient HPI: Zoila Membreno is a 73 year old female who presents here today for evaluation for treatment on Monday. Per Dr. Saldaña's previous note: H/o mole on back, started to itch and bleed. Saw Dr De Leon biopsy showed melanoma. Wide excision and SLNB done 07-28-23 showed pT4bN0 cancer Feels ok, on ROS mentioned some double vision. Here for follow up, prior cycle 12 pembrolizumab. Tolerated cycle 1 well, no diarrhea, dyspnea or rash Double vision better, CT chest showed some right lung nodules, imaging reviewed. Nodules felt to be hamartoma after review with radiology. Swelling better Currently taking synthroid 100 mcg. Dry mouth continues, no appetite also metallic taste Weight down, albumin 3.6 in March CLINICAL IMPRESSION: Melanoma stage IIC Anorexia, dysguesia RECOMMENDATION/PLAN: 1. Adjuvant pembrolizumab 1 year 2, synthroid 3. She'll push nutrition non pharmacologically Appetite:"Nothing sounds or tastes good." Wt. down 4# this month. Energy level:"Eh." Denies fevers. Mouth:denies sores, +dry mouth/metallic taste Resp:denies cough or sob Cardiac:denies chest pain/palpitations GI:denies abd pain, n/v, occ. constipation :denies dysuria/hematuria Extrem:denies pain Skin:denies new rashes Heme:denies bleeding The ROS is otherwise negative. Past medical history, appointments, medications, allergies reviewed. No changes. EXAM: BP 110/74 Pulse 82 Temp 36.4 C (97.5 F) (Temporal) Wt 66.3 kg (146 lb 2.6 oz) LMP 01/07/2003 SpO2 97% BMI 27.62 kg/m APPEARANCE Well appearing, alert, in no acute distress, well-hydrated, well nourished. HEART RRR with normal S1 and S2, no murmurs LUNG clear to auscultation ABDOMEN bowel sounds normoactive, soft, non-tender EXTREMITIES No edema NEURO Awake, alert and oriented x 3, Normal gait, and No involuntary motions. SKIN Skin color, texture, turgor normal, no suspicious rashes or lesions LABS: Latest Ref Rng 04/12/2024 05/03/2024 05/24/2024 WBC 3.70 - 11.00 k/uL 9.08 7.64 7.14 RBC 3.90 - 5.20 m/uL 4.59 4.74 4.71 Hemoglobin 11.5 - 15.5 g/dL 13.4 13.5 13.5 Hematocrit 36.0 - 46.0 % 40.4 40.8 40.5 MCV 80.0 - 100.0 fL 88.0 86.1 86.0 MCH 26.0 - 34.0 pg 29.2 28.5 28.7 MCHC 30.5 - 36.0 g/dL 33.2 33.1 33.3 RDW-CV 11.5 - 15.0 % 13.5 13.7 13.9 Platelet Count 150 - 400 k/uL 281 251 257 MPV 9.0 - 12.7 fL 10.0 9.9 9.7 Neut% % 58.9 64.6 60.3 Abs Neut (ANC) 1.45 - 7.50 k/uL 5.35 4.94 4.30 Lymph% % 26.3 23.3 27.2 Abs Lymph 1.00 - 4.00 k/uL 2.39 1.78 1.94 Ogle% % 7.2 6.8 8.1 Abs Ogle <0.87 k/uL 0.65 0.52 0.58 Eosin% % 6.4 4.2 3.6 Abs Eosin <0.46 k/uL 0.58 (H) 0.32 0.26 Baso% % 1.1 0.8 0.7 Abs Baso <0.11 k/uL 0.10 0.06 0.05 Immature Gran % % 0.1 0.3 0.1 IMMATURE GRANS (ABS) <0.10 k/uL <0.03 <0.03 <0.03 NRBC /100 WBC 0.0 0.0 0.0 Absolute nRBC <0.01 k/uL <0.01 <0.01 <0.01 DTYPE Auto Auto Auto CMP/Cortisol/TSH/T4: Pending ASSESSMENT/PLAN: 1. Malignant melanoma of torso excluding breast (HCC) - ICD9: 172.5, ICD10: C43.59 (primary diagnosis) - Overall tolerating keytruda fair d/t decreased appetite. - Reviewed CBC with pt. - CMP/Cortisol/TSH/T4 pending. - Will complete therapy end of this year. - Continue current medications. - Proceed as scheduled on Monday for keytruda pending all labs. - Follow up as scheduled. - Pt. aware to call office with any questions/concerns. The patient indicates understanding of these issues and agrees with the plan. All documentation from previous visit of 05/03/24-Dr. Saldaña was copied and pasted, documentation has been reviewed and edited as necessary for today's visit. Milagros Angel APRN.SHAUNA documented in this encounter [facility] 05-03-2024 History of Presen t illness Narrative (Elements copied from my note dated February 09, 2024, have been reviewed and updated where appropriate, and all reflect current assessment and medical decision making from today's encounter, May 03, 2024) HISTORY OF PRESENT ILLNESS: Zoila Membreno is a 73 year old female mole on back, started to itch and bleed. Saw Dr De Leon biopsy showed melanoma. Wide excision and SLNB done 07-28-23 showed pT4bN0 cancer Feels ok, on ROS mentioned some double vision. Here for follow up, prior cycle 12 pembrolizumab. Tolerated cycle 1 well, no diarrhea, dyspnea or rash Double vision better, CT chest showed some right lung nodules, imaging reviewed. Nodules felt to be hamartoma after review with radiology. Swelling better Currently taking synthroid 100 mcg. Dry mouth continues, no appetite also metallic taste Weight down, albumin 3.6 in March CLINICAL IMPRESSION: Melanoma stage IIC Anorexia, dysguesia RECOMMENDATION/PLAN: 1. Adjuvant pembrolizumab 1 year 2, synthroid 3. She'll push nutrition non pharmacologically Written and verbal health teaching given to patient, patient verbalizes understanding and agrees with treatment plan. PAST MEDICAL HISTORY No date: Abnormal mammogram, unspecified Comment: left breast 2006 STEREOTACTIC 06/12/2023: Malignant melanoma (HCC) No date: PONV (postoperative nausea and vomiting) PAST SURGICAL HISTORY No date: PAST SURGICAL HISTORY OF; Right Comment: arm 07/28/2023: PAST SURGICAL HISTORY OF Comment: Back Lesion Excision No date: PAST SURGICAL HISTORY OF Comment: Meniscus Repair No date: REVJ TOT KNEE ARTHRP FEM&ENTIRE TIBIAL COMPONE Comment: Knee replacement PARTIAL LEFT 200305/22/2023: SKIN BX, 1 LESION Comment: Atypical skin lesion to back 07/29/2009: STEREOTACTIC CORE BIOPSY Comment: left breast FAMILY HISTORY Problem Relation Age of Onset Ischemic Heart Disease Mother Dementia Mother Heart Father Social History Tobacco Use Smoking status: Never Smokeless tobacco: Never Vaping Use Vaping status: Never Used Substance Use Topics Alcohol use: Not Currently Comment: wine once a month Drug use: No ALLERGIES: ALLERGIES No Known Allergies CURRENT OUTPATIENT MEDICATIONS: furosemide (LASIX) 20 mg tablet take 1 tablet by mouth once daily for 5 days (Patient taking differently: Take 20 mg by mouth as needed.) levothyroxine (SYNTHROID) 100 mcg tablet Take 125 mcg by mouth once daily. losartan (COZAAR) 50 mg tablet Take 25 mg by mouth once daily. cholecalciferol, vitamin D3, (VITAMIN D3 ORAL) Take 1 tablet by mouth once daily. acetaminophen (TYLENOL) 325 mg tablet Take 650 mg by mouth every 6 hours as needed. mirtazapine (REMERON) 15 mg tablet Take 15 mg by mouth daily at bedtime. iv contrast (will be provided with radiology [...] than HPI. PHYSICAL EXAMINATION: VITAL SIGNS: BP 108/67 Pulse 75 Temp (Src) 97.3 (Temporal) Wt 150 lb (68.0kg) SpO2 96% LMP 01/07/2003 GENERAL APPEARANCE: Well appearing, in no acute distress, alert and oriented x3, well-hydrated, well nourished. LUNGS: CTA HEART: Reg, no gallops EXT: no edema I spent a total of 30 minutes on the date of the service which included preparing to see the patient, [id number] patient care, completing clinical documentation, obtaining and/or reviewing separately obtained history, counseling and educating the patient/family/caregiver, ordering medications, tests, or procedures, communicating with other HCPs (not separately reported), independently interpreting results (not separately reported), communicating results to the patient/family/caregiver, and care coordination (not separately reported). Electronically Signed: Sd Saldaña MD May 03, 2024 documented in this encounter [facility] 04-12-2024 History of Presen t illness Narrative Zoila Membreno 1950 04/12/2024 HISTORY OF PRESENT ILLNESS: Zoila Membreno is a 73 year old female mole on back, started to itch and bleed. Saw Dr De Leon biopsy showed melanoma. Wide excision and SLNB done 07-28-23 showed pT4bN0 cancer Feels ok, on ROS mentioned some double vision. Here for follow up, prior cycle 2 pembrolizumab. Tolerated cycle 1 well, no diarrhea, dyspnea or rash Double vision better, CT chest showed some right lung nodules, imaging reviewed. Interval History: Ms. Membreno presents today prior to C11 of pembro. She reports that she is doing well overall. Fatigue remains her biggest SE, especially the day following treatment.Its frustrating but tolerable, feels down for about a week. 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 Denies new aches or pains. No SOB, CP, or palpitations. No SERNA, dizziness, or changes in vision. Denies N/V/C/D. Dry mouth and metallic taste after starting on synthroid. Has completely changed the way that she eats. Not drinking as much water. Now some constipation 2/2 dietary changes. No rash or skin changes. Denies bleeding or bruising. No new lumps or bumps. Denies neuro symptoms. Discussed establishing with dermatology again today, advised her to call us with any issues. Tolerating well overall PAST MEDICAL HISTORY No date: Abnormal mammogram, unspecified Comment: left breast 2007 STEREOTACTIC 06/12/2023: Malignant melanoma (HCC) No date: PONV (postoperative nausea and vomiting) PAST SURGICAL HISTORY No date: PAST SURGICAL HISTORY OF; Right Comment: arm 07/28/2023: PAST SURGICAL HISTORY OF Comment: Back Lesion Excision No date: PAST SURGICAL HISTORY OF Comment: Meniscus Repair No date: REVJ TOT KNEE ARTHRP FEM&ENTIRE TIBIAL COMPONE Comment: Knee replacement PARTIAL LEFT 200305/22/2023: SKIN BX, 1 LESION Comment: Atypical skin lesion to back 07/29/2009: STEREOTACTIC CORE BIOPSY Comment: left breast FAMILY HISTORY Problem Relation Age of Onset Ischemic Heart Disease Mother Dementia Mother Heart Father Social History Tobacco Use Smoking status: Never Smokeless tobacco: Never Vaping Use Vaping Use: Never used Substance Use Topics Alcohol use: Not Currently Comment: wine once a month Drug use: No ALLERGIES: ALLERGIES No Known Allergies CURRENT OUTPATIENT MEDICATIONS: furosemide (LASIX) 20 mg tablet take 1 tablet by mouth once daily for 5 days (Patient taking differently: Take 20 mg by mouth as needed.) levothyroxine (SYNTHROID) 100 mcg tablet Take 125 mcg by mouth once daily. losartan (COZAAR) 50 mg tablet Take 50 mg by mouth once daily. cholecalciferol, vitamin D3, (VITAMIN D3 ORAL) Take 1 tablet by mouth once daily. acetaminophen (TYLENOL) 325 mg tablet Take 650 mg by mouth every 6 hours as needed. mirtazapine (REMERON) 15 mg tablet Take 15 mg by mouth daily at bedtime. 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 However, given history, short-term follow-up exam is recommended to document stability. Otherwise, no abnormal intracranial enhancement to indicate metastasis. Chronic changes as described. REVIEW OF SYSTEMS: GENERAL: No fever, night sweats, weight loss or malaise. All other reviewed and negative other than HPI. All systems reviewed on 04/12/2024 with pertinent positives and negatives as outlined in the interval history. PHYSICAL EXAMINATION: VITAL SIGNS: BP 106/71 Pulse 78 Temp (Src) 97.8 (Temporal) Wt 155 lb 8 oz (70.5kg) SpO2 97% LMP 01/07/2003 Pain Intensity: 0/10 GENERAL APPEARANCE: Well appearing, in no acute distress, alert and oriented x3, well-hydrated, well nourished. HEENT: Normocephalic, no sclera icterus, external ears normal Neck: Supple, no JVD. Chest: Clear bilaterally, no wheezes, not labored. Heart: Normal S1 and S2, no abnormal sounds Abdomen: Soft, nontender, nondistended Extremities: no edema. Neurological: Grossly intact Skin: Warm and dry with no rashes or ulcerations. Hematologic: no bruising or petechiae. Psychiatric: Alert and oriented x3. Emotional well-being assessment was performed. Pt denies depression, distress, and or problems with coping or adjustment. I have performed the physical exam today (04/12/2024) and have edited the note to correlate with current findings. LABS: Reviewed stable TSH pending CLINICAL IMPRESSION: Melanoma stage IIC - labs reviewed today, ok for treatment - continue to monitor TSH, T4, cortisol RECOMMENDATION/PLAN: 1. Adjuvant pembrolizumab 1 year, continue with treatment, tolerating well 2. Cont to follow with Dr. Aguilar 3. Establish with derm, dicussed today 4. Continue with synthroid OK to use labs drawn today, 04/12/2024 for treatment with pembro on 04/15/2024 Susan Oconnor APRN.OFFICE RUNNER I spent a total of 25 minutes on the date of the service which included preparing to see the patient, [id number] patient care, completing clinical documentation, and counseling and educating the patient/family/caregiver. Portions of this note including HPI, ROS, impression/plan may have been copied forward as to provide important historical information essential in contributing to medical decision making. Documentation has been reviewed and edited as necessary to support clinical decision making for today's visit and to reflect my own independent evaluation of this patient. documented in this encounter [facility] 04-01-2024 History of Presen t illness Narrative Images from the original note were not included. Remi Aguilar M.D. Surgical Oncology [address] [facility], [address] [place] [id number] SUBJECTIVE HPI Zoila Membreno is a 73 year old female presenting for follow up of stage IIC melanoma of the back. Patient is current on adjuvant immunotherapy with Dr Saldaña. She reports fatigue and some joint pains but otherwise states she is doing relatively well. She has not followed up with dermatology. She reports no new or worsening medical condition since her last visit. She reports no new or worrisome skin lesions or lymphadenopathy. Review of Systems Constitutional: Negative for malaise/fatigue [...] memory loss. The patient is not nervous/anxious. The medical, surgical, family, and social history were reviewed by Remi Aguilar MD. OBJECTIVE BP 122/64 Pulse 73 Ht 154.9 cm (5' 1") Wt 73 kg (160 lb 15 oz) LMP 01/07/2003 SpO2 98% BMI 30.41 kg/m BMI 30.41 kg/(m^2) Physical Exam Constitutional: General: She is not [...] dry. Findings: No erythema or rash. Comments: Well healed skin incision of the back with no nodularity or pigmentation. Neurological: Mental Status: She is alert and oriented to person, place, and time. Psychiatric: Mood and Affect: Affect normal. Judgment: Judgment normal. ASSESSMENT AND PLAN Plan 73 year old woman with stage IIC melanoma. Patient has no evidence of disease at this time. I discussed with patient her ongoing surveillance. She will continue adjuvant immunotherapy as planned and will follow up with surgical oncology in 3 months. I spent a total of 30 minutes on the date of the service which included preparing to see the patient, completing clinical documentation, performing a medically appropriate examination, and counseling and educating the patient/family/caregiver. Remi Aguilar MD 04/01/2024 3:08 PM documented in this encounter [facility] 02-26-2024 Telephone encounter Note Patient R/S [facility] 02-26-2024 Miscellaneous Notes Patient R/S Called LM for patient to RS appt on 03/11. She can come in and see Valente at the [place] office or R/S appt to [place] with Dr. Aguilar. documented in this encounter [facility] 02-16-2024 Telephone encounter Note Called LM for patient to RS appt on 03/11. She can come in and see Valente at the [place] office or R/S appt to [place] with Dr. Aguilar. [facility] 02-12-2024 History of Presen t illness Narrative Pt stated no changes to assessment from Monday02/09/24. Calli Cooper RN documented in this encounter [facility] 06-14-2024 History of Presen t illness Narrative (Elements copied from my note dated January 19, 2024, have been reviewed and updated where appropriate, and all reflect current assessment and medical decision making from today's encounter, February 09, 2024) HISTORY OF PRESENT ILLNESS: Zoila Membreno is a 73 year old female mole on back, started to itch and bleed. Saw Dr De Leon biopsy showed melanoma. Wide excision and SLNB done 07-28-23 showed pT4bN0 cancer Feels ok, on ROS mentioned some double vision. Here for follow up, prior cycle 7 pembrolizumab. Tolerated cycle 1 well, no diarrhea, dyspnea or rash Double vision better, CT chest showed some right lung nodules, imaging reviewed. Nodules felt to be hamartoma after review with radiology. Swelling better Currently taking synthroid 100 mcg. Dry mouth CLINICAL IMPRESSION: Melanoma stage IIC RECOMMENDATION/PLAN: 1. Adjuvant pembrolizumab 1 year 2, synthroid Written and verbal health teaching given to patient, patient verbalizes understanding and agrees with treatment plan. PAST MEDICAL HISTORY Diagnosis Date Abnormal mammogram, unspecified left breast 2006 STEREOTACTIC Malignant melanoma (HCC) 06/12/2023 PONV (postoperative nausea and vomiting) PAST SURGICAL HISTORY Procedure Laterality Date PAST SURGICAL HISTORY OF Right arm PAST SURGICAL HISTORY OF 07/28/2023 Back Lesion Excision PAST SURGICAL HISTORY OF Meniscus Repair REVJ TOT KNEE ARTHRP FEM&ENTIRE TIBIAL COMPONE Knee replacement PARTIAL LEFT 2004 SKIN BX, 1 LESION 05/22/2023 Atypical skin lesion to back STEREOTACTIC CORE BIOPSY 07/29/2009 left breast FAMILY HISTORY Problem Relation Age of Onset Ischemic Heart Disease Mother Dementia Mother Heart Father Social History Tobacco Use Smoking status: Never Smokeless tobacco: Never Vaping Use Vaping Use: Never used Substance Use Topics Alcohol use: Not Currently Comment: wine once a month Drug use: No ALLERGIES: ALLERGIES No Known Allergies CURRENT OUTPATIENT MEDICATIONS: furosemide (LASIX) 20 mg tablet Take 1 tablet by mouth once daily for 5 days. levothyroxine (SYNTHROID) 100 mcg tablet Take 100 mcg by mouth once daily. losartan (COZAAR) 50 mg tablet Take 50 mg by mouth once daily. cholecalciferol, vitamin D3, (VITAMIN D3 ORAL) Take 1 tablet by mouth once daily. acetaminophen (TYLENOL) 325 mg tablet Take 650 mg by mouth every 6 hours as needed. levothyroxine (SYNTHROID) 75 mcg tablet Take 1 tablet by mouth daily before breakfast. (Patient not taking: Reported on 02/09/2024) amLODIPine (NORVASC) 5 mg tablet Take 1 tablet by mouth every afternoon. (Patient not taking: Reported on 11/29/2023) mirtazapine (REMERON) 15 mg tablet Take 15 mg by mouth daily at bedtime. iv contrast (will be provided with radiology [...] than HPI. PHYSICAL EXAMINATION: VITAL SIGNS: BP 112/78 Pulse 77 Temp (Src) 97.8 (Temporal) Wt 173 lb (78.5kg) SpO2 98% LMP 01/07/2003 GENERAL APPEARANCE: Well appearing, in no acute distress, alert and oriented x3, well-hydrated, well nourished. LUNGS: CTA HEART: Reg, no gallops EXT: 1+ ankle edema symmetric and bilateral I spent a total of 30 minutes on the date of the service which included preparing to see the patient, [id number] patient care, completing clinical documentation, obtaining and/or reviewing separately obtained history, counseling and educating the patient/family/caregiver, ordering medications, tests, or procedures, communicating with other HCPs (not separately reported), independently interpreting results (not separately reported), communicating results to the patient/family/caregiver, and care coordination (not separately reported). Electronically Signed: Sd Saldaña MD February 09, 2024 documented in this encounter [facility] 02-06-2024 Telephone encounter Note Pt. Notified rx sent to pharmacy. Aneta Silva LPN [facility] 02-06-2024 Miscellaneous Notes Pt. Notified rx sent to pharmacy. Aneta Silva LPN Dr. Saldaña, Pt states she finished her 5-day trial lasix for BLE edema. Pt states her leg swelling is a lot better, denies any side effects from the medication. BLE edema +1 noted at today's visit. She is wondering if she should request a refill. Please advise, thank you. Yannick documented in this encounter [facility] 02-04-2024 Telephone encounter Note Received this refill request. Not sure if from patient or pharmacy. Dr. Saldaña gave him 5 tablets last week so he may not want him on this medication long-term. Saturnino Peralta DO [facility] Work Phone: 02-04-2024 Miscellaneous Notes Received this refill request. Not sure if from patient or pharmacy. Dr. Saldaña gave him 5 tablets last week so he may not want him on this medication long-term. Saturnino Peralta DO documented in this encounter [facility] 01-23-[address] Saldaña, Pt states she finished her 5-day trial lasix for BLE edema. Pt states her leg swelling is a lot better, denies any side effects from the medication. BLE edema +1 noted at today's visit. She is wondering if she should request a refill. Please advise, thank you. Yannick [facility] Work Phone: 01-23-2024 History of Presen t illness Narrative OK to use 01/[address] Saldaña. documented in this encounter [facility] 01-19-2024 History of Presen t illness Narrative (Elements copied from my note dated December 29, 2023, have been reviewed and updated where appropriate, and all reflect current assessment and medical decision making from today's encounter, January 19, 2024) HISTORY OF PRESENT ILLNESS: Zoila Membreno is a 73 year old female mole on back, started to itch and bleed. Saw Dr De Leon biopsy showed melanoma. Wide excision and SLNB done 07-28-23 showed pT4bN0 cancer Feels ok, on ROS mentioned some double vision. Here for follow up, prior cycle 7 pembrolizumab. Tolerated cycle 1 well, no diarrhea, dyspnea or rash Double vision better, CT chest showed some right lung nodules, imaging reviewed. Nodules felt to be hamartoma after review with radiology. Feels puffy, swollen CLINICAL IMPRESSION: Melanoma stage IIC RECOMMENDATION/PLAN: 1. Adjuvant pembrolizumab 1 year 2, synthroid 3. LE US 4. trial lasix Written and verbal health teaching given to patient, patient verbalizes understanding and agrees with treatment plan. PAST MEDICAL HISTORY Diagnosis Date Abnormal mammogram, unspecified left breast 2006 STEREOTACTIC Malignant melanoma (HCC) 06/12/2023 PONV (postoperative nausea and vomiting) PAST SURGICAL HISTORY Procedure Laterality Date PAST SURGICAL HISTORY OF Right arm PAST SURGICAL HISTORY OF 07/28/2023 Back Lesion Excision PAST SURGICAL HISTORY OF Meniscus Repair REVJ TOT KNEE ARTHRP FEM&ENTIRE TIBIAL COMPONE Knee replacement PARTIAL LEFT 2004 [...] ALLERGIES No Known Allergies CURRENT OUTPATIENT MEDICATIONS: levothyroxine (SYNTHROID) 100 mcg tablet Take 100 mcg by mouth once daily. losartan (COZAAR) 50 mg tablet Take 50 mg by mouth once daily. cholecalciferol, vitamin D3, (VITAMIN D3 ORAL) Take 1 tablet by mouth once daily. acetaminophen (TYLENOL) 325 mg tablet Take 650 mg by mouth every 6 hours as needed. levothyroxine (SYNTHROID) 75 mcg tablet Take 1 tablet by mouth daily before breakfast. amLODIPine (NORVASC) 5 mg tablet Take 1 tablet by mouth every afternoon. (Patient not taking: Reported on 11/29/2023) mirtazapine (REMERON) 15 mg tablet Take 15 mg by mouth daily at bedtime. iv contrast (will be provided with radiology [...] than HPI. PHYSICAL EXAMINATION: VITAL SIGNS: BP 104/71 Pulse 73 Temp (Src) 97.6 (Temporal) Wt 175 lb 8 oz (79.6kg) SpO2 96% LMP 01/07/2003 GENERAL APPEARANCE: Well appearing, in no acute distress, alert and oriented x3, well-hydrated, well nourished. LUNGS: CTA HEART: Reg, no gallops EXT: 1-2+ ankle edema symmetric and bilateral I spent a total of 30 minutes on the date of the service which included preparing to see the patient, [id number] patient care, completing clinical documentation, obtaining and/or reviewing separately obtained history, counseling and educating the patient/family/caregiver, ordering medications, tests, or procedures, communicating with other HCPs (not separately reported), independently interpreting results (not separately reported), communicating results to the patient/family/caregiver, and care coordination (not separately reported). Electronically Signed: Sd Saldaña MD January 19, 2024 documented in this encounter [facility] 01-10-2024 Telephone encounter Note Appointment notes updated. Lidia Arce [facility] 01-10-2024 Miscellaneous Notes Appointment notes updated. Lidia Arce Patient is on keytruda, straightback will be fine. Thank you. Victoria Moss RN Okay for 7/8 treatment to be straightback? No office visits available with any provider. documented in this encounter [facility] 01-10-2024 Telephone encounter Note Patient is on keytruda, straightback will be fine. Thank you. Victoria Moss RN [facility] 01-10-2024 Telephone encounter Note Okay for 7/8 treatment to be straightback? No office visits available with any provider. [facility] Work Phone: 12-29-2023 History of Presen t illness Narrative (Elements copied from my note dated November 17, 2023, have been reviewed and updated where appropriate, and all reflect current assessment and medical decision making from today's encounter, December 29, 2023) HISTORY OF PRESENT ILLNESS: Zoila Membreno is a 73 year old female mole on back, started to itch and bleed. Saw Dr De Leon biopsy showed melanoma. Wide excision and SLNB done 07-28-23 showed pT4bN0 cancer Feels ok, on ROS mentioned some double vision. Here for follow up, prior cycle 2 pembrolizumab. Tolerated cycle 1 well, no diarrhea, dyspnea or rash Double vision better, CT chest showed some right lung nodules, imaging reviewed. Nodules felt to be hamartoma after review with radiology. Feels tired reviewed TSH CLINICAL IMPRESSION: Melanoma stage IIC RECOMMENDATION/PLAN: 1. Adjuvant pembrolizumab 1 year 2, synthroid Written and verbal health teaching given to patient, patient verbalizes understanding and agrees with treatment plan. PAST MEDICAL HISTORY Diagnosis Date Abnormal mammogram, unspecified left breast 2006 STEREOTACTIC Malignant melanoma (HCC) 06/12/2023 PONV (postoperative nausea and vomiting) PAST SURGICAL HISTORY Procedure Laterality Date PAST SURGICAL HISTORY OF Right arm PAST SURGICAL HISTORY OF 07/28/2023 Back Lesion Excision PAST SURGICAL HISTORY OF Meniscus Repair REVJ TOT KNEE ARTHRP FEM&ENTIRE TIBIAL COMPONE Knee replacement PARTIAL LEFT 2004 [...] ALLERGIES No Known Allergies CURRENT OUTPATIENT MEDICATIONS: levothyroxine (SYNTHROID) 100 mcg tablet Take 100 mcg by mouth once daily. losartan (COZAAR) 50 mg tablet Take 50 mg by mouth once daily. cholecalciferol, vitamin D3, (VITAMIN D3 ORAL) Take 1 tablet by mouth once daily. acetaminophen (TYLENOL) 325 mg tablet Take 650 mg by mouth every 6 hours as needed. levothyroxine (SYNTHROID) 75 mcg tablet Take 1 tablet by mouth daily before breakfast. amLODIPine (NORVASC) 5 mg tablet Take 1 tablet by mouth every afternoon. (Patient not taking: Reported on 11/29/2023) mirtazapine (REMERON) 15 mg tablet Take 15 mg by mouth daily at bedtime. iv contrast (will be provided with radiology [...] than HPI. PHYSICAL EXAMINATION: VITAL SIGNS: BP 117/73 Pulse 79 Temp (Src) 98.2 (Temporal) Wt 177 lb 8 oz (80.5kg) SpO2 97% LMP 01/07/2003 GENERAL APPEARANCE: Well appearing, in no acute distress, alert and oriented x3, well-hydrated, well nourished. LUNGS: CTA HEART: Reg I spent a total of 30 minutes on the date of the service which included preparing to see the patient, [id number] patient care, completing clinical documentation, obtaining and/or reviewing separately obtained history, counseling and educating the patient/family/caregiver, ordering medications, tests, or procedures, communicating with other HCPs (not separately reported), independently interpreting results (not separately reported), communicating results to the patient/family/caregiver, and care coordination (not separately reported). Electronically Signed: Sd Saldaña MD December 29, 2023 documented in this encounter [facility] 12-20-2023 Telephone encounter Note Called and spoke with patient. She declined scheduling with endocrinology until she meets with Dr. Saldaña. She mentioned that she saw her "GP" and they gave her levothyroxine. Merissa Barahona [facility] 12-20-2023 Miscellaneous Notes Called and spoke with patient. She declined scheduling with endocrinology until she meets with Dr. Saldaña. She mentioned that she saw her "GP" and they gave her levothyroxine. Merissa Barahona PSS- please contact patient to assist in scheduling with endocrinology. Carol Kaur LPN Called patient to review evaluated TSH per recent labs. No answer. LVM to return call. 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 Can contribute to fatigue. Will initiate levothyroxine. Referral placed to endo per Dr. Saldaña. Susan Oconnor APRN.OFFICE RUNNER documented in this encounter [facility] 12-20-2023 Telephone encounter Note PSS- please contact patient to assist in scheduling with endocrinology. Carol Kaur LPN [facility] 12-18-2023 Telephone encounter Note Called patient to review evaluated TSH per recent labs. No answer. LVM to return call. 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 Can contribute to fatigue. Will initiate levothyroxine. Referral placed to endo per Dr. Saldaña. Susan Oconnor APRN.OFFICE RUNNER [facility] 12-08-2023 History of Presen t illness Narrative Zoila Membreno 1950 12/08/2023 HISTORY OF PRESENT ILLNESS: Zoila Membreno is a 73 year old female mole on back, started to itch and bleed. Saw Dr De Leon biopsy showed melanoma. Wide excision and SLNB done 07-28-23 showed pT4bN0 cancer Feels ok, on ROS mentioned some double vision. Here for follow up, prior cycle 2 pembrolizumab. Tolerated cycle 1 well, no diarrhea, dyspnea or rash Double vision better, CT chest showed some right lung nodules, imaging reviewed. Interval History: Ms. Membreno presents today prior to C5 of pembro. She reports that she is doing well overall. Fatigue is her biggest SE, especially the day following treatment.Its frustrating but tolerable. 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 Denies new aches or pains. No SOB, CP, or palpitations. No SERNA, dizziness, or changes in vision. Denies N/V/C/D. No changes in bowel or bladder habits. No rash or skin changes. Denies bleeding or bruising. No new lumps or bumps. Denies neuro symptoms. Discussed establishing with dermatology again today. PAST MEDICAL HISTORY Diagnosis Date Abnormal mammogram, unspecified left breast 2006 STEREOTACTIC Malignant melanoma (HCC) 06/12/2023 PONV (postoperative nausea and vomiting) PAST SURGICAL HISTORY Procedure Laterality Date PAST SURGICAL HISTORY OF Right arm PAST SURGICAL HISTORY OF 07/28/2023 Back Lesion Excision PAST SURGICAL HISTORY OF Meniscus Repair REVJ TOT KNEE ARTHRP FEM&ENTIRE TIBIAL COMPONE Knee replacement PARTIAL LEFT 2004 [...] ALLERGIES No Known Allergies CURRENT OUTPATIENT MEDICATIONS: losartan (COZAAR) 50 mg tablet Take 50 mg by mouth once daily. cholecalciferol, vitamin D3, (VITAMIN D3 ORAL) Take 1 tablet by mouth once daily. acetaminophen (TYLENOL) 325 mg tablet Take 650 mg by mouth every 6 hours as needed. amLODIPine (NORVASC) 5 mg tablet Take 1 tablet by mouth every afternoon. (Patient not taking: Reported on 11/29/2023) mirtazapine (REMERON) 15 mg tablet Take 15 mg by mouth daily at bedtime. 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 However, given history, short-term follow-up exam is recommended to document stability. Otherwise, no abnormal intracranial enhancement to indicate metastasis. Chronic changes as described. REVIEW OF SYSTEMS: GENERAL: No fever, night sweats, weight loss or malaise. All other reviewed and negative other than HPI. All systems reviewed on 12/08/2023 with pertinent positives and negatives as outlined in the interval history. PHYSICAL EXAMINATION: VITAL SIGNS: BP 116/78 Pulse 70 Temp (Src) 98.2 (Temporal) Wt 177 lb (80.3kg) SpO2 97% LMP 01/07/2003 Pain Intensity: 0/10 GENERAL APPEARANCE: Well appearing, in no acute distress, alert and oriented x3, well-hydrated, well nourished. HEENT: Normocephalic, no sclera icterus, external ears normal Neck: Supple, no JVD. Chest: Clear bilaterally, no wheezes, not labored. Heart: Normal S1 and S2, no abnormal sounds Abdomen: Soft, nontender, nondistended Extremities: no edema. Neurological: Grossly intact Skin: Warm and dry with no rashes or ulcerations. Hematologic: no bruising or petechiae. Psychiatric: Alert and oriented x3. Emotional well-being assessment was performed. Pt denies depression, distress, and or problems with coping or adjustment. I have performed the physical exam today (12/08/2023) and have edited the note to correlate with current findings. LABS: Reviewed stable TSH pending CLINICAL IMPRESSION: Melanoma stage IIC RECOMMENDATION/PLAN: 1. Adjuvant pembrolizumab 1 year, continue with treatment, tolerating well 2. CT chest is pending today to follow up lung nodules 3. MRI brain, rec short term follow up for stability 4. Cont to follow with Dr. Aguilar 5. Establish with derm OK to use labs drawn 12/08/2023 for treatment with pembro on 12/11/2023 Susan Oconnor APRN.OFFICE RUNNER I spent a total of 25 minutes on the date of the service which included preparing to see the patient, [id number] patient care, completing clinical documentation, and counseling and educating the patient/family/caregiver. Portions of this note including HPI, ROS, impression/plan may have been copied forward as to provide important historical information essential in contributing to medical decision making. Documentation has been reviewed and edited as necessary to support clinical decision making for today's visit and to reflect my own independent evaluation of this patient. documented in this encounter [facility] 12-07-2023 History of Presen t illness Narrative Radiology Service Progress Note PATIENT NAME: Zoila Membreno DATE OF SERVICE: December 07, 2023 TIME: 3:56 PM PATIENT IDENTITY VERIFICATION COMPLETED USING TWO (2) IDENTIFIERS: Name and Date of confirmed by patient verbally. FALL SCREENING: Has the patient had 2 falls in the last year or 1 fall with injury or currently using an Ambulatory Assistive Device (Walker, Cane, Wheelchair, Crutches, etc.)? No PATIENT GENDER DATA: Female. status: : No status: NO. PATIENT RELEVANT IMPLANT DATA REVIEWED: Yes PATIENT PRESENTS WITH AN IMPLANTABLE OR ATTACHED AIR BAG STRIPPER: No RADIOLOGY DEPARTMENT: CT; Exam(s) Completed: Chest PERIPHERAL IV DATA: Not applicable SIGNED BY: RT Jeremy(R) December 07, 2023 3:56 PM documented in this encounter [facility] 11-29-2023 Note HNO ID: [id number] Author: REMI AGUILAR MD Service: ? Author Type: Physician Type: Progress Notes Filed: 11/29/2023 13:46 Note Text: Remi Aguilar M.D. Surgical Oncology [address] [facility], [address] [place] [address] SUBJECTIVE HPI Zoila Membreno is a 73 year old female presenting for follow-up of a stage IIC melanoma of the back. Patient reports that since her last visit she has started adjuvant immunotherapy. She is doing relatively well. She did have some episodes of double vision for which an MRI brain was performed and was negative. She reports that this is resolved at this time. She does continue to have some fatigue as well. She notes no other significant changes to her medical history since her last visit and no new or worsening symptoms. She reports no other concerning skin lesions or lymphadenopathy. Review of Systems Constitutional: Negative for malaise/fatigue [...] Date PAST SURGICAL HISTORY OF Right arm PAST SURGICAL HISTORY OF 07/28/2023 Back Lesion Excision PAST SURGICAL HISTORY OF Meniscus Repair REVJ TOT KNEE ARTHRP FEMANDENTIRE TIBIAL COMPONE [...] Heart Disease Mother Dementia Mother Heart Father The ROS, medical, surgical, family, and social history were reviewed by Remi Aguilar MD ALLERGIES No Known Allergies Current Outpatient Medications Medication Sig losartan (COZAAR) 50 mg tablet Take 50 mg by mouth once daily. mirtazapine (REMERON) 15 mg tablet Take 15 mg by mouth daily at bedtime. iv contrast (will be provided with radiology [...] Contrast as designated per enteric contrast guidelines cholecalciferol, vitamin D3, (VITAMIN D3 ORAL) Take 1 tablet by mouth once daily. acetaminophen (TYLENOL) 325 mg tablet Take 650 mg by mouth every 6 hours as needed. amLODIPine (NORVASC) 5 mg tablet Take 1 tablet by mouth every afternoon. (Patient not taking: Reported on 11/29/2023) No current facility-administered medications for this visit. OBJECTIVE LMP 01/07/2003 No weight on file for this encounter. Physical Exam Lymphadenopathy: Upper Body: Right upper body: No supraclavicular or axillary adenopathy. Left upper body: No supraclavicular or axillary adenopathy. Lower Body: No right inguinal adenopathy. No left inguinal adenopathy. Skin: Comments: Well healed WLE scar with no nodularity or pigmentation concerning for recurrence ASSESSMENT AND PLAN Plan 73-year-old woman with stage IIC melanoma of the back. Patient is currently on adjuvant immunotherapy with no evidence of disease. I discussed with patient her ongoing surveillance. She will continue to follow-up with medical oncology as scheduled. She will follow-up with surgical oncology and 3 months. I spent a total of 20 minutes on the date of the service which included preparing to see the patient, completing clinical documentation, performin (more content not included)... [facility] 11-29-2023 History of Presen t illness Narrative Images from the original note were not included. Remi Aguilar M.D. Surgical Oncology [address] [facility], [address] [place] [address] SUBJECTIVE HPI Zoila Membreno is a 73 year old female presenting for follow-up of a stage IIC melanoma of the back. Patient reports that since her last visit she has started adjuvant immunotherapy. She is doing relatively well. She did have some episodes of double vision for which an MRI brain was performed and was negative. She reports that this is resolved at this time. She does continue to have some fatigue as well. She notes no other significant changes to her medical history since her last visit and no new or worsening symptoms. She reports no other concerning skin lesions or lymphadenopathy. Review of Systems Constitutional: Negative for malaise/fatigue [...] Date PAST SURGICAL HISTORY OF Right arm PAST SURGICAL HISTORY OF 07/28/2023 Back Lesion Excision PAST SURGICAL HISTORY OF Meniscus Repair REVJ TOT KNEE ARTHRP FEM&ENTIRE TIBIAL COMPONE Knee replacement PARTIAL LEFT 2004 [...] Heart Disease Mother Dementia Mother Heart Father The ROS, medical, surgical, family, and social history were reviewed by Remi Aguilar MD ALLERGIES No Known Allergies Current Outpatient Medications Medication Sig losartan (COZAAR) 50 mg tablet Take 50 mg by mouth once daily. mirtazapine (REMERON) 15 mg tablet Take 15 mg by mouth daily at bedtime. iv contrast (will be provided with radiology [...] Contrast as designated per enteric contrast guidelines cholecalciferol, vitamin D3, (VITAMIN D3 ORAL) Take 1 tablet by mouth once daily. acetaminophen (TYLENOL) 325 mg tablet Take 650 mg by mouth every 6 hours as needed. amLODIPine (NORVASC) 5 mg tablet Take 1 tablet by mouth every afternoon. (Patient not taking: Reported on 11/29/2023) No current facility-administered medications for this visit. OBJECTIVE LMP 01/07/2003 No weight on file for this encounter. Physical Exam Lymphadenopathy: Upper Body: Right upper body: No supraclavicular or axillary adenopathy. Left upper body: No supraclavicular or axillary adenopathy. Lower Body: No right inguinal adenopathy. No left inguinal adenopathy. Skin: Comments: Well healed WLE scar with no nodularity or pigmentation concerning for recurrence ASSESSMENT AND PLAN Plan 73-year-old woman with stage IIC melanoma of the back. Patient is currently on adjuvant immunotherapy with no evidence of disease. I discussed with patient her ongoing surveillance. She will continue to follow-up with medical oncology as scheduled. She will follow-up with surgical oncology and 3 months. I spent a total of 20 minutes on the date of the service which included preparing to see the patient, completing clinical documentation, performing a medically appropriate examination, and counseling and educating the patient/family/caregiver. Remi Aguilar MD 11/29/2023 1:06 PM documented in this encounter [facility] 11-17-2023 History of Presen t illness Narrative (Elements copied from my note dated October 04, 2023, have been reviewed and updated where appropriate, and all reflect current assessment and medical decision making from today's encounter, November 17, 2023) HISTORY OF PRESENT ILLNESS: Zoila Membreno is a 73 year old female mole on back, started to itch and bleed. Saw Dr De Leon biopsy showed melanoma. Wide excision and SLNB done 07-28-23 showed pT4bN0 cancer Feels ok, on ROS mentioned some double vision. Here for follow up, prior cycle 2 pembrolizumab. Tolerated cycle 1 well, no diarrhea, dyspnea or rash Double vision better, CT chest showed some right lung nodules, imaging reviewed. CLINICAL IMPRESSION: Melanoma stage IIC RECOMMENDATION/PLAN: 1. Adjuvant pembrolizumab 1 year 2. MRI brain in [address] chest November to follow up lung nodules Written and verbal health teaching given to patient, patient verbalizes understanding and agrees with treatment plan. PAST MEDICAL HISTORY Diagnosis Date Abnormal mammogram, unspecified left breast 2006 STEREOTACTIC Malignant melanoma (HCC) 06/12/2023 PONV (postoperative nausea and vomiting) PAST SURGICAL HISTORY Procedure Laterality Date PAST SURGICAL HISTORY OF Right arm PAST SURGICAL HISTORY OF 07/28/2023 Back Lesion Excision PAST SURGICAL HISTORY OF Meniscus Repair REVJ TOT KNEE ARTHRP FEM&ENTIRE TIBIAL COMPONE Knee replacement PARTIAL LEFT 2004 [...] ALLERGIES No Known Allergies CURRENT OUTPATIENT MEDICATIONS: losartan (COZAAR) 50 mg tablet Take 50 mg by mouth once daily. cholecalciferol, vitamin D3, (VITAMIN D3 ORAL) Take 1 tablet by mouth once daily. acetaminophen (TYLENOL) 325 mg tablet Take 650 mg by mouth every 6 hours as needed. amLODIPine (NORVASC) 5 mg tablet Take 1 tablet by mouth every afternoon. mirtazapine (REMERON) 15 mg tablet Take 15 mg by mouth daily at bedtime. iv contrast (will be provided with radiology [...] than HPI. PHYSICAL EXAMINATION: VITAL SIGNS: BP 129/68 Pulse 80 Temp (Src) 97.9 (Temporal) Wt 172 lb 8 oz (78.2kg) SpO2 96% LMP 01/07/2003 GENERAL APPEARANCE: Well appearing, in no acute distress, alert and oriented x3, well-hydrated, well nourished. LUNGS: CTA HEART: Reg I spent a total of 30 minutes on the date of the service which included preparing to see the patient, [id number] patient care, completing clinical documentation, obtaining and/or reviewing separately obtained history, counseling and educating the patient/family/caregiver, ordering medications, tests, or procedures, communicating with other HCPs (not separately reported), independently interpreting results (not separately reported), communicating results to the patient/family/caregiver, and care coordination (not separately reported). Electronically Signed: Sd Saldaña MD November 17, 2023 documented in this encounter [facility] 10-31-2023 Miscellaneous Notes Called and got this macario first available [facility] unable They said call back after Needs to see in October [facility] documented in this encounter [facility] 10-30-2023 History of Presen t illness Narrative Labs reviewed with Susan Oconnor CNP regarding thyroid studies. States to watch for now with the thyroid. Education with patient regarding labs. Verbalized understanding and agrees with the plan. Katie Moon RN documented in this encounter [facility] 10-26-2023 History of Presen t illness Narrative Zoila Membreno 1950 10/26/2023 HISTORY OF PRESENT ILLNESS: Zoila Membreno is a 73 year old female mole on back, started to itch and bleed. Saw Dr De Leon biopsy showed melanoma. Wide excision and SLNB done 07-28-23 showed pT4bN0 cancer Feels ok, on ROS mentioned some double vision. Here for follow up, prior cycle 2 pembrolizumab. Tolerated cycle 1 well, no diarrhea, dyspnea or rash Double vision better, CT chest showed some right lung nodules, imaging reviewed. Interval History: Ms. Membreno presents today with her friend prior to C3 of pembro. She reports that she is doing well overall. Notes some increased fatigue, especially the day following treatment. 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 Some ankle edema, see telephone encounter. Somewhat improved today. She is follow up with PCP for this. Denies new aches or pains. No SOB, CP, or palpitations. No SERNA, dizziness, or changes in vision. Denies N/V/C/D. No changes in bowel or bladder habits. No rash or skin changes. Denies bleeding or bruising. No new lumps or bumps. Denies neuro symptoms. Discussed establishing with dermatology. CMP pending today. PAST MEDICAL HISTORY Diagnosis Date Abnormal mammogram, unspecified left breast 2006 STEREOTACTIC Malignant melanoma (HCC) 06/12/2023 PONV (postoperative nausea and vomiting) PAST SURGICAL HISTORY Procedure Laterality Date PAST SURGICAL HISTORY OF Right arm PAST SURGICAL HISTORY OF 07/28/2023 Back Lesion Excision PAST SURGICAL HISTORY OF Meniscus Repair REVJ TOT KNEE ARTHRP FEM&ENTIRE TIBIAL COMPONE [...] ALLERGIES No Known Allergies CURRENT OUTPATIENT MEDICATIONS: amLODIPine (NORVASC) 5 mg tablet Take 1 tablet by mouth every afternoon. mirtazapine (REMERON) 15 mg tablet Take 15 mg by mouth daily at bedtime. iv contrast (will be provided with radiology [...] Contrast as designated per enteric contrast guidelines cholecalciferol, vitamin D3, (VITAMIN D3 ORAL) Take 1 tablet by mouth once daily. acetaminophen (TYLENOL) 325 mg tablet Take 650 mg by mouth every 6 hours as needed. 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 However, given history, short-term follow-up exam is recommended to document stability. Otherwise, no abnormal intracranial enhancement to indicate metastasis. Chronic changes as described. REVIEW OF SYSTEMS: GENERAL: No fever, night sweats, weight loss or malaise. All other reviewed and negative other than HPI. All systems reviewed on 10/26/2023 with pertinent positives and negatives as outlined in the interval history. PHYSICAL EXAMINATION: VITAL SIGNS: LMP 01/07/2003 Pain Intensity: 0/10 GENERAL APPEARANCE: Well appearing, in no acute distress, alert and oriented x3, well-hydrated, well nourished. HEENT: Normocephalic, no sclera icterus, external ears normal Neck: Supple, no JVD. Chest: Clear bilaterally, no wheezes, not labored. Heart: Normal S1 and S2, no abnormal sounds Abdomen: Soft, nontender, nondistended Extremities: trace ankle edema. Neurological: Grossly intact Skin: Warm and dry with no rashes or ulcerations. Hematologic: no bruising or petechiae. Psychiatric: Alert and oriented x3. Emotional well-being assessment was performed. Pt denies depression, distress, and or problems with coping or adjustment. I have performed the physical exam today (10/26/2023) and have edited the note to correlate with current findings. LABS: Pending CLINICAL IMPRESSION: Melanoma stage IIC RECOMMENDATION/PLAN: 1. Adjuvant pembrolizumab 1 year, continue with treatment pending labs 2. CT chest November to follow up lung nodules 3. MRI brain, rec short term follow up for stability 4. Follow up with Dr. Aguilar in October 5. Establish with derm Written and verbal health teaching given to patient, patient verbalizes understanding and agrees with treatment plan. Susan Oconnor APRN.OFFICE RUNNER I spent >30 minutes in the visit, with more than 50% of the total [id number] time of the visit in counseling / coordination of care. Portions of this note including HPI, ROS, impression/plan may have been copied forward as to provide important historical information essential in contributing to medical decision making. Documentation has been reviewed and edited as necessary to support clinical decision making for today's visit and to reflect my own independent evaluation of this patient. documented in this encounter [facility] 10-20-2023 Miscellaneous Notes Care Coordination Triage Note [facility] Situation: Patient reports Other bilateral lower leg swelling Background: Melanoma stage IIC on keytruda Lung nodules- follow-up CT in November to reassess Assessment: When did you first notice the edema or swelling? X 3 days, yesterday increased and is uncomfortable Where is the swelling located? Bilateral ankles and feet, R>L Do you have any pain, tenderness, fever, redness, warmth associated with the swelling? "Uncomfortable" does not feel its "pain". Denies fever, chills, redness or the skin being warm to touch. Any shortness of breath? no Have you had any recent injury or trauma to the affected area? no Any recent surgery or travel? Melanoma surgery on 07/28/23, wide excision of melanoma on her back, sentinel node biopsy left axilla. Recommendations: Per RNCC, patient directed to: follow-up with PCP today as scheduled. Patient contacted her PCP today and gave them an update on her swelling; they scheduled her for an OV this afternoon. Patient is scheduled for an OV next with Susan. Will provide her with an update. Victoria Moss RN October 20, 2023 8:47 AM documented in this encounter [facility] 10-11-2023 History of Presen t illness Narrative Radiology Service Progress Note DATE OF SERVICE: October 11, 2023 TIME: 12:52 PM PATIENT IDENTITY VERIFICATION COMPLETED USING TWO (2) STANDARD IDENTIFIERS: Name and Date of confirmed by patient verbally. FALL SCREENING: Has the patient had 2 falls in the last year or 1 fall with injury or currently using an Ambulatory Assistive Device (Walker, Cane, Wheelchair, Crutches, etc.)? No PATIENT GENDER DATA: Female. status: : No status: NO. PATIENT RELEVANT IMPLANT DATA REVIEWED: Yes PATIENT PRESENTS WITH AN IMPLANTABLE OR ATTACHED AIR BAG STRIPPER: No ALLERGIES: Reviewed and unchanged CONTRAST ALLERGY: NO. EXAM: MRI - CONTRAST TYPE: GROUP II PERIPHERAL IV DATA: Ambulatory: A peripheral IV was started in the Left antecubital site with a Angio cath: 22 gauge. RADIOLOGY DEPARTMENT: MR; Exam(s) Completed: Head: Routine Brain SIGNATURE: RT German(R) PATIENT NAME: Zoila Membreno DATE: October 11, 2023 TIME: 12:52 PM documented in this encounter [facility] 10-04-2023 History of Presen t illness Narrative (Elements copied from my note dated August 23, 2023, have been reviewed and updated where appropriate, and all reflect current assessment and medical decision making from today's encounter, October 04, 2023) HISTORY OF PRESENT ILLNESS: Zoila Membreno is a 73 year old female mole on back, started to itch and bleed. Saw Dr De Leon biopsy showed melanoma. Wide excision and SLNB done 07-28-23 showed pT4bN0 cancer Feels ok, on ROS mentioned some double vision. Here for follow up, prior cycle 2 pembrolizumab. Tolerated cycle 1 well, no diarrhea, dyspnea or rash Double vision better, CT chest showed some right lung nodules, imaging reviewed. CLINICAL IMPRESSION: Melanoma stage IIC RECOMMENDATION/PLAN: 1. Adjuvant pembrolizumab 1 year 2. MRI brain 3. CT chest November to follow up lung nodules Written and verbal health teaching given to patient, patient verbalizes understanding and agrees with treatment plan. PAST MEDICAL HISTORY Diagnosis Date Abnormal mammogram, unspecified left breast 2006 STEREOTACTIC Malignant melanoma (HCC) 06/12/2023 PONV (postoperative nausea and vomiting) PAST SURGICAL HISTORY Procedure Laterality Date PAST SURGICAL HISTORY OF Right arm PAST SURGICAL HISTORY OF 07/28/2023 Back Lesion Excision PAST SURGICAL HISTORY OF Meniscus Repair REVJ TOT KNEE ARTHRP FEM&ENTIRE TIBIAL COMPONE Knee replacement PARTIAL LEFT 2004 [...] ALLERGIES No Known Allergies CURRENT OUTPATIENT MEDICATIONS: amLODIPine (NORVASC) 5 mg tablet Take 1 tablet by mouth every afternoon. mirtazapine (REMERON) 15 mg tablet Take 15 mg by mouth daily at bedtime. cholecalciferol, vitamin D3, (VITAMIN D3 ORAL) Take [...] than HPI. PHYSICAL EXAMINATION: VITAL SIGNS: BP 145/91 Pulse 85 Temp 98.6 Ht 5' 1.122" (1.55m) Wt 171 lb (77.6kg) SpO2 97% LMP 01/07/2003 BMI 32.20 kg/(m^2). GENERAL APPEARANCE: Well appearing, in no acute distress, alert and oriented x3, well-hydrated, well nourished. LUNGS: CTA HEART: Reg I spent a total of 30 minutes on the date of the service which included preparing to see the patient, [id number] patient care, completing clinical documentation, obtaining and/or reviewing separately obtained history, counseling and educating the patient/family/caregiver, ordering medications, tests, or procedures, communicating with other HCPs (not separately reported), independently interpreting results (not separately reported), communicating results to the patient/family/caregiver, and care coordination (not separately reported). Electronically Signed: Sd Saldaña MD October 04, 2023 documented in this encounter [facility] 09-28-2023 Miscellaneous Notes TOXICITY CHECK SYMPTOM ASSESSMENT The patient is on Keytruda Spoke with patient, "today is a good day"; "Monday was not a good day, it was an off day and I was really tired". Patient states she took that day as a rest day and much better the rest of the week. Headache: No Visual Changes: No Dizziness: No Do you have any periods of confusion? No Mood changes: No Mouth or throat pain: No Appetite: no changes in appetite, appetite good Taste changes: No Nausea: No Vomiting: No Heartburn: No. Weight gain/loss: No Episodes of palpitations/chest discomfort/pressure/pain No Shortness of breath: No Cough: No Diarrhea: no Constipation: no Bladder/Urinary Changes: None Pain: No=0 (pain 0 on a scale of 0-10). Fever: No Chills: No Cold sensitivity: No Numbness/weakness: No Edema: No Skin changes: No Itching: No Yellowing of skin or eyes: No Musculoskeletal/joint changes/issues No Bleeding issues: No Activity Level (0-100%): decreased at times Do you need to take naps? No Does the patient need interventions or same day appointment:No Reinforced CURRENT treatment education based on current and anticipated symptoms. Discussed port/line care and patient verbalizes understanding: Not Applicable Patient instructed to contact office or after hours Hematology/Oncology fellow for: temperature ? 100.4; questions or concerns. Patient verbalized understanding of when to seek medical attention and after hours number protocol. Becky Gastelum RN documented in this encounter [facility] 08-07-2023 Note HNO ID: [id number] Author: Valente Garcia PA-C Service: ? Author Type: Physician Student Records Coordinator Type: Progress Notes Filed: 08/07/2023 2:33 PM Note Text: Valente Garcia PA-C [facility] and Surgical Oncology [address] [facility], [place] [id number] RUBY Membreno is a 72 year old female here for a post op visit. The patient is 10 days s/p wide local excision and sentinel lymph node biopsy. She is keeping her back incision covered with gauze, minimal output noted on gauze. No swelling noted at axillary incision. No fever/chills. The ROS, medical, surgical, family, and social history were reviewed by Valente Garcia PA-C OBJECTIVE BP 158/96 Pulse 68 Ht 162.6 cm (5' 4") LMP 01/07/2003 SpO2 98% BMI 27.47 kg/m? [...] and she is agreeable with the plan. Valente Garcia PA-C 08/07/2023 1:[address] [facility] 08-07-2023 History of Presen t illness Narrative Images from the original note were not included. Valente Garcia PA-C [facility] Surgical Oncology [address] [facility], [place] [id number] RUBY Membreno is a 72 year old female here for a post op visit. The patient is 10 days s/p wide local excision and sentinel lymph node biopsy. She is keeping her back incision covered with gauze, minimal output noted on gauze. No swelling noted at axillary incision. No fever/chills. The ROS, medical, surgical, family, and social history were reviewed by Valente Garcia PA-C OBJECTIVE BP 158/96 Pulse 68 Ht 162.6 cm (5' 4") LMP 01/07/2003 SpO2 98% BMI 27.47 kg/m [...] and she is agreeable with the plan. Valente Garcia PA-C 08/07/2023 1:42 PM documented in this encounter [facility] 07-28-2023 Note HNO ID: [id number] Author: Josh Garland RN Service: Nursing Author Type: Registered Nurse Type: Nursing Progress Note Filed: 07/28/2023 7:04 PM Note Text: Patient complaining of chest pressure 2/10. Dr. Kumari notified. Stat EKG ordered [facility] 07-28-2023 Nurse Note Patient complaining of chest pressure 2/10. Dr. Kumari notified. Stat EKG ordered documented in this encounter [facility] 07-28-2023 Note HNO ID: [id number] Author: Keily Fitzgerald APRN.NAVAL AIRCREWMAN OPERATOR Service: Anesthesiology Author Type: Nurse Building Drafting Officer Type: Anesthesia Procedure Notes Filed: 07/28/2023 3:28 PM Note Text: ANESTHESIOLOGY PROCEDURE NOTE Airway General Information Procedure Start Time/Medication Administration: 07/28/2023 3:02 PM Patient location during procedure: OR Timeout Performed Pre-procedure: timeout performed Consent Obtained: Yes Patient identity confirmed: arm band and patient Staffing Anesthesiologist: Page Vargas MD NAVAL AIRCREWMAN OPERATOR: Keily Fitzgerald APRN.NAVAL AIRCREWMAN OPERATOR SRNA: Danay Craven SRNA Performed by: anesthesiologist, HAYLEE and NAVAL AIRCREWMAN OPERATOR Indications and Patient Condition Indications for airway [...] difficult SIGNATURE: Keily Fitzgerald APRN.CRNA PATIENT NAME: Zoila Membreno DATE: July 28, 2023 TIME: 3:27 PM CSN: [id number] [facility] 07-28-2023 History and physical note Images from the original note were not included. Remi Aguilar M.D. Surgical Oncology [address] [facility], [address] [place] [address] SUBJECTIVE HPI Zoila Membreno is a 72 year old female [...] family, and social history were reviewed by Remi Aguilar MD ALLERGIES ALLERGIES No Known Allergies CURRENT [...] the left axilla. documented in this encounter [facility] 06-23-2023 Miscellaneous Notes Called and spoke with Patient, she has been informed of surgery date and time. documented in this encounter [facility] 06-12-2023 History of Presen t illness Narrative Images from the original note were not included. Remi Aguilar M.D. Surgical Oncology [address] [place] [address], [address] [place] [address] SUBJECTIVE HPI Zoila Membreno is a 72 year old female [...] Diagnosis Date Abnormal mammogram, unspecified left breast 2007 STEREOTACTIC PAST SURGICAL HISTORY Procedure Laterality Date [...] family, and social history were reviewed by Remi Aguilar MD ALLERGIES No Known Allergies Current Outpatient [...] examination, and counseling and educating the patient/family/caregiver. Remi Aguilar MD 06/12/2023 1:46 PM documented in this encounter [facility] 06-08-2023 History of Presen t illness Narrative Subjective: Patient status post a punch biopsy to an atypical skin lesion to her back. Pathology report came back consistent with malignant melanoma. Objective:Blood pressure 136/84, pulse 90, temperature 36.5 C (97.7 F), height 162.6 cm (5' 4"), weight 72.6 kg (160 lb), last menstrual period 01/07/2003, SpO2 97 %. Suture was removed. No signs of infection. Assessment:Malignant melanoma of skin of trunk, except scrotum (hcc) (primary encounter diagnosis) I have referrals out to oncology for the patient. If patient needs a port she can follow-up with me and I will place this. 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)- Primary Lymphedema Other lymphedema [facility] Diagnosis Malignant melanoma of torso excluding breast (HCC)- Primary Lymphedema Other lymphedema Malignant melanoma of torso excluding breast (HCC) Lymphedema Other lymphedema [facility] Diagnosis Malignant melanoma of torso excluding breast (HCC) Lymphedema Other lymphedema [facility] Diagnosis Malignant melanoma of torso excluding breast (HCC)- Primary [facility] noteNo assessment information availableW[facility] Phone: Evaluation note* Diagnosis Lung nodules- Primary Other nonspecific abnormal finding of lung field [facility] Diagnosis Malignant melanoma of torso excluding breast (HCC)- Primary [facility] Diagnosis Malignant melanoma of skin (HCC) Melanoma of skin, site unspecified [facility] Diagnosis Malignant melanoma of torso excluding breast (HCC)- Primary Lung nodules Other nonspecific abnormal finding of lung field [facility] Diagnosis Malignant melanoma of torso excluding breast (HCC)- Primary [facility]* Diagnosis Malignant melanoma of torso excluding breast (HCC)- Primary [facility] Diagnosis Malignant melanoma of torso excluding breast (HCC)- Primary [facility] Diagnosis Lung nodules Other nonspecific abnormal finding of lung field [facility] Diagnosis 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 [facility] Diagnosis Malignant melanoma of torso excluding breast (HCC)- Primary [facility] Diagnosis Malignant melanoma of torso excluding breast (HCC)- Primary documented in this encounter [facility] note* Diagnosis Bilateral leg edema- Primary Edema Malignant melanoma of torso excluding breast (HCC) documented in this encounter [facility] note* Diagnosis Malignant melanoma of torso excluding breast (HCC)- Primary documented in this encounter [facility] note* Diagnosis Malignant melanoma of torso excluding breast (HCC)- Primary documented in this encounter [facility] note* Diagnosis Malignant melanoma of torso excluding breast (HCC)- Primary Hypothyroidism due to medication documented in this encounter [facility] note* Diagnosis Malignant melanoma of torso excluding breast (HCC)- Primary documented in this encounter [facility] note* Diagnosis Malignant melanoma of torso excluding breast (HCC)- Primary Acquired hypothyroidism Unspecified hypothyroidism documented in this encounter [facility] note* Diagnosis Malignant melanoma of torso excluding breast (HCC)- Primary Acquired hypothyroidism Unspecified hypothyroidism documented in this encounter [facility] note* Diagnosis Malignant melanoma of torso excluding breast (HCC)- Primary documented in this encounter [facility] note* Diagnosis Malignant melanoma of torso excluding breast (HCC)- Primary documented in this encounter [facility] note* Diagnosis Malignant melanoma of skin (HCC)- Primary Melanoma of skin, site unspecified documented in this encounter [facility] note* Diagnosis Malignant melanoma of skin (HCC)- Primary Melanoma of skin, site unspecified Acquired hypothyroidism Unspecified hypothyroidism Hypoadrenalism (HCC) Glucocorticoid deficiency documented in this encounter [facility] note* Diagnosis Malignant melanoma of skin (HCC) Melanoma of skin, site unspecified documented in this encounter [facility] note* Diagnosis Malignant melanoma of skin (HCC)- Primary Melanoma of skin, site unspecified documented in this encounter [facility] note* Diagnosis Malignant melanoma of skin (HCC)- Primary Melanoma of skin, site unspecified Malignant melanoma of torso excluding breast (HCC) documented in this encounter [facility] for referral (narrative)* Diagnostic Procedure Only (Routine) - Pending Review Specialty Diagnoses / Procedures Referred By Letty ding Referred To Contact MOLECULAR & FUNCTIONAL IMAGING Diagnoses Lymphedema Procedures NM LYMPH NODE IMAGING LYMPHATICS & LYMPH NODES IMAGING Remi Aguilar MD [address] [place] [address] Molecular & Functional Imaging [address] [place] [id number] Referral ID Status Reason Start Date Expiration Date Visits Requested Visits Authorized [id number] Pending Review Auto-Generat ed Referral 07/11/2024 1 1 [facility] for referral (narrative)* Outpatient Procedure (Urgent) - Authorized Specialty Diagnoses / Procedures Referred By Letty ding Referred To Contact [facility]ULAR DANTE Diagnoses Bilateral leg edema Procedures US LEG VEIN DVT JASEN VAS LAB DUP-SCAN XTR VEINS COMPLETE [place]ATER[place] Sd [place] [address] [place] [id number] [facility] [place] [address] [place] [address] Referral ID Status Reason Start Date Expiration Date Visits Requested Visits Authorized [id number] Authorized Auto-Generat ed Referral 01/19/2024 01/18/2025 1 1 [facility] for visit Narrative* MRI/CT (Routine) - Closed Specialty Diagnoses / Procedures Referred By Letty ding Referred To Contact CT IMAGING Diagnoses Malignant melanoma of skin (HCC) Procedures CT CHEST W IVCON DIAGNOSTIC COMPUTED TOMOGRAPHY THORAX W/[place] Sd [place]ña [place] [address] [place] [address] Phone: tel: fax: CT IMAGING [place] [id number] Referral ID Status Reason Start Date Expiration Date V isits Requested Visits Authorized [id number] Closed Auto-Generate d Referral 07/05/2024 08/04/2025 1 1 [facility] Medications Administered Section Inactive Administered Medications - [...] FoundDocuments on File Type Date Recorded Patient Manager Home Healthcare Expl anation Advance Directive(s) 07/28/2023 8:17 AM Advance Directive Response Recorded Date/ Time Living Will No August 14 10:41am Power of Assistant Professor Of Life Sciences No August 14, 2015 10:41am Documents on File Type Date Recorded Patient Manager Home Healthcare Expl anation Advance Directive(s) 07/28/2023 8:17 AM Summary Purpose Family History No Family History Records FoundNo Family History Records FoundNo Family History Records Found Reason for Referral Specialty Diagnoses / Procedures Referred By Letty ding Referred To Contact CT IMAGING Diagnoses Lung nodules Procedures CT CHEST WO IVCON DIAGNOSTIC COMPUTED TOMOGRAPHY THORAX W/[place]TRST Sd [place]ña [place] [address] [place] [address] Ct Imaging [facility] Referral ID Status Reason Start Date Expiration Date Visits Requested Visits Authorized [id number] Pending Review Auto-Generat ed Referral 12/06/2023 11/02/2024 1 1 Specialty Diagnoses / Procedures Referred By Letty ding Referred To Contact MR IMAGING Diagnoses Malignant melanoma of skin (HCC) Procedures MRI BRAIN WO/W IVCON MRI BRAIN BRAIN STEM W/O W/[place] S[place] [address] [place] [address] Mr Imaging [facility] Referral ID Status Reason Start Date Expiration Date V isits Requested Visits Authorized [id number] Closed Auto-Generate d Referral 08/23/2023 09/21/2024 1 1 Specialty Diagnoses / Procedures Referred By Letty ding Referred To Contact Endocrinology Diagnoses Hypothyroidism due to medication Procedures CONSULT TO ENDOCRINOLOGY OFFICE/OUTPATIENT NEW HIGH MDM 60 MINUTES Susan Oconnor [address] [place] [address] Referral ID Status Reason Start Date Expiration Date Visits Requested Visits Authorized [id number] Authorized PCP Requested Referral 12/18/2023 12/17/2024 1 1 Specialty Diagnoses / Procedures Referred By Contac t Referred To Contact CT IMAGING Diagnoses Malignant melanoma of skin (HCC) Procedures CT CHEST W IVCON DIAGNOSTIC COMPUTED TOMOGRAPHY THORAX W/[place] [address] [place] [address] Ct Imaging [id number] Referral ID Status Reason Start Date Expiration Date Visits Requested Visits Authorized [id number] Authorized Auto-Generat ed Referral 07/05/2024 08/04/2025 1 1 Specialty Diagnoses / Procedures Referred By Contac t Referred To Contact CT IMAGING Diagnoses Malignant melanoma of skin (HCC) Procedures CT ABD/PEL W IVCON CT ABD & PELVIS W/[place] [address] [place] [address] Ct Imaging [id number] Referral ID Status Reason Start Date Expiration Date Visits Requested Visits Authorized [id number] Authorized Auto-Generat ed Referral 07/05/2024 08/04/2025 1 1 Additional Source Comments Source Comments (unrecognize d section and content) In the event this informatio n is protected by the Federal Confidentiality of Alcohol and Drug Abuse Patient Records regulations: The Federal rules restrict any use of the information to criminally investigate or prosecute any alcohol or drug abuse patient.[facility] HospitalIn the event this information is protected by the Federal Confidentiality of Alcohol and Drug Abuse Patient Records regulations: The Federal rules restrict any use of the information to criminally investigate or prosecute any alcohol or drug abuse patient.[facility] HospitalIn the event this information is protected by the Federal Confidentiality of Alcohol and Drug Abuse Patient Records regulations: The Federal rules restrict any use of the information to criminally investigate or prosecute any alcohol or drug abuse patient.[facility] HospitalIn the event this information is protected by the Federal Confidentiality of Alcohol and Drug Abuse Patient Records regulations: The Federal rules restrict any use of the information to criminally investigate or prosecute any alcohol or drug abuse patient.[facility] HospitalIn the event this information is protected by the Federal Confidentiality of Alcohol and Drug Abuse Patient Records regulations: The Federal rules restrict any use of the information to criminally investigate or prosecute any alcohol or drug abuse patient.[facility] HospitalIn the event this information is protected by the Federal Confidentiality of Alcohol and Drug Abuse Patient Records regulations: The Federal rules restrict any use of the information to criminally investigate or prosecute any alcohol or drug abuse patient.[facility] HospitalIn the event this information is protected by the Federal Confidentiality of Alcohol and Drug Abuse Patient Records regulations: The Federal rules restrict any use of the information to criminally investigate or prosecute any alcohol or drug abuse patient.[facility] HospitalIn the event this information is protected by the Federal Confidentiality of Alcohol and Drug Abuse Patient Records regulations: The Federal rules restrict any use of the information to criminally investigate or prosecute any alcohol or drug abuse patient.[facility] HospitalIn the event this information is protected by the Federal Confidentiality of Alcohol and Drug Abuse Patient Records regulations: The Federal rules restrict any use of the information to criminally investigate or prosecute any alcohol or drug abuse patient.[facility] HospitalIn the event this information is protected by the Federal Confidentiality of Alcohol and Drug Abuse Patient Records regulations: The Federal rules restrict any use of the information to criminally investigate or prosecute any alcohol or drug abuse patient.[facility] HospitalIn the event this information is protected by the Federal Confidentiality of Alcohol and Drug Abuse Patient Records regulations: The Federal rules restrict any use of the information to criminally investigate or prosecute any alcohol or drug abuse patient.[facility] HospitalIn the event this information is protected by the Federal Confidentiality of Alcohol and Drug Abuse Patient Records regulations: The Federal rules restrict any use of the information to criminally investigate or prosecute any alcohol or drug abuse patient.[facility] HospitalIn the event this information is protected by the Federal Confidentiality of Alcohol and Drug Abuse Patient Records regulations: The Federal rules restrict any use of the information to criminally investigate or prosecute any alcohol or drug abuse patient.[facility] HospitalIn the event this information is protected by the Federal Confidentiality of Alcohol and Drug Abuse Patient Records regulations: The Federal rules restrict any use of the information to criminally investigate or prosecute any alcohol or drug abuse patient.[facility] HospitalIn the event this information is protected by the Federal Confidentiality of Alcohol and Drug Abuse Patient Records regulations: The Federal rules restrict any use of the information to criminally investigate or prosecute any alcohol or drug abuse patient.[facility] HospitalIn the event this information is protected by the Federal Confidentiality of Alcohol and Drug Abuse Patient Records regulations: The Federal rules restrict any use of the information to criminally investigate or prosecute any alcohol or drug abuse patient.[facility] HospitalIn the event this information is protected by the Federal Confidentiality of Alcohol and Drug Abuse Patient Records regulations: The Federal rules restrict any use of the information to criminally investigate or prosecute any alcohol or drug abuse patient.[facility] HospitalIn the event this information is protected by the Federal Confidentiality of Alcohol and Drug Abuse Patient Records regulations: The Federal rules restrict any use of the information to criminally investigate or prosecute any alcohol or drug abuse patient.[facility] HospitalIn the event this information is protected by the Federal Confidentiality of Alcohol and Drug Abuse Patient Records regulations: The Federal rules restrict any use of the information to criminally investigate or prosecute any alcohol or drug abuse patient.[facility] HospitalIn the event this information is protected by the Federal Confidentiality of Alcohol and Drug Abuse Patient Records regulations: The Federal rules restrict any use of the information to criminally investigate or prosecute any alcohol or drug abuse patient.[facility] HospitalIn the event this information is protected by the Federal Confidentiality of Alcohol and Drug Abuse Patient Records regulations: The Federal rules restrict any use of the information to criminally investigate or prosecute any alcohol or drug abuse patient.[facility] HospitalIn the event this information is protected by the Federal Confidentiality of Alcohol and Drug Abuse Patient Records regulations: The Federal rules restrict any use of the information to criminally investigate or prosecute any alcohol or drug abuse patient.[facility] HospitalIn the event this information is protected by the Federal Confidentiality of Alcohol and Drug Abuse Patient Records regulations: The Federal rules restrict any use of the information to criminally investigate or prosecute any alcohol or drug abuse patient.[facility] HospitalIn the event this information is protected by the Federal Confidentiality of Alcohol and Drug Abuse Patient Records regulations: The Federal rules restrict any use of the information to criminally investigate or prosecute any alcohol or drug abuse patient.[facility] HospitalIn the event this information is protected by the Federal Confidentiality of Alcohol and Drug Abuse Patient Records regulations: The Federal rules restrict any use of the information to criminally investigate or prosecute any alcohol or drug abuse patient.[facility] HospitalIn the event this information is protected by the Federal Confidentiality of Alcohol and Drug Abuse Patient Records regulations: The Federal rules restrict any use of the information to criminally investigate or prosecute any alcohol or drug abuse patient.[facility] HospitalIn the event this information is protected by the Federal Confidentiality of Alcohol and Drug Abuse Patient Records regulations: The Federal rules restrict any use of the information to criminally investigate or prosecute any alcohol or drug abuse patient.[facility] HospitalIn the event this information is protected by the Federal Confidentiality of Alcohol and Drug Abuse Patient Records regulations: The Federal rules restrict any use of the information to criminally investigate or prosecute any alcohol or drug abuse patient.[facility] HospitalIn the event this information is protected by the Federal Confidentiality of Alcohol and Drug Abuse Patient Records regulations: The Federal rules restrict any use of the information to criminally investigate or prosecute any alcohol or drug abuse patient.[facility] HospitalIn the event this information is protected by the Federal Confidentiality of Alcohol and Drug Abuse Patient Records regulations: The Federal rules restrict any use of the information to criminally investigate or prosecute any alcohol or drug abuse patient.[facility] HospitalIn the event this information is protected by the Federal Confidentiality of Alcohol and Drug Abuse Patient Records regulations: The Federal rules restrict any use of the information to criminally investigate or prosecute any alcohol or drug abuse patient.[facility] HospitalIn the event this information is protected by the Federal Confidentiality of Alcohol and Drug Abuse Patient Records regulations: The Federal rules restrict any use of the information to criminally investigate or prosecute any alcohol or drug abuse patient.[facility] HospitalIn the event this information is protected by the Federal Confidentiality of Alcohol and Drug Abuse Patient Records regulations: The Federal rules restrict any use of the information to criminally investigate or prosecute any alcohol or drug abuse patient.[facility] HospitalIn the event this information is protected by the Federal Confidentiality of Alcohol and Drug Abuse Patient Records regulations: The Federal rules restrict any use of the information to criminally investigate or prosecute any alcohol or drug abuse patient.[facility] HospitalIn the event this information is protected by the Federal Confidentiality of Alcohol and Drug Abuse Patient Records regulations: The Federal rules restrict any use of the information to criminally investigate or prosecute any alcohol or drug abuse patient.[facility] HospitalIn the event this information is protected by the Federal Confidentiality of Alcohol and Drug Abuse Patient Records regulations: The Federal rules restrict any use of the information to criminally investigate or prosecute any alcohol or drug abuse patient.[facility] HospitalIn the event this information is protected by the Federal Confidentiality of Alcohol and Drug Abuse Patient Records regulations: The Federal rules restrict any use of the information to criminally investigate or prosecute any alcohol or drug abuse patient.[facility] HospitalIn the event this information is protected by the Federal Confidentiality of Alcohol and Drug Abuse Patient Records regulations: The Federal rules restrict any use of the information to criminally investigate or prosecute any alcohol or drug abuse patient.[facility] HospitalIn the event this information is protected by the Federal Confidentiality of Alcohol and Drug Abuse Patient Records regulations: The Federal rules restrict any use of the information to criminally investigate or prosecute any alcohol or drug abuse patient.[facility] HospitalIn the event this information is protected by the Federal Confidentiality of Alcohol and Drug Abuse Patient Records regulations: The Federal rules restrict any use of the information to criminally investigate or prosecute any alcohol or drug abuse patient.[facility] HospitalIn the event this information is protected by the Federal Confidentiality of Alcohol and Drug Abuse Patient Records regulations: The Federal rules restrict any use of the information to criminally investigate or prosecute any alcohol or drug abuse patient.[facility] HospitalIn the event this information is protected by the Federal Confidentiality of Alcohol and Drug Abuse Patient Records regulations: The Federal rules restrict any use of the information to criminally investigate or prosecute any alcohol or drug abuse patient.[facility] HospitalIn the event this information is protected by the Federal Confidentiality of Alcohol and Drug Abuse Patient Records regulations: The Federal rules restrict any use of the information to criminally investigate or prosecute any alcohol or drug abuse patient.[facility] HospitalIn the event this information is protected by the Federal Confidentiality of Alcohol and Drug Abuse Patient Records regulations: The Federal rules restrict any use of the information to criminally investigate or prosecute any alcohol or drug abuse patient.[facility] HospitalIn the event this information is protected by the Federal Confidentiality of Alcohol and Drug Abuse Patient Records regulations: The Federal rules restrict any use of the information to criminally investigate or prosecute any alcohol or drug abuse patient.[facility] HospitalIn the event this information is protected by the Federal Confidentiality of Alcohol and Drug Abuse Patient Records regulations: The Federal rules restrict any use of the information to criminally investigate or prosecute any alcohol or drug abuse patient.[facility] HospitalIn the event this information is protected by the Federal Confidentiality of Alcohol and Drug Abuse Patient Records regulations: The Federal rules restrict any use of the information to criminally investigate or prosecute any alcohol or drug abuse patient.[facility] HospitalIn the event this information is protected by the Federal Confidentiality of Alcohol and Drug Abuse Patient Records regulations: The Federal rules restrict any use of the information to criminally investigate or prosecute any alcohol or drug abuse patient.[facility] HospitalIn the event this information is protected by the Federal Confidentiality of Alcohol and Drug Abuse Patient Records regulations: The Federal rules restrict any use of the information to criminally investigate or prosecute any alcohol or drug abuse patient.[facility] HospitalIn the event this information is protected by the Federal Confidentiality of Alcohol and Drug Abuse Patient Records regulations: The Federal rules restrict any use of the information to criminally investigate or prosecute any alcohol or drug abuse patient.[facility] HospitalIn the event this information is protected by the Federal Confidentiality of Alcohol and Drug Abuse Patient Records regulations: The Federal rules restrict any use of the information to criminally investigate or prosecute any alcohol or drug abuse patient.[facility] HospitalIn the event this information is protected by the Federal Confidentiality of Alcohol and Drug Abuse Patient Records regulations: The Federal rules restrict any use of the information to criminally investigate or prosecute any alcohol or drug abuse patient.[facility] HospitalIn the event this information is protected by the Federal Confidentiality of Alcohol and Drug Abuse Patient Records regulations: The Federal rules restrict any use of the information to criminally investigate or prosecute any alcohol or drug abuse patient.[facility] HospitalIn the event this information is protected by the Federal Confidentiality of Alcohol and Drug Abuse Patient Records regulations: The Federal rules restrict any use of the information to criminally investigate or prosecute any alcohol or drug abuse patient.[facility] HospitalIn the event this information is protected by the Federal Confidentiality of Alcohol and Drug Abuse Patient Records regulations: The Federal rules restrict any use of the information to criminally investigate or prosecute any alcohol or drug abuse patient.[facility] HospitalIn the event this information is protected by the Federal Confidentiality of Alcohol and Drug Abuse Patient Records regulations: The Federal rules restrict any use of the information to criminally investigate or prosecute any alcohol or drug abuse patient.[facility] HospitalIn the event this information is protected by the Federal Confidentiality of Alcohol and Drug Abuse Patient Records regulations: The Federal rules restrict any use of the information to criminally investigate or prosecute any alcohol or drug abuse patient.[facility] HospitalIn the event this information is protected by the Federal Confidentiality of Alcohol and Drug Abuse Patient Records regulations: The Federal rules restrict any use of the information to criminally investigate or prosecute any alcohol or drug abuse patient.[facility] HospitalIn the event this information is protected by the Federal Confidentiality of Alcohol and Drug Abuse Patient Records regulations: The Federal rules restrict any use of the information to criminally investigate or prosecute any alcohol or drug abuse patient.[facility] HospitalIn the event this information is protected by the Federal Confidentiality of Alcohol and Drug Abuse Patient Records regulations: The Federal rules restrict any use of the information to criminally investigate or prosecute any alcohol or drug abuse patient.[facility] Reason for Visit (unrecogniz ed section and content) Reason Comments Chemotherapy Treatment Specialty Diagnoses / Procedures Referred By Contac t Referred To Contact Diagnoses Malignant melanoma of torso excluding breast (HCC) [place] [address] [address] [place] [phone] [facility] [address] [place] [address] Referral ID Status Reason Start Date Expiration Date V isits Requested Visits Authorized [id number] Authorized 08/23/2023 11/21/2023 99 99 Reason Comments Non-Chemotherapy Treatment Reason Comments Follow Up Atypical skin lesion to back, path needs reviewed Reason Comments Consult Referred by Dr.Peabo crews, Melanoma Mid Back Reason Comments Post Op Follow Up S/P WLE Melanoma Reason Comments Care Coordination Toxicity Check Reason Comments Established Patient Specialty Diagnoses / Procedures Referred By Contac t Referred To Contact MR IMAGING Diagnoses Malignant melanoma of skin (HCC) Procedures MRI BRAIN WO/W IVCON MRI BRAIN BRAIN STEM W/O W/[place] Sd [place] [address] [address] [phone] Mr Imaging [place] [address] Referral ID Status Reason Start Date Expiration Date V isits Requested Visits Authorized [id number] Closed Auto-Generate d Referral 08/23/2023 09/21/2024 1 1 Reason Comments Title I Director - Other Symptoms Reason Comments Established Patient Reason Comments avs Reason Comments Established Patient Melanoma follow up Reason Comments Radiology CT Specialty Diagnoses / Procedures Referred By Contac t Referred To Contact CT IMAGING Diagnoses Lung nodules Procedures CT CHEST WO IVCON DIAGNOSTIC COMPUTED TOMOGRAPHY THORAX W/[place] [address] [place] [address] [place] [address] Referral ID Status Reason Start Date Expiration Date V isits Requested Visits Authorized [id number] Closed Auto-Generate d Referral 12/06/2023 11/02/2024 1 1 Reason Comments Results Reason Comments Appointment Reason Onset Date Comments Refill Request 01/24/2024 Reason Comments Patient Update Reason Onset Date Comments Refill Request 02/04/2024 Reason Comments Refill Request Reason Comments Follow Up Melanoma of Back Reason Comments Follow Up Reason Comments Established Patient Reason Comments 07/05/24 AVS Specialty Diagnoses / Procedures Referred By Letty t Referred To Contact CT IMAGING Diagnoses Malignant melanoma of skin (HCC) Procedures CT CHEST W IVCON DIAGNOSTIC COMPUTED TOMOGRAPHY THORAX W/[place] Sd [place] [address] [address] [place] [phone] Phone: tel: fax: [facility] IM[facility] [place] [address] Referral ID Status Reason Start Date Expiration Date V isits Requested Visits Authorized [id number] Closed Auto-Generate d Referral 07/05/2024 08/04/2025 1 1 Reason Comments Orders Referral ID Status Reason Start Date Expiration Date V isits Requested Visits Authorized [id number] Closed Auto-Generate d Referral 11/07/2024 12/07/2025 1 1 Care Teams (unrecognized sec tion and content) Accounting Auditor Relationship Specialty Start Date End Date Dustin Thurston MD [address] [facility] [place] [place] [address] PCP - General 07/08/09 Accounting Auditor Relationship Specialty Start Date End Date Dustin Thurston MD [address] [facility] [place] [address] PCP - General 07/08/09 Accounting Auditor Relationship Specialty Start Date End Date Dustin Thurston MD [address] [place] [address] PCP - General 07/08/09 Accounting Auditor Relationship Specialty Start Date End Date Dustin Thurston MD [address] [place] [address] PCP - General 07/08/09 Accounting Auditor Relationship Specialty Start Date End Date Dustin Thurston MD [address] [place] [address] PCP - General 07/08/09 Accounting Auditor Relationship Specialty Start Date End Date Dustin Thurston MD [address] [place], [place] [id number] PCP - General 07/08/09 Team Status: Active Member Role Status Dates Dr. Adan Thurston MD Family Provider Active Dr. Adan Thurston MD Primary Care Provider Activ e Team Status: Inactive Member Role Status Dates Dr. Adan Thurston MD Primary Care Provider, Atte deing Provider Active Accounting Auditor Relationship Specialty Start Date End Date Dustin Thurston MD [address] [place] [address] PCP - General 07/08/09 Sd Saldaña MD [address] [place] [address] Hematology/Oncology 08/23/23 Becky Gastelum, CHELE [address] [place] [address] Specialty Title I Director Hematology/Oncology 09/11/23 Accounting Auditor Relationship Specialty Start Date End Date Dustin Thurston MD [address] [place] [address] PCP - General 07/08/09 Sd Saldaña MD [address] [place] [address] Hematology/Oncology 08/23/23 Becky Gastelum, CHELE [address] [place] [address] Specialty Title I Director Hematology/Oncology 09/11/23 Accounting Auditor Relationship Specialty Start Date End Date Dustin Thurston MD [address] [place] [address] PCP - General 07/08/09 Sd Saldaña MD [address] [place] [address] Hematology/Oncology 08/23/23 Becky Gastelum RN [address] [place] [address] Specialty Title I Director Hematology/Oncology 09/11/23 Accounting Auditor Relationship Specialty Start Date End Date Dustin Thurston MD [address] [place] [address] PCP - General 07/08/09 Sd Saldaña MD [address] [place] [address] Hematology/Oncology 08/23/23 Becky Gastelum, CHELE [address] [place] [address] Specialty Title I Director Hematology/Oncology 09/11/23 Accounting Auditor Relationship Specialty Start Date End Date Dustin Thurston MD [address] [place] [address] PCP - General 07/08/09 Sd Saldaña MD [address] [place] [address] Hematology/Oncology 08/23/23 Becky Gastelum, CHELE [address] [place] [address] Specialty Title I Director Hematology/Oncology 09/11/23 Accounting Auditor Relationship Specialty Start Date End Date Dustin Thurston MD [address] [place] [address] PCP - General 07/08/09 Sd Saldaña MD [address] [place] [address] Hematology/Oncology 08/23/23 Becky Gastelum, CHELE [address] [place] [address] Specialty Title I Director Hematology/Oncology 09/11/23 Accounting Auditor Relationship Specialty Start Date End Date Dustin Thurston MD [address] [place] [address] PCP - General 07/08/09 Sd Saldaña MD [address] [place] [address] Hematology/Oncology 08/23/23 Becky Gastelum, CHELE [address] [place] [address] Specialty Title I Director Hematology/Oncology 09/11/23 Accounting Auditor Relationship Specialty Start Date End Date Dustin Thurston MD [address] [place] [address] PCP - General 07/08/09 Sd Saldaña MD [address] [place] [address] Hematology/Oncology 08/23/23 Becky Gastelum, CHELE [address] [place] [address] Specialty Title I Director Hematology/Oncology 09/11/23 Accounting Auditor Relationship Specialty Start Date End Date Dustin Thurston MD [address] [place] [address] PCP - General 07/08/09 Sd Saldaña MD [address] [place] [address] Hematology/Oncology 08/23/23 Becky Gastelum, CHELE [address] [place] [address] Specialty Title I Director Hematology/Oncology 09/11/23 Accounting Auditor Relationship Specialty Start Date End Date Dustin Thurston MD [address] [place] [address] PCP - General 07/08/09 Sd Saldaña MD [address] [place] [address] Hematology/Oncology 08/23/23 Becky Gastelum, RN [address] [place] [address] Specialty Title I Director Hematology/Oncology 09/11/23 Accounting Auditor Relationship Specialty Start Date End Date Dustin Thurston MD [address] [place] [address] PCP - General 07/08/09 Sd Saldaña MD [address] [place] [address] Hematology/Oncology 08/23/23 Becky Gastelum RN [address] [place] [address] Specialty Title I Director Hematology/Oncology 09/11/23 Accounting Auditor Relationship Specialty Start Date End Date Dustin Thurston MD [address] [place] [address] PCP - General 07/08/09 Sd Saldaña MD [address] [place] [address] Hematology/Oncology 08/23/23 Becky Gastelum RN [address] [place] [address] Specialty Title I Director Hematology/Oncology 09/11/23 Accounting Auditor Relationship Specialty Start Date End Date Dustin Thurston MD [address] [place] [address] PCP - General 07/08/09 Sd Saldaña MD [address] [place] [address] Hematology/Oncology 08/23/23 Becky Gastelum, CHELE [address] [place] [address] Specialty Title I Director Hematology/Oncology 09/11/23 Accounting Auditor Relationship Specialty Start Date End Date Dustin Thurston MD [address] [place] [address] PCP - General Family Medicine 04/12/24 Sd Saldaña MD [address] [place] [address] Hematology/Oncology 08/23/23 Becky Gastelum RN [address] [place] [address] Specialty Title I Director Hematology/Oncology 09/11/23 Remi Aguilar MD [address] [place] [address] General Surgery 04/12/24 Accounting Auditor Relationship Specialty Start Date End Date Dustin Thurston MD [address] [place] [address] PCP - General Family Medicine 04/12/24 Sd Saldaña MD [address] [place] [address] Hematology/Oncology 08/23/23 Becky Gastelum, CHELE [address] [place] [address] Specialty Title I Director Hematology/Oncology 09/11/23 Remi Aguilar MD [address] [place] [address] General Surgery 04/12/24 Accounting Auditor Relationship Specialty Start Date End Date Dustin Thurston MD [address] [place] [address] PCP - General Family Medicine 04/12/24 Sd Saldaña MD [address] [place] [address] Hematology/Oncology 08/23/23 Becky Gastelum, CHELE [address] [place] [address] Specialty Title I Director Hematology/Oncology 09/11/23 Remi Aguilar MD [address] [facility] [place] [address] General Surgery 04/12/24 Accounting Auditor Relationship Specialty Start Date End Date Dustin Thurston MD [address] [place] [address] PCP - General Family Medicine 04/12/24 Sd Saldaña MD [address] [place] [address] Hematology/Oncology 08/23/23 Becky Gastelum, CHELE [address] [place] [address] Specialty Title I Director Hematology/Oncology 09/11/23 Remi Aguilar MD [address] [facility] [place] [place] [id number] General Surgery 04/12/24 Accounting Auditor Relationship Specialty Start Date End Date Dustin Thurston MD [address] [place] [address] PCP - General Family Medicine 04/12/24 Sd Saldaña MD [address] [place] [address] Hematology/Oncology 08/23/23 Becky Gastelum, CHELE [address] [place] [address] Specialty Title I Director Hematology/Oncology 09/11/23 Remi Aguilar MD [address] [facility] [address] [place], [place] [id number] General Surgery 04/12/24 Accounting Auditor Relationship Specialty Start Date End Date Dustin Thurston MD [address] [place] [address] PCP - General Family Medicine 04/12/24 Sd Saldaña MD [address] [place] [address] Hematology/Oncology 08/23/23 Becky Gastelum RN [address] [place] [address] Specialty Title I Director Hematology/Oncology 09/11/23 Remi Aguilar MD [address] [place], [place] [id number] General Surgery 04/12/24 Accounting Auditor Relationship Specialty Start Date End Date Dustin Thurston MD [address] [place] [address] PCP - General Family Medicine 04/12/24 Sd Saldaña MD [address] [place] [address] Hematology/Oncology 08/23/23 Becky Gastelum, RN [address] [place] [address] Specialty Title I Director Hematology/Oncology 09/11/23 Remi Aguilar MD [address] [place] [address] General Surgery 04/12/24 Accounting Auditor Relationship Specialty Start Date End Date Dustin Thurston MD [address] [place] [address] PCP - General Family Medicine 04/12/24 Sd Saldaña MD [address] [place] [address] Hematology/Oncology 08/23/23 Becky Gastelum, CHELE [address] [place] [address] Specialty Title I Director Hematology/Oncology 09/11/23 Remi Aguilar MD [address] [place] [address] General Surgery 04/12/24 Accounting Auditor Relationship Specialty Start Date End Date Dustin Thurston MD [address] [place] [address] PCP - General Family Medicine 04/12/24 Sd Saldaña MD [address] [place] [address] Hematology/Oncology 08/23/23 Becky Gastelum, CHELE [address] [place] [address] Specialty Title I Director Hematology/Oncology 09/11/23 Remi Aguilar MD [facility] [place] [id number] [phone] General Surgery 04/12/24 Accounting Auditor Relationship Specialty Start Date End Date Dustin Thurston MD [address] [place] [address] PCP - General Family Medicine 04/12/24 Sd Saldaña MD [address] [place] [address] Hematology/Oncology 08/23/23 Becky Gastelum RN [address] [place] [address] Specialty Title I Director Hematology/Oncology 09/11/23 Remi Aguilar MD [address] [facility] [place] [address] General Surgery 04/12/24 Accounting Auditor Relationship Specialty Start Date End Date Dustin Thurston MD [address] [place] [address] PCP - General Family Medicine 04/12/24 Sd Saldaña MD [address] [place] [address] Hematology/Oncology 08/23/23 Becky Gastelum, CHELE [address] [place] [address] Specialty Title I Director Hematology/Oncology 09/11/23 Remi Aguilar MD [address] [facility] [place] [address] General Surgery 04/12/24 Accounting Auditor Relationship Specialty Start Date End Date Dustin Thurston MD [address] [place] [address] PCP - General Family Medicine 04/12/24 Sd Saldaña MD [address] [place] [address] Hematology/Oncology 08/23/23 Becky Gastelum RN [address] [place] [address] Specialty Title I Director Hematology/Oncology 09/11/23 Remi Aguilar MD [address] [facility] [place] [address] General Surgery 04/12/24 Accounting Auditor Relationship Specialty Start Date End Date Dustin Thurston MD [address] [place] [address] PCP - General Family Medicine 04/12/24 Sd Saldaña MD [address] [place] [address] Hematology/Oncology 08/23/23 Becky Gastelum RN [address] [place] [address] Specialty Title I Director Hematology/Oncology 09/11/23 Remi Aguilar MD [address] [place], [place] [id number] General Surgery 04/12/24 Accounting Auditor Relationship Specialty Start Date End Date Dustin Thurston MD [address] [place] [address] PCP - General Family Medicine 04/12/24 Sd Saldaña MD [address] [place] [address] Hematology/Oncology 08/23/23 Becky Gastelum, CHELE [address] [place] [address] Specialty Title I Director Hematology/Oncology 09/11/23 Remi Aguilar MD [address] [place] [address] General Surgery 04/12/24 Accounting Auditor Relationship Specialty Start Date End Date Dustin Thurston MD [address] [place] [address] PCP - General Family Medicine 04/12/24 Sd Saldaña MD [address] [place] [address] Hematology/Oncology 08/23/23 Becky Gastelum, CHELE [address] [place] [address] Specialty Title I Director Hematology/Oncology 09/11/23 Remi Aguilar MD [address] [place], [place] [id number] General Surgery 04/12/24 Scheduled Active and Recently Administ ered Medications (unrecognized section and content) Medication Order 07/26/2023 07/27/2023 07/28/2023 acetaminophen 975 mg tab(s) (TYLENOL) (COMPLETED) 975 mg, ORAL, PRE-OP ONCE, 1 dose, On Mon07/28/23 at 1300, If ordered PRN for pain, patient/guardian may elect to receive this medication for higher pain levels INSTEAD of the opioid, if preferred: Yes, Preprocedure 1003 (Given - Provid er: Rashmi Mckeon RN) ceFAZolin iv piggyback 2 g in D5W (iso-osmotic) 100 mL (ANCEF) (COMPLETED) 2 g, INTRAVENOUS, at 200 mL/hr, Administer over 30 Minutes, PRE-OP ONCE, 1 dose, On Mon07/28/23 at 1300, General Cases PRE-OP ANTIBIOTIC ADMINISTER ONLY IN SURGICAL AREA DO NOT ADMINSTER ON THE FLOOR Refrigerate, Antimicrobial indication: Prophylaxis, Preprocedure 1504 (Given - Provid er: Keily Fitzgerald, GERIATRIC CASE MANAGER.NAVAL AIRCREWMAN OPERATOR) celecoxib 400 mg cap(s) (CeleBREX) (COMPLETED) 400 mg, ORAL, PRE-OP ONCE, 1 dose, On Mon07/28/23 at 1300, Preprocedure 1003 (Given - Provid er: Rashmi Mckeon RN) enoxaparin 40 mg injection (LOVENOX) (COMPLETED) 40 mg, SUBCUTANEOUS, ONCE, 1 dose, On Mon07/28/23 at 1300, ADMINISTER IN PRE-OP AREA Day of Surgery Pre Op Order, Preprocedure 1003 (Given - Provid er: Rashmi Mckeon RN) ondansetron (PF) 4 mg injection (ZOFRAN) (COMPLETED) 4 mg, INTRAVENOUS, ONCE, 1 dose, On Mon07/28/23 at 1900, Give IV push over 2 minutes, Recovery or Phase I (only) 6722 (Given - Provid er: Yuliet Cai RN) Continuous Medication Order 07/26/2023 07/27/2023 07/28/2023 lactated [...] PRN, Starting on Mon07/28/23 at 1526, Until Mon07/28/23 at 1805, Intraprocedure 1526 (Given - Provid er: Remi Aguilar MD - Comment: SQ INFILTRATAION, UPPER BACK [...] 1805, Intraprocedure 1543 (Given - Provid er: Remi Aguilar MD - Comment: SQ INFILTRATION UPPER BACK SKIN) INFORMATION SOURCE (unrecogn ized section and content) DATE CREATED AUTHOR 08/27/2023 [facility] DATE CREATED AUTHOR AUTHOR'S ORGANIZ ATION 02/27/2024 [facility] DATE CREATED AUTHOR AUTHOR'S ORGANIZ ATION 05/17/2025 [facility] Goals (unrecognized section and content) Goals may be documented in a n alternate section Inactive Administered Medications - up to 3 most recent administrations Administered Medications (un recognized section and content) Medication Order MAR Action Action Date Dose Rate Site pembrolizumab 200 mg in NaCl 0.9% 66 mL (KEYTRUDA) 200 mg, INTRAVENOUS, Administer over 30 Minutes, ONCE, 1 dose, On Mon10/09/23 at 1000, Approx Total Volume exp 159910/09/23 (room temp) Administer with 0.2 micron filter. New Bag/Syringe/Bottle 10/09/2023 10:06 AM EST 200 mg 132 mL/hr Inactive Administered Medications - up to 3 most recent administrations Medication Order MAR Action Action Date Dose Rate Site pembrolizumab 200 mg in NaCl 0.9% 66 mL (KEYTRUDA) 200 mg, INTRAVENOUS, Administer over 30 Minutes, ONCE, 1 dose, On Mon10/30/23 at 0930, exp 92911/03/23 (room temp) Administer with 0.2 micron filter. New Bag/Syringe/Bottle 10/30/2023 9:53 AM EST 200 mg Inactive Administered Medications - up to 3 most recent administrations Medication Order MAR Action Action Date Dose Rate Site pembrolizumab 200 mg in NaCl 0.9% 66 mL (KEYTRUDA) 200 mg, INTRAVENOUS, Administer over 30 Minutes, ONCE, 1 dose, On Mon11/20/23 at 0930, Approx [place] exp 92911/24/23 (room temp) Administer with 0.2 micron filter. New Bag/Syringe/Bottle 11/20/2023 9:35 AM EDT 200 mg Inactive Administered Medications - up to 3 most recent administrations Medication Order MAR Action Action Date Dose Rate Site pembrolizumab 200 mg in NaCl 0.9% 66 mL (KEYTRUDA) 200 mg, INTRAVENOUS, Administer over 30 Minutes, ONCE, 1 dose, On 12/11/23 at 0930, Approx Total Volume - Expires: 12/11/23 @ 1530 Administer with 0.2 micron filter. New Bag/Syringe/Bottle 12/11/2023 9:41 AM EDT 200 mg FOR RECORDS PERTAINING TO PATIENTS WHO ARE [...] BE BASED ON THE PRIMARY CLINICAL RECORDS. [employer] provides no warranty or guarantee of the accuracy or completeness of information in this document.
[2025-06-20 11:10] LABS: AST(SGOT) 18 U/L (<=31); Alanine Aminotransfer ALT/SGPT 18 U/L (<=34); Albumin, Serum 4.1 g/dL (3.4-4.8); Alkaline Phosphatase 67 U/L (35-104); Anion Gap 11 (5-15); BUN 30 mg/dL (4-19); BUN/Creat Ratio 40.9 RATIO (10-20); Calcium,Total 9.4 mg/dL (7.6-11.0); Carbon Dioxide 28.3 mmol/L (21.0-32.0); Chloride 102 mmol/L (98-108); Cholesterol 239 mg/dL (<=200); Globulin 3.1 g/dL (2.2-4.2); Glucose 82 mg/dL (70-99); Low Density Lipoprotein Calc. 168 mg/dL; Potassium 4.1 mmol/L (3.3-5.1); Triglycerides 116 mg/dL; Very Low Density Lipoprotein 23 mg/dL (5-40); cholesterol:hdl ratio screen 4.72
== END | disposition home or self-care (01) ==
LOC: MTLAB 07:19
PROVIDERS: PCP Family Medicine; Referring Provider Family Medicine; Visit Provider Family Medicine
DX: I10 Essential (primary) hypertension (principal); E05.90 Thyrotoxicosis, unspecified without thyrotoxic crisis or storm
CPT/HCPCS: 36415; 80053; 80061; 84439; 84443